=== PATIENT | male | born 1965 | race Caucasian/White ===

== ENCOUNTER 2020-02-21 11:02 | Emergency (ER) | payer MEDICARE, SELFPAY ==
[2020-02-21] VITALS (40 sets, daily range): BP systolic 81–116; BP diastolic 41–61; PULSE 85–97; RESP 16–24; TEMP 36.4–37.1; O2SAT 95–100; BMI 27.5
--- NOTE | 2020-02-21 11:50 | CT_ITS ---
WS: [id number] CT abdomen pelvis wo con [id number] REASON FOR EXAM: cirrhosis, anasarca, abdominal pain IV CONTRAST ADMINISTERED: None. TOTAL EXAM DLP: 1613.[address] scans at [facility] use at least one of these dose optimization techniques: automat ed exposure control; mA and/or kV adjustment per patient size (includes targeted exams where dose is matched to clinical indication); or iterative reconstruction. FINDINGS: Bilateral pleural effusion. in the liver is a hypodense irregular lesion. A stent is seen in the area of this lesion. The gallbladder shows multiple calcified stones. The spleen is enlarged measures 19 cm small amount of fluid is seen surrounding the liver. The liver small slightly irregular. The pancreas is normal. The aorta inferior vena cava are normal. A prominent caudate lobe is seen in the liver. The kidneys show normal appearance a cyst in the right kidney measures 2.52 cm. The left kidney was normal. The aorta inferior vena cava are normal. The small bowel shows mild ileus changes. Small amount of ascites is seen scattered throughout the abdomen. The right colon was normal appendix not distended. A Birch catheter seen in the urinary bladder. There is a left inguinal hernia with fat in the hernia. There is soft tissue edema seen in the subcutaneous region. . IMPRESSION: Suspect anasarca Cirrhosis of the liver Cyst in the liver with a shunt near the cyst Left-sided inguinal hernia no bowel in the hernia Left renal cyst Bilateral pleural effusion Multiple cholelithiasis. Small amount of ascites in the abdomen. Bilateral pleural effusion.
--- NOTE | 2020-02-21 12:14 | ED_ITS ---
HPI - Weakness General: Chief complaint: Weakness Stated complaint: swelling/sent from [facility] Time Seen by Provider: 02/21/20 11:32 Source: patient Mode of arrival: ambulatory Limitations: no limitations History of Present Illness: HPI Narrative: Patient is a 54-year-old gentleman with a history of alcoholic cirrhosis status post TIPS in 2017. He stated that since the procedure he has done really well and has not had any significant swelling. In the last 2 to 3 days he did notice increased leg swelling up to his thighs and some abdominal swelling. He has also become oliguric and has produced only about 3 ounces of urine in the last 24 hours. He denies any fever, nausea or vomiting. No change in his bowel habits. MD Complaint: generalized weakness Onset (ago): day(s) (2) Duration: constant Location: generalized Associated symptoms: Denies chills, dysuria, fever(s), headache(s), nausea or vomiting Review of Systems General: Reports: 10 or more systems reviewed and unremarkable except in HPI and below Const: Reports: fatigue; Denies: fever(s), chills or body aches Eyes: Denies: change in vision or blurry vision ENMT: Denies: throat pain, enlarged tonsils, odynophagia, hoarseness, mouth pain or swelling of lips/tongue Card: Denies: palpitations, irregular heart rhythm, edema or swelling of feet/ankles Resp: Denies: dyspnea, productive cough or non-productive cough GI: Reports: abdominal pain; Denies: nausea or vomiting : Denies: flank pain, dysuria, urinary frequency, urinary urgency or urinary hesitancy Musc: Reports: extremity swelling; Denies: neck pain or back pain Skin/Breast: Denies: rash, pruritus or erythema Neuro: Denies: headache(s), numbness in extremities or weakness in extremities Endo: Denies: polyuria, polydipsia or tired all the time PFSH ED PFSH: Social History Smoking and tobacco status: never smoked Physical Exam Const: COMMON NORMALS: no acute distress, average body habitus, patient oriented x3, no limitations, healthy appearing, alert and well nourished HENMT: COMMON NORMALS: normocephalic, atraumatic and moist oral mucous membranes HEAD & SCALP: normocephalic and atraumatic Eye: COMMON NORMALS: Equal, round and reactive pupils present, EOMs intact bilaterally, conjunctivae normal and no scleral icterus CONJUNCTIVA: Yes conjunctivae normal PUPIL: Yes Equal, round and reactive pupils present Neck/C-Spine: COMMON NORMALS: full ROM, supple, no meningeal signs, no JVD and No carotid bruits Chest: COMMONS NORMALS: normal inspection of the chest and normal palpation of entire chest wall Resp: COMMON NORMALS: normal respiratory effort, No retractions, No use of accessory muscles, clear to auscultation bilaterally and percussion normal AUSCULTATION: clear to auscultation bilaterally PERCUSSION: percussion normal Cardio: COMMON NORMALS: no JVD, regular rate, regular rhythm, S1 normal heart sound present, S2 normal heart sound present, No gallops present (Cardio), No clicks present (Cardio), No murmurs present (Cardio), No rub (Cardio) and Peripheral pulses 2+ throughout RATE: regular rate RHYTHM: regular rhythm HEART SOUNDS: S1 normal heart sound present and S2 normal heart sound present PERIPHERAL PULSES: Peripheral pulses 2+ throughout GI: COMMON NORMALS: Soft to palpation, non-tender, No hepatosplenomegaly present, no masses and no bruits INSPECTION: Yes abdominal distension (mild) PALPATION: Yes Soft to palpation and Yes No hepatosplenomegaly present : COMMON NORMALS: Yes no CVA tenderness BLADDER/KIDNEY EXAM: Yes no CVA tenderness Back/Pelvis: COMMON NORMALS: no CVA tenderness Extremity: COMMON NORMALS: normal to inspection, full ROM, capillary refill normal, no calf tenderness and no pedal edema GENERAL: Yes edema (4+ bilat eral pitting edema up to thigh) Neuro: COMMON NORMALS: patient oriented x3 SENSORIUM/ORIENTATION: Yes alert MENINGEAL SIGNS: Yes no meningeal signs Skin: COMMON NORMALS: no rashes or lesions noted, no wounds, turgor normal, no petechiae and no mottling GENERAL SKIN EXAM: no rashes or lesions noted, turgor normal and jaundice Course Reevaluation(s): Reevaluation #1: Discussed his lab and imaging findings with him. Informed him that he is pretty ill and will need to be transferred to [place] where he had his initial surgery done. He will need blood transfusion, antibiotics and will be transferred. The patient voiced understanding and is in agreement with the plan. Time: 16:10 Consultations: Consultation #1: Called [facility] to get his transferred. They will call back. Time: 16:18 Consultation #2: Dr. 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 He kindly accepted the patient but is not sure when there will be a bed. Time: 16:49 Vital Signs: Vital signs: Vital Signs Temperature 98.0 F 02/21/20 23:04 Pulse Rate 90 02/21/20 23:57 Respiratory Rate 19 H 02/21/20 23:57 Blood Pressure 94/48 02/21/20 23:57 Pulse Oximetry 96 02/21/20 23:57 MDM - Weakness MDM Narrative: Medical decision making narrative: 54-year-old gentleman with liver cirrhosis who presents to the emergency department with increasing leg swelling. And leg pain. Evaluation in the emergency department shows the patient is severely anemic requiring blood transfusion, in acute renal failure, with lactic acidosis although no obvious source of infection is noted. He had had a TIPS procedure done in [place] and he will be transferred there. He will be admitted to the ICU. While he was in the emergency department his blood pressure was declining and he required pressors eventually. Medical Records: Attestation: I reviewed the patient's medical records. Lab Data: Attestation: I reviewed the patient's lab results. Labs: Lab Results 02/21/20 02/21/20 02/21/20 Range/Units 12:30 12:30 12:30 WBC 11.4 H (4.0-10.0) 10^3/ uL RBC 3.04 L (4.1-5.3) 10^6/u L Hgb 6.1 L* (11.7-16.6) g/dL Hct 23.0 L (42.0-52.0) % MCV 75.7 L (80-94) fL MCH 20.1 L (28.0-34.0) pg MCHC 26.5 L (30.0-36.0) g/dL RDW 19.9 H (12.1-15.1) % Plt Count 88 L (130-400) 10^3/c mm MPV Button Clamper Nucleated RBC % (a uto) 0 % Nucleated RBCs # 0.0 /100WBC Sodium 130 L (136-145) mmol/L Potassium 4.3 (3.5-5.1) mmol/L Chloride 97 L (98-107) mmol/L Carbon Dioxide 12 L (22-29) mmol/L Anion Gap 25.3 H (5-19) BUN 37 H (6-20) mg/dL Creatinine 2.8 H (0.7-1.2) mg/dL GFR Calculation 23.6 L (90-130) mL/min Glucose 108 (65-115) mg/dL Calculated Osmolal ity 268 L (285-295) mOsm/k g Lactate 7.4 H* (0.5-2.2) mmol/L Calcium 7.9 L (8.5-10.5) mg/dL Total Bilirubin 3.5 H (0.15-1.2) mg/dL AST 52 H (0-40) U/L ALT 22 (0-41) U/L Alkaline Phosphata se 50 (40-130) IU/L Total Protein 5.3 L (6.6-8.7) g/dL Albumin 2.9 L (3.5-5.2) g/dL Globulin 2.4 (1.3-4.6) g/dL Lipase 15 (13-60) U/L Urine Color (Yellow) Urine Appearance (CLEAR) Urine pH (5-7) Ur Specific Gravit y (1.005-1.030) Urine Protein (Negative) Urine Glucose (UA) (Normal) Urine Ketones (Negative) Urine Blood (Negative) Urine Nitrate (Negative) Urine Bilirubin (NEGATIVE) Urine Urobilinogen (Negative) mg/dL Ur Leukocyte Christina ase (Negative) Urine RBC (0-2) /hpf Urine WBC (0-5) /hpf Ur Squamous Epith Cells (0-5) Amorphous Sediment Urine Bacteria (NONE) Hyaline Casts Urine Mucus Blood Type Rho(D) Type Antibody Screen Crossmatch 02/21/20 02/21/20 Range/Units 13:10 14:24 WBC (4.0-10.0) 10^3/ uL RBC (4.1-5.3) 10^6/u L Hgb (11.7-16.6) g/dL Hct (42.0-52.0) % MCV (80-94) fL MCH (28.0-34.0) pg MCHC (30.0-36.0) g/dL RDW (12.1-15.1) % Plt Count (130-400) 10^3/c mm MPV Nucleated RBC % (a uto) % Nucleated RBCs # /100WBC Sodium (136-145) mmol/L Potassium (3.5-5.1) mmol/L Chloride (98-107) mmol/L Carbon Dioxide (22-29) mmol/L Anion Gap (5-19) BUN (6-20) mg/dL Creatinine (0.7-1.2) mg/dL GFR Calculation (90-130) mL/min Glucose (65-115) mg/dL Calculated Osmolal ity (285-295) mOsm/k g Lactate (0.5-2.2) mmol/L Calcium (8.5-10.5) mg/dL Total Bilirubin (0.15-1.2) mg/dL AST (0-40) U/L ALT (0-41) U/L Alkaline Phosphata se (40-130) IU/L Total Protein (6.6-8.7) g/dL Albumin (3.5-5.2) g/dL Globulin (1.3-4.6) g/dL Lipase (13-60) U/L Urine Color Yellow (Yellow) Urine Appearance Sl cloudy A (CLEAR) Urine pH 5 (5-7) Ur Specific Gravit y 1.015 (1.005-1.030) Urine Protein Neg (Negative) Urine Glucose (UA) Norm (Normal) Urine Ketones Negative (Negative) Urine Blood 2+ H (Negative) Urine Nitrate Negative (Negative) Urine Bilirubin Neg (NEGATIVE) Urine Urobilinogen Neg (Negative) mg/dL Ur Leukocyte Christina ase Negative (Negative) Urine RBC 0-4 H (0-2) /hpf Urine WBC 15-25 H (0-5) /hpf Ur Squamous Epith Cells 0-4 H (0-5) Amorphous Sediment 1+ Urine Bacteria 1+ H (NONE) Hyaline Casts 5-10 H Urine Mucus 1+ Blood Type B Positive Rho(D) Type Positive Antibody Screen Negative Crossmatch See Detail Imaging Data^: CT Abd/Pel: Radiologist's impression: [address] [place] [address] CT Scan Report Signed Patient: Kyle Conde #: [id number] : 1965Acct#:[id number] Age/Sex: 54 / MADM Date: 02/21/20 Loc: ERRoom/Bed: Attending Dr: Ordering Provider/Ordering MD: Carlos Hatch MD, [facility] [place] Date of Service: 02/21/20 Procedure(s): CT abdomen pelvis wo con [id number] Accession Number(s): [id number] Report Number: [id number] WS: [id number] CT abdomen pelvis wo con [id number] REASON FOR EXAM: cirrhosis, anasarca, abdominal pain IV CONTRAST ADMINISTERED: None. TOTAL EXAM DLP: 1613.[address] scans at [facility] use at least one of these dose optimization techniques: automated exposure control; mA and/or kV adjustment per patient size (includes targeted exams where dose is matched to clinical indication); or iterative reconstruction. FINDINGS: Bilateral pleural effusion. in the liver is a hypodense irregular lesion. A stent is seen in the area of this lesion. The gallbladder shows multiple calcified stones. The spleen is enlarged measures 19 cm small amount of fluid is seen surrounding the liver. The liver small slightly irregular. The pancreas is normal. The aorta inferior vena cava are normal. A prominent caudate lobe is seen in the liver. The kidneys show normal appearance a cyst in the right kidney measures 2.52 cm. The left kidney was normal. The aorta inferior vena cava are normal. The small bowel shows mild ileus changes. Small amount of ascites is seen scattered throughout the abdomen. The right colon was normal appendix not distended. A Birch catheter seen in the urinary bladder. There is a left inguinal hernia with fat in the hernia. There is soft tissue edema seen in the subcutaneous region. . IMPRESSION: Suspect anasarca Cirrhosis of the liver Cyst in the liver with a shunt near the cyst Left-sided inguinal hernia no bowel in the hernia Left renal cyst Bilateral pleural effusion Multiple cholelithiasis. Small amount of ascites in the abdomen. Bilateral pleural effusion. Dictated By:Liam Howard DO Signed By:Liam Howard DOSigned Date/Time:02/21/20 1348 DD/ 1339 Critical Care Time Critical Care Time: Critical Care Time: Yes Total Critical Care Time: 50 Attestation: This case had a high probability of a clinically significant, sudden, or life threatening deterioration of this patient's condition which required my full and direct attention, intervention and personal management. Discharge Plan Discharge Patient Disposition: Xfer Short-Term Hosp Clinical Impression: Acidosis, lactic Acute renal failure Qualifiers: Acute renal failure type: unspecified Qualified Code(s): N17.9 - Acute kidney failure, unspecified Anemia Qualifiers: Anemia type: unspecified type Qualified Code(s): D64.9 - Anemia, unspecified Sepsis Qualifiers: Sepsis type: sepsis due to unspecified organism Sepsis acute organ dysfunction status: with acute organ dysfunction Severe sepsis acute organ dysfunction type: acute renal failure Acute renal failure type: unspecified Severe sepsis shock status: with septic shock Qualified Code(s): A41.9 - Sepsis, unspecified organism Condition: Stable Referrals: Manny Guzman DO [Family Provider] - Coding Level of Care Code ED 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
[2020-02-21 12:53] LABS: Mean Corpuscular HGB Conc 26.5 g/dL (30.0-36.0); Mean Corpuscular Hemoglobin 20.1 pg (28.0-34.0); Mean Corpuscular Volume 75.7 fL (80-94); Nucleated Red Blood Cells % 0 %; Platelet Count 88 10^3/cmm (130-400); Red Blood Count 3.04 10^6/uL (4.1-5.3); Red Cell Distribution Width 19.9 % (12.1-15.1); White Blood Count 11.4 10^3/uL (4.0-10.0)
[2020-02-21 12:56] LABS: Alanine Aminotransferase 22 U/L (0-41); Albumin Level 2.9 g/dL (3.5-5.2); Alkaline Phosphatase 50 IU/L (40-130); Anion Gap 25.3 (5-19); Aspartate Amino Transferase 52 U/L (0-40); Blood Urea Nitrogen 37 mg/dL (6-20); Calcium 7.9 mg/dL (8.5-10.5); Carbon Dioxide 12 mmol/L (22-29); Chloride 97 mmol/L (98-107); Globulin 2.4 g/dL (1.3-4.6); Glomerular Filtration Rate 23.6 mL/min (90-130); Glucose 108 mg/dL (65-115); Lipase 15 U/L (13-60); Osmolality Calculated 268 mOsm/kg (285-295); Potassium 4.3 mmol/L (3.5-5.1); Sodium 130 mmol/L (136-145); Total Bilirubin 3.5 mg/dL (0.15-1.2); Total Protein 5.3 g/dL (6.6-8.7)
[2020-02-21 13:20] LABS: Hemoglobin 6.1 g/dL (11.7-16.6)
[2020-02-21 13:22] LABS: Slide Review Slide Review Perform
[2020-02-21 13:23] LABS: Lactate (Lactic Acid level) 7.4 mmol/L (0.5-2.2)
[2020-02-21 13:45] LABS: Protein Urine Neg (Negative); Specific Gravity, Urine 1.015 (1.005-1.030); Urine Color Yellow (Yellow); pH Urine 5 (5-7)
[2020-02-21 13:46] LABS: Add Urine Microscopic? YES; Bilirubin Urine Neg (NEGATIVE); Blood Urine 2+ (Negative); Glucose Urine UA Norm (Normal); Ketones Urine Negative (Negative); Leukocyte Esterase Urine Negative (Negative); Nitrate Urine Negative (Negative); Urobilinogen Urine Neg (Negative)
[2020-02-21 13:47] LABS: Bacteria Urine 1+; Mucus Urine 1+; RBC Urine 0-4 /hpf (0-2); Squamous Epithelial Cell Urine 0-4 (0-5); WBC Urine 15-25 /hpf (0-5)
[2020-02-21 13:48] LABS: Add Urine Culture? Yes; Amorphous Sediment Urine 1+
[2020-02-21] MEDS: sodium chloride 0.9% 500 ML IV ×3 (15:15→22:00)
[2020-02-21] MEDS: piperacillin-tazobactam 3.375 GM in sodium chloride 0.9% (plus) 50 ML IV (15:16)
--- NOTE | 2020-02-21 20:36 | PC.NURSE ---
pt. informed of pt. BP declining no orders recieved.
--- NOTE | 2020-02-21 20:37 | PC.NURSE ---
informed of pt. declining BP no orders recieved.
--- NOTE | 2020-02-21 22:05 | PC.NURSE ---
informed of low BP ordered recieved for 500 NS
--- NOTE | 2020-02-21 22:22 | PC.NURSE ---
pt. BP cont... to go down, the blood was stopped.
--- NOTE | 2020-02-21 23:02 | PC.NURSE ---
recieved orders for norepi gtt. I called pharmacy, they states they would bring it down
--- NOTE | 2020-02-21 23:41 | PC.NURSE ---
BP 87/58 norepi increased to 3mcg/min form 2mcg/min
[2020-02-22] VITALS (7 sets, daily range): BP systolic 95–116; BP diastolic 48–57; PULSE 76–91; RESP 15–24; O2SAT 95–99
--- NOTE | 2020-02-22 00:07 | PC.NURSE ---
care and report given to Otilio BOONE the charge nurse
[2020-02-22 02:01] LABS: Lactic Sepsis W/Reflex 5.8 mmol/L (0.5-2.2)
[2020-02-22 03:20] LABS: Reflex Lactate Order REFLEX LACTIC ORDERD
--- NOTE | 2020-02-22 04:59 | PC.NURSE ---
[facility] called and wanted update on the patient, I gave them updated labs and updated vitals, the nurse advised she is not sure when they will have a bed available but they have his name down and he would get one when they have available bed.
[2020-02-22 06:42] LABS: Basophils # 0.1 10^3/uL (0.0-0.1); Basophils % 0.5 %; Eosinophils # 0.1 10^3/uL (0.0-0.8); Eosinophils % 0.3 %; Hematocrit 28.9 % (42.0-52.0); Hemoglobin 8.1 g/dL (11.7-16.6); Lymphocytes # 0.2 10^3/uL (0.8-4.8); Lymphocytes % 0.9 %; Mean Corpuscular Hemoglobin 21.7 pg (28.0-34.0); Mean Corpuscular Volume 77.3 fL (80-94); Mean Platelet Volume 11.8 fL (7.4-10.4); Monocytes # 1.3 10^3/uL (0.2-0.9); Neutrophils % 90.1 %; Nucleated Red Blood Cells % 0 %; Platelet Count 109 10^3/cmm (130-400); Red Blood Count 3.74 10^6/uL (4.1-5.3); Red Cell Distribution Width 19.5 % (12.1-15.1)
[2020-02-22 06:50] LABS: INR 1.63 (0.8-1.2)
[2020-02-22 06:58] LABS: Alanine Aminotransferase 24 U/L (0-41); Albumin Level 2.7 g/dL (3.5-5.2); Alkaline Phosphatase 44 IU/L (40-130); Anion Gap 24.2 (5-19); Aspartate Amino Transferase 59 U/L (0-40); Blood Urea Nitrogen 48 mg/dL (6-20); Calcium 7.6 mg/dL (8.5-10.5); Carbon Dioxide 13 mmol/L (22-29); Chloride 97 mmol/L (98-107); Globulin 2.6 g/dL (1.3-4.6); Glomerular Filtration Rate 25.8 mL/min (90-130); Glucose 62 mg/dL (65-115); Osmolality Calculated 266 mOsm/kg (285-295); Potassium 4.2 mmol/L (3.5-5.1); Sodium 130 mmol/L (136-145); Total Protein 5.3 g/dL (6.6-8.7)
[2020-02-22 07:09] LABS: Total Bilirubin 7.4 mg/dL (0.15-1.2)
[2020-02-22 07:26] LABS: Lactate (Lactic Acid level) 5.3 mmol/L (0.5-2.2)
[2020-02-22] MEDS: piperacillin-tazobactam 3.375 GM in sodium chloride 0.9% (plus) 50 ML IV (09:02)
== END 2020-02-22 16:16 | disposition short-term general hospital (02) ==
PROVIDERS: Family Medicine; Emergency Provider Emergency Medicine; Family Provider Internal Medicine
DX: N17.9 Acute kidney failure, unspecified (principal); D64.9 Anemia, unspecified; A41.9 Sepsis, unspecified organism
CPT/HCPCS: 12345; 36415; 36430; 51702; 74176; 80053; 81001; 83605; 83690; 85025; 85610; 86850; 86900; 86920; 87040; 87077; 87086; 87186; 96365; 96366; 96367; 96368; 99284; 99285; J2543; J7040; P9016; P9047

== ENCOUNTER 2020-04-04 23:26 | Inpatient (IN) | payer MEDICARE, SELFPAY ==
--- NOTE | 2020-04-04 23:30 | CTR_ITS ---
PROCEDURE INFORMATION: Exam: CT Head Without Contrast Exam date and time: 04/04/2020 12:07 AM Age: 54 years old Clinical indication: Fever; Additional info: AMS TECHNIQUE: Imaging protocol: Computed tomography of the head without contrast. Radiation optimization: All CT scans at this facility use at least one of these dose optimization techniques: automated exposure control; mA and/or kV adjustment per patient size (includes targeted exams where dose is matched to clinical indication); or iterative reconstruction. COMPARISON: CT head wo con* [id number] 12/19/2018 6:53 PM RADIATION DOSE METRICS: Total DLP (mGy-cm): 873.99 FINDINGS: Brain: The brain is unremarkable. There is no mass effect or significant white matter disease. There is no acute intracranial hemorrhage. Ventricles: There is no significant ventricular dilation. The basal cisterns are unremarkable. Bones/joints: The calvarium is intact. Sinuses: The paranasal sinuses are clear. Mastoid air cells: The mastoid air cells are clear. Soft tissues: The visible extracranial soft tissues are unremarkable. CT/CT head wo con* [id number] IMPRESSION: No acute findings. Radiation Dose CTDIVOL = (mGy): DLP = 873.99 (mGy-cm)
--- NOTE | 2020-04-04 23:30 | XRR_ITS ---
PROCEDURE INFORMATION: Exam: XR Chest, 1 View Exam date and time: 04/04/2020 11:32 PM Age: 54 years old Clinical indication: Fever TECHNIQUE: Imaging protocol: XR of the chest Views: 1 view. COMPARISON: CR Chest 1 [place] [id number] 12/19/2018 6:14 PM FINDINGS: Lungs: There is no consolidation. Pleural space: There is no pleural effusion or pneumothorax. Heart/Mediastinum: There is mild enlargement of the cardiac silhouette. Bones/joints: Bones are unremarkable. XR/XR chest 1V portable [id number] IMPRESSION: No acute findings.
--- NOTE | 2020-04-04 23:31 | ECG_ITS ---
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 Measurements Intervals [place] Rate: 107 P: 40 SC: 187 QRS: 16 QRSD: 98 T: 65 QT: 293 QTc: 392 Interpretive Statements SINUS TACHYCARDIA NONSPECIFIC ST & T-WAVE ABNORMALITY ABNORMAL RHYTHM ECG Compared to ECG 12/20/2018 03:27:13 Sinus rhythm no longer present First degree AV block no longer present T-wave abnormality still present Electronically Signed On 04-05-2020 22:03:12 CDT by Edison Duenas M.D. [id number]
--- NOTE | 2020-04-04 23:32 | W.ED.AMS ---
HPI - Altered Mental Status General: Chief Complaint: Altered Mental Status Stated Complaint: AMS S/P FALL Time Seen by Provider: 04/04/20 23:27 Source: patient and EMS Mode of arrival: EMS Limitations: no limitations History of Present Illness: HPI narrative: 54-year-old male per EMS has been feeling weak all day. He does have a history of cirrhosis. Spouse states that he became altered roughly 1 hour ago. Patient here is able answer my questions and able to tell me the year along with his name. EMS states he was not able to do that 10 minutes ago. Patient was febrile with EMS. He denies any headache or neck pain. Patient denies any cough. Associated symptoms: Deny depression Review of Systems Const: Reports: fever(s) Eyes: Denies: blurry vision or eye discomfort ENMT: Denies: throat pain or dental pain Card: Denies: chest pain Resp: Denies: dyspnea GI: Denies: abdominal pain, nausea, vomiting or diarrhea : Denies: dysuria Musc: Denies: neck pain or back pain Skin/Breast: Denies: rash Neuro: Reports: weakness in extremities and confusion Psych: Denies: depression Patel/Lymph: Denies: easy bruising All/Imm: Denies: urticaria PFSH ED PFSH: Social History Smoking and tobacco status: never smoked Physical Exam Const: COMMON NORMALS: patient oriented x3 GENERAL APPEARANCE: ill appearing HENMT: COMMON NORMALS: normocephalic and atraumatic HEAD & SCALP: normocephalic and atraumatic Eye: COMMON NORMALS: Equal, round and reactive pupils present and EOMs intact bilaterally PUPIL: Yes Equal, round and reactive pupils present Neck/C-Spine: COMMON NORMALS: full ROM and supple Chest: COMMONS NORMALS: normal inspection of the chest and normal palpation of entire chest wall Resp: COMMON NORMALS: normal respiratory effort, No retractions, No use of accessory muscles and clear to auscultation bilaterally AUSCULTATION: clear to auscultation bilaterally Cardio: COMMON NORMALS: regular rate, regular rhythm and No murmurs present (Cardio) RATE: regular rate RHYTHM: regular rhythm GI: COMMON NORMALS: Normal to inspection, nondistended, normoactive bowel sounds present, Soft to palpation, non-tender and no masses PALPATION: Yes Soft to palpation Extremity: COMMON NORMALS: normal to inspection and full ROM Neuro: COMMON NORMALS: patient oriented x3, moves all extremities and no focal motor deficits Psych: COMMON NORMALS: mental status grossly normal, Normal thought process present and cooperative THOUGHT PROCESS: Normal thought process present Skin: COMMON NORMALS: no rashes or lesions noted and no wounds GENERAL SKIN EXAM: no rashes or lesions noted Course Vital Signs: Vital signs: Vital Signs Temperature 99.1 F 04/05/20 02:00 Pulse Rate 80 04/05/20 05:00 Respiratory Rate 16 04/05/20 05:00 Blood Pressure 123/58 04/05/20 05:00 Pulse Oximetry 97 04/05/20 05:00 MDM - Altered Mental Status MDM Narrative: Medical decision making narrative: Patient presents with altered mental status that since resolved. He is also febrile and septic. Patient's fever has subsided and is vitals are normal currently. He did have an elevated lactate. Patient has a possible cholecystitis. Patient started on IV antibiotics here and is seen hospitalist Wanda in the ER and will admit to the ICU. Patient has no signs of pneumonia. He has no headache or neck pain with no signs of meningitis. Lab Data: Labs: Lab Results 04/04/20 04/04/20 04/04/20 Range/Units 23:15 23:15 23:15 WBC 9.6 (4.0-10.0) 10^3/ uL RBC 3.39 L (4.1-5.3) 10^6/u L Hgb 9.0 L (11.7-16.6) g/dL Hct 29.8 L (42.0-52.0) % MCV 87.9 (80-94) fL MCH 26.5 L (28.0-34.0) pg MCHC 30.2 (30.0-36.0) g/dL RDW 23.9 H (12.1-15.1) % Plt Count 147 (130-400) 10^3/c mm MPV 11.3 H (7.4-10.4) fL Neut % (Auto) 91.7 % Lymph % (Auto) 2.8 % Camden % (Auto) 4.5 % Eos % (Auto) 0.0 % Baso % (Auto) 0.3 % Neut # (Auto) 8.78 H (1.8-7.7) 10^3/u L Lymph # (Auto) 0.3 L (0.8-4.8) 10^3/u L Camden # (Auto) 0.4 (0.2-0.9) 10^3/u L Eos # (Auto) 0.0 (0.0-0.8) 10^3/u L Baso # (Auto) 0.0 (0.0-0.1) 10^3/u L Nucleated RBC % (a uto) 0 % Nucleated RBCs # 0.0 /100WBC PT 18.40 H (10.5-13.3) SECO NDS INR 1.48 H (0.8-1.2) Sodium 135 L (136-145) mmol/L Potassium 3.0 L (3.5-5.1) mmol/L Chloride 95 L (98-107) mmol/L Carbon Dioxide 24 (22-29) mmol/L Anion Gap 19.0 (5-19) BUN 8 (6-20) mg/dL Creatinine 1.0 (0.7-1.2) mg/dL GFR Calculation 77.6 L (90-130) mL/min Glucose 254 H (65-115) mg/dL Calculated Osmolal ity 285 (285-295) mOsm/k g Lactate (0.5-2.2) mmol/L Calcium 8.2 L (8.5-10.5) mg/dL Magnesium 1.7 (1.7-2.3) mg/dL Total Bilirubin 4.3 H (0.15-1.2) mg/dL AST 32 (0-40) U/L ALT 12 (0-41) U/L Alkaline Phosphata se 120 (40-130) IU/L Ammonia (16-60) umol/L Total Protein 7.8 (6.6-8.7) g/dL Albumin 2.9 L (3.5-5.2) g/dL Globulin 4.9 H (1.3-4.6) g/dL Lipase 82 H (13-60) U/L Urine Color (Yellow) Urine Appearance (CLEAR) Urine pH (5-7) Ur Specific Gravit y (1.005-1.030) Urine Protein (Negative) Urine Glucose (UA) (Normal) Urine Ketones (Negative) Urine Blood (Negative) Urine Nitrate (Negative) Urine Bilirubin (NEGATIVE) Urine Urobilinogen (Negative) mg/dL Ur Leukocyte Christina ase (Negative) Urine Opiates Scre en (Negative) ng/mL Ur Barbiturates Sc reen (Negative) ng/mL Ur Phencyclidine S crn (Negative) ng/mL Ur Amphetamines Sc reen (Negative) ng/mL U Benzodiazepines Scrn (Negative) ng/mL Urine Cocaine Scre en (Negative) ng/mL U Marijuana (THC) Screen (Negative) ng/mL Ethyl Alcohol < 10 (0-10) mg/dL 04/05/20 04/05/20 04/05/20 Range/Units 00:15 00:59 02:28 WBC (4.0-10.0) 10^3/ uL RBC (4.1-5.3) 10^6/u L Hgb (11.7-16.6) g/dL Hct (42.0-52.0) % MCV (80-94) fL MCH (28.0-34.0) pg MCHC (30.0-36.0) g/dL RDW (12.1-15.1) % Plt Count (130-400) 10^3/c mm MPV (7.4-10.4) fL Neut % (Auto) % Lymph % (Auto) % Camden % (Auto) % Eos % (Auto) % Baso % (Auto) % Neut # (Auto) (1.8-7.7) 10^3/u L Lymph # (Auto) (0.8-4.8) 10^3/u L Camden # (Auto) (0.2-0.9) 10^3/u L Eos # (Auto) (0.0-0.8) 10^3/u L Baso # (Auto) (0.0-0.1) 10^3/u L Nucleated RBC % (a uto) % Nucleated RBCs # /100WBC PT (10.5-13.3) SECO NDS INR (0.8-1.2) Sodium (136-145) mmol/L Potassium (3.5-5.1) mmol/L Chloride (98-107) mmol/L Carbon Dioxide (22-29) mmol/L Anion Gap (5-19) BUN (6-20) mg/dL Creatinine (0.7-1.2) mg/dL GFR Calculation (90-130) mL/min Glucose (65-115) mg/dL Calculated Osmolal ity (285-295) mOsm/k g Lactate 5.3 H* (0.5-2.2) mmol/L Calcium (8.5-10.5) mg/dL Magnesium (1.7-2.3) mg/dL Total Bilirubin (0.15-1.2) mg/dL AST (0-40) U/L ALT (0-41) U/L Alkaline Phosphata se (40-130) IU/L Ammonia 73 H (16-60) umol/L Total Protein (6.6-8.7) g/dL Albumin (3.5-5.2) g/dL Globulin (1.3-4.6) g/dL Lipase (13-60) U/L Urine Color Yellow (Yellow) Urine Appearance Clear (CLEAR) Urine pH 5 (5-7) Ur Specific Gravit y 1.010 (1.005-1.030) Urine Protein Neg (Negative) Urine Glucose (UA) Norm (Normal) Urine Ketones Negative (Negative) Urine Blood Neg (Negative) Urine Nitrate Negative (Negative) Urine Bilirubin Neg (NEGATIVE) Urine Urobilinogen Norm (Negative) mg/dL Ur Leukocyte Christina ase Negative (Negative) Urine Opiates Scre en (Negative) ng/mL Ur Barbiturates Sc reen (Negative) ng/mL Ur Phencyclidine S crn (Negative) ng/mL Ur Amphetamines Sc reen (Negative) ng/mL U Benzodiazepines Scrn (Negative) ng/mL Urine Cocaine Scre en (Negative) ng/mL U Marijuana (THC) Screen (Negative) ng/mL Ethyl Alcohol (0-10) mg/dL 04/05/20 Range/Units 02:28 WBC (4.0-10.0) 10^3/ uL RBC (4.1-5.3) 10^6/u L Hgb (11.7-16.6) g/dL Hct (42.0-52.0) % MCV (80-94) fL MCH (28.0-34.0) pg MCHC (30.0-36.0) g/dL RDW (12.1-15.1) % Plt Count (130-400) 10^3/c mm MPV (7.4-10.4) fL Neut % (Auto) % Lymph % (Auto) % Cam[place] % (Auto) % Eos % (Auto) % Baso % (Auto) % Neut # (Auto) (1.8-7.7) 10^3/u L Lymph # (Auto) (0.8-4.8) 10^3/u L [place] # (Auto) (0.2-0.9) 10^3/u L Eos # (Auto) (0.0-0.8) 10^3/u L Baso # (Auto) (0.0-0.1) 10^3/u L Nucleated RBC % (a uto) % Nucleated RBCs # /100WBC PT (10.5-13.3) SECO NDS INR (0.8-1.2) Sodium (136-145) mmol/L Potassium (3.5-5.1) mmol/L Chloride (98-107) mmol/L Carbon Dioxide (22-29) mmol/L Anion Gap (5-19) BUN (6-20) mg/dL Creatinine (0.7-1.2) mg/dL GFR Calculation (90-130) mL/min Glucose (65-115) mg/dL Calculated Osmolal ity (285-295) mOsm/k g Lactate (0.5-2.2) mmol/L Calcium (8.5-10.5) mg/dL Magnesium (1.7-2.3) mg/dL Total Bilirubin (0.15-1.2) mg/dL AST (0-40) U/L ALT (0-41) U/L Alkaline Phosphata se (40-130) IU/L Ammonia (16-60) umol/L Total Protein (6.6-8.7) g/dL Albumin (3.5-5.2) g/dL Globulin (1.3-4.6) g/dL Lipase (13-60) U/L Urine Color (Yellow) Urine Appearance (CLEAR) Urine pH (5-7) Ur Specific Gravit y (1.005-1.030) Urine Protein (Negative) Urine Glucose (UA) (Normal) Urine Ketones (Negative) Urine Blood (Negative) Urine Nitrate (Negative) Urine Bilirubin (NEGATIVE) Urine Urobilinogen (Negative) mg/dL Ur Leukocyte Christina ase (Negative) Urine Opiates Scre en Negative (Negative) ng/mL Ur Barbiturates Sc reen Negative (Negative) ng/mL Ur Phencyclidine S crn Negative (Negative) ng/mL Ur Amphetamines Sc reen Negative (Negative) ng/mL U Benzodiazepines Scrn Negative (Negative) ng/mL Urine Cocaine Scre en Negative (Negative) ng/mL U Marijuana (THC) Screen Negative (Negative) ng/mL Ethyl Alcohol (0-10) mg/dL Imaging Data^: CT Head: Attestation: I personally reviewed and interpreted this imaging study as follows: Radiologist's impression: [address] [address] [address] Scan Report Signed Patient: Kyle Conde Unit #: [id number] : 1965 Age/Sex: 54 / M ADM Date: 04/04/20 Loc: ER Room/Bed: Attending Dr: Ordering Provider/Ordering MD: Darren Rodriguez MD Date of Service: 04/04/20 Procedure(s): CT head wo con* [id number] Accession Number(s): [id number] Report Number: [id number] PROCEDURE INFORMATION: Exam: CT Head Without Contrast Exam date and time: 04/04/2020 12:07 AM Age: 54 years old Clinical indication: Fever; Additional info: AMS TECHNIQUE: Imaging protocol: Computed tomography of the head without contrast. Radiation optimization: All CT scans at this facility use at least one of these dose optimization techniques: automated exposure control; mA and/or kV adjustment per patient size (includes targeted exams where dose is matched to clinical indication); or iterative reconstruction. COMPARISON: CT head wo con* [id number] 12/19/2018 6:53 PM RADIATION DOSE METRICS: Total DLP (mGy-cm): 873.99 FINDINGS: Brain: The brain is unremarkable. There is no mass effect or significant white matter disease. There is no acute intracranial hemorrhage. Ventricles: There is no significant ventricular dilation. The basal cisterns are unremarkable. Bones/joints: The calvarium is intact. Sinuses: The paranasal sinuses are clear. Mastoid air cells: The mastoid air cells are clear. Soft tissues: The visible extracranial soft tissues are unremarkable. CT/CT head wo con* [id number] IMPRESSION: No acute findings. Discharge Plan Discharge Patient Disposition: Home, Self-Care Clinical Impression: Sepsis Fever Qualifiers: Fever type: unspecified Qualified Code(s): R50.9 - Fever, unspecified Cirrhosis Qualifiers: Hepatic cirrhosis type: unspecified hepatic cirrhosis Ascites presence: with ascites Qualified Code(s): K74.60 - Unspecified cirrhosis of liver Condition: Stable Coding Level of Care Code ED Director [employer] for g 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
[2020-04-04 23:42] VITALS: BP 165/63; PULSE 107; RESP 12; TEMP 40.1; O2SAT 96; BMI 29.3
--- NOTE | 2020-04-04 23:55 | CTR_ITS ---
PROCEDURE INFORMATION: Exam: CT Abdomen And Pelvis With Contrast Exam date and time: 04/04/2020 12:07 AM Age: 54 years old Clinical indication: Fever TECHNIQUE: Imaging protocol: Computed tomography of the abdomen and pelvis with intravenous contrast. Radiation optimization: All CT scans at this facility use at least one of these dose optimization techniques: automated exposure control; mA and/or kV adjustment per patient size (includes targeted exams where dose is matched to clinical indication); or iterative reconstruction. Contrast material: OMNI 300; Contrast volume: 95 ml; Contrast route: INTRAVENOUS (IV); COMPARISON: CT abdomen pelvis wo con [id number] 02/21/2020 1:22 PM RADIATION DOSE METRICS: Total DLP (mGy-cm): 1415.33 FINDINGS: Lungs: There is subsegmental atelectasis in the lung bases. Pleural space: Moderate size bilateral pleural effusions. Liver: The liver has a nodular surface and there is relative hypertrophy of the left and caudate lobe consistent with cirrhosis. There is a simple liver cyst in the left lobe adjacent to the fissure for the falciform ligament. Gallbladder and bile ducts: The gallbladder contains small calcified stones. The lumen is incompletely distended and the wall is mildly edematous. There is no biliary dilation. Pancreas: The pancreas is unremarkable. Spleen: Marked splenic enlargement. Adrenals: The adrenal glands are unremarkable. Kidneys and ureters: There is a simple cyst in the right kidney. There is no hydronephrosis or stones. Stomach and bowel: The stomach is decompressed, preventing meaningful evaluation of wall thickness. The small bowel is nondilated. The colon is unremarkable. Appendix: The appendix is normal. Intraperitoneal space: Small volume pelvic ascites. Mesenteric edema in the central and lower abdomen. There is no intraperitoneal free air. Vasculature: The portal, splenic and superior mesenteric veins are patent. Patent TIPS. There is mild aortic atherosclerotic disease. Lymph nodes: There is no lymphadenopathy in the retroperitoneum, mesentery, pelvis or inguinal regions. There are multiple normal sized bilateral inguinal nodes. Bladder: The urinary bladder is unremarkable. Reproductive: The prostate and seminal vesicles are unremarkable. Bones/joints: There is moderate degenerative disease in the lumbar spine. The pelvis and hips are intact. Soft tissues: The abdominal wall is intact. CT/CT abdomen pelvis w con* [id number] IMPRESSION: 1. Cholelithiasis with gallbladder wall thickening. Wall thickening may be due to cholecystitis or liver disease. 2. Cirrhosis and splenic enlargement with mild ascites and bilateral pleural effusions, mildly increased since 02/21/2020. 3. Patent TIPS 4. Incidental findings above. COMMENTS: Consistent with the [employer]'s Incidental Findings Committee white paper (J Am Camron Radiol 2018): Any incidental renal lesion less than 1.0 cm or classified as too small to characterize, or any incidental cystic renal lesion characterized as simple-appearing, is likely benign. No follow-up imaging is recommended for these lesions per consensus recommendations based on imaging criteria. Radiation Dose CTDIVOL = (mGy): DLP = 1415.33 (mGy-cm)
[2020-04-05] VITALS (25 sets, daily range): BP systolic 96–155; BP diastolic 47–62; PULSE 63–108; RESP 16–25; TEMP 36.7–37.3; O2SAT 96–100
[2020-04-05] LABS: Basophils % 0.3 %; Hematocrit 29.8 % (42.0-52.0); Lymphocytes # 0.3 10^3/uL (0.8-4.8); Lymphocytes % 2.8 %; Mean Corpuscular HGB Conc 30.2 g/dL (30.0-36.0); Mean Corpuscular Hemoglobin 26.5 pg (28.0-34.0); Mean Corpuscular Volume 87.9 fL (80-94); Mean Platelet Volume 11.3 fL (7.4-10.4); Monocytes # 0.4 10^3/uL (0.2-0.9); Monocytes % 4.5 %; Neutrophils # 8.78 10^3/uL (1.8-7.7); Neutrophils % 91.7 %; Nucleated Red Blood Cells % 0 %; Platelet Count 147 10^3/cmm (130-400); Red Blood Count 3.39 10^6/uL (4.1-5.3); Red Cell Distribution Width 23.9 % (12.1-15.1); White Blood Count 9.6 10^3/uL (4.0-10.0)
[2020-04-05 00:11] LABS: Alanine Aminotransferase 12 U/L (0-41); Albumin Level 2.9 g/dL (3.5-5.2); Alkaline Phosphatase 120 IU/L (40-130); Aspartate Amino Transferase 32 U/L (0-40); Blood Urea Nitrogen 8 mg/dL (6-20); Calcium 8.2 mg/dL (8.5-10.5); Carbon Dioxide 24 mmol/L (22-29); Chloride 95 mmol/L (98-107); Globulin 4.9 g/dL (1.3-4.6); Glomerular Filtration Rate 77.6 mL/min (90-130); Glucose 254 mg/dL (65-115); Lipase 82 U/L (13-60); Magnesium 1.7 mg/dL (1.7-2.3); Osmolality Calculated 285 mOsm/kg (285-295); Sodium 135 mmol/L (136-145); Total Bilirubin 4.3 mg/dL (0.15-1.2); Total Protein 7.8 g/dL (6.6-8.7)
[2020-04-05 00:15] LABS: INR 1.48 (0.8-1.2)
[2020-04-05 00:24] LABS: Alcohol Level < 10 mg/dL (0-10)
[2020-04-05] MEDS: sodium chloride 0.9% 1,000 ML 999 ML IV (00:27)
[2020-04-05] MEDS: acetaminophen 325 mg Tablet 650 MG PO (00:27)
[2020-04-05 00:52] LABS: Lactate (Lactic Acid level) 5.3 mmol/L (0.5-2.2)
[2020-04-05 01:24] LABS: Ammonia 73 umol/L (16-60)
[2020-04-05] MEDS: iohexol 300 mg/mL 100 mL Btl IV (01:53)
[2020-04-05 02:36] LABS: Add Urine Microscopic? NO
[2020-04-05 02:51] LABS: Amphetamines Screen Urine Negative (Negative); Barbiturates Screen Urine Negative (Negative); Benzodiazepines Screen Urine Negative (Negative); Cocaine Screen Urine Negative (Negative); Opiate Screen Urine Negative (Negative); PCP Screen Urine Negative (Negative); THC Screen Urine Negative (Negative)
[2020-04-05 02:54] LABS: Bilirubin Urine Neg (NEGATIVE); Blood Urine Neg (Negative); Glucose Urine UA Norm (Normal); Ketones Urine Negative (Negative); Leukocyte Esterase Urine Negative (Negative); Nitrate Urine Negative (Negative); Protein Urine Neg (Negative); Urine Appearance Clear (CLEAR); Urine Color Yellow (Yellow); Urobilinogen Urine Norm (Negative); pH Urine 5 (5-7)
--- NOTE | 2020-04-05 02:54 | PC.NURSE ---
STRAIGHT CATH COMPLETED AT 2359 USING A 16F CATH.
--- NOTE | 2020-04-05 03:07 | USR_ITS ---
PROCEDURE INFORMATION: Exam: US Abdomen, Limited; Right Upper Quadrant Exam date and time: 04/05/2020 3:58 AM Age: 54 years old Clinical indication: Abdominal pain; Additional info: Gallstones TECHNIQUE: Imaging protocol: US abdomen. Real time ultrasound with image documentation. Limited exam focused on the right upper quadrant. COMPARISON: US abdomen limited [id number] 12/20/2018 2:27 PM FINDINGS: Liver: Limited visualization of the liver demonstrates no focal abnormality. Gallbladder: The gallbladder is nondistended. The wall is borderline thickened. There are several large shadowing gallstones in the lumen. Sonographic Howard sign is positive. Common bile duct: The common bile duct is nondilated measuring 4 mm. Pancreas: The pancreas is unremarkable. Right kidney: The right kidney contains a simple cyst and is otherwise unremarkable. Aorta: The visible portion of the aorta is unremarkable. Portal venous: The portal vein is patent. US/US gall bladder [id number] IMPRESSION: Equivocal findings for cholecystitis. Cholelithiasis is present and sonographic Howard sign is positive. The gallbladder is not significantly distended and the wall is borderline thickened.
[2020-04-05 05:33] LABS: C Reactive Protein 18.8 mg/L (0.0-4.9)
--- NOTE | 2020-04-05 05:40 | PM.HP ---
Providers/Chief Complaint Admitting Physician: Vikram Moy Chief Complaint: AMS S/P FALL History of Present Illness Kyle Conde is a 54 year old gentleman with alcoholic liver cirrhosis status post TIPS,, abstinent for past 3 years, was noted generally weak last several days, sleeping more than usual, and yesterday he was having chills and sweats. Had mild productive cough for several days. Otherwise was in his usual state of health. Has chronic LE swelling. Does not get up much at baseline after last admission. Did not do much of any PT exercise at home. Mostly sits in a chair. In ER on presentation with high fever of 104 Fahrenheit, with sinus tachycardia 102. No leukocytosis. Lactic acidosis, although this appears to be chronic. LA 5.3. Mild hyponatremia, mild hypokalemia. Ammonia mildly elevated at 73. Bilirubin chronically elevated, and appears lower than last admission at 4.3. Lipase mildly elevated at 82. Chest x-ray unremarkable. CT abdomen pelvis with cholelithiasis, gallbladder wall thickening, possibly due to cholecystitis versus liver disease. Liver cirrhosis noted. Patent TIPS. Splenomegaly. Small volume pelvic ascites. His lower extremities are chronically swollen. Review of Systems Const: Reports: chills, fatigue, night sweats and other (Per has had decline in functional status since last admit in February to [facility] Denies: fever(s), body aches or malaise Eyes: Denies: change in vision or eye redness ENMT: Denies: throat pain, oral sores or ear or mastoid pain Card: Denies: chest pain, edema, pre-syncope or dyspnea on exertion Resp: Reports: productive cough; Denies: dyspnea, change in phlegm color or hemoptysis GI: Denies: abdominal pain, nausea, vomiting, diarrhea, constipation, hematochezia or melena : Denies: flank pain, difficulty urinating, urinary frequency or hematuria Musc: Reports: extremity swelling (Chronic bilateral lower extremity edema); Denies: back pain, joint swelling or joint redness Skin/Breast: Denies: rash, sores or new lesions Neuro: Denies: headache(s), numbness in extremities, weakness in extremities, dizziness, confusion or seizure-like activity Endo: Denies: polyuria or polydipsia Patel/Lymph: Denies: easy bleeding or purpura All/Imm: Denies: urticaria, throat swelling or tongue swelling Medications/Allergies Home Medications Medication Instructions Recorded Confirmed Last Taken Type furosemide [Lasix] 20 mg PO BID 02/21/20 02/21/20 02/21/20 History lactulose 30 g PO TID 02/21/20 02/21/20 02/20/20 History spironolactone 50 mg PO DAILY 02/21/20 02/21/20 02/20/20 History Allergies Allergy/AdvReac Type Severity Reaction Status Date / Time hydrocodone Allergy ADR-Nausea Verified 02/21/20 11:20 morphine Allergy ADR-Drowsy Verified 02/21/20 11:20 oxycodone [From OxyContin] Allergy ADR-Nausea Verified 02/21/20 11:20 PFSH Acute PFSH: Medical History Alcoholic cirrhosis of liver Swelling of lower extremity Venous stasis dermatitis Surgical History S/P TIPS (transjugular intrahepatic portosystemic shunt) Family History Other Healthy adult Social History Smoking and tobacco status: never smoked Alcohol intake: former Year of sobriety/quit date alcohol: 3 ya Substance/Drug Use: never Lives independently: No Household members: spouse Marital status: Current occupational status: unemployed Vitals/I&O/Wt Last Vital Signs Temp 99.1 F 04/05/20 02:00 Pulse 80 04/05/20 05:00 Resp 16 04/05/20 05:00 BP 123/58 04/05/20 05:00 Pulse Ox 97 04/05/20 05:00 04/04/20 04/04/20 04/05/20 14:59 22:59 06:59 Intake Total 1000 / 1000 Balance 1000 / 1000 Weight last 48 hrs Weight 106.594 kg Physical Exam Const: COMMON NORMALS: no acute distress and patient oriented x3 OTHER: During my visit mental status is better. He is oriented x3. Currently is providing his own history. Called the , and most history appears correct. She feels in some leg labs regarding his declining functional status. He has slightly delayed responses, but otherwise is appropriate and pleasant. HENMT: COMMON NORMALS: oropharynx normal Neck/C-Spine: COMMON NORMALS: no JVD Resp: COMMON NORMALS: normal respiratory effort and clear to auscultation bilaterally AUSCULTATION: clear to auscultation bilaterally Cardio: COMMON NORMALS: no JVD, regular rhythm, S1 normal heart sound present, S2 normal heart sound present and No murmurs present (Cardio) RHYTHM: regular rhythm HEART SOUNDS: S1 normal heart sound present and S2 normal heart sound present GI: COMMON NORMALS: Normal to inspection, nondistended, normoactive bowel sounds present and Soft to palpation PALPATION: Yes Soft to palpation OTHER: Howard sign is mildly positive. Abdomen is nontender in any other locations. Extremity: COMMON NORMALS: no joint enlargement GENERAL: Yes edema (Chronic edema of lower extremities. 3+. With chronic skin changes. Edema up to thighs.) Neuro: COMMON NORMALS: patient oriented x3 and moves all extremities Skin: RASHES: rashes noted (Chronic venous dermatitis changes on bilateral lower extremities, with some superimposed redness bilaterally up to knees. Chronic changes of skin texture) Data : 04/04/20 23:15 04/04/20 23:15 Micro: Microbiology 04/05/20 00:18 Blood Culture - Preliminary Blood SPECIMEN COLLECTED 04/05/20 00:25 Blood Culture - Preliminary Blood SPECIMEN COLLECTED A&P Assessment and plan (1) Sepsis: With fever of 104, tachycardia heart rate in the low 100s. Sepsis suspected on presentation. Source is not entirely clear. He has been having some chills, sweats, productive cough last few days. No pneumonia noted on chest x-ray. Possibility of viral infection needs to be considered, and so he will be tested for flu, COVID-19. At the same time does have mildly positive Howard sign, cholelithiasis, mild gallbladder wall thickening. Chronically elevated bilirubin. No signs of cholangitis on ultrasound. At this time empirically treat for cholecystitis. With antibiotics. N.p.o. Monitor condition. He is at elevated risk for surgery, ASA class III, and so not a great surgical candidate for early cholecystectomy. For now we will start treatment with antibiotics, supportive care. Consider additional surgical consultation for evaluation of possibility of cholecystectomy, or other nonoperative alternatives. Additionally with chronic venous stasis dermatitis, chronic edema bilaterally. Currently anasarca. There is some erythema, warmth to bilateral extremities. Cannot exclude he does not have overlying cellulitis, although in bilateral extremities this would certainly be less common. For now will empirically add vancomycin as well to antibiotic regimen. There is no purulence to collect for culture. There is mild ascites noted in the pelvis. It does not appear to be enough for paracentesis, however, depending on his condition, consider reassessing if his condition is not improving, and if there is additional cannulation, paracentesis may become needed. For now suspicion for SBP is low. Discussed his condition, assessment and treatment plan with patient but also his over the phone. Both verbalized understanding, and agreement to proceed. All questions answered to their satisfaction. Status: Acute (2) Cholelithiasis: As above Status: Acute (3) Fever: As above Status: Acute Qualifiers: Fever type: unspecified Qualified Code(s): R50.9 - Fever, unspecified (4) Cirrhosis: He reports he has been abstinent from alcohol for the last 3 years, and has been following with a boring machine operator horizontal in [place] at [facility]. Reports that on assessment by point system he currently does not qualify to be placed on liver transplant list. There is mild ascites noted as above. Continue diuretics. Continue lactulose. Continue follow-up with boring machine operator horizontal and PCP after discharge. Status: Acute Qualifiers: Ascites presence: with ascites Hepatic cirrhosis type: unspecified hepatic cirrhosis Qualified Code(s): K74.60 - Unspecified cirrhosis of liver; R18.8 - Other ascites (5) Anasarca: Bilateral lower extremities swollen up to thighs. Appears possibly combination of fluid overload, hypoproteinemia/malnutrition secondary to cirrhosis, chronic venous stasis with chronic venous stasis dermatitis changes bilaterally. Continue diuretics. Elevate lower extremities. Treat possible cellulitis as above. Status: Acute (6) Splenomegaly: Secondary to liver cirrhosis. Noted on abdominal imaging. Status: Acute (7) Declining functional status: Per discussion with his , his functional status has been declining recently, especially after discharge from the recent hospitalization at [facility] last month. Reports that PT has been ordered for him, however, he has been mostly just staying in a chair. I suspect this may be part of the reason he has not been considered a good candidate for transplantation. Once he is in more stable condition, consider additional assessment by PT/OT. Consider utility of placement to rehabilitation if he participates with therapy. Status: Acute Additional A&P Information Mild hypokalemia: Replace. Chronic lactic acidosis: Secondary to liver cirrhosis. Mild hyperammonemia: Ammonia 73. He is awake alert, somewhat sluggish, but answers appropriately. Pleasant. With good insight into his condition. Continue lactulose. Attestations Medical Necessity Statement*: Admission of over 2 midnights is continued for assessment management of sepsis, acute cholecystitis, assessment for possible acute viral illness. Coding Level of Care Code Acute Biological Engineer for [facility] Fwd Diagnoses Sepsis A41.9 Cholelithiasis K80.20 Fever R50.9 Fever type: unspecified Cirrhosis K74.60; R18.8 Ascites presence: with ascites Hepatic cirrhosis type: unspecified hepatic cirrhosis Anasarca R60.1 Splenomegaly R16.1 Declining functional status R53.81
[2020-04-05] MEDS: heparin 5,000 unit/mL INJ 1 mL 5000 UNIT SUBCUT ×3 (06:20→21:22)
[2020-04-05] MEDS: FUROsemide 10 mg/mL SDV 2mL 20 MG IVP (09:10)
[2020-04-05] MEDS: cefepime 2,000 MG in sodium chloride 0.9% (plus) 50 ML 100 MG IV ×2 (09:10→18:23)
[2020-04-05] MEDS: lactulose oral liq 20 gm/30 mL UDC 30 GM PO ×3 (09:11→21:21)
[2020-04-05] MEDS: spironolactone 25 mg Tablet 50 MG PO (09:11)
[2020-04-05] MEDS: potassium chloride oral liq 20 mEq/15 mL UDC 40 MEQ PO (09:11)
[2020-04-05] MEDS: sodium chloride 0.9% (100 ml) 100 ML 10 ML (10:27)
--- NOTE | 2020-04-05 10:49 | PM.PN ---
Vitals/I&O/Wt Last Vital Signs Temp 98.7 F 04/05/20 08:00 Pulse 68 04/05/20 10:00 Resp 17 04/05/20 10:00 BP 118/59 04/05/20 10:00 Pulse Ox 100 04/05/20 10:00 04/04/20 04/05/20 04/05/20 22:59 06:59 14:59 Intake Total 1000 / 1000 300 / 300 Output Total 500 / 500 Balance 1000 / 1000 -200 / -200 Weight last 48 hrs Weight 106.594 kg Data : 04/04/20 23:15 04/04/20 23:15 Micro: Microbiology 04/05/20 00:18 Blood Culture - Preliminary Blood SPECIMEN COLLECTED 04/05/20 00:25 Blood Culture - Preliminary Blood SPECIMEN COLLECTED A&P Assessment and plan (1) Sepsis: Status: Acute (2) Cholelithiasis: As above Status: Acute (3) Fever: As above Status: Acute Qualifiers: Fever type: unspecified Qualified Code(s): R50.9 - Fever, unspecified (4) Cirrhosis: Status: Acute Qualifiers: Ascites presence: with ascites Hepatic cirrhosis type: unspecified hepatic cirrhosis Qualified Code(s): K74.60 - Unspecified cirrhosis of liver; R18.8 - Other ascites (5) Anasarca: Status: Acute (6) Splenomegaly: Secondary to liver cirrhosis. Noted on abdominal imaging. Status: Acute (7) Declining functional status: Per discussion with his , his functional status has been declining recently, especially after discharge from the recent hospitalization at [facility] last month. Reports that PT has been ordered for him, however, he has been mostly just staying in a chair. I suspect this may be part of the reason he has not been considered a good candidate for transplantation. Once he is in more stable condition, consider additional assessment by PT/OT. Consider utility of placement to rehabilitation if he participates with therapy. Status: Acute (8) COVID-19 virus test result unknown: Status: Acute Additional A&P Information Sepsis: Met with tachycardia, fever of 104, leukocytosis on admission, lactic acidosis. Most likely because of cholecystitis. As evident on gallbladder ultrasound. Other possibilities this could be because of cellulitis because of chronic venous stasis in the lower limbs. Cannot rule out SBP but patient has minimal ascites on the CT abdomen done on admission. Check HIDA scan. Continue with vancomycin and cefepime started overnight. Follow blood cultures. Will check MRSA, procalcitonin. Case discussed with Dr. Lim. Patient is not a good candidate for early cholecystectomy because of history of liver cirrhosis and TIPS. COVID-19 was sent overnight. Continue with isolation precaution. Elevated ammonia levels: 73 today. Continue lactulose 30 mg 4 times daily. We will continue lactulose until patient has 2-3 episodes good bowel movements per day. Liver cirrhosis: Post TIPS: Is followed up with budget technician and director of application development at [facility]. Continue with diuretics. Patient has minimal ascites on CT abdomen. Anasarca: Most likely because of hypoproteinemia/malnutrition secondary cirrhosis. Elevate lower limbs. Physical therapy evaluation once COVID-19 results are back. Mild hypokalemia: Replace. Chronic lactic acidosis: Secondary to liver cirrhosis. Full code. Start patient on low-fat low-salt diet. Heparin for DVT prophylaxis. Attestations Medical Necessity Statement*: Sepsis secondary to cholecystitis, cirrhosis post TIPS, COVID-19 to be ruled out Time Spent in Patient Care: Greater than 35 minutes (>than 50% of time spent in counselling and/or direct pt care on unit). Coding Level of Care Code Acute Special Certificate Dictator for [facility] Fwd Diagnoses Sepsis A41.9 Cholelithiasis K80.20 Fever R50.9 Fever type: unspecified Cirrhosis K74.60; R18.8 Ascites presence: with ascites Hepatic cirrhosis type: unspecified hepatic cirrhosis Anasarca R60.1 Splenomegaly R16.1 Declining functional status R53.81 COVID-19 virus test result unknown Z20.828
[2020-04-05 15:34] LABS: Basophils % 0.2 %; Hematocrit 27.2 % (42.0-52.0); Hemoglobin 8.3 g/dL (11.7-16.6); Lymphocytes # 0.4 10^3/uL (0.8-4.8); Lymphocytes % 4.1 %; Mean Corpuscular HGB Conc 30.5 g/dL (30.0-36.0); Mean Corpuscular Hemoglobin 27.3 pg (28.0-34.0); Mean Corpuscular Volume 89.5 fL (80-94); Mean Platelet Volume 10.1 fL (7.4-10.4); Monocytes # 0.5 10^3/uL (0.2-0.9); Monocytes % 4.7 %; Neutrophils # 8.85 10^3/uL (1.8-7.7); Neutrophils % 90.5 %; Nucleated Red Blood Cells % 0 %; Platelet Count 97 10^3/cmm (130-400); Red Blood Count 3.04 10^6/uL (4.1-5.3); White Blood Count 9.8 10^3/uL (4.0-10.0)
[2020-04-05 16:03] LABS: Influenza A by IFA Negative (Negative); Influenza B by IFA Negative (Negative)
[2020-04-05 16:20] LABS: Thyroid Stimulating Hormone 2.06 uIU/mL (0.27-4.20)
[2020-04-05 16:28] LABS: Alanine Aminotransferase 18 U/L (0-41); Albumin Level 2.5 g/dL (3.5-5.2); Alkaline Phosphatase 95 IU/L (40-130); Aspartate Amino Transferase 68 U/L (0-40); Blood Urea Nitrogen 13 mg/dL (6-20); Calcium 7.5 mg/dL (8.5-10.5); Carbon Dioxide 23 mmol/L (22-29); Chloride 101 mmol/L (98-107); Globulin 4.1 g/dL (1.3-4.6); Glomerular Filtration Rate 77.6 mL/min (90-130); Glucose 160 mg/dL (65-115); Iron 16 ug/dL (59-158); Osmolality Calculated 286 mOsm/kg (285-295); Percent Saturation 11.7 % (20-50); Sodium 138 mmol/L (136-145); Total Bilirubin 3.7 mg/dL (0.15-1.2); Total Iron Binding Capacity 136 mcg/dl; Total Protein 6.6 g/dL (6.6-8.7); Unsaturated Iron Binding 120 ug/dL (112-347)
[2020-04-05] MEDS: potassium chloride ER 10 mEq Tablet 40 MEQ PO ×2 (18:23→21:21)
--- NOTE | 2020-04-05 21:55 | PC.NURSE ---
Dr. Moy notified of positive blood culture results.
[2020-04-06] VITALS (16 sets, daily range): BP systolic 109–157; BP diastolic 47–91; PULSE 69–94; RESP 16–26; TEMP 36.6–37.7; O2SAT 96–100
[2020-04-06 04:57] LABS: Basophils % 0.4 %; Eosinophils # 0.1 10^3/uL (0.0-0.8); Eosinophils % 1.8 %; Hematocrit 26.2 % (42.0-52.0); Hemoglobin 7.8 g/dL (11.7-16.6); Lymphocytes # 0.7 10^3/uL (0.8-4.8); Lymphocytes % 9.4 %; Mean Corpuscular HGB Conc 29.8 g/dL (30.0-36.0); Mean Corpuscular Hemoglobin 26.6 pg (28.0-34.0); Mean Corpuscular Volume 89.4 fL (80-94); Mean Platelet Volume 10.4 fL (7.4-10.4); Monocytes # 0.8 10^3/uL (0.2-0.9); Monocytes % 10.2 %; Neutrophils % 77.9 %; Nucleated Red Blood Cells % 0 %; Platelet Count 98 10^3/cmm (130-400); Positive M 1; Red Blood Count 2.93 10^6/uL (4.1-5.3); Red Cell Distribution Width 24.3 % (12.1-15.1); White Blood Count 7.3 10^3/uL (4.0-10.0)
[2020-04-06 05:15] LABS: Alanine Aminotransferase 21 U/L (0-41); Albumin Level 2.4 g/dL (3.5-5.2); Alkaline Phosphatase 144 IU/L (40-130); Anion Gap 12.7 (5-19); Aspartate Amino Transferase 103 U/L (0-40); Blood Urea Nitrogen 20 mg/dL (6-20); Calcium 7.5 mg/dL (8.5-10.5); Carbon Dioxide 25 mmol/L (22-29); Chloride 107 mmol/L (98-107); Globulin 3.8 g/dL (1.3-4.6); Glomerular Filtration Rate 69.5 mL/min (90-130); Glucose 110 mg/dL (65-115); Osmolality Calculated 289 mOsm/kg (285-295); Potassium 3.7 mmol/L (3.5-5.1); Sodium 141 mmol/L (136-145); Total Bilirubin 3.6 mg/dL (0.15-1.2); Total Protein 6.2 g/dL (6.6-8.7)
[2020-04-06] MEDS: FUROsemide 10 mg/mL SDV 2mL 20 MG IVP (06:13)
[2020-04-06] MEDS: cefepime 2,000 MG in sodium chloride 0.9% (plus) 50 ML 100 MG IV ×2 (06:13→18:04)
[2020-04-06] MEDS: heparin 5,000 unit/mL INJ 1 mL 5000 UNIT SUBCUT ×3 (06:13→23:52)
--- NOTE | 2020-04-06 07:55 | P.PN_ITS ---
Subjective Subjective: Interval history: Sergey reports he is feeling okay. He denies any specific concerns. He denies any abdominal pain. He is wondering where he keeps getting infections. He was in [facility] [place] about a month ago and had a bloodstream infection there. Records have been ordered. Medications: Reviewed: Yes Vitals/I&O/Wt Last Vital Signs Temp 98.8 F 04/06/20 04:00 Pulse 74 04/06/20 06:00 Resp 19 H 04/06/20 06:00 BP 118/63 04/06/20 06:00 Pulse Ox 96 04/06/20 06:00 04/05/20 04/06/20 04/06/20 22:59 06:59 14:59 Intake Total 620 / 1020 0 / 1020 300 / 300 Output Total 350 / 850 Balance 620 / 520 -350 / 170 300 / 300 Weight last 48 hrs Weight 100.199 kg Weight 106.594 kg Physical Exam Narrative: EXAM NARRATIVE: General exam is no apparent distress Cardiovascular regular in rhythm without murmur. Lungs clear no wheezing or crackles Abdomen is soft, positive bowel sounds. No real tenderness exists. was deferred Extremities evidence of chronic venous stasis is noted but no significant cellulitis. Cap refill is brisk. Data : 04/06/20 04:18 04/06/20 04:18 Micro: Microbiology 04/05/20 00:25 Blood Culture - Preliminary Blood Gram Negative Rods 04/05/20 00:18 Blood Culture - Preliminary Blood Gram Negative Rods A&P Assessment and plan (1) Sepsis: Gram-negative rods growing in blood. Continue cefepime and vancomycin After identification and sensitivities have returned, will narrow antibiotic treatment Check echocardiogram As this appears to have recurrence, await records from [place] Most common etiology of this would be SBP, although there is some concern for cholecystitis on recent imaging. Status: Acute (2) Cholelithiasis: Surgery consult has been obtained Status: Acute (3) Fever: Secondary to sepsis Status: Acute Qualifiers: Fever type: unspecified Qualified Code(s): R50.9 - Fever, unspecified (4) Cirrhosis: History of TIPS procedure Continue lactulose Status: Acute Qualifiers: Ascites presence: with ascites Hepatic cirrhosis type: unspecified hepatic cirrhosis Qualified Code(s): K74.60 - Unspecified cirrhosis of liver; R18.8 - Other ascites (5) Anasarca: Status: Acute (6) Splenomegaly: Secondary to cirrhosis Status: Acute (7) Declining functional status: Per discussion with his , his functional status has been declining recently, especially after discharge from the recent hospitalization at [facility] last month. Initiate physical therapy Status: Acute (8) COVID-19 virus test result unknown: Awaiting results Status: Acute Additional A&P Information Anemia, thrombocytopenia. Likely secondary to cirrhosis. Hemoglobin is low but he does not seem symptomatic currently. No need for transfusion currently. Full code Heparin for DVT prophylaxis Attestations Medical Necessity Statement*: Needs continued hospitalization for IV antibiotics secondary to bacteremia. Coding Level of Care Code Acute Waste Reduction Coordinator for [facility] Fwd Diagnoses Sepsis A41.9 Cholelithiasis K80.20 Fever R50.9 Fever type: unspecified Cirrhosis K74.60; R18.8 Ascites presence: with ascites Hepatic cirrhosis type: unspecified hepatic cirrhosis Anasarca R60.1 Splenomegaly R16.1 Declining functional status R53.81 COVID-19 virus test result unknown Z20.828
--- NOTE | 2020-04-06 08:03 | USCV_ITS ---
Kyle Conde Age: 54 Gender: M : 1965 Exam Date: 04/06/2020 16:50 Ordering Phys: Kevin Fernandez MD Technologist: Erick Villeda Exam Location: [facility] [place] Indication: PEDAL EDEMA BP: 134 / 68 HR: 71 Rhythm: Sinus Technical Quality: Good MEASUREMENTS (Male / Female) Normal Values 2D ECHO LV Diastolic Diameter PLAX 4.9 cm 4.2 - 5.9 / 3.9 - 5.3 cm LV Systolic Diameter PLAX 3.1 cm IVS Diastolic Thickness 1.2 cm 0.6 - 1.0 / 0.6 - 0.9 cm IVS Systolic Thickness 1.3 cm LVPW Diastolic Thickness 1.0 cm 0.6 - 1.0 / 0.6 - 0.9 cm LVPW Systolic Thickness 1.4 cm LVOT Diameter 2.0 cm LV Ejection Fraction 2D Teich 66.5 % LV Ejection Fraction MOD 2C 66.4 % LV Ejection Fraction 2C AL 66.8 % LA Diameter 4.2 cm LA Width 4.5 cm LA Height 6.0 cm RA Width 4.1 cm RA Height 5.7 cm Aorta at Sinotubular Diameter 3.0 cm M-MODE LV Diastolic Diameter MM 5.4 cm 4.2 - 5.9 / 3.9 - 5.3 cm LV Systolic Diameter MM 3.4 cm LV Ejection Fraction MM Teich 67.4 % IVS Diastolic Thickness MM 1.0 cm 0.6 - 1.0 / 0.6 - 0.9 cm IVS Systolic Thickness MM 2.0 cm LVPW Diastolic Thickness MM 1.3 cm 0.6 - 1.0 / 0.6 - 0.9 cm LVPW Systolic Thickness MM 1.8 cm RV Diastolic Diameter MM 2.6 cm Aortic Annulus Diameter 3.5 cm LA Ao Ratio MM 1.2 MV E Point Septal Separation 0.6 cm DOPPLER AV Peak Velocity 159.0 cm/s LVOT Peak Velocity 102.0 cm/s AV Area Cont Eq vti 1.8 cm squared AV Area Cont Eq pk 2.1 cm squared MV Area PHT 3.5 cm squared Mitral E to A Ratio 1.6 MV E' Velocity 15.0 cm/s Mitral E to MV E' Ratio 8.2 Mitral E to LV E' Lateral Ratio 7.5 Mitral E to LV E' Septal Ratio 9.1 TR Peak Velocity 147.0 cm/s TR Peak Gradient 8.7 mmHg TV Peak E Velocity 142.0 cm/s Right Atrial Pressure 3.0 mmHg Pulmonary Artery Systolic Pressu 11.6 mmHg PV Peak Velocity 105.0 cm/s FINDINGS Left Ventricle Normal left ventricular cavity size. Mild left ventricular hypertrophy. Normal left ventricular systolic function. No regional wall motion abnormalities. Grade I/IV diastolic dysfunction (abnormal relaxation filling pattern), normal to mildly elevated filling pressures. Left ventricular ejection fraction is estimated at 65 %. Right Ventricle Normal right ventricular size and systolic function. Normal right ventricular systolic function. Right Atrium Mildly increased right atrial size. Left Atrium Mildly increased left atrial size. Mitral Valve Structurally normal mitral valve. Mild mitral valve regurgitation. Aortic Valve Structurally normal aortic valve without significant sclerosis or stenosis. There is no aortic regurgitation. Tricuspid Valve Structurally normal tricuspid valve without significant stenosis or regurgitation. Pulmonary artery systolic pressure is normal. Pulmonic Valve Pulmonic valve not well visualized. Pericardium Normal pericardium without effusion. Aorta Normal ascending aorta dimension. CONCLUSIONS Normal left ventricular cavity size. Mild left ventricular hypertrophy. Normal left ventricular systolic function. No regional wall motion abnormalities. Grade I/IV diastolic dysfunction (abnormal relaxation filling pattern), normal to mildly elevated filling pressures. Left ventricular ejection fraction is estimated at 65 %. Mildly increased right atrial size. Mildly increased left atrial size. Structurally normal mitral valve. Mild mitral valve regurgitation. There are no prior echocardiogram studies to compare. Dr. Derik Connolly MD (Electronically Signed) Final Date: 07 April 2020 16:21 S
[2020-04-06] MEDS: spironolactone 25 mg Tablet 50 MG PO (08:25)
[2020-04-06] MEDS: lactulose oral liq 20 gm/30 mL UDC 30 GM PO ×3 (08:26→20:12)
[2020-04-06] MEDS: sodium chloride 0.9% 1,000 ML 50 ML IV (08:26)
[2020-04-06 09:04] LABS: Vancomycin Trough 41.9 ug/mL (10-15)
--- NOTE | 2020-04-06 10:37 | NM_ITS ---
WS: [id number] NUCLEAR MEDICINE HIDA SCAN WITH GALLBLADDER EJECTION FRACTION HISTORY: cholecystitis COMPARISON: 04/05/2020 TECHNIQUE: The patient was intravenously injected with 7.0 mCi of TC99m Mebrofenin. Immediate imaging over the right upper quadrant was followed by 5 minute image and additional images for a total of 60 minutes. Normal uptake of radiotracer throughout the liver. Activity identified in the gallbladder at 30 minutes and moderately distended by 60 minutes. Activity in the proximal small bowel was seen by 15 minutes. Good washout of the radiotracer from the liver by 60 minutes. The patient then drank 8 ounces of Ensure Plus. Ejection fraction at 60 minutes was 47%. Normal GB ej ection fraction is 35-75%. Post fatty meal symptoms: None. NM/NM hepatobiliary w phar* [id number] IMPRESSION: 1. Normal HIDA scan. 2. Normal gallbladder ejection fraction. 3.
[2020-04-06 11:50] LABS: Coronavirus Lab Test PTC NOT DETECTED
--- NOTE | 2020-04-06 12:18 | PC.NURSE ---
Pt off the unit for HIDA scan.
--- NOTE | 2020-04-07 00:07 | PC.NURSE ---
Nurse taking over care of patient. Patient resting in bed, even, non labored breathing. Patient denies any pain. Nurse to continue to monitor.
[2020-04-07 04:00] VITALS: BP 123/63; PULSE 68; RESP 18; TEMP 36.7; O2SAT 100
[2020-04-07 05:34] LABS: Basophils % 0.6 %; Eosinophils # 0.3 10^3/uL (0.0-0.8); Eosinophils % 5.3 %; Hematocrit 27.8 % (42.0-52.0); Hemoglobin 8.1 g/dL (11.7-16.6); Lymphocytes # 0.7 10^3/uL (0.8-4.8); Lymphocytes % 13.5 %; Mean Corpuscular HGB Conc 29.1 g/dL (30.0-36.0); Mean Corpuscular Hemoglobin 26.7 pg (28.0-34.0); Mean Corpuscular Volume 91.7 fL (80-94); Mean Platelet Volume 11.1 fL (7.4-10.4); Monocytes # 0.5 10^3/uL (0.2-0.9); Monocytes % 9.6 %; Neutrophils # 3.62 10^3/uL (1.8-7.7); Neutrophils % 70.8 %; Nucleated Red Blood Cells % 0 %; Platelet Count 117 10^3/cmm (130-400); Red Blood Count 3.03 10^6/uL (4.1-5.3); Red Cell Distribution Width 24.2 % (12.1-15.1); White Blood Count 5.1 10^3/uL (4.0-10.0)
[2020-04-07 05:43] LABS: INR 1.31 (0.8-1.2)
[2020-04-07] MEDS: cefepime 2,000 MG in sodium chloride 0.9% (plus) 50 ML 100 MG IV ×2 (06:02→18:05)
[2020-04-07 06:09] LABS: Ammonia 34 umol/L (16-60)
[2020-04-07 06:10] LABS: Alanine Aminotransferase 28 U/L (0-41); Albumin Level 2.5 g/dL (3.5-5.2); Alkaline Phosphatase 90 IU/L (40-130); Anion Gap 12.2 (5-19); Aspartate Amino Transferase 117 U/L (0-40); Blood Urea Nitrogen 17 mg/dL (6-20); Calcium 8.4 mg/dL (8.5-10.5); Carbon Dioxide 24 mmol/L (22-29); Chloride 110 mmol/L (98-107); Glomerular Filtration Rate 69.5 mL/min (90-130); Glucose 100 mg/dL (65-115); Osmolality Calculated 292 mOsm/kg (285-295); Potassium 3.2 mmol/L (3.5-5.1); Sodium 143 mmol/L (136-145); Total Bilirubin 3.4 mg/dL (0.15-1.2); Total Protein 6.5 g/dL (6.6-8.7)
[2020-04-07 06:17] LABS: Slide Review Slide Review Perform
--- NOTE | 2020-04-07 06:37 | PC.NURSE ---
Shift Summary No events over night. Patient rested well and states he feels better and is hopeful the doctor will let him go home today. No needs identified at this time. Nurse to continue to monitor.
[2020-04-07 07:37] VITALS: BP 118/62; PULSE 68; RESP 18; TEMP 36.7; O2SAT 100
[2020-04-07] MEDS: lactulose oral liq 20 gm/30 mL UDC 30 GM PO ×3 (08:06→21:38)
[2020-04-07] MEDS: heparin 5,000 unit/mL INJ 1 mL 5000 UNIT SUBCUT ×2 (08:06→15:21)
[2020-04-07] MEDS: FUROsemide 20 mg Tablet PO (08:06)
[2020-04-07] MEDS: spironolactone 25 mg Tablet 50 MG PO (08:06)
[2020-04-07 11:23] VITALS: BP 126/58; PULSE 69; RESP 22; TEMP 36.6; O2SAT 99
[2020-04-07] MEDS: potassium chloride ER 10 mEq Tablet 40 MEQ PO (11:34)
--- NOTE | 2020-04-07 11:47 | PM.PN ---
Subjective Subjective: Interval history: Sergey reports he is feeling better. Denies any specific complaints today. Denies any confusion. Medications: Reviewed: Yes Vitals/I&O/Wt Last Vital Signs Temp 97.8 F 04/07/20 11:23 Pulse 69 04/07/20 11:23 Resp 22 H 04/07/20 11:23 BP 126/58 04/07/20 11:23 Pulse Ox 99 04/07/20 11:23 04/06/20 04/07/20 04/07/20 22:59 06:59 14:59 Intake Total 750 / 1050 48.333 / 1098.333 360 / 360 Balance 750 / 550 48.333 / 598.333 360 / 360 Weight last 48 hrs Weight 99.926 kg Weight 100.199 kg Physical Exam Narrative: EXAM NARRATIVE: General exam is no apparent distress Cardiovascular regular in rhythm without murmur. Lungs clear no wheezing or crackles Abdomen is soft, positive bowel sounds. No significant tenderness today Extremities evidence of chronic venous stasis is noted but no significant cellulitis. Cap refill is brisk. Data : 04/07/20 04:54 04/07/20 04:54 Micro: Microbiology 04/07/20 04:54 Blood Culture - Preliminary Blood SPECIMEN COLLECTED 04/07/20 05:01 Blood Culture - Preliminary Blood SPECIMEN COLLECTED 04/05/20 14:28 MRSA Culture - Final Nose 04/06/20 14:43 Blood Culture - Preliminary Blood SPECIMEN COLLECTED 04/06/20 14:38 Blood Culture - Preliminary Blood SPECIMEN COLLECTED A&P Assessment and plan (1) Sepsis: Gram-negative rods growing in blood. Still awaiting ID and sensitivity Continue cefepime Discontinue vancomycin Echocardiogram pending As this appears to have recurrence, await records from [facility] Most common etiology of this would be SBP, although there is some concern for cholecystitis on recent imaging. Status: Acute (2) Cholelithiasis: Surgery consult has been obtained HIDA scan was normal Status: Acute (3) Fever: Secondary to sepsis. No recurrence of fever Status: Acute Qualifiers: Fever type: unspecified Qualified Code(s): R50.9 - Fever, unspecified (4) Cirrhosis: History of TIPS procedure Continue lactulose Status: Acute Qualifiers: Ascites presence: with ascites Hepatic cirrhosis type: unspecified hepatic cirrhosis Qualified Code(s): K74.60 - Unspecified cirrhosis of liver; R18.8 - Other ascites (5) Anasarca: Status: Acute (6) Splenomegaly: Secondary to cirrhosis Status: Acute (7) Declining functional status: Per discussion with his , his functional status has been declining recently, especially after discharge from the recent hospitalization at [facility] last month. Continue physical therapy Status: Acute (8) COVID-19 virus test result unknown: Awaiting results Status: Acute Additional A&P Information Anemia, thrombocytopenia. Likely secondary to cirrhosis. Hemoglobin is low but he does not seem symptomatic currently. No need for transfusion currently. Hemoglobin stable Hypokalemia, supplement Full code Heparin for DVT prophylaxis Attestations Medical Necessity Statement*: Needs continued hospitalization for IV antibiotics pending identification and sensitivity showing bacteria causing sepsis. Coding Level of Care Code Acute Special Machine Operator for [facility] Fwd Diagnoses Sepsis A41.9 Cholelithiasis K80.20 Fever R50.9 Fever type: unspecified Cirrhosis K74.60; R18.8 Ascites presence: with ascites Hepatic cirrhosis type: unspecified hepatic cirrhosis Anasarca R60.1 Splenomegaly R16.1 Declining functional status R53.81 COVID-19 virus test result unknown Z20.828
--- NOTE | 2020-04-07 12:27 | PM.CONSULT ---
Providers/Reason For Consult Consulting Physican/Specialty*: Reason for Consult*: Suspected cholecystitis Attending Physician: Kevin Fernandez MD History of Present Illness History of Present Illness Kyle Conde is a 54 year old male with history of alcoholic cirrhosis status post TIPS done at [facility] in 2017. Patient states that since then his ascites is resolved and does not usually have any abdominal pain. He presented to the ER with generalized weakness. He did not have any abdominal pain, nausea, vomiting, constipation or diarrhea. No hematemesis or melena. He had an ultrasound which showed possible cholecystitis and there was therefore consulted. Review of Systems General: Reports: 10 or more systems reviewed and unremarkable except in HPI and below Meds/Allergies Home Medications and Allergies Home Medications Medication Instructions Recorded Confirmed Last Taken Type Lasix 20 mg PO BID 02/21/20 02/21/20 02/21/20 History lactulose 30 g PO TID 02/21/20 02/21/20 02/20/20 History spironolactone 50 mg PO DAILY 02/21/20 02/21/20 02/20/20 History ciprofloxacin HCl [Cipro] 500 mg PO BID #60 tab 04/08/20 Unknown Rx Allergies Allergy/AdvReac Type Severity Reaction Status Date / Time hydrocodone Allergy ADR-Nausea Verified 02/21/20 11:20 morphine Allergy ADR-Drowsy Verified 02/21/20 11:20 oxycodone [From OxyContin] Allergy ADR-Nausea Verified 02/21/20 11:20 Current Medications Current Medications Generic Name Dose Route Start Last Admin Trade Name Freq PRN Reason Stop Dose Admin Furosemide 20 mg 04/07/20 08:00 04/07/20 08:06 Lasix PO 20 mg DAILY@0800 GRACE Administration Heparin Sodium (Beef Lung) 5,000 unit 04/05/20 06:15 04/07/20 08:06 Heparin SUBCUT 5,000 unit Q8H GRACE Administration Cefepime HCl 2,000 mg/ Sodium 50 mls @ 100 mls/hr 04/05/20 07:00 04/07/20 06:31 Chloride IV Infused Q12H GRACE Infusion Protocol Lactulose 30 gm 04/05/20 09:00 04/07/20 08:06 Constulose PO 30 gm TID GRACE Administration Spironolactone 50 mg 04/05/20 09:00 04/07/20 08:06 Aldactone PO 50 mg DAILY GRACE Administration PFSH Acute PFSH: Medical History Alcoholic cirrhosis of liver Swelling of lower extremity Venous stasis dermatitis Surgical History S/P TIPS (transjugular intrahepatic portosystemic shunt) Family History Other Healthy adult Social History Smoking and tobacco status: never smoked Alcohol intake: former Year of sobriety/quit date alcohol: 3 ya Lives independently: No Household members: spouse Marital status: Current occupational status: unemployed Vitals/I&O/Wt Last Vital Signs Temp 97.8 F 04/07/20 11:23 Pulse 69 04/07/20 11:23 Resp 22 H 04/07/20 11:23 BP 126/58 04/07/20 11:23 Pulse Ox 99 04/07/20 11:23 04/06/20 04/07/20 04/07/20 22:59 06:59 14:59 Intake Total 750 / 1098.333 48.333 / 1098.333 360 / 360 Balance 750 / 598.333 48.333 / 598.333 360 / 360 Weight last 48 hrs Weight 220 lb 4.8 oz Weight 220 lb 14.4 oz Physical Exam Narrative: EXAM NARRATIVE: HEENT: Normocephalic Eye: Sclera /conjunctiva normal Respiratory and chest: Bilateral clear breath sounds on auscultation Cardiovascular: Normal S1 and S2 heart sounds Abdomen: Soft to palpation, nontender, nondistended Neurological: Oriented to place person and time Skin: Intact, no lesions appreciated on gross exam Data Micro: Micro: Microbiology 04/07/20 04:54 Blood Culture - Pr eliminary Blood SPECIMEN [facility] 04/07/20 05:01 Blood Culture - Pr eliminary Blood SPECIMEN [facility] 04/05/20 14:28 MRSA Culture - Fin al Nose 04/06/20 14:43 Blood Culture - Pr eliminary Blood SPECIMEN [facility] 04/06/20 14:38 Blood Culture - Pr eliminary Blood SPECIMEN [facility] A&P Assessment and plan (1) Cholelithiasis: 54-year-old gentleman with history of alcoholic cirrhosis status post TIPS procedure with ultrasound findings concerning for acute cholecystitis. HIDA scan was therefore obtained which was normal. At present patient is completely asymptomatic and therefore no further surgical intervention required Advance as tolerated Status: Acute Coding Level of Care Code Acute [facility] [place] for [facility]el Diagnoses Cholelithiasis K80.20
[2020-04-07 15:42] VITALS: BP 127/58; PULSE 69; RESP 18; TEMP 36.7; O2SAT 100
[2020-04-07 20:00] VITALS: BP 127/66; PULSE 76; RESP 18; TEMP 36.4; O2SAT 100
[2020-04-08] VITALS: BP 115/58; PULSE 73; RESP 18; TEMP 36.4; O2SAT 99
[2020-04-08] MEDS: heparin 5,000 unit/mL INJ 1 mL 5000 UNIT SUBCUT ×2 (00:38→07:26)
[2020-04-08 04:00] VITALS: BP 135/66; PULSE 73; RESP 18; TEMP 36.7; O2SAT 100
[2020-04-08 05:22] LABS: Basophils % 0.8 %; Eosinophils # 0.3 10^3/uL (0.0-0.8); Eosinophils % 7.4 %; Hematocrit 29.4 % (42.0-52.0); Hemoglobin 9.1 g/dL (11.7-16.6); Lymphocytes # 0.7 10^3/uL (0.8-4.8); Lymphocytes % 18.8 %; Mean Corpuscular Hemoglobin 27.6 pg (28.0-34.0); Mean Corpuscular Volume 89.1 fL (80-94); Monocytes # 0.4 10^3/uL (0.2-0.9); Monocytes % 11.2 %; Neutrophils # 2.42 10^3/uL (1.8-7.7); Neutrophils % 61.5 %; Nucleated Red Blood Cells % 0 %; Platelet Count 77 10^3/cmm (130-400); Red Cell Distribution Width 23.8 % (12.1-15.1); White Blood Count 3.9 10^3/uL (4.0-10.0)
[2020-04-08 05:36] LABS: Slide Review Slide Review Perform
[2020-04-08] MEDS: cefepime 2,000 MG in sodium chloride 0.9% (plus) 50 ML 100 MG IV (06:03)
[2020-04-08 06:07] LABS: Alanine Aminotransferase 35 U/L (0-41); Albumin Level 2.6 g/dL (3.5-5.2); Alkaline Phosphatase 98 IU/L (40-130); Blood Urea Nitrogen 13 mg/dL (6-20); Calcium 8.9 mg/dL (8.5-10.5); Carbon Dioxide 20 mmol/L (22-29); Chloride 109 mmol/L (98-107); Globulin 3.8 g/dL (1.3-4.6); Glomerular Filtration Rate 100.4 mL/min (90-130); Glucose 123 mg/dL (65-115); Osmolality Calculated 294 mOsm/kg (285-295); Sodium 143 mmol/L (136-145); Total Bilirubin 3.4 mg/dL (0.15-1.2); Total Protein 6.4 g/dL (6.6-8.7)
[2020-04-08 06:15] LABS: Anion Gap 17.6 (5-19); Aspartate Amino Transferase 114 U/L (0-40); Potassium 3.6 mmol/L (3.5-5.1)
[2020-04-08] MEDS: FUROsemide 20 mg Tablet PO (07:25)
[2020-04-08] MEDS: lactulose oral liq 20 gm/30 mL UDC 30 GM PO (07:25)
[2020-04-08] MEDS: spironolactone 25 mg Tablet 50 MG PO (07:25)
[2020-04-08 07:33] VITALS: BP 147/69; PULSE 75; RESP 16; TEMP 36.7; O2SAT 100
--- NOTE | 2020-04-08 11:00 | DCPLANNER ---
Pg 2 of IM updated and reviewed with pt. No questions, copy provided.
--- NOTE | 2020-04-08 11:18 | PM.DCS ---
Discharge Providers Date of Admission: 04/05/20 04:08 Date of Discharge: April 08, 2020 Attending Provider at Admission: Vikram Moy Attending Provider at Discharge: Kevin Fernandez MD Diagnoses at Discharge Discharge Diagnosis (1) Sepsis: Status: Acute Problem details: Secondary to Pseudomonas, sensitive to fluoroquinolones (2) Cholelithiasis: Status: Acute Problem details: Not thought to be because of Pseudomonas bacteremia. HIDA scan normal. Surgery consultation was obtained. (3) Fever: Status: Acute Qualifiers: Fever type: unspecified Qualified Code(s): R50.9 - Fever, unspecified (4) Cirrhosis: Status: Acute Qualifiers: Ascites presence: with ascites Hepatic cirrhosis type: unspecified hepatic cirrhosis Qualified Code(s): K74.60 - Unspecified cirrhosis of liver; R18.8 - Other ascites (5) Anasarca: Status: Acute (6) Splenomegaly: Status: Acute (7) Declining functional status: Status: Acute (8) COVID-19 virus test result unknown: Status: Acute Reason for Visit Reason for Visit: [facility] Hospital Course Hospital Course: Kyle is a 54-year-old white male with history of cirrhosis of the liver that presented with fever. He had a past history of Pseudomonas bacteremia about a month ago and was hospitalized at [facility]. He was not on any antibiotic prophylaxis for SBP coming in but has had a prior history of SBP. He has not had any recent ascites and therefore fluid was not obtained at [facility] nor here. While in the hospital he got imaging of his abdomen and pelvis by CAT scan which had some concerns of cholecystitis. Ultrasound findings were equivocal. Surgery consult obtained and HIDA scan obtained demonstrating normal gallbladder function. It was thought less likely that his gallbladder was causing his bacteremia and no surgery is anticipated at this time. Echocardiogram was obtained and largely normal. During his hospital stay he became afebrile. Blood cultures cleared. Ultimately he grew Pseudomonas, sensitive to fluoroquinolones with an CHRISSY on Cipro less than 1. I discussed with the patient risks and benefits of prophylaxis when he leaves the hospital and he agreed to this upon discharge. He will go on Cipro prophylactically 500 mg once a day after finishing a 12-day course of twice daily and get further instruction per his marriage and family social worker. Physical Exam Narrative: EXAM NARRATIVE: General exam no apparent distress Cardiovascular regular rate and rhythm without murmur Lungs clear Abdomen is soft, no evidence of ascites, no pain Extremities trace to 1+ bilateral edema Discharge Data Data Completed and Pending: Completed Studies During Hospitalization Category Date Time Status CT abdomen pelvis w con* [id number] Urge nt Cat Scan 04/04/20 23:[address] head wo con* [id number] Urgent Cat Scan 04/04/20 23:30 Completed XR chest 1V connie ble [id number] Urgent Exams 04/04/20 23:30 Completed NM hepatobiliary w phar* [id number] Rout ine Nuc Med 04/06/20 10:37 Completed CV echo complete* [id number] Routine Ultrasound 04/06/20 08:03 Completed US gall bladder 7 [id number] Urgent Ultrasound 04/05/20 03:07 Completed Pending at discharge Category Date Time Status Blood Culture AM LABS Lab 04/07/20 04:54 Results Blood Culture Sta t Lab 04/04/20 23:31 Results Blood Culture Sta t Lab 04/06/20 14:43 Results Labs from last 24 hours 04/08/20 04/08/20 04:40 04:40 WBC 3.9 L RBC 3.30 L Hgb 9.1 L Hct 29.4 L MCV 89.1 MCH 27.6 L MCHC 31.0 D RDW 23.8 H Plt Count 77 L MPV Not Reportable Neut % (Auto) 61.5 Lymph % (Auto) 18.8 [place] % (Auto) 11.2 Eos % (Auto) 7.4 Baso % (Auto) 0.8 Neut # (Auto) 2.42 Lymph # (Auto) 0.7 L [place] # (Auto) 0.4 Eos # (Auto) 0.3 Baso # (Auto) 0.0 Nucleated RBC % (a uto) 0 Nucleated RBCs # 0.0 Sodium 143 Potassium 3.6 Chloride 109 H Carbon Dioxide 20 L Anion Gap 17.6 BUN 13 Creatinine 0.8 GFR Calculation 100.4 Glucose 123 H Calculated Osmolal ity 294 Calcium 8.9 Total Bilirubin 3.4 H AST 114 H ALT 35 Alkaline Phosphata se 98 Total Protein 6.4 L Albumin 2.6 L Globulin 3.8 Vitals: Last Vital Signs Temp 98.0 F 04/08/20 07:33 Pulse 75 04/08/20 07:33 Resp 16 04/08/20 07:33 BP 147/69 04/08/20 07:33 Pulse Ox 100 07/22/20 07:33 Discharge Plan Discharge Patient Disposition: Home, Self-Care Condition: Stable Prescriptions: New ciprofloxacin HCl [Cipro] 500 mg tablet 500 mg PO BID Qty: 60 RF: 0 Continued Lasix 20 mg Tablet 20 mg PO BID RF: 0 spironolactone 50 mg Tablet 50 mg PO DAILY RF: 0 lactulose 10 gram/15 mL Solution 30 g PO TID RF: 0 Discharge Diet: Cardiac Discharge Activity: Increase activity as tolerated Activity Restrictions/Additional Instructions: Please follow-up with your marriage and family social worker regarding your cirrhosis and recurrent Pseudomonas. Please follow-up with your primary care provider 3 to 5 days. Note that you will be taking ciprofloxacin once daily for prophylaxis following your twice daily regimen of 12 days. Discharge Attestations Time Spent in Discharge Care*: greater than 30 min Quality Metrics Clinical Quality Measures During this hospital stay, did patient experience: None Coding Level of Care Code Acute Home Health Care Worker for [facility] Fwd Diagnoses Sepsis A41.9 Cholelithiasis K80.20 Fever R50.9 Fever type: unspecified Cirrhosis K74.60; R18.8 Ascites presence: with ascites Hepatic cirrhosis type: unspecified hepatic cirrhosis Anasarca R60.1 Splenomegaly R16.1 Declining functional status R53.81 COVID-19 virus test result unknown Z20.828
[2020-04-08 11:26] VITALS: BP 149/68; PULSE 71; RESP 18; TEMP 36.6; O2SAT 100
[2020-04-08 12:07] VITALS: BP 149/68; PULSE 71; RESP 18; TEMP 36.6; O2SAT 100
== END 2020-04-08 11:55 | disposition home or self-care (01) | DRG 872 ==
LOC: ER 04-05 04:06 → ICU 04-05 04:33 → MEDSURG 04-06 15:46
PROVIDERS: Emergency Medicine; Student in an Organized Health Care Education/Training Program; Admitting Provider Internal Medicine; Visit Provider Internal Medicine
DX: A41.52 Sepsis due to Pseudomonas (principal); R18.8 Other ascites; Z16.23 Resistance to quinolones and fluoroquinolones; E87.1 Hypo-osmolality and hyponatremia; E87.2 Acidosis; K80.20 Calculus of gallbladder without cholecystitis without obstruction; K74.60 Unspecified cirrhosis of liver; R16.1 Splenomegaly, not elsewhere classified; R53.81 Other malaise; Z20.828 Contact with and (suspected) exposure to other viral communicable diseases; E87.6 Hypokalemia
CPT/HCPCS: 12345; 36415; 70450; 71045; 74177; 76705; 78227; 80053; 80202; 80306; 80307; 81003; 82140; 83540; 83550; 83605; 83690; 83735; 84145; 84443; 85025; 85610; 86140; 87040; 87077; 87186; 87205; 87635; 87641; 87804; 93005; 93306; 96372; 96375; 97161; 97530; 99284; A9537; J0692; J1644; J1940; J3370; J7030; J7050; Q9967

== ENCOUNTER 2020-06-18 17:31 | Emergency (ER) | payer MEDICARE, SELFPAY ==
[2020-06-18 17:40] VITALS: BP 152/69; PULSE 85; RESP 16; TEMP 36.3; O2SAT 95; BMI 27.5
[2020-06-18 17:54] LABS: Glucose Point of Care 459 mg/dL (70-110)
--- NOTE | 2020-06-18 17:56 | ED_ITS ---
HPI - General Adult General: Chief complaint: General Medical Stated complaint: hyperglycemia Time Seen by Provider: 06/18/20 17:48 Source: patient Mode of arrival: ambulatory Limitations: no limitations History of Present Illness: HPI narrative: 54-year-old male patient with cirrhosis of the liver was referred to the emergency department by Dr. Phan after being at his office earlier today noting that his blood sugar was greater than 500 on labs drawn at that time. Patient reports feeling fine. Patient denies any pain or difficulty. Patient appears chronically ill as he has cirrhosis of the liver. Patient denies any pain or fever. Review of Systems General: Reports: 10 or more systems reviewed and unremarkable except in HPI and below PFSH ED PFSH: Medical History (Updated 06/18/20 @ 18:50 by FELIX Martinez) Alcoholic cirrhosis of liver Swelling of lower extremity Venous stasis dermatitis Surgical History S/P TIPS (transjugular intrahepatic portosystemic shunt) Family History Other Healthy adult Social History (Updated 06/18/20 @ 17:46 by Matt David RN) Smoking and tobacco status: never smoked Alcohol intake: former Year of sobriety/quit date alcohol: 3 ya Substance/Drug Use: former Lives independently: No Household members: spouse Marital status: Current occupational status: unemployed Physical Exam Const: COMMON NORMALS: no acute distress and patient oriented x3 GENERAL APPEARANCE: cooperative HENMT: COMMON NORMALS: normocephalic and Normal external nose present HEAD & SCALP: normal to inspection and normocephalic NOSE: Normal external nose present MOUTH: Normal oral and palatal mucosa present Eye: GENERAL EYE: appearance normal, both eyes and all related structures Neck/C-Spine: COMMON NORMALS: full ROM Chest: COMMONS NORMALS: normal inspection of the chest Resp: COMMON NORMALS: normal respiratory effort EFFORT & INSPECTION: Yes able to speak in complete sentences Cardio: COMMON NORMALS: regular rate and regular rhythm RATE: regular rate RHYTHM: regular rhythm GI: COMMON NORMALS: non-tender (mild distention) Back/Pelvis: COMMON NORMALS: thoracic and lumbar spine normal to inspection Extremity: COMMON NORMALS: normal to inspection Neuro: COMMON NORMALS: patient oriented x3 and moves all extremities Psych: COMMON NORMALS: mental status grossly normal and cooperative Skin: COMMON NORMALS: no rashes or lesions noted NARRATIVE SKIN EXAM: jaundice GENERAL SKIN EXAM: no rashes or lesions noted Course ED course: 1804, talked with Dr. Phan at [facility], patient's liver specialist. He states that patient has been doing fine and stable with his cirrhosis. He just noticed a high blood sugar and had noticed elevated blood sugars in the past. He referred patient to the ER to help get his blood sugar under control and then probably would recommend follow-up with primary care. Vital Signs: Vital signs: Vital Signs Temperature 97.3 F L 06/18/20 17:40 Pulse Rate 85 06/18/20 17:40 Respiratory Rate 16 06/18/20 17:40 Blood Pressure 152/69 06/18/20 17:40 Pulse Oximetry 95 06/18/20 17:40 MDM - General Adult MDM Narrative: Medical decision making narrative: Patient comes in today for concerns of elevated blood glucose. Patient appears well. Patient denies any pain or discomfort. Abdomen soft slightly distended. Bowel sounds are present. Skin is warm and dry. No fever. Differential diagnosis includes but not limited to hyperglycemia, diabetes type 2, pancreatitis. Laboratory values noted a decrease in potassium at 2.9. Sodium was 128. Glucose was 480. I had discussed with patient's specialist at [facility] for his cirrhosis who had sent patient to the emergency room. He just did not want the patient to not be treated for his elevated glucose. When asked if metformin would be okay to give for the patient he was agreeable to that, that it would not cause abnormalities with his cirrhosis. I encourage patient to drink plenty of fluids watch his sugar intake and to follow-up with his primary care. Patient will follow-up with primary care tomorrow at the office and set an appointment. I reviewed the recommendations for glucose checking once daily at different times either fasting or after a meal. Patient reported understanding of care plan and need for follow-up or return to the ER. Lab Data: Labs: Lab Results 06/18/20 06/18/20 06/18/20 Range/Units 17:51 18:04 18:04 WBC 4.1 (4.0-10.0) 10^3/ uL RBC 3.54 L (4.1-5.3) 10^6/u L Hgb 9.0 L (11.7-16.6) g/dL Hct 28.8 L (42.0-52.0) % MCV 81.4 (80-94) fL MCH 25.4 L (28.0-34.0) pg MCHC 31.3 (30.0-36.0) g/dL RDW 15.0 (12.1-15.1) % Plt Count 112 L (130-400) 10^3/c mm MPV 10.3 (7.4-10.4) fL Neut % (Auto) 60.8 % Lymph % (Auto) 18.8 % [place] % (Auto) 15.8 % Eos % (Auto) 3.2 % Baso % (Auto) 1.2 % Neut # (Auto) 2.46 (1.8-7.7) 10^3/u L Lymph # (Auto) 0.8 (0.8-4.8) 10^3/u L [place] # (Auto) 0.6 (0.2-0.9) 10^3/u L Eos # (Auto) 0.1 (0.0-0.8) 10^3/u L Baso # (Auto) 0.1 (0.0-0.1) 10^3/u L Nucleated RBC % (a uto) 0 % Nucleated RBCs # 0.0 /100WBC Sodium 128 L (136-145) mmol/L Potassium 2.9 L (3.5-5.1) mmol/L Chloride 92 L (98-107) mmol/L Carbon Dioxide 26 (22-29) mmol/L Anion Gap 12.9 (5-19) BUN 8 (6-20) mg/dL Creatinine 1.0 (0.7-1.2) mg/dL GFR Calculation 77.6 L (90-130) mL/min Glucose 486 H (65-115) mg/dL POC Glucose 459 (70-110) mg/dL Calculated Osmolal ity 286 (285-295) mOsm/k g Calcium 9.6 (8.5-10.5) mg/dL Total Bilirubin 2.5 H (0.15-1.2) mg/dL AST 28 (0-40) U/L ALT 12 (0-41) U/L Alkaline Phosphata se 122 (40-130) IU/L Total Protein 7.1 (6.6-8.7) g/dL Albumin 3.1 L (3.5-5.2) g/dL Globulin 4.0 (1.3-4.6) g/dL Lipase 99 H (13-60) U/L Serum Ketones Negative (Negative) 06/18/20 Range/Units 19:11 WBC (4.0-10.0) 10^3/ uL RBC (4.1-5.3) 10^6/u L Hgb (11.7-16.6) g/dL Hct (42.0-52.0) % MCV (80-94) fL MCH (28.0-34.0) pg MCHC (30.0-36.0) g/dL RDW (12.1-15.1) % Plt Count (130-400) 10^3/c mm MPV (7.4-10.4) fL Neut % (Auto) % Lymph % (Auto) % [place] % (Auto) % Eos % (Auto) % Baso % (Auto) % Neut # (Auto) (1.8-7.7) 10^3/u L Lymph # (Auto) (0.8-4.8) 10^3/u L [place] # (Auto) (0.2-0.9) 10^3/u L Eos # (Auto) (0.0-0.8) 10^3/u L Baso # (Auto) (0.0-0.1) 10^3/u L Nucleated RBC % (a uto) % Nucleated RBCs # /100WBC Sodium (136-145) mmol/L Potassium (3.5-5.1) mmol/L Chloride (98-107) mmol/L Carbon Dioxide (22-29) mmol/L Anion Gap (5-19) BUN (6-20) mg/dL Creatinine (0.7-1.2) mg/dL GFR Calculation (90-130) mL/min Glucose (65-115) mg/dL POC Glucose 413 (70-110) mg/dL Calculated Osmolal ity (285-295) mOsm/k g Calcium (8.5-10.5) mg/dL Total Bilirubin (0.15-1.2) mg/dL AST (0-40) U/L ALT (0-41) U/L Alkaline Phosphata se (40-130) IU/L Total Protein (6.6-8.7) g/dL Albumin (3.5-5.2) g/dL Globulin (1.3-4.6) g/dL Lipase (13-60) U/L Serum Ketones (Negative) Discharge Plan Discharge Patient Disposition: Home Clinical Impression: Cirrhosis Qualifiers: Hepatic cirrhosis type: unspecified hepatic cirrhosis Ascites presence: with ascites Qualified Code(s): K74.60 - Unspecified cirrhosis of liver Diabetes mellitus Qualifiers: Diabetes mellitus type: type 2 Diabetes mellitus superintendent terminal insulin use: without half-way use Diabetes mellitus complication status: without complication Qualified Code(s): E11.9 - Type 2 diabetes mellitus without complications Condition: Stable Prescriptions: New metformin 500 mg tablet 500 mg PO BID Qty: 30 RF: 0 No Action lactulose 10 gram/15 mL Solution 30 g PO TID RF: 0 Multiple Vitamins Tablet 1 tab PO DAILY RF: 0 bumetanide 2 mg tablet 2 mg PO DAILY RF: 0 Vitamin B-1 100 mg Tablet 100 mg PO DAILY RF: 0 Acidophilus Probiotic 100 million cell-10 mg Capsule 1 cap PO DAILY RF: 0 potassium chloride 20 mEq tablet extended release 20 meq PO DAILY RF: 0 Discharge Orders: Discharge Order (Routine); Ordered 06/18/20 Ordered By: John Wilkes Discharge Diet: Diabetic Discharge Activity: Resume usual activity Patient Instructions: Diabetes Mellitus Type 2 in Adults (ED) Activity Restrictions/Additional Instructions: Continue with routine medications. Healthy diet and activity. Take metformin twice a day as directed. Call primary care office for follow-up appointment. Return to the emergency department for new concerns. Coding Level of Care Code ED [place] for Audrey 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
[2020-06-18] MEDS: sodium chloride 0.9% 1,000 ML 125 ML IV (18:10)
[2020-06-18 18:21] LABS: Basophils # 0.1 10^3/uL (0.0-0.1); Basophils % 1.2 %; Eosinophils # 0.1 10^3/uL (0.0-0.8); Eosinophils % 3.2 %; Hematocrit 28.8 % (42.0-52.0); Lymphocytes # 0.8 10^3/uL (0.8-4.8); Lymphocytes % 18.8 %; Mean Corpuscular HGB Conc 31.3 g/dL (30.0-36.0); Mean Corpuscular Hemoglobin 25.4 pg (28.0-34.0); Mean Corpuscular Volume 81.4 fL (80-94); Mean Platelet Volume 10.3 fL (7.4-10.4); Monocytes # 0.6 10^3/uL (0.2-0.9); Monocytes % 15.8 %; Neutrophils # 2.46 10^3/uL (1.8-7.7); Neutrophils % 60.8 %; Nucleated Red Blood Cells % 0 %; Platelet Count 112 10^3/cmm (130-400); Red Blood Count 3.54 10^6/uL (4.1-5.3); White Blood Count 4.1 10^3/uL (4.0-10.0)
[2020-06-18 18:24] LABS: Ketone (Acetest) Serum Negative (Negative)
[2020-06-18 18:26] LABS: Alanine Aminotransferase 12 U/L (0-41); Albumin Level 3.1 g/dL (3.5-5.2); Alkaline Phosphatase 122 IU/L (40-130); Anion Gap 12.9 (5-19); Aspartate Amino Transferase 28 U/L (0-40); Blood Urea Nitrogen 8 mg/dL (6-20); Calcium 9.6 mg/dL (8.5-10.5); Carbon Dioxide 26 mmol/L (22-29); Chloride 92 mmol/L (98-107); Glomerular Filtration Rate 77.6 mL/min (90-130); Glucose 486 mg/dL (65-115); Lipase 99 U/L (13-60); Osmolality Calculated 286 mOsm/kg (285-295); Sodium 128 mmol/L (136-145); Total Bilirubin 2.5 mg/dL (0.15-1.2); Total Protein 7.1 g/dL (6.6-8.7)
[2020-06-18 18:37] LABS: Potassium 2.9 mmol/L (3.5-5.1)
[2020-06-18] MEDS: potassium chloride ER 10 mEq Tablet 40 MEQ PO (18:38)
[2020-06-18 19:15] LABS: Glucose Point of Care 413 mg/dL (70-110)
--- NOTE | 2020-06-18 19:17 | PC.NURSE ---
POC glucose 413 reported to Iam BUTLER
[2020-06-18] MEDS: metformin 500 mg Tablet PO (19:24)
[2020-06-18 19:29] VITALS: BP 143/72; PULSE 75; RESP 14; O2SAT 100
== END 2020-06-18 19:29 | disposition home or self-care (01) ==
PROVIDERS: Emergency Medicine; Emergency Provider Nurse Practitioner Family
DX: K74.60 Unspecified cirrhosis of liver (principal); E11.9 Type 2 diabetes mellitus without complications
CPT/HCPCS: 12345; 36416; 80053; 82009; 82962; 83690; 85025; 96360; 96372; 99282; 99283; J1815; J7030

== ENCOUNTER 2020-08-11 09:02 | Emergency (ER) | payer MEDICARE, SELFPAY ==
[2020-08-11] VITALS (9 sets, daily range): BP systolic 93–148; BP diastolic 46–89; PULSE 67–83; RESP 15–16; TEMP 36.3; O2SAT 97–100; BMI 25.0
--- NOTE | 2020-08-11 09:31 | XR_ITS ---
WS: [id number] PORTABLE CHEST HISTORY: fever COMPARISON: 04/04/2020 Mild interstitial thickening involving both lungs with no area of consolidation. Small amount of atel ectasis or scar at the lingula. Very small pleural effusions versus pleural thickening. Cardiac size: Normal. Mediastinum/Aorta: Mild atherosclerosis aorta. Mild degenerative changes at the shoulder joints and AC joints. XR/XR chest 1V portable [id number] IMPRESSION: 1. Mild interstitial thickening without a focal consolidation. These findings may be chronic. 2. Atherosclerosis aorta, mild.
[2020-08-11 09:40] LABS: Basophils # 0.1 10^3/uL (0.0-0.1); Basophils % 0.6 %; Eosinophils # 0.2 10^3/uL (0.0-0.8); Eosinophils % 1.7 %; Hematocrit 30.8 % (42.0-52.0); Hemoglobin 9.1 g/dL (11.7-16.6); Lymphocytes # 0.3 10^3/uL (0.8-4.8); Lymphocytes % 2.8 %; Mean Corpuscular HGB Conc 29.5 g/dL (30.0-36.0); Mean Corpuscular Hemoglobin 23.3 pg (28.0-34.0); Mean Platelet Volume 9.9 fL (7.4-10.4); Monocytes # 0.7 10^3/uL (0.2-0.9); Monocytes % 5.4 %; Neutrophils # 10.66 10^3/uL (1.8-7.7); Neutrophils % 88.8 %; Nucleated Red Blood Cells % 0 %; Platelet Count 109 10^3/cmm (130-400); Red Cell Distribution Width 16.6 % (12.1-15.1)
--- NOTE | 2020-08-11 09:54 | ED_ITS ---
HPI - Fever General: Chief Complaint: Fever Stated Complaint: Fever, Feels bad. Time Seen by Provider: 08/11/20 09:19 History of Present Illness: HPI Narrative: This patient is a 55-year-old male presents today complaining of not feeling well. He has a history of liver cirrhosis. He thinks that he might have a kidney infection. He said he was here several months ago with similar symptoms and that was the problem. He is having difficulty urinating. He has had ascites in the past but had a TIPS procedure a few years ago and has not had any problems with that since. He has not had any Covid exposure. He denies cough or shortness of breath. He has not had vomiting or diarrhea. MD elicited complaint: fever and malaise Pertinent past history: immunosuppression (Liver cirrhosis) Onset (ago): day(s) (1) Exacerbating factors: nothing Relieving factors: nothing Associated symptoms: Reports dysuria; Deny abdominal pain, chills, chest pain, headache(s), nausea or vomiting Review of Systems General: Reports: 10 or more systems reviewed and unremarkable except in HPI and below Const: Denies: fever(s), chills, fatigue or malaise Eyes: Denies: change in vision ENMT: Denies: odynophagia Card: Denies: chest pain or swelling of feet/ankles Resp: Denies: dyspnea, productive cough or non-productive cough GI: Denies: abdominal pain, nausea or vomiting : Reports: dysuria Musc: Reports: extremity swelling; Denies: neck pain or back pain Skin/Breast: Denies: rash Neuro: Denies: headache(s), numbness in extremities or weakness in extremities Patel/Lymph: Denies: easy bruising or easy bleeding COUNTS INCLUDE 234 BEDS AT THE [facility] ED PFSH: Medical History (Updated 08/11/20 @ 16:06 by Deepali Bone MD) Alcoholic cirrhosis of liver Swelling of lower extremity Venous stasis dermatitis Surgical History S/P TIPS (transjugular intrahepatic portosystemic shunt) Family History Other Healthy adult Social History Smoking and tobacco status: never smoked Alcohol intake: former Year of sobriety/quit date alcohol: 3 ya Lives independently: No Household members: spouse Marital status: Current occupational status: unemployed Physical Exam Const: COMMON NORMALS: no acute distress, patient oriented x3, no limitations and alert GENERAL APPEARANCE: cooperative and comfortable HENMT: HEAD & SCALP: normal to inspection FACE & SINUS: normal facial exam Eye: GENERAL EYE: appearance normal, both eyes and all related structures Neck/C-Spine: COMMON NORMALS: supple, no meningeal signs and no JVD Chest: COMMONS NORMALS: normal inspection of the chest Resp: COMMON NORMALS: normal respiratory effort, No use of accessory muscles and clear to auscultation bilaterally AUSCULTATION: clear to auscultation bilaterally Cardio: COMMON NORMALS: no JVD, regular rate, regular rhythm and No murmurs present (Cardio) RATE: regular rate RHYTHM: regular rhythm GI: COMMON NORMALS: Normal to inspection, nondistended, normoactive bowel sounds present, Soft to palpation and non-tender INSPECTION: Yes normal to inspection AUSCULTATION: Yes normoactive bowel sounds PALPATION: Yes Soft to palpation Back/Pelvis: COMMON NORMALS: thoracic and lumbar spine normal to inspection Extremity: NARRATIVE EXTREMITY EXAM: diffuse pedal edema - chronic Neuro: COMMON NORMALS: patient oriented x3, moves all extremities, no focal motor deficits and no sensory deficits noted SENSORIUM/ORIENTATION: Yes alert MENINGEAL SIGNS: Yes no meningeal signs Psych: COMMON NORMALS: mental status grossly normal, cooperative and normal affect Skin: COMMON NORMALS: no rashes or lesions noted and turgor normal GENERAL SKIN EXAM: no rashes or lesions noted and turgor normal Course ED course: Mr. Conde presented several months ago with something similar that turned out to be bacteremia with Pseudomonas. He was treated with Levaquin and apparently did okay. I discussed this with him and shared my concern that this is what is happening again. We discussed the option of being admitted to the hospital. He really prefers to go home. His initial lactate was high but repeat had come down to normal. He was hypotensive on arrival but was given fluids. He felt much better after some fluids and antibiotics. He was able to get up and ambulate in the ER without difficulty. I made sure that he understood this could be a life-threatening condition and if he is feeling any worse he needs to come back. He also understands it is very important that he take the antibiotics exactly as prescribed and follow-up with Dr. Guzman. Vital Signs: Vital signs: Vital Signs Temperature 97.3 F L 08/11/20 09:09 Pulse Rate 70 08/11/20 16:28 Respiratory Rate 16 08/11/20 16:28 Blood Pressure 148/89 08/11/20 16:28 Pulse Oximetry 97 08/11/20 16:28 MDM - Fever Lab Data: Labs: Lab Results 08/11/20 08/11/20 08/11/20 Range/Units 08:24 08:24 08:24 WBC 12.0 H (4.0-10.0) 10^3/ uL RBC 3.90 L (4.1-5.3) 10^6/u L Hgb 9.1 L (11.7-16.6) g/dL Hct 30.8 L (42.0-52.0) % MCV 79.0 L (80-94) fL MCH 23.3 L (28.0-34.0) pg MCHC 29.5 L (30.0-36.0) g/dL RDW 16.6 H (12.1-15.1) % Plt Count 109 L (130-400) 10^3/c mm MPV 9.9 (7.4-10.4) fL Neut % (Auto) 88.8 % Lymph % (Auto) 2.8 % [place] % (Auto) 5.4 % Eos % (Auto) 1.7 % Baso % (Auto) 0.6 % Neut # (Auto) 10.66 H (1.8-7.7) 10^3/u L Lymph # (Auto) 0.3 L (0.8-4.8) 10^3/u L [place] # (Auto) 0.7 (0.2-0.9) 10^3/u L Eos # (Auto) 0.2 (0.0-0.8) 10^3/u L Baso # (Auto) 0.1 (0.0-0.1) 10^3/u L Nucleated RBC % (a uto) 0 % Nucleated RBCs # 0.0 /100WBC Sodium 132 L (136-145) mmol/L Potassium 3.3 L (3.5-5.1) mmol/L Chloride 96 L (98-107) mmol/L Carbon Dioxide 20 L (22-29) mmol/L Anion Gap 19.3 H (5-19) BUN 20 (6-20) mg/dL Creatinine 1.6 H (0.7-1.2) mg/dL GFR Calculation 44.9 L (90-130) mL/min Glucose 144 H (65-115) mg/dL Calculated Osmolal ity 279 L (285-295) mOsm/k g Lactic Acid 4.7 H* (0.5-2.2) mmol/L Lactic Acid (Sepsi s) (0.5-2.2) mmol/L Calcium 8.1 L (8.5-10.5) mg/dL Total Bilirubin 3.8 H (0.15-1.2) mg/dL AST 24 (0-40) U/L ALT 16 (0-41) U/L Alkaline Phosphata se 90 (40-130) IU/L Total Protein 6.6 (6.6-8.7) g/dL Albumin 3.0 L (3.5-5.2) g/dL Globulin 3.6 (1.3-4.6) g/dL Lipase 47 (13-60) U/L Urine Color (Yellow) Urine Appearance (CLEAR) Urine pH (5-7) Ur Specific Gravit y (1.005-1.030) Urine Protein (Negative) Urine Glucose (UA) (Normal) Urine Ketones (Negative) Urine Blood (Negative) Urine Nitrate (Negative) Urine Bilirubin (Negative) Urine Urobilinogen (Negative) mg/dL Ur Leukocyte Christina ase (Negative) Urine RBC (0-2) /hpf Urine WBC (0-5) /hpf Ur Squamous Epith Cells (0-5) /hpf Amorphous Sediment /hpf Urine Bacteria (NONE) /hpf Urine Mucus /hpf SARS-CoV-2 Ag (Rap id) (Negative) 08/11/20 08/11/20 08/11/20 Range/Units 10:00 12:18 12:21 WBC (4.0-10.0) 10^3/ uL RBC (4.1-5.3) 10^6/u L Hgb (11.7-16.6) g/dL Hct (42.0-52.0) % MCV (80-94) fL MCH (28.0-34.0) pg MCHC (30.0-36.0) g/dL RDW (12.1-15.1) % Plt Count (130-400) 10^3/c mm MPV (7.4-10.4) fL Neut % (Auto) % Lymph % (Auto) % [place] % (Auto) % Eos % (Auto) % Baso % (Auto) % Neut # (Auto) (1.8-7.7) 10^3/u L Lymph # (Auto) (0.8-4.8) 10^3/u L [place] # (Auto) (0.2-0.9) 10^3/u L Eos # (Auto) (0.0-0.8) 10^3/u L Baso # (Auto) (0.0-0.1) 10^3/u L Nucleated RBC % (a uto) % Nucleated RBCs # /100WBC Sodium (136-145) mmol/L Potassium (3.5-5.1) mmol/L Chloride (98-107) mmol/L Carbon Dioxide (22-29) mmol/L Anion Gap (5-19) BUN (6-20) mg/dL Creatinine (0.7-1.2) mg/dL GFR Calculation (90-130) mL/min Glucose (65-115) mg/dL Calculated Osmolal ity (285-295) mOsm/k g Lactic Acid (0.5-2.2) mmol/L Lactic Acid (Sepsi s) 2.8 H (0.5-2.2) mmol/L Calcium (8.5-10.5) mg/dL Total Bilirubin (0.15-1.2) mg/dL AST (0-40) U/L ALT (0-41) U/L Alkaline Phosphata se (40-130) IU/L Total Protein (6.6-8.7) g/dL Albumin (3.5-5.2) g/dL Globulin (1.3-4.6) g/dL Lipase (13-60) U/L Urine Color Dark yellow (Yellow) Urine Appearance Hazy A (CLEAR) Urine pH 5.0 (5-7) Ur Specific Gravit y 1.020 (1.005-1.030) Urine Protein Neg (Negative) Urine Glucose (UA) Norm (Normal) Urine Ketones Negative (Negative) Urine Blood Neg (Negative) Urine Nitrate Negative (Negative) Urine Bilirubin 1+ H (Negative) Urine Urobilinogen 1 H (Negative) mg/dL Ur Leukocyte Christina ase Negative (Negative) Urine RBC None (0-2) /hpf Urine WBC None (0-5) /hpf Ur Squamous Epith Cells 0-4 H (0-5) /hpf Amorphous Sediment 2+ /hpf Urine Bacteria 1+ H (NONE) /hpf Urine Mucus Trace /hpf SARS-CoV-2 Ag (Rap id) Negative (Negative) Discharge Plan Discharge Patient Disposition: Home Clinical Impression: Fever of unknown origin Cirrhosis Qualifiers: Hepatic cirrhosis type: unspecified hepatic cirrhosis Ascites presence: without ascites Qualified Code(s): K74.60 - Unspecified cirrhosis of liver Condition: Stable Prescriptions: New levofloxacin 500 mg tablet 500 mg PO DAILY 10 Days Qty: 10 RF: 0 No Action lactulose 10 gram/15 mL Solution 30 g PO TID RF: 0 multivitamin [Multiple Vitamins] Tablet 1 tab PO DAILY RF: 0 bumetanide 2 mg tablet 2 mg PO BID RF: 0 thiamine HCl (vitamin B1) [Vitamin B-1] 100 mg Tablet 100 mg PO DAILY RF: 0 acidophilus-pectin, citrus [Acidophilus Probiotic] 100 million cell-10 mg Capsule 1 cap PO DAILY RF: 0 potassium chloride 20 mEq tablet extended release 20 meq PO DAILY RF: 0 metformin 500 mg tablet 500 mg PO BEDTIME RF: 0 Discharge Orders: Discharge Order (Routine); Ordered 08/11/20 Ordered By: Deepali Bone Referrals: Manny Guzman DO [Physician] - Discharge Diet: Usual diet Discharge Activity: Resume usual activity Patient Instructions: Fever in Adults (ED), Sepsis (GEN) Activity Restrictions/Additional Instructions: Please return to the emergency room immediately if you are feeling worse in any way. Blood cultures were sent today and the results will be available in the next few days. You are already on antibiotics for a potential blood infection however we will contact you if the blood cultures do show anything. Please call your regular doctor and let them know that you are being treated with an antibiotic and schedule an appointment to be rechecked within a week. 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
[2020-08-11 09:59] LABS: Alanine Aminotransferase 16 U/L (0-41); Alkaline Phosphatase 90 IU/L (40-130); Anion Gap 19.3 (5-19); Aspartate Amino Transferase 24 U/L (0-40); Blood Urea Nitrogen 20 mg/dL (6-20); Calcium 8.1 mg/dL (8.5-10.5); Carbon Dioxide 20 mmol/L (22-29); Chloride 96 mmol/L (98-107); Globulin 3.6 g/dL (1.3-4.6); Glomerular Filtration Rate 44.9 mL/min (90-130); Glucose 144 mg/dL (65-115); Lipase 47 U/L (13-60); Osmolality Calculated 279 mOsm/kg (285-295); Potassium 3.3 mmol/L (3.5-5.1); Sodium 132 mmol/L (136-145); Total Bilirubin 3.8 mg/dL (0.15-1.2); Total Protein 6.6 g/dL (6.6-8.7)
[2020-08-11 10:00] LABS: Lactic Sepsis W/Reflex 4.7 mmol/L (0.5-2.2)
[2020-08-11] MEDS: sodium chloride 0.9% 500 ML 999 ML IV (10:12)
[2020-08-11 11:25] LABS: Reflex Lactate Order REFLEX LACTIC ORDERD
[2020-08-11 11:48] LABS: SARS Covid-2 Antigen Negative (Negative)
[2020-08-11] MEDS: sodium chloride 0.9% 1,000 ML 999 ML IV (12:00)
[2020-08-11 12:49] LABS: Lactic Acid level (Lactate) 2.8 mmol/L (0.5-2.2)
[2020-08-11 13:06] LABS: Bilirubin Urine 1+ (Negative); Blood Urine Neg (Negative); Glucose Urine UA Norm (Normal); Ketones Urine Negative (Negative); Leukocyte Esterase Urine Negative (Negative); Nitrate Urine Negative (Negative); Protein Urine Neg (Negative); Urine Appearance Hazy (CLEAR); Urine Color Dark Yellow (Yellow); Urobilinogen Urine 1 mg/dL (Negative)
[2020-08-11 13:07] LABS: Add Urine Culture? No; Add Urine Microscopic? YES; Amorphous Sediment Urine 2+ /hpf; Bacteria Urine 1+ /hpf; Mucus Urine TRACE /hpf; Squamous Epithelial Cell Urine 0-4 /hpf (0-5)
[2020-08-11] MEDS: levofloxacin-dextrose 5 % 750 MG/150 ML PREMIX 100 MG IV (14:34)
--- NOTE | 2020-08-11 15:58 | PC.NURSE ---
Patient able to ambulate without difficultly.
== END 2020-08-11 16:29 | disposition home or self-care (01) ==
PROVIDERS: Emergency Provider Emergency Medicine
DX: R50.9 Fever, unspecified (principal); K74.60 Unspecified cirrhosis of liver
CPT/HCPCS: 12345; 51702; 71045; 80053; 81001; 83605; 83690; 85025; 87040; 87426; 96365; 99283; J1956; J7030; J7040

== ENCOUNTER 2021-01-06 08:59 | Outpatient (CLI) | payer MEDICARE, SELFPAY ==
--- NOTE | 2021-01-06 09:30 | MR_ITS ---
WS: [id number] MRI ABDOMEN without CONTRAST. COMPARISON: CT 04/05/2020 and gallbladder ultrasound 04/05/2020. Multiplanar, multisequence imaging is performed without contrast. Unable to obtain IV access. Patien t declined further attempts at achieving IV access for contrast enhanced study. Patient is status post TIPS. No change in position of the shunt. No contrast given therefore cannot e valuate further. The portal vein appears patent. Surface of the liver is very nodular. The fissures are widened. Caudate lobe is enlarged and there ar e no solid masses identified within the liver. There is a hepatic cyst towards the diaphragm in the m id liver measuring 3.1 x 2.8 cm. No additional cysts. There is a small amount of perihepatic fluid. N o bile duct dilatation. Gallbladder is slightly contracted. There are several stones within the gallbladder. No pericholecyst ic fluid or gallbladder wall thickening is appreciated. Common bile duct at the pancreatic head is no rmal. Visualized pancreas is negative without contrast. Spleen is enlarged extending over a length of 16.6 cm with a small amount of perisplenic fluid. Very small bilateral pleural effusions. Visualized heart appears enlarged. No adrenal mass. MR/MR abdomen wo con [id number] IMPRESSION: 1. Unsuccessful attempts at IV access. Patient refused additional attempts. 2. Cirrhotic liver with no solid mass is identified on this unenhanced study. Without contrast the sensitivity is decreased for early hepatocellular carcinom a. 3. Simple hepatic cysts. 4. Cholelithiasis without acute cholecystitis. 5. Moderate splenomegaly due to portal venous hypertension. 6. Prior TIPS. 7. Small amount of ascites and small bilateral pleural effusions. The ascites and effusions appear slightly improved since 04/05/2020.
== END 2021-01-06 09:00 | disposition home or self-care (01) ==
PROVIDERS: Visit Provider Internal Medicine Gastroenterology
DX: K70.31 Alcoholic cirrhosis of liver with ascites (principal); K76.89 Other specified diseases of liver; K80.20 Calculus of gallbladder without cholecystitis without obstruction; R16.1 Splenomegaly, not elsewhere classified
CPT/HCPCS: 74181

== ENCOUNTER 2021-02-02 07:38 | Outpatient (CLI) | payer MEDICARE, MEDICAID, SELFPAY ==
--- NOTE | 2021-02-02 07:51 | US_ITS ---
WS: [id number] ULTRASOUND ABDOMEN LIMITED CLINICAL INFORMATION: CIRRHOSIS/HCC SCREENING COMPARISON: MRI January 06, 2021. Ultrasound April 05, 2020 FINDINGS: TIPS shunt present. Cirrhotic liver. No visualized hepatic lesions. Size: Mild hepatomegaly Craniocaudal length: 17.5 cm. Echogenicity: Normal. Surface nodularity: None. Mass (size and location): None. Bile ducts Intrahepatic ducts: Normal. Common bile duct diameter: 0.4 cm. Gallbladder Cholelithiasis. Gallbladder is contracted. Gallstones: Present Gallbladder sludge: None. Gallbladder wall thickening: None. Pericholecystic fluid: None. Sonographic Howard sign: Absent. Pancreas Normal as visualized. Right kidney: Normal. Hydronephrosis: None. Size: 12.1 cm x 7.4 cm x 7.3 cm. Abdominal aorta and IVC Visualized portions are normal. Ascites: None. US/US abdomen limited [id number] IMPRESSION: 1. Mild hepatomegaly. Cirrhotic liver. TIPS shunt is present. 2. Cholelithiasis. No gallbladder wall thickening or pericholecystic fluid. 3. Normal common bile duct measuring 4.2 mm. 4. No hydronephrosis in right kidney.
== END 2021-02-02 07:39 | disposition home or self-care (01) ==
LOC: RAD 07:43
PROVIDERS: PCP Internal Medicine; Visit Provider Internal Medicine Gastroenterology
DX: K74.60 Unspecified cirrhosis of liver (principal); R16.0 Hepatomegaly, not elsewhere classified; K80.20 Calculus of gallbladder without cholecystitis without obstruction
CPT/HCPCS: 76705

== ENCOUNTER 2021-02-23 14:26 | Emergency (ER) | payer MEDICARE, MEDICAID, SELFPAY ==
[2021-02-23 14:40] VITALS: BP 128/65; PULSE 65; RESP 16; TEMP 36.8; O2SAT 97; BMI 26.9
--- NOTE | 2021-02-23 15:52 | ECG_ITS ---
[facility] Test Date: 2021-02-23 Pat Name: Kyle Conde Department: Room: Gender: Male [employer] Farmer: : 1965 Requested By: Darrian Sosa Order Number: [id number] Bridger MD: Sg Barroso M.D. Measurements Intervals [place] Rate: 64 P: 47 ME: 240 QRS: 5 QRSD: 97 T: 49 QT: 416 QTc: 432 Interpretive Statements SINUS RHYTHM WITH FIRST DEGREE AV BLOCK Compared to ECG 04/04/2020 23:58:14 First degree AV block now present Sinus tachycardia no longer present T-wave abnormality no longer present Electronically Signed On 02-23-2021 17:03:43 CDT by Sg Barroso M.D. [id number]
--- NOTE | 2021-02-23 15:52 | XRR_ITS ---
PROCEDURE INFORMATION: Exam: XR Chest Exam date and time: 02/23/2021 3:54 PM Age: 55 years old Clinical indication: Cough and dyspnea; Additional info: Dyspnea/cough, doesn't feel good TECHNIQUE: Imaging protocol: XR of the chest. Views: 1 view. Total images: 1 COMPARISON: 1. CR XR chest 1V portable [id number] 08/11/2020 9:32 AM 2. CR XR chest 1V portable [id number] 04/04/2020 11:57:05 PM FINDINGS: Lungs: Mild discoid atelectasis versus early pneumonitis/pneumonia left lung base. Mild senile fibrosis. Pleural spaces: Unremarkable. No pleural effusion. No pneumothorax. Heart/Mediastinum: Cardiac structures and configuration with arteriosclerosis. Bones/joints: Unremarkable. XR/XR chest 1V portable [id number] IMPRESSION: 1. Mild discoid atelectasis versus early pneumonitis/pneumonia left lung base. 2. Mild senile fibrosis.
--- NOTE | 2021-02-23 15:53 | W.ED.GENADLT ---
HPI - General Adult General: Chief complaint: General Medical Stated complaint: SENT BY [facility]/LIVER PROBLEMS, H/A Time Seen by Provider: 02/23/21 15:51 History of Present Illness: HPI narrative: 55-year-old male presents emergency room with complaint of jaundice. His known history of cirrhosis secondary to alcohol use he quit drinking about 4 years ago he has been seeing hepatology and [facility] and things become seem to be going well the last few days he had increasing jaundiced. He is just generally not been feeling well and tired. No nausea or vomiting no constipation. Onset (ago): day(s) Severity: mild Relieving factors: none Exacerbating factors: none Associated symptoms: Reports decreased appetite, malaise, nausea and weakness; Deny chest pain, confusion, cough, diaphoresis, dyspnea, fevers/chills, headache(s), rash, palpitations, seizures, short of breath, syncope or vomiting Treatments prior to arrival: none Review of Systems Const: Reports: malaise; Denies: diaphoresis ENMT: Denies: throat pain, ear or mastoid pain, nasal discharge or nasal congestion Card: Denies: chest pain, palpitations or syncope Resp: Reports: non-productive cough; Denies: dyspnea GI: Reports: nausea; Denies: vomiting : Denies: flank pain, dysuria, urinary frequency or urinary urgency Skin/Breast: Denies: rash Neuro: Denies: headache(s) or confusion [facility] ED PFSH: Medical History (Updated 02/23/21 @ 17:44 by Darrian Tovar DO) Alcoholic cirrhosis of liver Swelling of lower extremity Venous stasis dermatitis Surgical History S/P TIPS (transjugular intrahepatic portosystemic shunt) Family History Other Healthy adult Social History Smoking and tobacco status: never smoked Alcohol intake: former Year of sobriety/quit date alcohol: 3 ya Lives independently: No Household members: spouse Marital status: Current occupational status: unemployed Physical Exam Const: COMMON NORMALS: no acute distress GENERAL APPEARANCE: cooperative and comfortable ORIENTATION/CONSCIOUSNESS: Yes awake, Yes oriented to person, Yes oriented to place and Yes oriented to time HENMT: COMMON NORMALS: normocephalic, atraumatic, hearing grossly normal bilaterally and external ears normal HEAD & SCALP: normocephalic and atraumatic EXTERNAL EAR: Yes external ears normal Eye: SCLERA: scleral abnormal (Scleral icterus) Neck/C-Spine: COMMON NORMALS: no JVD Resp: COMMON NORMALS: normal respiratory effort, No retractions, No use of accessory muscles and clear to auscultation bilaterally AUSCULTATION: clear to auscultation bilaterally Cardio: COMMON NORMALS: no JVD, regular rate, regular rhythm and No murmurs present (Cardio) RATE: regular rate RHYTHM: regular rhythm GI: COMMON NORMALS: Soft to palpation and No hepatosplenomegaly present AUSCULTATION: Yes normoactive bowel sounds PALPATION: Yes Soft to palpation, No Tenderness to palpation present (GI), No Guarding due to palpation present (GI) and Yes No hepatosplenomegaly present Extremity: COMMON NORMALS: normal to inspection, capillary refill normal, no clubbing, cyanosis or edema, no calf tenderness and no pedal edema Neuro: SENSORIUM/ORIENTATION: Yes oriented to person, Yes oriented to place and Yes oriented to time Skin: COMMON NORMALS: no rashes or lesions noted GENERAL SKIN EXAM: no rashes or lesions noted Course Vital Signs: Vital signs: Vital Signs Temperature 98.2 F 02/23/21 14:40 Pulse Rate 65 02/23/21 14:40 Respiratory Rate 16 02/23/21 14:40 Blood Pressure 128/65 02/23/21 14:40 Pulse Oximetry 97 02/23/21 14:40 MDM - General Adult MDM Narrative: Medical decision making narrative: T bili 3.6 patient does not appear to be in acute distress he is chronically anemic and thrombocytopenic. He should have continued follow-up chest x-ray there is a question of pneumonitis which may worsen some of his other hepatic issues. We will start him on some Levaquin he is feeling well enough to go home he is not hypoxic. We will discharge him home with Levaquin follow-up with primary care doctor in the next few days return if has further problems. Lab Data: Labs: Lab Results 02/23/21 02/23/21 02/23/21 Range/Units 16:45 16:45 16:45 WBC 8.2 (4.0-10.0) 10^3/ uL RBC 3.89 L (4.1-5.3) 10^6/u L Hgb 8.9 L (11.7-16.6) g/dL Hct 30.5 L (42.0-52.0) % MCV 78.4 L (80-94) fL MCH 22.9 L (28.0-34.0) pg MCHC 29.2 L (30.0-36.0) g/dL RDW 18.9 H (12.1-15.1) % Plt Count 91 L (130-400) 10^3/c mm MPV 11.4 H (7.4-10.4) fL Neut % (Auto) 78.3 % Lymph % (Auto) 8.1 % [place] % (Auto) 12.0 % Eos % (Auto) 0.6 % Baso % (Auto) 0.5 % Neut # (Auto) 6.45 (1.8-7.7) 10^3/u L Lymph # (Auto) 0.7 L (0.8-4.8) 10^3/u L [place] # (Auto) 1.0 H (0.2-0.9) 10^3/u L Eos # (Auto) 0.1 (0.0-0.8) 10^3/u L Baso # (Auto) 0.0 (0.0-0.1) 10^3/u L Nucleated RBC % (a uto) 0 % Nucleated RBCs # 0.0 /100WBC PT 16.60 H (12.1-14.9) SECO NDS INR 1.31 H (0.8-1.2) APTT 37.0 H (23.9-36.7) SECO NDS Sodium 135 L (136-145) mmol/L Potassium 3.6 (3.5-5.1) mmol/L Chloride 102 (98-107) mmol/L Carbon Dioxide 23 (22-29) mmol/L Anion Gap 13.6 (5-19) BUN 16 (6-20) mg/dL Creatinine 1.1 (0.7-1.2) mg/dL GFR Calculation 69.2 L (90-130) mL/min Glucose 105 (65-115) mg/dL Calculated Osmolal ity 282 L (285-295) mOsm/k g Calcium 7.9 L (8.5-10.5) mg/dL Total Bilirubin 3.6 H (0.15-1.2) mg/dL AST 28 (0-40) U/L ALT 13 (0-41) U/L Alkaline Phosphata se 74 (40-130) IU/L Ammonia (16-60) umol/L Creatine Kinase 249 (39-308) U/L Total Protein 6.7 (6.6-8.7) g/dL Albumin 2.9 L (3.5-5.2) g/dL Globulin 3.8 (1.3-4.6) g/dL Lipase 33 (13-60) U/L /05/08 Range/Units 16:45 WBC (4.0-10.0) 10^3/ uL RBC (4.1-5.3) 10^6/u L Hgb (11.7-16.6) g/dL Hct (42.0-52.0) % MCV (80-94) fL MCH (28.0-34.0) pg MCHC (30.0-36.0) g/dL RDW (12.1-15.1) % Plt Count (130-400) 10^3/c mm MPV (7.4-10.4) fL Neut % (Auto) % Lymph % (Auto) % [place] % (Auto) % Eos % (Auto) % Baso % (Auto) % Neut # (Auto) (1.8-7.7) 10^3/u L Lymph # (Auto) (0.8-4.8) 10^3/u L [place] # (Auto) (0.2-0.9) 10^3/u L Eos # (Auto) (0.0-0.8) 10^3/u L Baso # (Auto) (0.0-0.1) 10^3/u L Nucleated RBC % (a uto) % Nucleated RBCs # /100WBC PT (12.1-14.9) SECO NDS INR (0.8-1.2) APTT (23.9-36.7) SECO NDS Sodium (136-145) mmol/L Potassium (3.5-5.1) mmol/L Chloride (98-107) mmol/L Carbon Dioxide (22-29) mmol/L Anion Gap (5-19) BUN (6-20) mg/dL Creatinine (0.7-1.2) mg/dL GFR Calculation (90-130) mL/min Glucose (65-115) mg/dL Calculated Osmolal ity (285-295) mOsm/k g Calcium (8.5-10.5) mg/dL Total Bilirubin (0.15-1.2) mg/dL AST (0-40) U/L ALT (0-41) U/L Alkaline Phosphata se (40-130) IU/L Ammonia 15 L (16-60) umol/L Creatine Kinase (39-308) U/L Total Protein (6.6-8.7) g/dL Albumin (3.5-5.2) g/dL Globulin (1.3-4.6) g/dL Lipase (13-60) U/L Discharge Plan Discharge Patient Disposition: Home Clinical Impression: Pneumonia, Cirrhosis Condition: Stable Prescriptions: New levofloxacin 500 mg tablet 500 mg PO DAILY 7 Days RF: 0 No Action lactulose 10 gram/15 mL Solution 30 g PO TID RF: 0 multivitamin [Multiple Vitamins] Tablet 1 tab PO DAILY RF: 0 bumetanide 2 mg tablet 2 mg PO BID RF: 0 thiamine HCl (vitamin B1) [Vitamin B-1] 100 mg Tablet 100 mg PO DAILY RF: 0 potassium chloride 20 mEq tablet extended release 20 meq PO DAILY RF: 0 metformin 500 mg tablet 500 mg PO BEDTIME RF: 0 Discharge Orders: Discharge ED (Routine); Ordered 02/23/21 Ordered By: Darrian Tovar Referrals: Manny Guzman DO [Primary Care Provider] - Discharge Diet: Usual diet Discharge Activity: Increase activity as tolerated Patient Instructions: Opioid Safety Activity Restrictions/Additional Instructions: Follow-up was your primary care doctor next 2 days. 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
[2021-02-23 17:14] LABS: Alanine Aminotransferase 13 U/L (0-41); Albumin Level 2.9 g/dL (3.5-5.2); Alkaline Phosphatase 74 IU/L (40-130); Anion Gap 13.6 (5-19); Aspartate Amino Transferase 28 U/L (0-40); Blood Urea Nitrogen 16 mg/dL (6-20); Calcium 7.9 mg/dL (8.5-10.5); Carbon Dioxide 23 mmol/L (22-29); Chloride 102 mmol/L (98-107); Creatine Phosphokinase 249 U/L (39-308); Globulin 3.8 g/dL (1.3-4.6); Glomerular Filtration Rate 69.2 mL/min (90-130); Glucose 105 mg/dL (65-115); Lipase 33 U/L (13-60); Osmolality Calculated 282 mOsm/kg (285-295); Potassium 3.6 mmol/L (3.5-5.1); Sodium 135 mmol/L (136-145); Total Bilirubin 3.6 mg/dL (0.15-1.2); Total Protein 6.7 g/dL (6.6-8.7)
[2021-02-23 17:15] LABS: Ammonia 15 umol/L (16-60); Basophils % 0.5 %; Eosinophils # 0.1 10^3/uL (0.0-0.8); Eosinophils % 0.6 %; Hematocrit 30.5 % (42.0-52.0); Hemoglobin 8.9 g/dL (11.7-16.6); Lymphocytes # 0.7 10^3/uL (0.8-4.8); Lymphocytes % 8.1 %; Mean Corpuscular HGB Conc 29.2 g/dL (30.0-36.0); Mean Corpuscular Hemoglobin 22.9 pg (28.0-34.0); Mean Corpuscular Volume 78.4 fL (80-94); Mean Platelet Volume 11.4 fL (7.4-10.4); Neutrophils # 6.45 10^3/uL (1.8-7.7); Neutrophils % 78.3 %; Nucleated Red Blood Cells % 0 %; Platelet Count 91 10^3/cmm (130-400); Red Blood Count 3.89 10^6/uL (4.1-5.3); Red Cell Distribution Width 18.9 % (12.1-15.1); White Blood Count 8.2 10^3/uL (4.0-10.0)
[2021-02-23 17:16] LABS: Slide Review Slide Review Perform
[2021-02-23 17:26] LABS: INR 1.31 (0.8-1.2)
== END 2021-02-23 18:09 | disposition home or self-care (01) ==
PROVIDERS: Physician Assistant; Emergency Provider Family Medicine; PCP Internal Medicine
DX: K74.60 Unspecified cirrhosis of liver (principal); J18.9 Pneumonia, unspecified organism
CPT/HCPCS: 71045; 80053; 82140; 82550; 83690; 85025; 85610; 85730; 93005; 99283

== ENCOUNTER 2021-12-20 10:52 | Outpatient (CLI) | payer MEDICARE, MEDICAID, SELFPAY ==
--- NOTE | 2021-12-20 10:58 | US_ITS ---
WS: [id number] ULTRASOUND ABDOMEN LIMITED CLINICAL INFORMATION: CIRRHOSIS OF LIVER W/O ASCITES COMPARISON: Ultrasound February 02, 2021 FINDINGS: Previous TIPS procedure. Hepatopedal flow demonstrated in the main portal vein. Perihepatic ascites. Liver Size: Cirrhotic Craniocaudal length: 14.1 cm. Echogenicity: Coarse Surface nodularity: Cirrhotic Mass (size and location): None. Bile ducts Intrahepatic ducts: Normal. Common bile duct diameter: 0.3 cm. Gallbladder Cholelithiasis Gallstones: Present Gallbladder sludge: None. Gallbladder wall thickening: None. Pericholecystic fluid: None. Sonographic Howard sign: Absent. Pancreas Normal as visualized. Right kidney: Inferior pole simple renal cyst measuring 2.6 x 3.0 x 1.9 cm Hydronephrosis: None. Size: 12.1 cm x 5.7 cm x 7.0 cm. Abdominal aorta and IVC Visualized portions are normal. Ascites: Present US/US abdomen limited [id number] IMPRESSION: 1. Prior TIPS procedure with hepatopedal flow demonstrated in the main portal vein. 2. Cirrhotic liver. 3. Cholelithiasis. No gallbladder wall thickening or pericholecystic fluid. 4. Normal common bile duct. 5. Simple cyst inferior pole RIGHT kidney. No hydronephrosis. 6. Perihepatic ascites. 7. No significant changes since February 02, 2021
== END 2021-12-20 10:53 | disposition home or self-care (01) ==
LOC: RAD 10:55
PROVIDERS: PCP Internal Medicine; Visit Provider Internal Medicine Gastroenterology
DX: K70.30 Alcoholic cirrhosis of liver without ascites (principal); K80.20 Calculus of gallbladder without cholecystitis without obstruction; N28.1 Cyst of kidney, acquired; R18.8 Other ascites
CPT/HCPCS: 76705

== ENCOUNTER 2022-03-01 10:54 | Outpatient (CLI) | payer MEDICARE, MEDICAID, SELFPAY ==
[2022-03-01 11:30] LABS: D Dimer 4.78 ug/mIFEU (0-0.59)
[2022-03-01 11:40] LABS: NT Pro B Type Natriuretic Pept 6376 pg/mL (0-125)
== END 2022-03-01 10:55 | disposition home or self-care (01) ==
LOC: LAB 10:55
PROVIDERS: PCP Internal Medicine; Visit Provider Nurse Practitioner Family
DX: R60.9 Edema, unspecified (principal)
CPT/HCPCS: 83880; 85378

== ENCOUNTER 2022-03-01 11:23 | Outpatient (CLI) | payer MEDICARE, MEDICAID, SELFPAY ==
--- NOTE | 2022-03-01 | US_ITS ---
WS: [id number] Complete ABDOMINAL ULTRASOUND HISTORY: LIVER FAILURE COMPARISON: 12/20/2021 Liver: 15.3 cm in length. Liver is normal size. Very coarse echotexture throughout the liver. Surface of the liver is irregular and nodular. No mass. Portal Vein: Normal hepatopetal flow with monophasic waveform. Gallbladder: Numerous stones within the gallbladder. No wall thickening or pericholecystic fluid. Gallbladder wall thickness: 0.2 cm. Pancreas: Normal size and echogenicity. CBD: 0.5 cm. Right kidney: 12.9 cm x 6.5 cm x 4.5 cm. Normal size kidney. Cyst in the mid to lower kidney measure s 2.4 x 2.4 cm. No hydronephrosis. Left kidney: 12.7 cm x 5.5 cm x 5.2 cm. No mass, cortical thickening or hydronephrosis. Spleen: Markedly enlarged spleen measures 21.8 cm in length. Abdominal aorta and IVC are within normal limits. There is a very small amount of ascites within the abdomen. Ascites noted adjacent to the liver and s pleen. Very tiny amount of pleural fluid. US/US abdomen complete* [id number] IMPRESSION: 1. Advanced changes of cirrhosis. 2. Marked splenomegaly. 3. Normal hepatopetal flow within the portal vein. 4. Small amount of ascites and small bilateral pleural effusions. 5. Cholelithiasis without acute cholecystitis.
== END 2022-03-01 11:24 | disposition home or self-care (01) ==
LOC: RADOUTREAD 11:25
PROVIDERS: PCP Internal Medicine; Visit Provider Nurse Practitioner Family
DX: K72.90 Hepatic failure, unspecified without coma (principal)
CPT/HCPCS: 76700

== ENCOUNTER 2022-03-01 12:00 | Observation (INO) | payer MEDICARE, MEDICAID, SELFPAY ==
[2022-03-01] VITALS (11 sets, daily range): BP systolic 84–108; BP diastolic 43–65; PULSE 69–100; RESP 15–18; TEMP 36.5–37; O2SAT 96–100; BMI 28.1; BMI 30.3; BMI 28.3
--- NOTE | 2022-03-01 12:36 | XRR_ITS ---
PROCEDURE INFORMATION: Exam: XR Chest Exam date and time: 03/01/2022 12:42 PM Age: 56 years old Clinical indication: Pain; Angina pectoris; Additional info: Chest pain TECHNIQUE: Imaging protocol: XR of the chest. Views: 1 view. COMPARISON: CR XR chest 1V portable [id number] 02/23/2021 3:52 PM FINDINGS: Lungs: Unremarkable. No consolidation. Pleural spaces: Unremarkable. No pleural effusion. No pneumothorax. Heart/Mediastinum: Stable cardiomediastinal silhouette. Bones/joints: Degenerative changes of the spine seen. XR/XR chest 1V portable [id number] IMPRESSION: No acute findings.
--- NOTE | 2022-03-01 12:37 | CT_ITS ---
WS: [id number] CT CHEST ANGIOGRAPHY WITH REFORMATS HISTORY: elevated dimer TECHNIQUE: Contiguous axial images are obtained through the chest during arterial injection of intrav enous contrast. Images are reconstructed to evaluate the pulmonary arteries. MIP imaging also reviewe d. All CT scans at [facility] use at least one of these dose optimization techniques: automat ed exposure control; mA and/or kV adjustment per patient size (includes targeted exams where dose is matched to clinical indication); or iterative reconstruction. CONTRAST: Visipaque 320; 90 mL IV. DLP: 581.59 mGy.cm COMPARISON: None available. Adequate but limited opacification of the pulmonary arteries. Proximally there are no filling defects . Beyond the lobar branches the opacification is limited. Mild atherosclerosis aorta. No aneurysm. Pu lmonary artery size is slightly enlarged. Heart size is enlarged. Small pericardial effusion. Small b ilateral pleural effusions. Study is limited by breathing motion artifact and poor bolus injection. No pneumonia. No pulmonary ma ss or nodule. No mediastinal or hilar adenopathy. Small hiatal hernia. Patient is status post TIPS procedure. Cirrhotic liver. The spleen is enlarged but incompletely inclu ded. No change in the minimally complex cystic mass in the central liver with calcification in the wa ll. There is ascites and cirrhosis. Soft tissue anasarca. Increase in thoracic kyphosis. CT/CT angio chest PE protcl [id number] IMPRESSION: 1. No central pulmonary embolism. Beyond the lobar branches the opacification becomes limited. 2. Small bilateral pleural effusions and small amount of ascites. 3. Cirrhosis with splenomegaly. Status post TIPS procedure. 4. Small pericardial effusion. 5. Cholelithiasis without acute cholecystitis.
--- NOTE | 2022-03-01 12:37 | ECG_ITS ---
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 Measurements Intervals [place] Rate: 80 P: 28 IA: 236 QRS: 2 QRSD: 98 T: 49 QT: 391 QTc: 453 Interpretive Statements SINUS RHYTHM WITH FIRST DEGREE AV BLOCK Compared to ECG 02/23/2021 16:10:17 No significant changes Electronically Signed On 03-01-2022 18:31:01 CDT by Sg Barroso M.D. [id number]
--- NOTE | 2022-03-01 12:38 | W.ED.GENADLT ---
HPI - General Adult General: Chief complaint: Recheck/Abnormal Lab/Rx Stated complaint: Weakness, abnormal labs Time Seen by Provider: 03/01/22 12:36 History of Present Illness: Patient is a 56-year-old male with history of liver cirrhosis followed by santa Escobar who presents the emergency room for evaluation of generalized weakness and fatigue. Patient was initially seen at Dr. Guzman's office by his nurse practitioner. Patient also reports similar symptoms. Patient had blood work that was done which showed a white count of 18,000 today. In addition, patient was noted to have a D-dimer 4.78. Patient has chronic lower extremity swelling but denies any significant increase in swelling or pain in the legs. Patient denies any chest pain, abdominal complaints, shortness of palpitation nausea/vomiting, melena/hematochezia or hemoptysis. Patient has not been in contact with any sick contacts. Onset: unknown Duration:ongoing Location:home Severity:moderate Associated symptoms: Deny chest pain, dyspnea, nausea, rash, palpitations or vomiting Review of Systems Const: Reports: fatigue and other (+generalized weakness); Denies: fever(s) or chills Eyes: Denies: change in vision ENMT: Denies: mouth pain Card: Denies: chest pain or palpitations Resp: Denies: dyspnea or non-productive cough GI: Denies: abdominal pain, nausea, vomiting or diarrhea : Denies: dysuria Musc: Reports: other (+leg swelling b/l); Denies: extremity pain Skin/Breast: Denies: rash or new lesions Neuro: Denies: weakness in extremities Psych: Reports: other (Normal mood) Patel/Lymph: Denies: easy bruising PFS ED PFSH: Medical History (Updated 03/01/22 @ 20:49 by Bill Kong MD) Alcoholic cirrhosis of liver Swelling of lower extremity Venous stasis dermatitis Surgical History S/P TIPS (transjugular intrahepatic portosystemic shunt) Family History Other Healthy adult Social History Smoking and tobacco status: never smoked Alcohol intake: former Year of sobriety/quit date alcohol: 3 ya Lives independently: No Household members: spouse Marital status: Current occupational status: unemployed Physical Exam Const: COMMON NORMALS: alert HENMT: COMMON NORMALS: atraumatic HEAD & SCALP: atraumatic MOUTH: moist mucous membranes not abnormal Eye: COMMON NORMALS: EOMs intact bilaterally and conjunctivae normal CONJUNCTIVA: Yes conjunctivae normal Neck/C-Spine: COMMON NORMALS: full ROM and supple Resp: COMMON NORMALS: normal respiratory effort and clear to auscultation bilaterally AUSCULTATION: clear to auscultation bilaterally Cardio: COMMON NORMALS: regular rate RATE: regular rate GI: COMMON NORMALS: Soft to palpation and non-tender PALPATION: Yes Soft to palpation OTHER: No focal TTP. NO guarding rebound, guarding, rigidity. No CVA tenderness to percussion. Neg Howard/Neg McBurney's point tenderness, no suprabupic tenderness to palpation. Extremity: COMMON NORMALS: full ROM NARRATIVE EXTREMITY EXAM: 3+ lower extremity edema with venous stasis b/l and crusting Neuro: SENSORIUM/ORIENTATION: Yes alert MOTOR EXAM: No Abnormal motor strength present and Other motor observations present (no focal motor deficits) Psych: COMMON NORMALS: speech normal SPEECH: Yes normal speech MOOD & AFFECT: Yes euthymic mood Course Vital Signs: Vital signs: Vital Signs Temperature 98.1 F 03/01/22 20:47 Pulse Rate 70 03/01/22 20:47 Respiratory Rate 18 03/01/22 20:47 Blood Pressure 106/57 03/01/22 20:47 Pulse Oximetry 99 03/01/22 20:47 [facility] - General Adult Medical Decision Making 56-year-old male with a history of liver cirrhosis, splenomegaly presenting to the emergency room with concerns of abnormal lab work and generalized weakness. On physical exam, patient has 3+ lower extremity edema with venous stasis and crusting skin over the venous stasis. Neurovascular intact in lower extremity b/l. Given abnormal blood work, we will evaluate today with repeat blood work. We will order ultrasound of the lower extremity in order CT for evaluation of DVT and PE. Patient is noted to have white count 19.3 up from baseline of 10. Creatinine 1.5 up from baseline of 0.8. BNP of 6800 similar to baseline. At the present time, performed shared decision making with patient and recommended admission for further management of his ARMEN, CHF exacerbation, and generalized weakness. CTA negative for PE. Patient agrees with admission. US negative for DVT b/l. Dr. Culp ordered a lactic acid on this patient which appears to be elevated 6.1. Patient has a history of cirrhosis and chronic lactic elevation. Given elevated lactic acid and leukocytosis, cannot rule out the possibility of infection. We will collect blood culture. Patient received vancomycin and Zosyn. We will IVF judiciously and not the 30 cc/kg of IVF since patient has a history of cirrhosis. We will repeat lactic acid in 2 hrs from the draw. Disposition: admission Lab Data : 03/01/22 12:45 03/01/22 12:45 Radiology Impressions Chest X-Ray 03/01/22 12:36 IMPRESSION: No acute findings. Chest CTA 03/01/22 12:37 IMPRESSION: 1. No central pulmonary embolism. Beyond the lobar branches the opacification becomes limited. 2. Small bilateral pleural effusions and small amount of ascites. 3. Cirrhosis with splenomegaly. Status post TIPS procedure. 4. Small pericardial effusion. 5. Cholelithiasis without acute cholecystitis. Abdomen/Pelvis CT 03/01/22 15:43 IMPRESSION: 1. Mild amount of ascites in the abdomen. 2. Several right kidney cysts, negative for follow-up advised. 3. Several prominent inguinal lymph nodes bilaterally measuring up to 10 mm short axis. 4. Constipation. 5. Mildly prominent fluid in the small bowel without dilation may reflect an enteritis. 6. Small left inguinal hernia containing omentum without bowel. 7. Small to moderate bilateral pleural effusions. 8. Cardiomegaly. 9. Bibasilar atelectasis versus infiltrate. 10. Coronary artery atherosclerotic calcifications. 11. Cirrhotic liver. 12. Tip shunt is seen. 13. Left hepatic lobe peripherally calcified 3.6 cm cyst. 14. Spleen enlarged to 2 cm. Laboratory Results WBC 19.3 10^3/uL (4.0-10.0) H 03/01/22 12:45 RBC 3.91 10^6/uL (4.1-5.3) L 03/01/22 12:45 Hgb 7.8 g/dL (11.7-16.6) L 03/01/22 12:45 Hct 27.2 % (42.0-52.0) L 03/01/22 12:45 MCV 69.6 fl (80-94) L 03/01/22 12:45 MCH 19.9 pg (28.0-34.0) L 03/01/22 12:45 MCHC 28.7 g/dL (30.0-36.0) L 03/01/22 12:45 RDW 23.5 % (12.1-15.1) H 03/01/22 12:45 Plt Count 157 10^3/cmm (130-400) 03/01/22 12:45 MPV 7.0 fL (7.4-10.4) L 03/01/22 12:45 Neut % (Auto) 90.2 % 03/01/22 12:45 Lymph % (Auto) 1.7 % 03/01/22 12:45 [place] % (Auto) 3.8 % 03/01/22 12:45 Eos % (Auto) 0.9 % 03/01/22 12:45 Baso % (Auto) 0.3 % 03/01/22 12:45 Neut # (Auto) 17.39 10^3/uL (1.8-7.7) H 03/01/22 12:45 Lymph # (Auto) 0.3 10^3/uL (0.8-4.8) L 03/01/22 12:45 [place] # (Auto) 0.7 10^3/uL (0.2-0.9) 03/01/22 12:45 Eos # (Auto) 0.2 10^3/uL (0.0-0.8) 03/01/22 12:45 Baso # (Auto) 0.1 10^3/uL (0.0-0.1) 03/01/22 12:45 Nucleated RBC % (auto) 0 % 03/01/22 12:45 Nucleated RBCs # 0.0 /100WBC 03/01/22 12:45 Sodium 129 mmol/L (136-145) L 03/01/22 12:45 Potassium 4.3 mmol/L (3.5-5.1) 03/01/22 12:45 Chloride 95 mmol/L (98-107) L 03/01/22 12:45 Carbon Dioxide 16 mmol/L (22-29) L 03/01/22 12:45 Anion Gap 22.3 (5-19) H 03/01/22 12:45 BUN 31 mg/dL (6-20) H 03/01/22 12:45 Creatinine 1.5 mg/dL (0.7-1.2) H 03/01/22 12:45 GFR Calculation 48.2 mL/min (90-130) L 03/01/22 12:45 Glucose 95 mg/dL (65-115) 03/01/22 12:45 Calculated Osmolality 274 mOsm/kg (285-295) L 03/01/22 12:45 Lactate 6.2 mmol/L (0.5-2.2) H* 03/01/22 12:45 Calcium 7.6 mg/dL (8.5-10.5) L 03/01/22 12:45 Troponin T Baseline 33 ng/L (0-15) H 03/01/22 12:45 Troponin T 120 Minute 30.58 ng/L (0-15) H 03/01/22 15:07 Delta Troponin T -2.42 ABS# (0-10) L 03/01/22 15:07 NT-Pro-B Natriuret Pep 6840 pg/mL (0-125) H 03/01/22 12:45 Procalcitonin 90.07 ng/mL (0-0.5) H 03/01/22 12:45 TSH 1.46 uIU/mL (0.27-4.20) 03/01/22 12:45 Nasal Influ A H1 2008 PCR Not detected (NOT DETECT) 03/01/22 13:20 Adenovirus (PCR) Not detected (NOT DETECT) 03/01/22 13:20 C. pneumoniae DNA (PCR) Not detected (NOT DETECT) 03/01/22 13:20 Coronavirus 229E (PCR) Not detected (NOT DETECT) 03/01/22 13:20 Human Metapneumovir PCR Not detected (NOT DETECT) 03/01/22 13:20 Influenza A (H1) PCR Not detected (NOT DETECT) 03/01/22 13:20 Influenza A (H3) PCR Not detected (NOT DETECT) 03/01/22 13:20 Influenza Type A Ag Negative (Negative) 03/01/22 13:20 Influenza Type A (PCR) Not detected (NOT DETECT) 03/01/22 13:20 Influenza Type B Ag Negative (Negative) 03/01/22 13:20 Influenza Type B (PCR) Not detected (NOT DETECT) 03/01/22 13:20 M. pneumoniae (PCR) Not detected (NOT DETECT) 03/01/22 13:20 Parainfluenza 1 (PCR) Not detected (NOT DETECT) 03/01/22 13:20 Parainfluenza 2 (PCR) Not detected (NOT DETECT) 03/01/22 13:20 Parainfluenza 3 (PCR) Not detected (NOT DETECT) 03/01/22 13:20 Parainfluenza 4 (PCR) Not detected (NOT DETECT) 03/01/22 13:20 RSV Type A (PCR) Not detected (NOT DETECT) 03/01/22 13:20 RSV Type B (PCR) Not detected (NOT DETECT) 03/01/22 13:20 Entero/Rhino (PCR) Not detected (NOT DETECT) 03/01/22 13:20 SARS-CoV-2 (PCR) Not detected (NOT DETECT) 03/01/22 13:20 Imaging Data Other Imaging: Radiologist's impression: [address] [address] XRay Report Signed Patient: Kyle Conde Unit #: [id number] : 1965 Age/Sex: 56 / M ADM Date: 03/01/22 Loc: ER Room/Bed: Attending Dr: Ordering Provider/Ordering MD: Bill Kong MD Date of Service: 03/01/22 Procedure(s): XR chest 1V portable [id number] Accession Number(s): [id number] Report Number: [id number] PROCEDURE INFORMATION: Exam: XR Chest Exam date and time: 03/01/2022 12:42 PM Age: 56 years old Clinical indication: Pain; Angina pectoris; Additional info: Chest pain TECHNIQUE: Imaging protocol: XR of the chest. Views: 1 view. COMPARISON: CR XR chest 1V portable [id number] 02/23/2021 3:52 PM FINDINGS: Lungs: Unremarkable. No consolidation. Pleural spaces: Unremarkable. No pleural effusion. No pneumothorax. Heart/Mediastinum: Stable cardiomediastinal silhouette. Bones/joints: Degenerative changes of the spine seen. XR/XR chest 1V portable [id number] IMPRESSION: No acute findings. ? Dictated By: Bobby Delcid Signed By: Bobby Delcid Signed Date/Time: 03/01/22 1339 DD/ 1242 [employer] [address] XRay Report Signed Patient: Li Joya Unit #: [id number] : 09/14/1936 Age/Sex: 85 / F ADM Date: 03/01/22 Loc: ER Room/Bed: Attending Dr: Ordering Provider/Ordering MD: Bill Kong MD Date of Service: 03/01/22 Procedure(s): XR chest 1V portable [id number] Accession Number(s): [id number] Report Number: [id number] PROCEDURE INFORMATION: Exam: XR Chest Exam date and time: 03/01/2022 1:31 PM Age: 85 years old Clinical indication: Other: Generalized weakness; Additional info: Generalized weakness, malaise TECHNIQUE: Imaging protocol: XR of the chest. Views: 1 view. COMPARISON: CR XR chest 1V portable [id number] 02/22/2022 7:17 AM FINDINGS: Lungs: Unremarkable. No consolidation. Pleural spaces: Unremarkable. No pleural effusion. No pneumothorax. Heart/Mediastinum: Unremarkable. No cardiomegaly. Bones/joints: Unremarkable. XR/XR chest 1V portable [id number] IMPRESSION: No acute findings. ? Dictated By: Lionel Jaramillo Signed By: Lionel Jaramillo Signed Date/Time: 03/01/22 1354 DD/ 1331 [employer] [address] [place] [address] Scan Report Signed Patient: Kyle Conde Unit #: [id number] : 1965 Age/Sex: 56 / M ADM Date: 03/01/22 Loc: ER Room/Bed: Attending Dr: Ordering Provider/Ordering MD: Bill Kong MD Date of Service: 03/01/22 Procedure(s): CT angio chest PE protcl [id number] Accession Number(s): [id number] Report Number: [id number] WS: [id number] CT CHEST ANGIOGRAPHY WITH REFORMATS HISTORY: elevated dimer TECHNIQUE: Contiguous axial images are obtained through the chest during arterial injection of intravenous contrast. Images are reconstructed to evaluate the pulmonary arteries. MIP imaging also reviewed.? All CT scans at [facility] use at least one of these dose optimization techniques: automated exposure control; mA and/or kV adjustment per patient size (includes targeted exams where dose is matched to clinical indication); or iterative reconstruction. CONTRAST: Visipaque 320; 90 mL IV. DLP: 581.59 mGy.cm COMPARISON: None available. Adequate but limited opacification of the pulmonary arteries. Proximally there are no filling defects. Beyond the lobar branches the opacification is limited. Mild atherosclerosis aorta. No aneurysm. Pulmonary artery size is slightly enlarged. Heart size is enlarged. Small pericardial effusion. Small bilateral pleural effusions. Study is limited by breathing motion artifact and poor bolus injection. No pneumonia. No pulmonary mass or nodule. No mediastinal or hilar adenopathy. Small hiatal hernia. Patient is status post TIPS procedure. Cirrhotic liver. The spleen is enlarged but incompletely included. No change in the minimally complex cystic mass in the central liver with calcification in the wall. There is ascites and cirrhosis. Soft tissue anasarca. Increase in thoracic kyphosis. CT/CT angio chest PE protcl [id number] IMPRESSION: ? 1.? No central pulmonary embolism. Beyond the lobar branches the opacification becomes limited. 2.? Small bilateral pleural effusions and small amount of ascites. 3.? Cirrhosis with splenomegaly. Status post TIPS procedure. 4.? Small pericardial effusion. 5.? Cholelithiasis without acute cholecystitis. ? ? ? Dictated By: Radha Elliott DO Signed By: Rdaha Elliott DO Signed Date/Time: 03/01/221456 DD/ 50 Discharge Plan Discharge Patient Disposition: Admitted As Inpatient Admit Provider: Edison Culp Clinical Impression: Generalized weakness, ARMEN (acute kidney injury), Leukocytosis Condition: Stable Coding Level of Care Code ED Canopy Stringer for Chg 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
--- NOTE | 2022-03-01 12:49 | USCV_ITS ---
Kyle Conde Age: 56 Gender: M : 1965 Exam Date: 03/01/2022 13:35 Ordering Phys: Bill Kong MD Technologist: Miles Foster [place] [facility] [place] Indication: swelling PROCEDURES: Venous duplex imaging was performed in bilateral lower extremities. The following venous structures were evaluated: common femoral vein, profunda vein, proximal portion of the greater saphenous vein, superficial femoral vein, and the popliteal vein. In addition, the posterior tibial and peroneal trunk were evaluated. Serial compression, augmentation maneuvers, and spectral Doppler flow evaluation were performed. FINDINGS: Normal 2-D Doppler and augmentation and compressibility throughout the lower extremity venous structures. Additional imaging through the proximal calf veins also reveals no thrombus. Limited evaluation of the greater saphenous vein is patent with no thrombus. The saph/fem junction in the rt lower extemity is not determined very well. Patient states that he had a vascular surgery performed on his right lower extremity but he is unsure of what was performed. He says that a vein was rerouted due to clots. There are also numerous lymph nodes bilaterally. CONCLUSIONS No DVT bilateral lower extremities. There is subcutaneous bilateral lower extremity edema noted. Dr. Radha Elliott DO (Electronically Signed) Final Date: 01 March 2022 14:14 S
[2022-03-01 13:01] LABS: Basophils # 0.1 10^3/uL (0.0-0.1); Basophils % 0.3 %; Eosinophils # 0.2 10^3/uL (0.0-0.8); Eosinophils % 0.9 %; Hematocrit 27.2 % (42.0-52.0); Hemoglobin 7.8 g/dL (11.7-16.6); Lymphocytes # 0.3 10^3/uL (0.8-4.8); Lymphocytes % 1.7 %; Mean Corpuscular HGB Conc 28.7 g/dL (30.0-36.0); Mean Corpuscular Hemoglobin 19.9 pg (28.0-34.0); Mean Corpuscular Volume 69.6 fl (80-94); Monocytes # 0.7 10^3/uL (0.2-0.9); Monocytes % 3.8 %; Neutrophils # 17.39 10^3/uL (1.8-7.7); Neutrophils % 90.2 %; Nucleated Red Blood Cells % 0 %; Platelet Count 157 10^3/cmm (130-400); Red Blood Count 3.91 10^6/uL (4.1-5.3); Red Cell Distribution Width 23.5 % (12.1-15.1); White Blood Count 19.3 10^3/uL (4.0-10.0)
[2022-03-01 13:29] LABS: Troponin(5th) Baseline 33 ng/L (0-15)
[2022-03-01 13:30] LABS: Slide Review Slide Review Perform
[2022-03-01 13:36] LABS: Anion Gap 22.3 (5-19); Blood Urea Nitrogen 31 mg/dL (6-20); Calcium 7.6 mg/dL (8.5-10.5); Carbon Dioxide 16 mmol/L (22-29); Chloride 95 mmol/L (98-107); Glomerular Filtration Rate 48.2 mL/min (90-130); Glucose 95 mg/dL (65-115); NT Pro B Type Natriuretic Pept 6840 pg/mL (0-125); Osmolality Calculated 274 mOsm/kg (285-295); Potassium 4.3 mmol/L (3.5-5.1); Sodium 129 mmol/L (136-145)
--- NOTE | 2022-03-01 13:36 | PC.PHAR ---
pt states he takes care of his own medications-pt states he is no longer taking prednisone 20mg take 40mg daily rx filled 02/16/22 5d/s and cyclobenzaprine 10mg po q8h prn ms filled 02/16/22 5d/s-pt states he is no longer taking metformin er 500mg one tab bedtime last filled 09/02/21 90d/s-pt states he only takes his constulose once to twice a day-rx filled 03/01/22 for 30ml po q8h-
[2022-03-01 14:04] LABS: Influenza A by IFA Negative (Negative); Influenza B by IFA Negative (Negative)
--- NOTE | 2022-03-01 14:37 | ECG_ITS ---
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 Measurements Intervals [place] Rate: 73 P: 49 AR: 249 QRS: 7 QRSD: 106 T: 46 QT: 418 QTc: 463 Interpretive Statements SINUS RHYTHM WITH FIRST DEGREE AV BLOCK POSSIBLE LEFT ATRIAL ENLARGEMENT [-0.1mV P-WAVE IN V1/V2] Compared to ECG 03/01/2022 12:55:20 No significant changes Electronically Signed On 03-01-2022 18:34:03 CDT by Sg Barroso M.D. [id number]
[2022-03-01] MEDS: iodixanol 320 mg/mL 100mL Btl IV (14:42)
--- NOTE | 2022-03-01 15:15 | PM.HP ---
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 Patient stating that he is currently living with his girlfriend, in case of an emergency his mother would make decision on his behalf, today he visited with his PCP who recommended him to go to the ER for further evaluation after white count of 19,000 and high D-dimer. In the ER CTA chest ruled out PE. At this point he is stating that he is not experiencing any fever, abdominal pain, diarrhea is compliant with his rifaximin and lactulose, he has stopped taking diuretics since TIPS procedure. No recent falls. He has not seen in wound care or podiatry for his lymphedema. In the ER CBC shows acute on chronic anemia, worsening of creatinine, hyponatremia, high BNP Clinical signs of fluid overload At the time of evaluation he was awake and alert No active signs of decompensated liver failure. Review of Systems Const: Reports: body aches and fatigue; Denies: fever(s) Eyes: Reports: yellow eyes; Denies: change in vision ENMT: Denies: throat pain Card: Reports: swelling of feet/ankles; Denies: chest pain Resp: Denies: dyspnea GI: Reports: nausea and early satiety : Denies: flank pain Musc: Denies: neck pain Skin/Breast: Reports: rash, skin swelling, non-healing lesions and changes in skin color Neuro: Denies: headache(s) Psych: Denies: anxiety Endo: Denies: polyuria Paetl/Lymph: Reports: easy bruising All/Imm: Denies: urticaria Medications/Allergies Home Medications Medication Instructions Recorded Confirmed Last Taken Type lactulose 10 gram/15 mL oral 30 ml PO .ONCE TO TWICE DAILY 02/21/20 03/01/22 02/22/21 History solution (Constulose) bumetanide 2 mg tablet 2 mg PO BID 06/18/20 03/01/22 03/01/22 History multivitamin (Multiple Vitamins) 1 tab PO DAILY 06/18/20 03/01/22 02/22/21 History thiamine HCl (vitamin B1) 100 mg 100 mg PO DAILY 06/18/20 03/01/22 02/22/21 History tablet (Vitamin B-1) Allergies Allergy/AdvReac Type Severity Reaction Status Date / Time hydrocodone Allergy ADR-Nausea Verified 03/01/22 13:25 morphine Allergy ADR-Drowsy Verified 03/01/22 13:25 oxycodone [From OxyContin] Allergy ADR-Nausea Verified 03/01/22 13:25 PFSH Acute PFSH: Medical History (Updated 03/01/22 @ 15:38 by Edison Culp MD) Alcoholic cirrhosis of liver Swelling of lower extremity Venous stasis dermatitis Surgical History S/P TIPS (transjugular intrahepatic portosystemic shunt) Family History Other Healthy adult Social History Smoking and tobacco status: never smoked Alcohol intake: former Year of sobriety/quit date alcohol: 3 ya Lives independently: No Household members: spouse Marital status: Current occupational status: unemployed Vitals/I&O/Wt Last Vital Signs Temp 97.8 F 03/01/22 12:24 Pulse 76 03/01/22 14:00 Resp 18 03/01/22 13:06 BP 105/49 03/01/22 14:00 Pulse Ox 100 03/01/22 14:00 Weight last 48 hrs Weight 104.326 kg Weight 102.058 kg Physical Exam Narrative: Middle-age male No active signs of decompensated liver failure Asterixis negative Awake and alert Nonfocal neuro exam Bilateral lower extremity lymphedema it Is hard to assess for cellulitis Abdomen is soft no signs of tenderness Nonfocal neuro exam Saturating well on room air Hemodynamically stable Data : 03/01/22 12:45 03/01/22 12:45 A&P Assessment and plan (1) Splenomegaly: Status: Acute (2) Cholelithiasis: Status: Acute (3) Declining functional status: Status: Acute (4) Cirrhosis: Status: Acute (5) Acute on chronic anemia: Status: Acute (6) ARMEN (acute kidney injury): Status: Acute Plan Generalized weakness Underlying liver cirrhosis No active signs of decompensated liver failure Check ammonia panel Patient is on complaining of fever abdominal pain I will keep him on ceftriaxone 2 g daily As SBP prophylaxis His blood pressure does run low at home, will use midodrine Patient has stopped taking Lasix or spironolactone since TIPS procedure Is compliant with his medications Denying recent use of alcohol Drug screen Low albumin panel noted PT evaluation He will need outpatient wound care and podiatry for lymphedema DVT prophylaxis SCDs avoid anticoagulating agent Low-sodium diet Patient is full code Attestations Medical Necessity Statement*: Anticipating discharge within 48 hours will need work-up for generalized weakness Time Spent in Patient Care: 40 Coding Level of Care Code Acute Bilingual Customer Service for Chg Fwd Diagnoses Splenomegaly R16.1 Cholelithiasis K80.20 Declining functional status R53.81 Cirrhosis K74.60 Acute on chronic anemia D64.9 ARMEN (acute kidney injury) N17.9
[2022-03-01 15:26] LABS: Adenovirus Not Detected (NOT DETECT); Chlamydia Pneumoniae Not Detected (NOT DETECT); Coronavirus 229E,HKU1,NL63,OC4 Not Detected (NOT DETECT); Human Metapneumovirus Not Detected (NOT DETECT); Human Rhinovirus/Enterovirus Not Detected (NOT DETECT); Influenza A Not Detected (NOT DETECT); Influenza A H1 Not Detected (NOT DETECT); Influenza A H1-2009 Not Detected (NOT DETECT); Influenza A H3 Not Detected (NOT DETECT); Influenza B Not Detected (NOT DETECT); Mycoplasma Pneumoniae Not Detected (NOT DETECT); Parainfluenza Virus Type 1 Not Detected (NOT DETECT); Parainfluenza Virus Type 2 Not Detected (NOT DETECT); Parainfluenza Virus Type 3 Not Detected (NOT DETECT); Parainfluenza Virus Type 4 Not Detected (NOT DETECT); Respiratory Syncytial Virus A Not Detected (NOT DETECT); Respiratory Syncytial Virus B Not Detected (NOT DETECT); SARS-COV-2 Not Detected (NOT DETECT)
--- NOTE | 2022-03-01 15:43 | CTR_ITS ---
PROCEDURE INFORMATION: Exam: CT Abdomen And Pelvis Without Contrast Exam date and time: 03/01/2022 4:54 PM Age: 56 years old Clinical indication: Abnormal findings; Abnormal radiologic finding of the abdomen; Radiologic exam and body structure: Cta chest; Additional info: Ascites? TECHNIQUE: Imaging protocol: Computed tomography of the abdomen and pelvis without contrast. Radiation optimization: All CT scans at this facility use at least one of these dose optimization techniques: automated exposure control; mA and/or kV adjustment per patient size (includes targeted exams where dose is matched to clinical indication); or iterative reconstruction. COMPARISON: MR abdomen wo con [id number] 01/06/2021 9:42 AM RADIATION DOSE METRICS: Total DLP (mGy-cm): 2053.55 FINDINGS: Tubes, catheters and devices: Tip shunt is seen. Lungs: Bibasilar atelectasis versus infiltrate. Pleural spaces: Small to moderate bilateral pleural effusions. Heart: Cardiomegaly. Coronary artery atherosclerotic calcifications. Liver: Cirrhotic liver. Left hepatic lobe peripherally calcified 3.6 cm cyst. Gallbladder and bile ducts: Normal. No calcified stones. No ductal dilation. Pancreas: Normal. No ductal dilation. Spleen: Spleen enlarged to 2 cm. Adrenal glands: Normal. No mass. Kidneys and ureters: Several right kidney cysts, negative for follow-up advised. Stomach and bowel: Constipation. Mildly prominent fluid in the small bowel without dilation may reflect an enteritis. Appendix: No evidence of appendicitis. Intraperitoneal space: Mild amount of ascites in the abdomen. Vasculature: Unremarkable. No abdominal aortic aneurysm. Lymph nodes: Several prominent inguinal lymph nodes bilaterally measuring up to 10 mm short axis. Urinary bladder: Unremarkable as visualized. Reproductive: Unremarkable as visualized. Bones/joints: Unremarkable. No acute fracture. Soft tissues: Small left inguinal hernia containing omentum without bowel. CT/CT abdomen pelvis wo con [id number] IMPRESSION: 1. Mild amount of ascites in the abdomen. 2. Several right kidney cysts, negative for follow-up advised. 3. Several prominent inguinal lymph nodes bilaterally measuring up to 10 mm short axis. 4. Constipation. 5. Mildly prominent fluid in the small bowel without dilation may reflect an enteritis. 6. Small left inguinal hernia containing omentum without bowel. 7. Small to moderate bilateral pleural effusions. 8. Cardiomegaly. 9. Bibasilar atelectasis versus infiltrate. 10. Coronary artery atherosclerotic calcifications. 11. Cirrhotic liver. 12. Tip shunt is seen. 13. Left hepatic lobe peripherally calcified 3.6 cm cyst. 14. Spleen enlarged to 2 cm.
[2022-03-01 15:47] LABS: Troponin 5 2HR 30.58 ng/L (0-15)
[2022-03-01 15:51] LABS: Troponin 5 2HR Delta -2.42 ABS# (0-10)
[2022-03-01 15:52] LABS: Ammonia 14 umol/L (16-60)
[2022-03-01 16:39] LABS: Procalcitonin 90.07 ng/mL (0-0.5); Thyroid Stimulating Hormone 1.46 uIU/mL (0.27-4.20)
[2022-03-01 16:40] LABS: Lactate (Lactic Acid level) 6.2 mmol/L (0.5-2.2)
[2022-03-01] MEDS: piperacillin-tazobactam 4.5 GM in sodium chloride 0.9% (plus) 50 ML IV (17:06)
[2022-03-01] MEDS: sodium bicarbonate 650 mg Tablet PO ×2 (18:21→20:45)
[2022-03-01] MEDS: lactulose oral liq 20 gm/30 mL UDC PO (18:21)
[2022-03-01] MEDS: vancomycin 1,000 MG in sodium chloride 0.9% 250 ML 250 MG IV (18:22)
--- NOTE | 2022-03-01 18:37 | ECG_ITS ---
[facility] Test Date: 2022-03-01 Pat Name: Kyle Conde Department: Room: 273 Gender: Male Paper Roller: : 1965 Requested By: Bill Kong Order Number: [id number] Bridger MD: Sg Barroso M.D. Measurements Intervals [place] Rate: 70 P: 39 MD: 252 QRS: -4 QRSD: 105 T: 29 QT: 434 QTc: 468 Interpretive Statements SINUS RHYTHM WITH FIRST DEGREE AV BLOCK POSSIBLE LEFT ATRIAL ENLARGEMENT [-0.1mV P-WAVE IN V1/V2] Compared to ECG 03/01/2022 14:59:51 No significant changes Electronically Signed On 03-01-2022 18:33:30 CDT by Sg Barroso M.D. [id number]
[2022-03-01 21:24] LABS: Lactate (Lactic Acid level) 2.5 mmol/L (0.5-2.2); Troponin 5 6HR 30.49 ng/L (0-15)
[2022-03-01 21:35] LABS: Troponin 5 6HR Delta -2.51 ng/L (0-12)
[2022-03-02] VITALS (19 sets, daily range): BP systolic 96–122; BP diastolic 49–68; PULSE 67–83; RESP 14–18; TEMP 36.4–36.9; O2SAT 96–100
[2022-03-02 06:01] LABS: Basophils # 0.1 10^3/uL (0.0-0.1); Basophils % 0.6 %; Eosinophils # 0.1 10^3/uL (0.0-0.8); Eosinophils % 0.8 %; Hematocrit 21.7 % (42.0-52.0); Hemoglobin 6.6 g/dL (11.7-16.6); Lymphocytes # 0.6 10^3/uL (0.8-4.8); Lymphocytes % 4.9 %; Mean Corpuscular HGB Conc 30.4 g/dL (30.0-36.0); Mean Corpuscular Volume 65.8 fl (80-94); Monocytes # 0.7 10^3/uL (0.2-0.9); Monocytes % 5.9 %; Neutrophils # 10.15 10^3/uL (1.8-7.7); Neutrophils % 86.2 %; Nucleated Red Blood Cells % 0 %; Platelet Count 138 10^3/cmm (130-400); Red Cell Distribution Width 23.5 % (12.1-15.1); White Blood Count 11.8 10^3/uL (4.0-10.0)
[2022-03-02] MEDS: acetaminophen 500 mg Tablet PO (06:13)
[2022-03-02 06:15] LABS: Alanine Aminotransferase 25 U/L (0-41); Alkaline Phosphatase 63 IU/L (40-130); Anion Gap 15.8 (5-19); Aspartate Amino Transferase 75 U/L (0-40); Blood Urea Nitrogen 37 mg/dL (6-20); Calcium 7.2 mg/dL (8.5-10.5); Carbon Dioxide 18 mmol/L (22-29); Chloride 99 mmol/L (98-107); Globulin 3.7 g/dL (1.3-4.6); Glomerular Filtration Rate 52.2 mL/min (90-130); Glucose 65 mg/dL (65-115); Magnesium 2.2 mg/dL (1.7-2.3); Osmolality Calculated 275 mOsm/kg (285-295); Potassium 3.8 mmol/L (3.5-5.1); Sodium 129 mmol/L (136-145); Total Bilirubin 2.9 mg/dL (0.15-1.2); Total Protein 5.7 g/dL (6.6-8.7)
[2022-03-02 06:34] LABS: Slide Review Slide Review Perform
[2022-03-02] MEDS: sodium bicarbonate 650 mg Tablet PO ×3 (10:18→21:10)
[2022-03-02] MEDS: thiamine 100 mg Tablet PO (10:18)
[2022-03-02] MEDS: cefTRIAXone 2,000 MG in sodium chloride 0.9% (plus) 50 ML 100 MG IV (10:18)
--- NOTE | 2022-03-02 11:06 | PC.CHAP ---
Pastoral Care Encounter/Spiritual Assessment Type of Contact [] Declined travel freight and passenger agent visit [] Patient/Family/Request visit [] Outpatient visit [] Follow-up visit [] Physician referral [] Code/Alert [x] Routine visit [] Staff referral [] Actively dying [] Patient sleeping [] Family support [] [] Out of room [] Palliative care [] [] Receiving care in room [] Pre-surgical visit [] Trauma [] Long length of stay [] ICU visit [] Other: Relational/Emotional Strength [x] Patient feels connected with others/family/visitors/staff [] Distress [] Loneliness/isolation [] Abandonment Spirituality of Patient [x] Person of Ramya [] Attends Spiritism of their Ramya [x] Believes in Prayer [] Reads Bible or Gnosticism materials [] There are Spiritual issues to be addressed Machine Tracer Interventions [x] Prayer [x] Active listening x[] Non-anxious presence [] Spiritual/emotional support [] Crisis/trauma care [] Spiritual counseling [] Bereavement support [] Provided bereavement packet [] Provided Bible/devotional materials [] Provided toy/stuffed animal, coloring book to patient or family member [] Provided Communion [] Anointing/Craig [] Salvation [x] Completed spiritual assessment [] Other: Impact on Illness or Injury [] Angry [] Fearful [] Anxious [] Often cries [] Exhaustion [] Unable to work [] Unable to attend bahai [] Unable to walk/stand [] Unable to read [] Unable to drive [] Unable to eat/drink [] Unable to sleep [] Unable to be with family [] Patient intubated [] Other: Summary Time spent with patient 10 min
--- NOTE | 2022-03-02 13:05 | PM.PN ---
Subjective Subjective: Patient was upset about his bed, he was wanting to leave however agreed to stay 1 I told him the indication to stay which is acute on chronic anemia, he will get 2 units of PRBC, he will need wound care as well, he does not want to go to any group home Family was at the bedside They agreed with the plan, Patient is wanted to get out of bed and sit in a recliner, nurse updated, will try to provide him air mattress Requested FOBT No active emesis with blood No hematemesis hematochezia or dark-colored stool as per the patient, He also has iron deficiency anemia Vitals/I&O/Wt Last Vital Signs Temp 98.3 F 03/02/22 12:52 Pulse 72 03/02/22 12:52 Resp 14 03/02/22 12:52 BP 112/58 03/02/22 12:52 Pulse Ox 99 03/02/22 12:52 03/01/22 03/02/22 03/02/22 22:59 06:59 14:59 Intake Total 300 / 300 100 / 400 530 / 530 Output Total 400 / 400 Balance 300 / 300 100 / 400 130 / 130 Weight last 48 hrs Weight 102.569 kg Weight 104.326 kg Weight 102.058 kg Physical Exam Narrative: Awake and alert No active signs of decompensated liver failure No asterixis Abdomen is soft Lower extremity lymphedema No active signs of cellulitis Pedal edema Awake and alert Saturating well on room air Data : 03/02/22 05:40 03/02/22 05:40 Micro: Microbiology 03/01/22 20:57 Blood Culture - Preliminary Blood SPECIMEN COLLECTED 03/01/22 20:54 Blood Culture - Preliminary Blood SPECIMEN COLLECTED A&P Assessment and plan (1) Generalized weakness: Status: Acute (2) ARMEN (acute kidney injury): Status: Acute (3) Leukocytosis: Status: Acute (4) Acute on chronic blood loss anemia: Status: Acute (5) ARMEN (acute kidney injury): Status: Acute (6) Acute on chronic anemia: Status: Acute Plan Generalized weakness related to acute on chronic anemia Iron deficiency anemia Check FOBT 2 unit PRBC Continue iron Hyponatremia related to underlying liver cirrhosis Patient was taking Bumex at home We will add low-dose Alcohol-related liver cirrhosis status post TIPS No acute decompensation Ammonia level is not high No signs of encephalopathy Troponin trending down no active chest pain Patient is willing to stay today, will discharge him tomorrow, he does not want to go to group home he will need wound care follow-up outpatient Is high lactic acid is related to underlying liver pathology I do not suspect sepsis, His white count today is 11.8 ARMEN related to anemia and dehydration Creatinine 1.4 today a Patient is full code Cardiac diet Discharge home tomorrow Parents were at the bedside Attestations Medical Necessity Statement*: Anticipating discharge tomorrow Time Spent in Patient Care: 30 Coding Level of Care Code Acute [employer] Team Member for Chg Fwd Diagnoses Generalized weakness R53.1 ARMEN (acute kidney injury) N17.9 Leukocytosis D72.829 Acute on chronic blood loss anemia D62 ARMEN (acute kidney injury) N17.9 Acute on chronic anemia D64.9
[2022-03-02] MEDS: sodium chloride 0.9% (100 ml) 100 ML ×2 (13:12→17:27)
[2022-03-02] MEDS: bumetanide 1 mg Tablet 0.5 MG PO (14:12)
[2022-03-02] MEDS: oxyCODONE 5 mg IR Tab/Cap PO (15:15)
[2022-03-02] MEDS: ondansetron 4 MG Tablet PO (15:15)
[2022-03-02] MEDS: iron polysaccharide complex 150 mg Capsule PO (17:51)
[2022-03-02] MEDS: doxycycline 100 mg Tablet PO (21:10)
[2022-03-03] VITALS (11 sets, daily range): BP systolic 116–141; BP diastolic 63–73; PULSE 68–82; RESP 14–19; TEMP 36.3–37; O2SAT 98–100
[2022-03-03] MEDS: ondansetron 4 MG Tablet PO (03:26)
[2022-03-03] MEDS: oxyCODONE 5 mg IR Tab/Cap PO ×2 (03:26→17:50)
[2022-03-03] MEDS: acetaminophen 500 mg Tablet PO ×2 (03:26→23:33)
[2022-03-03 05:55] LABS: Basophils # 0.1 10^3/uL (0.0-0.1); Basophils % 0.9 %; Eosinophils # 0.1 10^3/uL (0.0-0.8); Eosinophils % 1.1 %; Hematocrit 27.7 % (42.0-52.0); Hemoglobin 8.7 g/dL (11.7-16.6); Lymphocytes # 0.7 10^3/uL (0.8-4.8); Lymphocytes % 6.5 %; Mean Corpuscular HGB Conc 31.4 g/dL (30.0-36.0); Mean Corpuscular Hemoglobin 21.8 pg (28.0-34.0); Mean Corpuscular Volume 69.4 fl (80-94); Monocytes # 0.7 10^3/uL (0.2-0.9); Monocytes % 6.4 %; Neutrophils # 8.88 10^3/uL (1.8-7.7); Neutrophils % 84.4 %; Nucleated Red Blood Cells % 0 %; Platelet Count 128 10^3/cmm (130-400); Red Blood Count 3.99 10^6/uL (4.1-5.3); Red Cell Distribution Width 24.5 % (12.1-15.1); White Blood Count 10.5 10^3/uL (4.0-10.0)
[2022-03-03 06:12] LABS: Alanine Aminotransferase 25 U/L (0-41); Albumin Level 2.1 g/dL (3.5-5.2); Alkaline Phosphatase 85 IU/L (40-130); Aspartate Amino Transferase 52 U/L (0-40); Blood Urea Nitrogen 31 mg/dL (6-20); Calcium 7.5 mg/dL (8.5-10.5); Carbon Dioxide 23 mmol/L (22-29); Chloride 103 mmol/L (98-107); Globulin 4.3 g/dL (1.3-4.6); Glomerular Filtration Rate 62.4 mL/min (90-130); Glucose 103 mg/dL (65-115); Osmolality Calculated 285 mOsm/kg (285-295); Slide Review Slide Review Perform; Sodium 134 mmol/L (136-145); Total Bilirubin 2.9 mg/dL (0.15-1.2); Total Protein 6.4 g/dL (6.6-8.7)
[2022-03-03] MEDS: lactulose oral liq 20 gm/30 mL UDC PO ×2 (10:02→17:50)
[2022-03-03] MEDS: cefTRIAXone 2,000 MG in sodium chloride 0.9% (plus) 50 ML 100 MG IV (10:02)
[2022-03-03] MEDS: iron polysaccharide complex 150 mg Capsule PO ×2 (10:03→17:50)
[2022-03-03] MEDS: doxycycline 100 mg Tablet PO ×2 (10:03→20:40)
[2022-03-03] MEDS: thiamine 100 mg Tablet PO (10:03)
[2022-03-03] MEDS: bumetanide 1 mg Tablet 0.5 MG PO (10:03)
[2022-03-03] MEDS: sodium bicarbonate 650 mg Tablet PO ×3 (10:03→20:40)
--- NOTE | 2022-03-03 10:18 | CT_ITS ---
WS: [id number] CT LUMBAR SPINE, noncontrast. HISTORY: back pain TECHNIQUE: Contiguous 2.5 mm axial imaging are performed. Sagittal and coronal reformats are submitte d and reviewed. All CT scans at [facility] use at least one of these dose optimization techni ques: automated exposure control; mA and/or kV adjustment per patient size (includes targeted exams w here dose is matched to clinical indication); or iterative reconstruction. IV contrast: None DLP: 2420.4 mGy.cm COMPARISON: None available. Posterior lumbar alignment is normal. No fractures. Moderate disc space narrowing at L5-S1 with endpl ate sclerotic changes. No pars defects. T12-L1: Far lateral RIGHT disc protrusion contacts the ascending RIGHT L1 nerve root. L1-2: Mild disc bulging with no significant stenosis. L2-3: Mild annular disc bulging with no stenosis. Mild facet and ligamentum flavum hypertrophy. L3-4: Mild osteophytic ridging with annular disc bulging. Mild ligamentum flavum hypertrophy. L4-5: Mild diffuse annular disc bulging with ligamentum flavum hypertrophy. Tiny central disc protrus ion. Mild bilateral foraminal narrowing. Mild facet joint arthritis. L5-S1: Mild osteophytic ridging with annular disc bulging. No contact on the nerve roots. There are a few small retroperitoneal lymph nodes identified measuring up to 9 mm. Lytic lesion in th e RIGHT ischium measures 15 x 13 mm. There are smaller, very subtle lytic areas within the bones of t he pelvis. These have been present over multiple prior years with minimal increase in size. Due to th eir long-term presence these are probably benign but should be further evaluated as the patient is leon ving pain. There is also osteophytic ridging and bone fusion across the anterior SI joints. CT/CT lumbar spine wo con* [id number] IMPRESSION: 1. No lumbar spine fracture or high-grade central stenosis. 2. Lytic lesions within the bones of the pelvis. The largest measures 15 x 13 mm on the RIGHT. These have been present on prior studies dating back several y ears with only minimal increase in size. Favor these are probably benign due to their long-term appearance. For further evaluation bone scan imaging follow-up would be the study of choice at this time.
[2022-03-03] MEDS: HYDROmorphone 1 mg/mL INJ 1 mL 0.2 MG IVP (10:28)
--- NOTE | 2022-03-03 14:13 | P.DS_ITS ---
Discharge Providers Date of Admission: 03/01/22 15:15 Date of Discharge: March 03, 2022 Attending Provider at Admission: Edison Culp MD Attending Provider at Discharge: Edison Culp MD Primary Care Provider: Manny Guzman DO Diagnoses at Discharge Discharge Diagnosis (1) Generalized weakness: Status: Acute (2) ARMEN (acute kidney injury): Status: Acute (3) Leukocytosis: Status: Acute (4) Acute on chronic blood loss anemia: Status: Acute (5) ARMEN (acute kidney injury): Status: Acute (6) Acute on chronic anemia: Status: Acute Reason for Visit Reason for Visit: Weakness, abnormal labs Hospital Course Hospital Course Patient was admitted for management evaluation of generalized weakness related to underlying chronic liver disease. No active signs of decompensated liver cirrhosis were found however his hemoglobin dropped without active GI bleed, he was found to have iron deficiency anemia. He received 2 unit PRBC which stabilized his hemoglobin. He was complaining excruciating back pain, requested CT lumbar spine without contrast. He does have high D-dimer CTA rule out PE. He was not tachycardic or hypoxic. He refused going to rehab, he wanted to go home and was adamant that he will not stay in the hospital longer. Required opiates for his back pain. His leukocytosis improved, I do believe the source of high leukocyte is underlying chronic wound of bilateral lower extremities for which I have given him referral to see a physician at wound care clinic He does not have tender abdomen, he was given ceftriaxone during hospitalization as prophylactic measure for SBP. Minimal ascites, patient has alcohol-related liver cirrhosis status post TIPS. Physical Exam Narrative: Awake and alert No active signs of decompensated liver failure No asterixis Abdomen is soft Lower extremity lymphedema No active signs of cellulitis Pedal edema Awake and alert Saturating well on room air Discharge Data Studies Completed and Pending Completed Studies During Hospitalization Category Date Time Status CT abdomen pelvis wo con [id number] Urgent Cat Scan 03/01/22 15:43 Completed CTA chest [CT angio chest PE protcl [id number]] Urgent Cat Scan 03/01/22 12:37 Completed XR chest 1V portable [id number] Urgent Exams 03/01/22 12:36 Completed US venous duplex lower extremity bilat [CV venous Ultrasound 03/01/22 12:49 [place] [id number]] Urgent Pending at discharge Category Date Time Status CT lumbar spine wo con* [id number] Routine Cat Scan 03/03/22 10:18 Taken Blood Culture Stat Lab 03/01/22 20:57 Results Occult Blood Stool [Immunochemical Fecal OCB] Routine Lab 03/02/22 08:26 Uncollected UA w/Reflex to Microscope [Urinalysis] Stat Lab 03/02/22 03:08 Ordered Radiology Impressions Chest X-Ray 03/01/22 12:36 IMPRESSION: No acute findings. Chest CTA 03/01/22 12:37 IMPRESSION: 1. No central pulmonary embolism. Beyond the lobar branches the opacification becomes limited. 2. Small bilateral pleural effusions and small amount of ascites. 3. Cirrhosis with splenomegaly. Status post TIPS procedure. 4. Small pericardial effusion. 5. Cholelithiasis without acute cholecystitis. Abdomen/Pelvis CT 03/01/22 15:43 IMPRESSION: 1. Mild amount of ascites in the abdomen. 2. Several right kidney cysts, negative for follow-up advised. 3. Several prominent inguinal lymph nodes bilaterally measuring up to 10 mm short axis. 4. Constipation. 5. Mildly prominent fluid in the small bowel without dilation may reflect an enteritis. 6. Small left inguinal hernia containing omentum without bowel. 7. Small to moderate bilateral pleural effusions. 8. Cardiomegaly. 9. Bibasilar atelectasis versus infiltrate. 10. Coronary artery atherosclerotic calcifications. 11. Cirrhotic liver. 12. Tip shunt is seen. 13. Left hepatic lobe peripherally calcified 3.6 cm cyst. 14. Spleen enlarged to 2 cm. Laboratory Results WBC 10.5 10^3/uL (4.0-10.0) H 03/03/22 05:34 RBC 3.99 10^6/uL (4.1-5.3) L 03/03/22 05:34 Hgb 8.7 g/dL (11.7-16.6) L D 03/03/22 05:34 Hct 27.7 % (42.0-52.0) L 03/03/22 05:34 MCV 69.4 fl (80-94) L D 03/03/22 05:34 MCH 21.8 pg (28.0-34.0) L 03/03/22 05:34 MCHC 31.4 g/dL (30.0-36.0) 03/03/22 05:34 RDW 24.5 % (12.1-15.1) H 03/03/22 05:34 Plt Count 128 10^3/cmm (130-400) L 03/03/22 05:34 MPV Not Reportable 03/03/22 05:34 Neut % (Auto) 84.4 % 03/03/22 05:34 Lymph % (Auto) 6.5 % 03/03/22 05:34 [place] % (Auto) 6.4 % 03/03/22 05:34 Eos % (Auto) 1.1 % 03/03/22 05:34 Baso % (Auto) 0.9 % 03/03/22 05:34 Neut # (Auto) 8.88 10^3/uL (1.8-7.7) H 03/03/22 05:34 Lymph # (Auto) 0.7 10^3/uL (0.8-4.8) L 03/03/22 05:34 [place] # (Auto) 0.7 10^3/uL (0.2-0.9) 03/03/22 05:34 Eos # (Auto) 0.1 10^3/uL (0.0-0.8) 03/03/22 05:34 Baso # (Auto) 0.1 10^3/uL (0.0-0.1) 03/03/22 05:34 Nucleated RBC % (auto) 0 % 03/03/22 05:34 Nucleated RBCs # 0.0 /100WBC 03/03/22 05:34 Sodium 134 mmol/L (136-145) L 03/03/22 05:34 Potassium 4.0 mmol/L (3.5-5.1) 03/03/22 05:34 Chloride 103 mmol/L (98-107) 03/03/22 05:34 Carbon Dioxide 23 mmol/L (22-29) 03/03/22 05:34 Anion Gap 12.0 (5-19) 03/03/22 05:34 BUN 31 mg/dL (6-20) H 03/03/22 05:34 Creatinine 1.2 mg/dL (0.7-1.2) 03/03/22 05:34 GFR Calculation 62.4 mL/min (90-130) L 03/03/22 05:34 Glucose 103 mg/dL (65-115) 03/03/22 05:34 Calculated Osmolality 285 mOsm/kg (285-295) 03/03/22 05:34 Lactate 2.5 mmol/L (0.5-2.2) H 03/01/22 20:54 Calcium 7.5 mg/dL (8.5-10.5) L 03/03/22 05:34 Magnesium 2.2 mg/dL (1.7-2.3) 03/02/22 05:40 Magnesium Cancelled 03/02/22 05:40 Total Bilirubin 2.9 mg/dL (0.15-1.2) H 03/03/22 05:34 AST 52 U/L (0-40) H 03/03/22 05:34 ALT 25 U/L (0-41) 03/03/22 05:34 Alkaline Phosphatase 85 IU/L (40-130) 03/03/22 05:34 Ammonia 14 umol/L (16-60) L 03/01/22 15:20 Troponin T Baseline 33 ng/L (0-15) H 03/01/22 12:45 Troponin T 120 Minute 30.58 ng/L (0-15) H 03/01/22 15:07 Delta Troponin T -2.42 ABS# (0-10) L 03/01/22 15:07 Troponin T Hi Sens 6Hr 30.49 ng/L (0-15) H 03/01/22 20:54 Troponin T Hi Sens 6Hr Delta -2.51 ng/L (0-12) L 03/01/22 20:54 NT-Pro-B Natriuret Pep 6840 pg/mL (0-125) H 03/01/22 12:45 Total Protein 6.4 g/dL (6.6-8.7) L 03/03/22 05:34 Albumin 2.1 g/dL (3.5-5.2) L 03/03/22 05:34 Globulin 4.3 g/dL (1.3-4.6) 03/03/22 05:34 Procalcitonin 90.07 ng/mL (0-0.5) H 03/01/22 12:45 TSH 1.46 uIU/mL (0.27-4.20) 03/01/22 12:45 Nasal Influ A H1 2009 PCR Not detected (NOT DETECT) 03/01/22 13:20 Adenovirus (PCR) Not detected (NOT DETECT) 03/01/22 13:20 C. pneumoniae DNA (PCR) Not detected (NOT DETECT) 03/01/22 13:20 Coronavirus 229E (PCR) Not detected (NOT DETECT) 03/01/22 13:20 Human Metapneumovir PCR Not detected (NOT DETECT) 03/01/22 13:20 Influenza A (H1) PCR Not detected (NOT DETECT) 03/01/22 13:20 Influenza A (H3) PCR Not detected (NOT DETECT) 03/01/22 13:20 Influenza Type A Ag Negative (Negative) 03/01/22 13:20 Influenza Type A (PCR) Not detected (NOT DETECT) 03/01/22 13:20 Influenza Type B Ag Negative (Negative) 03/01/22 13:20 Influenza Type B (PCR) Not detected (NOT DETECT) 03/01/22 13:20 M. pneumoniae (PCR) Not detected (NOT DETECT) 03/01/22 13:20 Parainfluenza 1 (PCR) Not detected (NOT DETECT) 03/01/22 13:20 Parainfluenza 2 (PCR) Not detected (NOT DETECT) 03/01/22 13:20 Parainfluenza 3 (PCR) Not detected (NOT DETECT) 03/01/22 13:20 Parainfluenza 4 (PCR) Not detected (NOT DETECT) 03/01/22 13:20 RSV Type A (PCR) Not detected (NOT DETECT) 03/01/22 13:20 RSV Type B (PCR) Not detected (NOT DETECT) 03/01/22 13:20 Entero/Rhino (PCR) Not detected (NOT DETECT) 03/01/22 13:20 SARS-CoV-2 (PCR) Not detected (NOT DETECT) 03/01/22 13:20 Blood Type B Positive 03/02/22 09:07 Rho(D) Type Positive 03/02/22 09:07 Antibody Screen Negative 03/02/22 09:07 Crossmatch See Detail 03/02/22 09:07 Vitals Last Vital Signs Temp 97.3 F L 03/03/22 11:39 Pulse 69 03/03/22 11:39 Resp 18 03/03/22 11:39 BP 128/73 03/03/22 11:39 Pulse Ox 100 03/03/22 11:39 Discharge Plan Discharge Patient Disposition: Home Condition: Stable Prescriptions: New oxycodone 5 mg Tablet 5 mg PO Q12H PRN (Reason: Moderate Pain) Qty: 10 0RF doxycycline monohydrate 100 mg Tablet 100 mg PO BID@1000,2000 Qty: 14 0RF polysaccharide iron complex [Ferrex 150] 150 mg iron Capsule 150 mg PO DAILY Qty: 60 0RF Continued lactulose [Constulose] 10 gram/15 mL Solution 30 ml PO .ONCE TO TWICE DAILY 0RF multivitamin [Multiple Vitamins] Tablet 1 tab PO DAILY 0RF thiamine HCl (vitamin B1) [Vitamin B-1] 100 mg Tablet 100 mg PO DAILY 0RF Changed bumetanide 2 mg tablet 1 mg PO DAILY Qty: 0 0RF Referrals: Manny Guzman DO [Primary Care Provider] - 2 weeks [facility]ARE [facility], [Staff Physician] - 1-3 days Discharge Diet: Cardiac Patient Instructions: Opioid Safety Coding Level of Care Code Acute [facility] note Diagnoses Generalized weakness R53.1 ARMEN (acute kidney injury) N17.9 Leukocytosis D72.829 Acute on chronic blood loss anemia D62 ARMEN (acute kidney injury) N17.9 Acute on chronic anemia D64.9
--- NOTE | 2022-03-03 16:11 | P.PN_ITS ---
Subjective Subjective: Patient is complaining excruciating back pain Lytic lesion evident on the CT lumbar scan we will do a bone scan and keep him here 1 more night Vitals/I&O/Wt Last Vital Signs Temp 97.7 F 03/03/22 15:35 Pulse 82 03/03/22 15:35 Resp 18 03/03/22 15:35 BP 128/64 03/03/22 15:35 Pulse Ox 99 03/03/22 15:35 03/03/22 03/03/22 03/03/22 06:59 14:59 22:59 Intake Total 720 / 2160 410 / 410 Output Total 600 / 2675 1700 / 1700 Balance 120 / -515 -1290 / -1290 Weight last 48 hrs Weight 102.569 kg Physical Exam Narrative: Patient in pain, sitting at the bedside Satting well on room air No acute decompensated liver cirrhosis I Nonfocal neuro exam No asterixis Looks euvolemic Abdomen nontender Data : 03/03/22 05:34 03/03/22 05:34 Micro: Microbiology 03/01/22 20:57 Blood Culture - Preliminary Blood NEGATIVE TO DATE 03/01/22 20:54 Blood Culture - Preliminary Blood NEGATIVE TO DATE A&P Assessment and plan (1) Lytic bone lesions on xray: Status: Acute (2) Acute on chronic blood loss anemia: Status: Acute (3) Generalized weakness: Status: Acute (4) ARMEN (acute kidney injury): Status: Acute (5) Leukocytosis: Status: Acute (6) Acute on chronic anemia: Status: Acute (7) Splenomegaly: Status: Acute Plan Lytic bone lesion excruciating back pain Had to escalate his pain opioids regimen Continue lactulose We will do bone scan to rule out malignancy related lytic lesion Patient willing to stay 1 more night Tomorrow I will discharge him with pain management clinic referral Attestations Medical Necessity Statement*: Discharge tomorrow Time Spent in Patient Care: 20 Coding Level of Care Code Acute Continuous Mining Machine Operator for Audrey Goel Diagnoses Lytic bone lesions on xray M89.9 Acute on chronic blood loss anemia D62 Generalized weakness R53.1 ARMEN (acute kidney injury) N17.9 Leukocytosis D72.829 Acute on chronic anemia D64.9 Splenomegaly R16.1
[2022-03-04] VITALS (9 sets, daily range): BP systolic 122–138; BP diastolic 67–77; PULSE 61–94; RESP 16–20; TEMP 36.3–36.7; O2SAT 94–100
[2022-03-04] MEDS: oxyCODONE 5 mg IR Tab/Cap PO (07:50)
[2022-03-04] MEDS: doxycycline 100 mg Tablet PO ×2 (09:43→20:05)
[2022-03-04] MEDS: bumetanide 1 mg Tablet 0.5 MG PO (09:43)
[2022-03-04] MEDS: thiamine 100 mg Tablet PO (09:43)
[2022-03-04] MEDS: sodium bicarbonate 650 mg Tablet PO ×3 (09:43→20:05)
[2022-03-04] MEDS: lactulose oral liq 20 gm/30 mL UDC PO ×2 (09:44→17:04)
[2022-03-04] MEDS: cefTRIAXone 2,000 MG in sodium chloride 0.9% (plus) 50 ML 100 MG IV (09:44)
[2022-03-04] MEDS: iron polysaccharide complex 150 mg Capsule PO ×2 (09:44→17:05)
--- NOTE | 2022-03-04 10:42 | PM.PN ---
Subjective Subjective: Patient is a and that he was able to stay alone at home, mother is at the bedside She is waiting for bone scan report She is also in agreement to go to a rehab for short-term Patient is stating that he would like to make up his mind in the next few hours, I did update my patient case coordinator Is thinking about [facility] vs [facility] Vitals/I&O/Wt Last Vital Signs Temp 97.9 F 03/04/22 07:30 Pulse 61 03/04/22 07:30 Resp 18 03/04/22 07:50 BP 128/77 03/04/22 07:30 Pulse Ox 100 03/04/22 07:30 03/03/22 03/04/22 03/04/22 22:59 06:59 14:59 Intake Total 1300 / 1710 3370 / 5080 1130 / 1130 Output Total 1600 / 3300 1200 / 4500 1725 / 1725 Balance -300 / -1590 2170 / 580 -595 / -595 Weight last 48 hrs Weight 102.965 kg Physical Exam Narrative: Sitting in a wheelchair Is sipping his coffee No active signs of decompensated liver cirrhosis Lymphedema Awake and alert No signs of hepatic encephalopathy Hemodynamically stable Saturating well on room air Data : 03/03/22 05:34 03/03/22 05:34 A&P Assessment and plan (1) Lytic bone lesions on xray: Status: Acute (2) Acute on chronic blood loss anemia: Status: Acute (3) Generalized weakness: Status: Acute (4) ARMEN (acute kidney injury): Status: Acute (5) Leukocytosis: Status: Acute (6) Acute on chronic anemia: Status: Acute (7) Splenomegaly: Status: Acute (8) Declining functional status: Status: Acute (9) Cirrhosis: Status: Acute Plan Bone scan today did not show cancer related to lytic lesion, possibly osteoarthritis/degenerative changes Family updated Patient has changed his mind, he cannot live alone He needs wound care and some physical therapy for which he has decided to go to a nursing facility with rehab sr. manager corporate communications updated Family is thinking about [facility] versus [facility] It might take longer as today is Monday For now he is being managed for pain management, while awaiting placement Liver cirrhosis without acute decompensation Continue low-dose Bumex Continue lactulose Acute on chronic anemia Urgency Splenomegaly Hemoglobin stable Hemodynamically stable Patient is full code Mother's phone number is [phone] Attestations Medical Necessity Statement*: Awaiting bed placement Time Spent in Patient Care: 20 Coding Level of Care Code Acute Manager Application Development for Audrey Goel Diagnoses Lytic bone lesions on xray M89.9 Acute on chronic blood loss anemia D62 Generalized weakness R53.1 ARMEN (acute kidney injury) N17.9 Leukocytosis D72.829 Acute on chronic anemia D64.9 Splenomegaly R16.1 Declining functional status R53.81 Cirrhosis K74.60
[2022-03-04] MEDS: HYDROmorphone 1 mg/mL INJ 1 mL 0.2 MG IVP (12:31)
--- NOTE | 2022-03-04 16:07 | NM_ITS ---
WS: [id number] NUCLEAR MEDICINE WHOLE BODY BONE SCAN HISTORY: lytic lesions COMPARISON: CT 03/03/2021 03/01/2022. TECHNIQUE: The patient was injected with 26.5 mCi of Technetium 99m HDP and serial whole-body scintig markell have been performed with anterior and posterior images. Focal area of moderate increased uptake involving the superior RIGHT acetabulum. This does not necess arily correspond to the lytic lesion seen on the recent CT. This is more associated with the joint sp yokasta and acetabulum. Lytic area in the RIGHT ilium is partially obscured by the distended urinary blad garry. Mild focal area of increased uptake in the cervical spine on the LEFT. No rib lesions. No spine lesio ns. Degenerative changes at the hip and ankles. NM/NM bone scan whole body* [id number] IMPRESSION: 1. Focal area of increased uptake at the RIGHT acetabulum may be degenerative in etiology. No destructive osseous lesion identified on the CT at this locatio n. This may be related to osteoarthritis. Consider clinical and imaging follow- up evaluation to be sure of no progression. Additional etiologies to consider a re short-term follow-up by radiograph, CT or MRI with contrast. With no history of a prior malignancy this may be degenerative osteoarthritis. 2. The lytic area in the RIGHT ilium is partially obscured by an overly disten ded urinary bladder but no abnormality is identified in this location.
[2022-03-04] MEDS: acetaminophen 500 mg Tablet PO (17:04)
[2022-03-05] VITALS (10 sets, daily range): BP systolic 127–138; BP diastolic 63–77; PULSE 70–96; RESP 16–20; TEMP 36.4–37; O2SAT 98–100
[2022-03-05] MEDS: HYDROmorphone 1 mg/mL INJ 1 mL 0.2 MG IVP (01:00)
--- NOTE | 2022-03-05 01:03 | PC.NURSE ---
PAIN Was heard yelling out. To room and pt c/o back spasms Says his feet were tangled in bedside table and he had slid down in chair. Assisted back up and table removed. Medicated with IV Dilaudid by RN.
[2022-03-05 07:06] LABS: Basophils # 0.1 10^3/uL (0.0-0.1); Basophils % 2.2 %; Eosinophils # 0.4 10^3/uL (0.0-0.8); Eosinophils % 6.8 %; Hematocrit 30.8 % (42.0-52.0); Hemoglobin 9.3 g/dL (11.7-16.6); Lymphocytes # 0.5 10^3/uL (0.8-4.8); Lymphocytes % 10.6 %; Mean Corpuscular HGB Conc 30.2 g/dL (30.0-36.0); Mean Corpuscular Hemoglobin 21.4 pg (28.0-34.0); Mean Corpuscular Volume 70.8 fl (80-94); Monocytes # 0.8 10^3/uL (0.2-0.9); Monocytes % 15.9 %; Neutrophils # 3.25 10^3/uL (1.8-7.7); Neutrophils % 63.5 %; Nucleated Red Blood Cells % 0 %; Platelet Count 123 10^3/cmm (130-400); Red Blood Count 4.35 10^6/uL (4.1-5.3); Red Cell Distribution Width 25.1 % (12.1-15.1); White Blood Count 5.1 10^3/uL (4.0-10.0)
[2022-03-05] MEDS: doxycycline 100 mg Tablet PO ×2 (09:09→19:29)
[2022-03-05] MEDS: sodium bicarbonate 650 mg Tablet PO (09:09)
[2022-03-05] MEDS: thiamine 100 mg Tablet PO (09:09)
[2022-03-05] MEDS: cefTRIAXone 2,000 MG in sodium chloride 0.9% (plus) 50 ML 100 MG IV (09:09)
[2022-03-05] MEDS: acetaminophen 500 mg Tablet PO (09:10)
[2022-03-05] MEDS: bumetanide 1 mg Tablet 0.5 MG PO (09:10)
[2022-03-05] MEDS: iron polysaccharide complex 150 mg Capsule PO ×2 (09:10→17:09)
--- NOTE | 2022-03-05 11:51 | P.PN_ITS ---
Subjective Subjective: Patient is stating that he was able to work with PT and he is happy with his progress, he is hopeful that he will be able to go home if he keeps improving with physical therapy No signs of malignancy as per the bone scan Vitals/I&O/Wt Last Vital Signs Temp 97.6 F 03/05/22 11:22 Pulse 70 03/05/22 11:22 Resp 16 03/05/22 11:22 BP 137/77 03/05/22 11:22 Pulse Ox 100 03/05/22 11:22 03/04/22 03/05/22 03/05/22 22:59 06:59 14:59 Intake Total 480 / 1850 1680 / 3530 410 / 410 Output Total 3000 / 4725 1700 / 1700 Balance 480 / 125 -1320 / -1195 -1290 / -1290 Weight last 48 hrs Weight 102.965 kg Physical Exam Narrative: Patient was sitting in his chair Saturating well on room air No signs of decompensated liver cirrhosis Edema of legs Lymphedema Abdomen is soft Nonfocal neuro exam muscle. Data : 03/05/22 06:39 03/03/22 05:34 A&P Assessment and plan (1) Lytic bone lesions on xray: Status: Acute (2) Acute on chronic blood loss anemia: Status: Acute (3) Generalized weakness: Status: Acute (4) ARMEN (acute kidney injury): Status: Acute (5) Leukocytosis: Status: Acute (6) Acute on chronic anemia: Status: Acute (7) Splenomegaly: Status: Acute (8) Declining functional status: Status: Acute Plan Back pain related to osteoarthritis Liver cirrhosis without decompensation signs Daily PT evaluation senior living placement If he improves he might build to go home with outpatient PT He will also need wound care Cardiac diet Continue ceftriaxone as SBP prophylactic measures Patient is full code Opioid for back pain DVT prophylaxis: SCDs Attestations Medical Necessity Statement*: awaiting placement Time Spent in Patient Care: 20 Coding Level of Care Code 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
[2022-03-05 12:21] LABS: Add Urine Microscopic? NO; Charge for UA Resulting for Rev
[2022-03-05 12:51] LABS: Urine Appearance Clear (CLEAR); Urine Color Straw (Yellow)
[2022-03-05 12:52] LABS: Bilirubin Urine Neg (Negative); Blood Urine Neg (Negative); Glucose Urine UA Norm (Normal); Ketones Urine Negative (Negative); Leukocyte Esterase Urine Negative (Negative); Nitrate Urine Negative (Negative); Protein Urine Neg (Negative); Specific Gravity, Urine 1.005 (1.005-1.030); Urobilinogen Urine Norm (Negative); pH Urine 6 (5-7)
[2022-03-05] MEDS: oxyCODONE 5 mg IR Tab/Cap PO (19:29)
[2022-03-06] VITALS (12 sets, daily range): BP systolic 117–148; BP diastolic 54–72; PULSE 73–86; RESP 17–19; TEMP 36.7–37.3; O2SAT 97–100
[2022-03-06] MEDS: lactulose oral liq 20 gm/30 mL UDC PO ×2 (08:33→18:23)
[2022-03-06] MEDS: cefTRIAXone 2,000 MG in sodium chloride 0.9% (plus) 50 ML 100 MG IV (08:33)
[2022-03-06] MEDS: bumetanide 1 mg Tablet 0.5 MG PO (08:34)
[2022-03-06] MEDS: iron polysaccharide complex 150 mg Capsule PO ×2 (08:34→18:24)
[2022-03-06] MEDS: thiamine 100 mg Tablet PO (08:34)
[2022-03-06] MEDS: doxycycline 100 mg Tablet PO ×2 (08:34→19:51)
[2022-03-06] MEDS: oxyCODONE 5 mg IR Tab/Cap PO (12:26)
--- NOTE | 2022-03-06 12:28 | P.PN_ITS ---
Subjective Subjective: Patient is making good progress Happy with his ability to work with physical therapy Family was at the bedside He wants to try regular diet, he is not happy with cardiac diet Yellow discharge noted on the sheet around his legs Will ask for compression wraps for lymphedema Vitals/I&O/Wt Last Vital Signs Temp 98.4 F 03/06/22 08:00 Pulse 82 03/06/22 09:23 Resp 18 03/06/22 12:26 BP 119/54 03/06/22 08:00 Pulse Ox 98 03/06/22 09:23 03/05/22 03/06/22 03/06/22 22:59 06:59 14:59 Intake Total 720 / 1490 1920 / 3410 530 / 530 Output Total 1250 / 3800 2850 / 6650 Balance -530 / -2310 -930 / -3240 530 / 530 Physical Exam Narrative: Patient is laying comfortably in his bed Yellow discharge from right leg Lymphedema of leg Swelling has not significantly improved No signs of decompensated liver cirrhosis Hemodynamically stable Awake and alert Abdomen is soft Saturating well on room air Data : 03/05/22 06:39 03/03/22 05:34 A&P Assessment and plan (1) Lytic bone lesions on xray: Status: Acute (2) Acute on chronic blood loss anemia: Status: Acute (3) Generalized weakness: Status: Acute (4) ARMEN (acute kidney injury): Status: Acute (5) Leukocytosis: Status: Acute (6) Acute on chronic anemia: Status: Acute (7) ARMEN (acute kidney injury): Status: Acute (8) Splenomegaly: Status: Acute Plan Plan to send him to a short-term rehab likely on Monday ARMEN resolved No signs of decompensated liver cirrhosis Back pain under control Continue current opiate regimen Continue lactulose Family is at the bedside He will need outpatient wound care and possibly home health services for wound care/lymphedema wraps Requested JULIA stockings Full code Regular diet DVT prophylaxis contraindicated Acute on chronic anemia required blood transfusion during hospitalization secondary to splenomegaly, no active GI blood loss Lytic bone lesions or osteoarthritic degenerative changes no signs of cancer Attestations Medical Necessity Statement*: Awaiting rehab placement Time Spent in Patient Care: 30 Coding Level of Care Code Acute Staff Development Coordinator Rn for Audrey Goel Diagnoses Lytic bone lesions on xray M89.9 Acute on chronic blood loss anemia D62 Generalized weakness R53.1 ARMEN (acute kidney injury) N17.9 Leukocytosis D72.829 Acute on chronic anemia D64.9 ARMEN (acute kidney injury) N17.9 Splenomegaly R16.1
[2022-03-06] MEDS: acetaminophen 500 mg Tablet PO (20:04)
[2022-03-07] VITALS (11 sets, daily range): BP systolic 113–152; BP diastolic 61–72; PULSE 68–80; RESP 16–18; TEMP 36.6–37.1; O2SAT 95–100
[2022-03-07 07:14] LABS: Tumor Marker Alpha Fetoprotein 1.7 ng/mL (0-8.3)
[2022-03-07] MEDS: thiamine 100 mg Tablet PO (08:42)
[2022-03-07] MEDS: lactulose oral liq 20 gm/30 mL UDC PO ×2 (08:43→17:19)
[2022-03-07] MEDS: iron polysaccharide complex 150 mg Capsule PO ×2 (08:43→17:19)
[2022-03-07] MEDS: bumetanide 1 mg Tablet 0.5 MG PO (08:43)
[2022-03-07] MEDS: doxycycline 100 mg Tablet PO ×2 (10:02→19:44)
--- NOTE | 2022-03-07 11:42 | PC.NURSE ---
Patient requested pain medications. This nurse went to take them into him and he was sleeping. When I called his name his looked at me then went right back to sleep.
--- NOTE | 2022-03-07 13:00 | PC.NURSE ---
Patient refused to get up out of bed
[2022-03-07] MEDS: acetaminophen 500 mg Tablet PO (14:38)
--- NOTE | 2022-03-07 16:40 | PC.NURSE ---
Patient mother called case management concerned that the patient hadn't had a bath since being here 6 days. patient was offered a bath/shower but refused stating he wanted to wait for his girlfriend to get here after 1700
[2022-03-07] MEDS: HYDROmorphone 1 mg/mL INJ 1 mL 0.2 MG IVP (18:39)
[2022-03-08] VITALS (10 sets, daily range): BP systolic 122–136; BP diastolic 62–67; PULSE 71–82; RESP 14–18; TEMP 36.3–37.1; O2SAT 95–98
[2022-03-08] MEDS: acetaminophen 500 mg Tablet PO ×2 (03:45→15:30)
[2022-03-08] MEDS: thiamine 100 mg Tablet PO (08:32)
[2022-03-08] MEDS: iron polysaccharide complex 150 mg Capsule PO ×2 (08:32→17:17)
[2022-03-08] MEDS: bumetanide 1 mg Tablet 0.5 MG PO (08:32)
[2022-03-08] MEDS: doxycycline 100 mg Tablet PO ×2 (11:19→18:37)
--- NOTE | 2022-03-08 11:58 | P.PN_ITS ---
Subjective Subjective: Patient is working with PT Lymphedema wraps to be done today by PT Patient is still endorsing pain However he is working with PT, he is not able to walk on his own because of lymphedema He also has decubitus ulcer right heel stage I Callus of left foot plantar side He needs assistance to get out of bed as well along with wound care Vitals/I&O/Wt Last Vital Signs Temp 98.6 F 03/08/22 07:25 Pulse 78 03/08/22 08:00 Resp 16 03/08/22 08:00 BP 130/64 03/08/22 07:25 Pulse Ox 98 03/08/22 08:00 03/07/22 03/08/22 03/08/22 22:59 06:59 14:59 Intake Total 1240 / 1240 360 / 360 Output Total 1600 / 4200 7605 / 6670 Balance -1600 / -4200 -1235 / -5435 360 / 360 Physical Exam Narrative: Patient is staying supine in his bed No active signs of decompensated liver cirrhosis Right heel ulcer pressure ulcer stage I Left foot callus plantar side No active signs of cellulitis Lymphedema of legs bilaterally with neuroma No signs of stroke Abdomen soft S1, S2 Patient euvolemic Awake and alert Satting well on room air Data : 03/05/22 06:39 03/03/22 05:34 A&P Assessment and plan (1) Stage I pressure ulcer of heel: Status: Acute (2) Callus of foot: Status: Acute (3) Lytic bone lesions on xray: Status: Acute (4) Acute on chronic blood loss anemia: Status: Acute (5) Generalized weakness: Status: Acute (6) ARMEN (acute kidney injury): Status: Acute (7) Leukocytosis: Status: Acute (8) ARMEN (acute kidney injury): Status: Acute (9) Acute on chronic anemia: Status: Acute (10) Splenomegaly: Status: Acute (11) Declining functional status: Status: Acute (12) Cirrhosis: Status: Acute Plan Leukocytosis has improved Likely source of leukocytosis is chronic lymphedema without active approved He was given ceftriaxone which I have discontinued as SBP prophylaxis Currently on doxycycline Stage I heel ulcer Stage I ulcer present since admission Patient will need offloading, PT on daily basis Lymphedema wraps Continue antibiotics and diuretics Callus formation left plantar area of the foot Patient will need debridement and wound care Outpatient podiatry wound care clinic follow-up Lytic bone lesion of pelvis and lumbar spine will be pain management on chronic basis, recommended pain management clinic follow-up Currently pain is tolerable with current opiate regimen Patient will definitely benefit from short-term rehab with PT, wound care management, compression stockings, lymphedema wraps Low-sodium diet Full code Awaiting placement Attestations Medical Necessity Statement*: Awaiting placement Time Spent in Patient Care: 30 Coding Level of Care Code Acute Public Services Assistant for [facility] Fwd Diagnoses Stage I pressure ulcer of heel L89.601 Callus of foot L84 Lytic bone lesions on xray M89.9 Acute on chronic blood loss anemia D62 Generalized weakness R53.1 ARMEN (acute kidney injury) N17.9 Leukocytosis D72.829 ARMEN (acute kidney injury) N17.9 Acute on chronic anemia D64.9 Splenomegaly R16.1 Declining functional status R53.81 Cirrhosis K74.60
[2022-03-08] MEDS: cyclobenzaprine 10 mg Tablet 5 MG PO (15:13)
[2022-03-08] MEDS: lactulose oral liq 20 gm/30 mL UDC PO (17:18)
[2022-03-09] VITALS (12 sets, daily range): BP systolic 127–140; BP diastolic 64–86; PULSE 0–86; RESP 16–18; TEMP 36.6–37.1; O2SAT 92–98
[2022-03-09] MEDS: oxyCODONE 5 mg IR Tab/Cap PO (05:02)
[2022-03-09] MEDS: cyclobenzaprine 10 mg Tablet 5 MG PO (05:02)
[2022-03-09] MEDS: thiamine 100 mg Tablet PO (08:01)
[2022-03-09] MEDS: iron polysaccharide complex 150 mg Capsule PO (08:01)
[2022-03-09] MEDS: bumetanide 1 mg Tablet 0.5 MG PO (08:01)
[2022-03-09] MEDS: lactulose oral liq 20 gm/30 mL UDC PO (08:01)
[2022-03-09] MEDS: doxycycline 100 mg Tablet PO ×2 (10:06→21:45)
[2022-03-09] MEDS: ondansetron 4 MG Tablet PO (10:49)
--- NOTE | 2022-03-09 11:53 | P.PN_ITS ---
Subjective Subjective: Patient is still complaining of back pain, he is not able to get out of bed on his own He is requiring assistance and PT on daily basis Awaiting bed placement, will touch base with [facility] Vitals/I&O/Wt Last Vital Signs Temp 97.9 F 03/09/22 07:30 Pulse 81 03/09/22 08:00 Resp 16 03/09/22 08:00 BP 128/64 03/09/22 07:30 Pulse Ox 95 03/09/22 08:00 03/08/22 03/09/22 03/09/22 22:59 06:59 14:59 Intake Total 480 / 1080 875 / 1955 240 / 240 Output Total 700 / 1400 1325 / 2725 200 / 200 Balance -220 / -320 -450 / -770 40 / 40 Physical Exam Narrative: Patient laying supine Complaining of back pain Legs wrapped with lymphedema wraps No active signs of decompensated liver cirrhosis Saturating well on room air Awake and alert, nonfocal neuro exam Looks euvolemic Data : 03/05/22 06:39 03/03/22 05:34 A&P Assessment and plan (1) Callus of foot: Status: Acute (2) Stage I pressure ulcer of heel: Status: Acute (3) Lytic bone lesions on xray: Status: Acute (4) Acute on chronic blood loss anemia: Status: Acute (5) Generalized weakness: Status: Acute (6) ARMEN (acute kidney injury): Status: Acute (7) Leukocytosis: Status: Acute (8) ARMEN (acute kidney injury): Status: Acute (9) Acute on chronic anemia: Status: Acute (10) Splenomegaly: Status: Acute Plan Patient is awaiting placement Liver cirrhosis without acute decompensation Continue Bumex Lactulose Lymphedema of the legs patient is stating that her legs feel better with lymphedema wraps Lytic lesion of bone related to bad osteoarthritis, requiring professional nursing assistant, pain management will need outpatient pain management referral Wound care and podiatry referral needed as well Patient will definitely benefit from short-term rehab, because of his history it has been difficult to get him placed at a rehab, we are trying with verbal care, comp field case manager working diligently Full code Low-sodium diet DVT prophylaxis stage 1 ulcer rt heel Callus of left foot patient will also need wound care Attestations Medical Necessity Statement*: Continue medical management Pending placement Time Spent in Patient Care: 20 Coding Level of Care Code 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
[2022-03-09] MEDS: calcium carbonate 500 mg Chew Tablet PO (13:54)
[2022-03-10] VITALS (12 sets, daily range): BP systolic 121–153; BP diastolic 64–77; PULSE 0–91; RESP 17–18; TEMP 36.3–37; O2SAT 95–98
[2022-03-10] MEDS: bumetanide 1 mg Tablet 0.5 MG PO (08:14)
[2022-03-10] MEDS: thiamine 100 mg Tablet PO (08:14)
[2022-03-10] MEDS: cyclobenzaprine 10 mg Tablet 5 MG PO (08:43)
[2022-03-10] MEDS: HYDROmorphone 1 mg/mL INJ 1 mL 0.2 MG IVP (08:43)
[2022-03-10] MEDS: oxyCODONE 5 mg IR Tab/Cap PO (11:00)
[2022-03-10] MEDS: doxycycline 100 mg Tablet PO ×2 (11:00→20:10)
[2022-03-10] MEDS: ondansetron 4 MG Tablet PO (11:01)
[2022-03-10] MEDS: acetaminophen 500 mg Tablet PO (11:01)
--- NOTE | 2022-03-10 11:41 | P.PN_ITS ---
Subjective Subjective: Patient did benefit from compression stockings, skin care, excessive skin was removed Today he received Dilaudid and was able to work with PT He does not have typical cauda equina signs or symptoms Still complaining of back pain, I will request Dr. Sigala to see him as well requesting lumbar MRI as per Dr. Sigala's recommendation Vitals/I&O/Wt Last Vital Signs Temp 97.6 F 03/10/22 10:42 Pulse 90 03/10/22 10:42 Resp 18 03/10/22 11:00 BP 121/76 03/10/22 10:42 Pulse Ox 95 03/10/22 10:42 03/09/22 03/10/22 03/10/22 22:59 06:59 14:59 Intake Total 240 / 480 150 / 630 Output Total 900 / 1100 1400 / 1400 Balance -660 / -620 150 / -470 -1400 / -1400 Physical Exam Narrative: Patient is sitting in a chair Family at the bedside Euvolemic Abdomen soft Compression stockings on his legs Legs look Swollen Awake and alert Nonfocal neuro exam No signs of decompensated liver cirrhosis Data : 03/05/22 06:39 03/03/22 05:34 A&P Assessment and plan (1) Callus of foot: Status: Acute (2) Stage I pressure ulcer of heel: Status: Acute (3) Lytic bone lesions on xray: Status: Acute (4) Acute on chronic blood loss anemia: Status: Acute (5) Generalized weakness: Status: Acute (6) ARMEN (acute kidney injury): Status: Acute (7) Leukocytosis: Status: Acute (8) ARMEN (acute kidney injury): Status: Acute (9) Splenomegaly: Status: Acute (10) Declining functional status: Status: Acute (11) Cirrhosis: Status: Acute Plan Requesting Dr. Sigala to evaluate him today for his consistent back pain MRI lumbar spine today Does not have typical cauda equina symptoms Did work with PT today after getting Dilaudid Lidocaine patch, heating pad, I will add p.o. 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
--- NOTE | 2022-03-10 12:19 | PM.CONSULT ---
Providers/Reason For Consult Consulting Physician/Specialty*: Ortho Spine Reason for Consult*: Low Back Pain Attending Physician: Edison Culp MD Primary Care Provider: Manny Guzman DO History of Present Illness History of Present Illness Kyle Conde is a 56 year old male who presents to [facility] with multiple medical problems include cirrhosis of the liver. He was developing increasing low back pain since his hospitalization and orthopedics was consulted for evaluation. He denies any specific injury to his low back. States that since he has been hospitalized laying in bed his back pain is progressively intensified. He denies any specific trauma to his low back. Denies any leg pain. Any attempts to lift his legs seems like it is worse on the right compared to the left that stimulates his low back to going to spasm. Patient is very somnolent on examination today he is up in the chair. States that heat gives her some good relief of his low back pain. Any attempts to stand or walk or bend makes his back pain much worse. Review of Systems Const: Reports: body aches and fatigue; Denies: fever(s) Eyes: Reports: yellow eyes; Denies: change in vision ENMT: Denies: throat pain Card: Reports: swelling of feet/ankles; Denies: chest pain Resp: Denies: dyspnea GI: Reports: nausea and early satiety : Denies: flank pain Musc: Denies: neck pain Skin/Breast: Reports: rash, skin swelling, non-healing lesions and changes in skin color Neuro: Denies: headache(s) Psych: Denies: anxiety Endo: Denies: polyuria Patel/Lymph: Reports: easy bruising All/Imm: Denies: urticaria Medications/Allergies Home Medications Medication Instructions Recorded Confirmed Last Taken Type lactulose 10 gram/15 mL oral 30 ml PO .ONCE TO TWICE DAILY 02/21/20 03/01/22 02/22/21 History solution (Constulose) bumetanide 2 mg tablet 2 mg PO BID 06/18/20 03/01/22 03/01/22 History multivitamin (Multiple Vitamins) 1 tab PO DAILY 06/18/20 03/01/22 02/22/21 History thiamine HCl (vitamin B1) 100 mg 100 mg PO DAILY 06/18/20 03/01/22 02/22/21 History tablet (Vitamin B-1) oxycodone 5 mg tablet 5 mg PO Q12H PRN #10 tab 03/03/22 Unknown Rx Allergies Allergy/AdvReac Type Severity Reaction Status Date / Time hydrocodone Allergy ADR-Nausea Verified 03/01/22 13:25 morphine Allergy ADR-Drowsy Verified 03/01/22 13:25 oxycodone [From OxyContin] Allergy ADR-Nausea Verified 03/01/22 13:25 Current Medications Generic Name Dose Route Start Last Admin Trade Name Hank PRN Reason Stop Dose Admin Acetaminophen 500 mg 03/01/22 17:38 03/10/22 11:01 Acetaminophen 500 Mg Tablet PO 500 mg Q8H PRN Administration fever Bumetanide 0.5 mg 03/02/22 13:25 03/10/22 08:14 Bumetanide 1 Mg Tablet PO 0.5 mg DAILY GRACE Administration Calcium Carbonate 500 mg 03/09/22 13:49 03/09/22 13:54 Calcium Carbonate 500 Mg Chew Tablet PO 500 mg Q4H PRN Administration INDIGESTION Cyclobenzaprine HCl 5 mg 03/08/22 13:55 03/10/22 08:43 Cyclobenzaprine 10 Mg Tablet PO 5 mg TID PRN Administration MUSCLE SPASMS Doxycycline Monohydrate 100 mg 03/02/22 20:00 03/10/22 11:00 Doxycycline 100 Mg Tablet PO 100 mg BID@1000,2000 [facility] Administration Protocol Hydromorphone HCl 0.2 mg 03/03/22 10:23 03/10/22 08:43 Hydromorphone 1 Mg/Ml Inj 1 Ml IVP 0.2 mg Q4H PRN Administration pain Hydromorphone HCl 2 mg 03/10/22 11:34 03/10/22 11:49 Hydromorphone 4 Mg Tablet PO 2 mg Q4H PRN Administration back pain Lactulose 20 gm 03/01/22 18:00 03/10/22 08:15 Lactulose Oral Liq 20 Gm/30 Ml Udc PO Not Given BID [facility] Ondansetron HCl 4 mg 03/02/22 14:27 03/10/22 11:01 Ondansetron 4 Mg Tablet PO 4 mg Q6H PRN Administration NAUSEA AND VOMITING Oxycodone HCl 5 mg 03/02/22 14:24 03/10/22 11:00 Oxycodone 5 Mg Ir Tab/Cap PO 5 mg Q12H PRN Administration MODERATE PAIN Polysaccharide Iron Complex 150 mg 03/02/22 18:00 03/10/22 08:15 Iron Polysaccharide Complex 150 Mg Capsule PO Not Given BIDWM GRACE Thiamine Mononitrate 100 mg 03/02/22 09:00 03/10/22 08:14 Thiamine 100 Mg Tablet PO 100 mg DAILY GRACE Administration PFSH Acute PFSH: Medical History (Updated 03/10/22 @ 12:30 by Aris Conde PA-C) Alcoholic cirrhosis of liver Swelling of lower extremity Venous stasis dermatitis Surgical History S/P TIPS (transjugular intrahepatic portosystemic shunt) Family History Other Healthy adult Social History Smoking and tobacco status: never smoked Alcohol intake: former Year of sobriety/quit date alcohol: 3 ya Lives independently: No Household members: spouse Marital status: Current occupational status: unemployed Vitals/I&O/Wt Last Vital Signs Temp 97.6 F 03/10/22 10:42 Pulse 90 03/10/22 10:42 Resp 18 03/10/22 11:49 BP 121/76 03/10/22 10:42 Pulse Ox 95 03/10/22 10:42 03/09/22 03/10/22 03/10/22 22:59 06:59 14:59 Intake Total 240 / 480 150 / 630 Output Total 900 / 1100 1400 / 1400 Balance -660 / -620 150 / -470 -1400 / -1400 Physical Exam Narrative: Patient is sitting in the chair with a heat pack on his low back. She is very deconditioned with any attempts to lift his legs when he lifts his right leg causes back to spasm. Moderate palpatory and percussion pain throughout the paraspinous musculature of the thoracolumbar spine. Normal l sensation to light touch through all dermatomal layers. Normal sensation light touch down both lower extremities with 4/5 motor strength throughout all motor groups. Moderate palpable pain over the SI joints bilaterally. Negative straight leg raise bilaterally. Skin is clear warm with normal sensation to light touch both thighs, compression wraps on both lower extremities from knees down to his feet. Reflexes are 2+ and symmetric about the knees. HENMT: COMMON NORMALS: normocephalic HEAD & SCALP: normocephalic Resp: COMMON NORMALS: normal respiratory effort Cardio: COMMON NORMALS: regular rate and regular rhythm RATE: regular rate RHYTHM: regular rhythm GI: COMMON NORMALS: Soft to palpation PALPATION: Yes Soft to palpation : COMMON NORMALS: Yes no CVA tenderness BLADDER/KIDNEY EXAM: Yes no CVA tenderness Back/Pelvis: COMMON NORMALS: no CVA tenderness Psych: COMMON NORMALS: cooperative OTHER: Appears somnolent and lethargic Data : 03/05/22 06:39 03/03/22 05:34 Other data: CT/CT lumbar spine wo con* [id number] IMPRESSION: ? 1.? No lumbar spine fracture or high-grade central stenosis. 2.? Lytic lesions within the bones of the pelvis. The largest measures 15 x 13 mm on the RIGHT. These have been present on prior studies dating back several years with only minimal increase in size. Favor these are probably benign due to their long-term appearance. For further evaluation bone scan imaging follow-up would be the study of choice at this time. NM/NM bone scan whole body* [id number] IMPRESSION: ? 1.? Focal area of increased uptake at the RIGHT acetabulum may be degenerative in etiology. No destructive osseous lesion identified on the CT at this location. This may be related to osteoarthritis. Consider clinical and imaging follow-up evaluation to be sure of no progression. Additional etiologies to consider are short-term follow-up by radiograph, CT or MRI with contrast. With no history of a prior malignancy this may be degenerative osteoarthritis. 2.? The lytic area in the RIGHT ilium is partially obscured by an overly distended urinary bladder but no abnormality is identified in this locatio A&P Assessment and plan (1) Low back pain radiating to right lower extremity: Will recommend an MRI scan of his lumbar spine. Discussed this with Dr. Sigala agrees above-stated plan. 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
--- NOTE | 2022-03-10 19:38 | PC.NURSE ---
Pt presents sitting in chair watching tv and talking to staff. Feet slightly elevated and heat pad under lower back. Resp even and non-labored no distress or sob noted. Pt had no c/o pain or discomfort at the present time. No needs voiced. Call light in reach.
[2022-03-11] VITALS (12 sets, daily range): BP systolic 124–146; BP diastolic 66–74; PULSE 71–85; RESP 16–18; TEMP 36.4–37.4; O2SAT 97–100
--- NOTE | 2022-03-11 07:11 | PM.PN ---
Subjective Subjective: resting in bed Vitals/I&O/Wt Last Vital Signs Temp 97.5 F L 03/11/22 04:00 Pulse 84 03/11/22 06:00 Resp 17 03/11/22 04:00 BP 146/74 03/11/22 04:00 Pulse Ox 100 03/11/22 04:00 03/10/22 03/11/22 03/11/22 22:59 06:59 14:59 Intake Total 236 / 236 1500 / 1736 Output Total 600 / 1999 2000 / 3999 Balance -364 / -1764 -500 / -2264 Physical Exam Narrative: resting in bed Data : 03/05/22 06:39 03/03/22 05:34 A&P Assessment and plan (1) Low back pain radiating to right lower extremity: awaiting MRI Status: Acute Attestations Medical Necessity Statement*: per primary team Coding Level of Care Code Acute 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
--- NOTE | 2022-03-11 09:30 | MR_ITS ---
WS: [id number] MRI LUMBAR SPINE NONCONTRAST HISTORY: Back pain, pain down RIGHT leg. COMPARISON: None available. TECHNIQUE: Sagittal and axial multisequence imaging is submitted. Small osteophytes in the cervical spine with a small central disc protrusion noted at C4-5 contacting the ventral cervical cord. Increase in thoracic kyphosis. Mild straightening of the normal lumbar lordosis. Moderate degenerative disc space narrowing and kinjal ccation at L5-S1 with marrow edema in the adjacent endplates. Conus terminates normally at L1-2 disc level. L1-L2: No stenosis. Mild facet joint arthritis. L2-L3: Mild facet joint arthritis with no stenosis. L3-L4: Mild annular disc bulging with mild ligamentum flavum and facet joint arthritis. Facet joint a rthritis encroaching into the subarticular recesses. Small amount of fluid in the facet joints. Mild bilateral subarticular recess and foraminal narrowing. Slightly greater on the RIGHT. L4-L5: Mild diffuse annular disc bulge. Mild ligamentum flavum and facet arthritis. Very mild encroac hment into the subarticular recesses. No stenosis. L5-S1: Mild annular disc bulging with a central broad-based disc protrusion with slight contact on th e S1 nerve roots bilaterally. There is also osteophytic ridging contributing to the mild bilateral fo raminal stenosis, RIGHT greater than LEFT. There is disc and osteophyte contact on the RIGHT L5 and S 1 nerve roots. Incompletely visualized cyst RIGHT kidney measures 1.8 cm. Splenomegaly, spleen measures 15.3 cm in l ength. MR/MR lumbar spine wo con* [id number] IMPRESSION: 1. Moderate degenerative disc disease and osteophytosis at L5-S1. 2. Annular disc bulge with central disc protrusion at L5-S1. Disc contacts the S1 nerve roots and the RIGHT L5 nerve root. Only minimal stenosis and nerve ro ot contact. 3. Mild bilateral subarticular recess and foraminal stenosis at L3-4. Slightly greater narrowing of the RIGHT foramen. 4. Minimal disc encroachment into the subarticular recesses at L4-5.
[2022-03-11] MEDS: iron polysaccharide complex 150 mg Capsule PO ×2 (10:31→18:07)
[2022-03-11] MEDS: thiamine 100 mg Tablet PO (10:31)
[2022-03-11] MEDS: doxycycline 100 mg Tablet PO ×2 (10:31→20:41)
[2022-03-11] MEDS: cyclobenzaprine 10 mg Tablet 5 MG PO (10:31)
[2022-03-11] MEDS: bumetanide 1 mg Tablet 0.5 MG PO (10:32)
[2022-03-11] MEDS: lidocaine 5% Patch 1 PATCH TOPICAL (10:33)
[2022-03-11] MEDS: lactulose oral liq 20 gm/30 mL UDC PO ×2 (10:33→18:05)
--- NOTE | 2022-03-11 12:00 | P.PN_ITS ---
Subjective Subjective: MRI reviewed, showing moderate degenerative changes, S1 nerve root disc contact, annular disc bulge L5-S1 We will follow-up with orthopedic recommendations Today patient was able to get up on his own and sit in a recliner He is happy with his progress Awaiting placement No overnight events Vitals/I&O/Wt Last Vital Signs Temp 97.9 F 03/11/22 11:49 Pulse 72 03/11/22 11:49 Resp 16 03/11/22 11:49 BP 134/69 03/11/22 11:49 Pulse Ox 99 03/11/22 11:49 03/10/22 03/11/22 03/11/22 22:59 06:59 14:59 Intake Total 236 / 236 1500 / 1736 120 / 120 Output Total 600 / 2000 2000 / 4000 Balance -364 / -1764 -500 / -2264 120 / 120 Physical Exam Narrative: Patient is wearing compression stockings Very happy with his progress Able to get out of bed and sit in a recliner He does have heating pad as well No active signs of decompensated liver cirrhosis S1, S2 Euvolemic Abdomen soft Nonfocal neuro exam Saturating well on room air Data : 03/05/22 06:39 03/03/22 05:34 A&P Assessment and plan (1) Low back pain radiating to right lower extremity: Status: Acute (2) Callus of foot: Status: Acute (3) Stage I pressure ulcer of heel: Status: Acute (4) Lytic bone lesions on xray: Status: Acute (5) Acute on chronic blood loss anemia: Status: Acute (6) Generalized weakness: Status: Acute (7) Leukocytosis: Status: Acute (8) Splenomegaly: Status: Acute (9) Declining functional status: Status: Acute Plan Degenerative osteoarthritic changes noted of lumbar spine Disc bulging, S1 nerve root contact We will follow-up with orthopedic recommendations Bilateral lower extremity swelling Will need skin care on daily basis, skin wash Compression wraps Liver cirrhosis without active signs of decompensation Continue Bumex Lactulose Full code Cardiac diet DVT prophylaxis on board Awaiting placement Patient is no-show however stating that he might make up his mind by the end of the day if he does not get accepted anywhere, home health services outpatient PT, wound care and podiatry referrals will be given Attestations Medical Necessity Statement*: Awaiting placement Time Spent in Patient Care: 30 Coding Level of Care Code Acute 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
[2022-03-12] VITALS (7 sets, daily range): BP systolic 123–138; BP diastolic 65–71; PULSE 68–78; RESP 16–18; TEMP 36.7–37.1; O2SAT 97–100
--- NOTE | 2022-03-12 08:14 | P.PN_ITS ---
Subjective Subjective: Patient stated that pain is sniffily improved. I did discuss the MRI findings with the patient. Which shows that he has some lumbar stenosis. Vitals/I&O/Wt Last Vital Signs Temp 98.0 F 03/12/22 07:14 Pulse 77 03/12/22 07:49 Resp 16 03/12/22 07:49 BP 123/65 03/12/22 07:14 Pulse Ox 100 03/12/22 07:49 03/11/22 03/12/22 03/12/22 22:59 06:59 14:59 Intake Total 500 / 620 1399 / 2019 Output Total 1420 / 3740 0 / 3740 660 / 660 Balance -920 / -3120 1400 / -1720 -660 / -660 Physical Exam Narrative: Patient sitting up in chair comfortable pain controlled Data : 03/05/22 06:39 03/03/22 05:34 A&P Assessment and plan (1) Lumbar stenosis with neurogenic claudication: Continue to work with therapy. Okay to discharge from the spine standpoint. Discussed them that he should follow-up in my clinic in 2 weeks so we can see how he is doing. Status: Acute Attestations Medical Necessity Statement*: Per primary service Coding Level of Care Code Acute Profile Shaper Operator for Audrey Go[facility] Diagnoses Lumbar stenosis with neurogenic claudication M48.062
[2022-03-12] MEDS: bumetanide 1 mg Tablet 0.5 MG PO (09:12)
[2022-03-12] MEDS: iron polysaccharide complex 150 mg Capsule PO (09:12)
[2022-03-12] MEDS: doxycycline 100 mg Tablet PO (09:13)
[2022-03-12] MEDS: thiamine 100 mg Tablet PO (09:13)
[2022-03-12] MEDS: lidocaine 5% Patch 1 PATCH TOPICAL (09:13)
[2022-03-12] MEDS: lactulose oral liq 20 gm/30 mL UDC PO (09:13)
--- NOTE | 2022-03-12 10:58 | PM.DCS ---
Discharge Providers Date of Admission: 03/01/22 15:15 Date of Discharge: March 12, 2022 Attending Provider at Admission: Edison Culp MD Attending Provider at Discharge: Edison Culp MD Primary Care Provider: Manny Guzman DO Diagnoses at Discharge Discharge Diagnosis (1) Lumbar stenosis with neurogenic claudication: Status: Acute Reason for Visit Reason for Visit: Weakness, abnormal labs Hospital Course Hospital Course Patient was admitted for management evaluation of generalized weakness related to underlying chronic liver disease. No active signs of decompensated liver cirrhosis were found however his hemoglobin dropped without active GI bleed, he was found to have iron deficiency anemia. He received 2 unit PRBC which stabilized his hemoglobin. He was complaining excruciating back pain, requested CT lumbar spine without contrast. He does have high D-dimer CTA rule out PE. He was not tachycardic or hypoxic. He refused going to rehab, he wanted to go home and was adamant that he will not stay in the hospital longer. Required opiates for his back pain. His leukocytosis improved, I do believe the source of high leukocyte is underlying chronic wound of bilateral lower extremities for which I have given him referral to see a physician at wound care clinic He does not have tender abdomen, he was given ceftriaxone during hospitalization as prophylactic measure for SBP. Minimal ascites, patient has alcohol-related liver cirrhosis status post TIPS. Scan of lumbar spine area showed lytic lesion, bone scan was requested to rule out malignancy is lesions are related to osteoarthritis degenerative changes, Dr. Sigala was consulted because of his consistent pain MRI of the spine did show spinal stenosis, disc bulging and involvement of S1 nerves, patient started working with physical therapy, he was able to get up on his own, he made remarkable improvement in terms of his ambulation, I requested lymphedema wraps initially however he did very well with compression wraps and daily skin care. He does have a lot of tissue on his legs bilaterally, he should be followed up at wound care clinic, he has stage I right heel ulcer and a callus on left foot. I will discharge him on lidocaine patch, opioids, lactulose, low-dose of Bumex, follow-up appointment with Dr. Sigala, wound care clinic and PCP We were unsuccessful to get him placed for short-term rehab, now home health services has been set up by the disease case manager rn, family is in agreement, patient has started getting up on his own he is happy with his progress He lives with his parents Home health services will start seeing him on Monday Compression wrap change every 5-7 days Physical Exam Narrative: Pleasant cooperative male No active signs of decompensated liver cirrhosis Abdomen soft Patient is wearing compression stockings S1, S2 Saturating well on room air Nonfocal neuro exam Pleasant and cooperative Also at the bedside Discharge Data Studies Completed and Pending Completed Studies During Hospitalization Category Date Time Status CT abdomen pelvis wo con [id number] Urgent Cat Scan 03/01/22 15:[address] lumbar spine wo con* [id number] Routine Cat Scan 03/03/22 10:18 Completed CTA chest [CT angio chest PE protcl [id number]] Urgent Cat Scan 03/01/22 12:37 Completed XR chest 1V portable [id number] Urgent Exams 03/01/22 12:36 Completed MR lumbar spine wo con* [id number] Routine MRI 03/11/22 09:30 Completed NM bone scan whole body* [id number] Routine Nuc Med 03/04/22 16:07 Completed US venous duplex lower extremity bilat [CV venous Ultrasound 03/01/22 12:49 [place] [id number]] Urgent Pending at discharge Category Date Time Status Occult Blood Stool [Immunochemical Fecal OCB] Routine Lab 03/05/22 10:00 Ordered Radiology Impressions Chest X-Ray 03/01/22 12:36 IMPRESSION: No acute findings. Chest CTA 03/01/22 12:37 IMPRESSION: 1. No central pulmonary embolism. Beyond the lobar branches the opacification becomes limited. 2. Small bilateral pleural effusions and small amount of ascites. 3. Cirrhosis with splenomegaly. Status post TIPS procedure. 4. Small pericardial effusion. 5. Cholelithiasis without acute cholecystitis. Abdomen/Pelvis CT 03/01/22 15:43 IMPRESSION: 1. Mild amount of ascites in the abdomen. 2. Several right kidney cysts, negative for follow-up advised. 3. Several prominent inguinal lymph nodes bilaterally measuring up to 10 mm short axis. 4. Constipation. 5. Mildly prominent fluid in the small bowel without dilation may reflect an enteritis. 6. Small left inguinal hernia containing omentum without bowel. 7. Small to moderate bilateral pleural effusions. 8. Cardiomegaly. 9. Bibasilar atelectasis versus infiltrate. 10. Coronary artery atherosclerotic calcifications. 11. Cirrhotic liver. 12. Tip shunt is seen. 13. Left hepatic lobe peripherally calcified 3.6 cm cyst. 14. Spleen enlarged to [address] 03/03/22 10:18 IMPRESSION: 1. No lumbar spine fracture or high-grade central stenosis. 2. Lytic lesions within the bones of the pelvis. The largest measures 15 x 13 mm on the RIGHT. These have been present on prior studies dating back several years with only minimal increase in size. Favor these are probably benign due to their long-term appearance. For further evaluation bone scan imaging follow-up would be the study of choice at this time. Bone Scan Nuclear Medicine 03/04/22 16:07 IMPRESSION: 1. Focal area of increased uptake at the RIGHT acetabulum may be degenerative in etiology. No destructive osseous lesion identified on the CT at this location. This may be related to osteoarthritis. Consider clinical and imaging follow-up evaluation to be sure of no progression. Additional etiologies to consider are short-term follow-up by radiograph, CT or MRI with contrast. With no history of a prior malignancy this may be degenerative osteoarthritis. 2. The lytic area in the RIGHT ilium is partially obscured by an overly distended urinary bladder but no abnormality is identified in this location. Lumbar Spine MRI 03/11/22 09:30 IMPRESSION: 1. Moderate degenerative disc disease and osteophytosis at L5-S1. 2. Annular disc bulge with central disc protrusion at L5-S1. Disc contacts the S1 nerve roots and the RIGHT L5 nerve root. Only minimal stenosis and nerve root contact. 3. Mild bilateral subarticular recess and foraminal stenosis at L3-4. Slightly greater narrowing of the RIGHT foramen. 4. Minimal disc encroachment into the subarticular recesses at L4-5. Laboratory Results WBC 5.1 10^3/uL (4.0-10.0) 03/05/22 06:39 RBC 4.35 10^6/uL (4.1-5.3) 03/05/22 06:39 Hgb 9.3 g/dL (11.7-16.6) L 03/05/22 06:39 Hct 30.8 % (42.0-52.0) L 03/05/22 06:39 MCV 70.8 fl (80-94) L 03/05/22 06:39 MCH 21.4 pg (28.0-34.0) L 03/05/22 06:39 MCHC 30.2 g/dL (30.0-36.0) 03/05/22 06:39 RDW 25.1 % (12.1-15.1) H 03/05/22 06:39 Plt Count 123 10^3/cmm (130-400) L 03/05/22 06:39 MPV Not Reportable 03/05/22 06:39 Neut % (Auto) 63.5 % 03/05/22 06:39 Lymph % (Auto) 10.6 % 03/05/22 06:39 [place] % (Auto) 15.9 % 03/05/22 06:39 Eos % (Auto) 6.8 % 03/05/22 06:39 Baso % (Auto) 2.2 % 03/05/22 06:39 Neut # (Auto) 3.25 10^3/uL (1.8-7.7) 03/05/22 06:39 Lymph # (Auto) 0.5 10^3/uL (0.8-4.8) L 03/05/22 06:39 [place] # (Auto) 0.8 10^3/uL (0.2-0.9) 03/05/22 06:39 Eos # (Auto) 0.4 10^3/uL (0.0-0.8) 03/05/22 06:39 Baso # (Auto) 0.1 10^3/uL (0.0-0.1) 03/05/22 06:39 Nucleated RBC % (auto) 0 % 03/05/22 06:39 Nucleated RBCs # 0.0 /100WBC 03/05/22 06:39 Sodium 134 mmol/L (136-145) L 03/03/22 05:34 Potassium 4.0 mmol/L (3.5-5.1) 03/03/22 05:34 Chloride 103 mmol/L (98-107) 03/03/22 05:34 Carbon Dioxide 23 mmol/L (22-29) 03/03/22 05:34 Anion Gap 12.0 (5-19) 03/03/22 05:34 BUN 31 mg/dL (6-20) H 03/03/22 05:34 Creatinine 1.2 mg/dL (0.7-1.2) 03/03/22 05:34 GFR Calculation 62.4 mL/min (90-130) L 03/03/22 05:34 Glucose 103 mg/dL (65-115) 03/03/22 05:34 Calculated Osmolality 285 mOsm/kg (285-295) 03/03/22 05:34 Lactate 2.5 mmol/L (0.5-2.2) H 03/01/22 20:54 Calcium 7.5 mg/dL (8.5-10.5) L 03/03/22 05:34 Magnesium 2.2 mg/dL (1.7-2.3) 03/02/22 05:40 Magnesium Cancelled 03/02/22 05:40 Total Bilirubin 2.9 mg/dL (0.15-1.2) H 03/03/22 05:34 AST 52 U/L (0-40) H 03/03/22 05:34 ALT 25 U/L (0-41) 03/03/22 05:34 Alkaline Phosphatase 85 IU/L (40-130) 03/03/22 05:34 Ammonia 14 umol/L (16-60) L 03/01/22 15:20 Troponin T Baseline 33 ng/L (0-15) H 03/01/22 12:45 Troponin T 120 Minute 30.58 ng/L (0-15) H 03/01/22 15:07 Delta Troponin T -2.42 ABS# (0-10) L 03/01/22 15:07 Troponin T Hi Sens 6Hr 30.49 ng/L (0-15) H 03/01/22 20:54 Troponin T Hi Sens 6Hr Delta -2.51 ng/L (0-12) L 03/01/22 20:54 NT-Pro-B Natriuret Pep 6840 pg/mL (0-125) H 03/01/22 12:45 Total Protein 6.4 g/dL (6.6-8.7) L 03/03/22 05:34 Albumin 2.1 g/dL (3.5-5.2) L 03/03/22 05:34 Globulin 4.3 g/dL (1.3-4.6) 03/03/22 05:34 Tumor Marker AFP 1.7 ng/mL (0-8.3) 03/07/22 06:35 Procalcitonin 90.07 ng/mL (0-0.5) H 03/01/22 12:45 TSH 1.46 uIU/mL (0.27-4.20) 03/01/22 12:45 Urine Color Straw (Yellow) 03/05/22 03:08 Urine Appearance Clear (CLEAR) 03/05/22 03:08 Urine pH 6 (5-7) 03/05/22 03:08 Ur Specific [place] 1.005 (1.005-1.030) 03/05/22 03:08 Urine Protein Neg (Negative) 03/05/22 03:08 Urine Glucose (UA) Norm (Normal) 03/05/22 03:08 Urine Ketones Negative (Negative) 03/05/22 03:08 Urine Blood Neg (Negative) 03/05/22 03:08 Urine Nitrate Negative (Negative) 03/05/22 03:08 Urine Bilirubin Neg (Negative) 03/05/22 03:08 Urine Urobilinogen Norm mg/dL (Negative) 03/05/22 03:08 Ur Leukocyte Esterase Negative (Negative) 03/05/22 03:08 Nasal Influ A H1 2009 PCR Not detected (NOT DETECT) 03/01/22 13:20 Adenovirus (PCR) Not detected (NOT DETECT) 03/01/22 13:20 C. pneumoniae DNA (PCR) Not detected (NOT DETECT) 03/01/22 13:20 Coronavirus 229E (PCR) Not detected (NOT DETECT) 03/01/22 13:20 Human Metapneumovir PCR Not detected (NOT DETECT) 03/01/22 13:20 Influenza A (H1) PCR Not detected (NOT DETECT) 03/01/22 13:20 Influenza A (H3) PCR Not detected (NOT DETECT) 03/01/22 13:20 Influenza Type A Ag Negative (Negative) 03/01/22 13:20 Influenza Type A (PCR) Not detected (NOT DETECT) 03/01/22 13:20 Influenza Type B Ag Negative (Negative) 03/01/22 13:20 Influenza Type B (PCR) Not detected (NOT DETECT) 03/01/22 13:20 M. pneumoniae (PCR) Not detected (NOT DETECT) 03/01/22 13:20 Parainfluenza 1 (PCR) Not detected (NOT DETECT) 03/01/22 13:20 Parainfluenza 2 (PCR) Not detected (NOT DETECT) 03/01/22 13:20 Parainfluenza 3 (PCR) Not detected (NOT DETECT) 03/01/22 13:20 Parainfluenza 4 (PCR) Not detected (NOT DETECT) 03/01/22 13:20 RSV Type A (PCR) Not detected (NOT DETECT) 03/01/22 13:20 RSV Type B (PCR) Not detected (NOT DETECT) 03/01/22 13:20 Entero/Rhino (PCR) Not detected (NOT DETECT) 03/01/22 13:20 SARS-CoV-2 (PCR) Not detected (NOT DETECT) 03/01/22 13:20 Blood Type B Positive 03/02/22 09:07 Rho(D) Type Positive 03/02/22 09:07 Antibody Screen Negative 03/02/22 09:07 Crossmatch See Detail 03/02/22 09:07 Vitals Last Vital Signs Temp 98.0 F 03/12/22 07:14 Pulse 77 03/12/22 07:49 Resp 16 03/12/22 07:49 BP 123/65 03/12/22 07:14 Pulse Ox 100 03/12/22 07:49 Discharge Plan Discharge Patient Disposition: Home Condition: Stable Prescriptions: New Ferrex 150 150 mg iron Capsule 150 mg PO DAILY Qty: 60 0RF doxycycline monohydrate 100 mg Tablet 100 mg PO BID@1000,2000 Qty: 14 0RF oxycodone 5 mg Tablet 5 mg PO Q12H PRN (Reason: Moderate Pain) Qty: 10 0RF lidocaine 5 % Adhesive Patch,Medicated 1 patch topical [id number] Qty: 60 0RF bumetanide 1 mg Tablet 0.5 mg PO DAILY Qty: 60 2RF oxycodone 10 mg tablet 10 mg PO Q8H PRN (Reason: pain) Qty: 14 0RF (DME) compression socks, x-large Misc See Rx Instructions .Route Qty: 2 4RF Rx Instructions: As directed Continued lactulose [Constulose] 10 gram/15 mL Solution 30 ml PO .ONCE TO TWICE DAILY 0RF multivitamin [Multiple Vitamins] Tablet 1 tab PO DAILY 0RF thiamine HCl (vitamin B1) [Vitamin B-1] 100 mg Tablet 100 mg PO DAILY 0RF Discontinued bumetanide 2 mg tablet 2 mg PO BID 0RF Discharge Orders: Discharge Order (Routine); Ordered 03/12/22 Ordered By: Edison Culp Referrals: [facility] [Outside] Jacobo Sigala DO [Physician] - 2 weeks (Please call [phone] to make a follow up appointment with Dr. Sigala within 2 weeks. Thank you.) Manny Guzman DO [Primary Care Provider] - 4-7 days [facility], [Staff Physician] - 1-3 days Discharge Diet: Cardiac Discharge Activity: Increase activity as tolerated and Use walker/crutches as instructed Patient Instructions: Opioid Safety Discharge Attestations Time Spent in Discharge Care*: less than 30 min Quality Metrics Clinical Quality Measures [ No reported AMI, CVA or VTE this stay] Coding Level of Care Code Acute g [facility] note Diagnoses Lumbar stenosis with neurogenic claudication M48.062
--- NOTE | 2022-03-12 13:25 | PC.NURSE ---
discharge instructions given and explained.pt and cg verb understanding of instructions.discharged via w/c to exit.cg to drive pt home.
--- NOTE | 2022-03-14 11:06 | PC.SOCIAL ---
SARA Lidocaine Patches PA declined for lidocaine patches. Called [facility], in [place] reports that patient private paid with [employer] coupon.
== END 2022-03-12 13:27 | disposition home or self-care (01) ==
LOC: ER 15:30 → MEDSURG 16:30
PROVIDERS: Admitting Provider Internal Medicine; Emergency Provider Emergency Medicine; PCP Internal Medicine; Visit Provider Internal Medicine
DX: M48.062 Spinal stenosis, lumbar region with neurogenic claudication (principal); R18.8 Other ascites; M79.604 Pain in right leg; L84 Corns and callosities; L89.601 Pressure ulcer of unspecified heel, stage 1; M89.9 Disorder of bone, unspecified; D62 Acute posthemorrhagic anemia; R53.1 Weakness; D72.829 Elevated white blood cell count, unspecified; R16.1 Splenomegaly, not elsewhere classified; R53.81 Other malaise; N17.9 Acute kidney failure, unspecified; K74.60 Unspecified cirrhosis of liver; D50.9 Iron deficiency anemia, unspecified; R60.0 Localized edema
CPT/HCPCS: 36415; 36430; 71045; 71275; 72131; 72148; 74176; 78306; 80048; 80053; 81003; 82105; 82140; 83605; 83735; 83880; 84145; 84443; 84484; 85025; 86850; 86900; 86920; 87040; 87486; 87581; 87633; 87804; 93005; 93970; 97110; 97116; 97140; 97161; 97167; 97530; 99285; A9561; G0378; J0696; J1170; J2543; J3370; J7050; P9016; Q0162; Q9967

== ENCOUNTER → 2022-03-24 08:01 | Outpatient (BNVA) | payer MEDICARE, MEDICAID, SELFPAY | PROVIDERS: PCP Internal Medicine; Visit Provider Emergency Medicine | DX: I96 Gangrene, not elsewhere classified (principal); L89.623 Pressure ulcer of left heel, stage 3; L89.610 Pressure ulcer of right heel, unstageable; E11.621 Type 2 diabetes mellitus with foot ulcer; L97.422 Non-pressure chronic ulcer of left heel and midfoot with fat layer exposed | CPT/HCPCS: 11042; 99202 ==

== ENCOUNTER → 2022-03-24 08:15 | Outpatient (BNVA) | payer MEDICARE, MEDICAID, SELFPAY | PROVIDERS: PCP Internal Medicine; Visit Provider Emergency Medicine | DX: I96 Gangrene, not elsewhere classified (principal); L89.623 Pressure ulcer of left heel, stage 3; L89.610 Pressure ulcer of right heel, unstageable; L97.422 Non-pressure chronic ulcer of left heel and midfoot with fat layer exposed | CPT/HCPCS: 11042; 99213 ==

== ENCOUNTER 2022-03-28 08:05 | Outpatient (CLI) | payer MEDICARE, MEDICAID, SELFPAY ==
--- NOTE | 2022-03-28 08:15 | XRR_ITS ---
PROCEDURE INFORMATION: Exam: XR Right Foot Exam date and time: 03/28/2022 8:14 AM Age: 56 years old Clinical indication: Condition or disease; Other: Ulcer to bilateral heels; Additional info: L89.890 - pressure ulcer of other site, unstageable TECHNIQUE: Imaging protocol: Radiologic exam of the Right foot. Views: 3 or more views. COMPARISON: NM bone scan whole body* [id number] 03/04/2022 4:07 PM FINDINGS: Bones/joints: No acute fracture or malalignment. No specific radiographic evidence of acute osteomyelitis. Mild 1st MTP joint degenerative changes. Osteopenia. Soft tissues: Normal. XR/XR foot RT min 3V* [id number] IMPRESSION: No specific radiographic evidence of acute osteomyelitis, though please note that MRI is more sensitive.
--- NOTE | 2022-03-28 08:15 | XRR_ITS ---
PROCEDURE INFORMATION: Exam: XR Left Foot Exam date and time: 03/28/2022 8:14 AM Age: 56 years old Clinical indication: Condition or disease; Other: Pressure ulcer; Patient HX: Ulcer to bilateral heels; Additional info: L89.890 - pressure ulcer of other site, unstageable TECHNIQUE: Imaging protocol: Radiologic exam of the Left foot. Views: 3 or more views. COMPARISON: RI bone scan whole body* [id number] 03/04/2022 4:07 PM FINDINGS: Bones/joints: There appears to be some erosive change involving a dorsal calcaneal enthesophyte. No acute fracture or malalignment. Moderate 1st MTP joint degenerative changes. Osteopenia. Soft tissues: Soft tissue ulceration over the dorsal calcaneus. XR/XR foot LT min 3V* [id number] IMPRESSION: There appears to be some erosive change involving a dorsal calcaneal enthesophyte, worrisome for acute osteomyelitis.
== END 2022-03-28 08:06 | disposition home or self-care (01) ==
LOC: RAD 08:07
PROVIDERS: PCP Internal Medicine; Visit Provider Emergency Medicine
DX: L89.890 Pressure ulcer of other site, unstageable (principal); L89.610 Pressure ulcer of right heel, unstageable; L89.623 Pressure ulcer of left heel, stage 3; E11.621 Type 2 diabetes mellitus with foot ulcer
CPT/HCPCS: 29581; 73630; A6252

== ENCOUNTER → 2022-03-31 09:13 | Outpatient (BNVA) | payer MEDICARE, MEDICAID, SELFPAY | PROVIDERS: PCP Internal Medicine; Visit Provider Nurse Practitioner Family | DX: I96 Gangrene, not elsewhere classified (principal); L89.623 Pressure ulcer of left heel, stage 3; L89.610 Pressure ulcer of right heel, unstageable; E11.621 Type 2 diabetes mellitus with foot ulcer; L97.422 Non-pressure chronic ulcer of left heel and midfoot with fat layer exposed | CPT/HCPCS: 11042; A6251 ==

== ENCOUNTER → 2022-04-07 09:44 | Outpatient (BNVA) | payer MEDICARE, MEDICAID, SELFPAY | PROVIDERS: PCP Internal Medicine; Visit Provider Nurse Practitioner Family | DX: I96 Gangrene, not elsewhere classified (principal); L89.623 Pressure ulcer of left heel, stage 3; L89.610 Pressure ulcer of right heel, unstageable; E11.621 Type 2 diabetes mellitus with foot ulcer | CPT/HCPCS: 11042 ==

== ENCOUNTER 2022-04-11 12:53 | Outpatient (CLI) | payer MEDICARE, MEDICAID, SELFPAY ==
--- NOTE | 2022-04-11 12:45 | USCV_ITS ---
Kyle Conde Age: 56 Gender: M : 1965 Exam Date: 04/11/2022 13:12 Ordering Phys: Anais Villaseñor DO Technologist: Jolanta Glover Exam Location: [facility] [place] Indication: HISTORY: Ulcers bilateral heels PROCEDURES: The venous duplex Doppler examination of both lower extremities was performed in the standard fashion. The following venous structures were evaluated: common femoral vein,the greater saphenous vein, superficial femoral vein, and the popliteal vein. the PTV veins and the proximal portion of the SSV FINDINGS: No evidence of DVT seen in any vessel visualized at this time. No significant venous reflux was noted in the deep veins Significant venous reflux were noted at the greater saphenous vein on the right and on the left side The veins were found to be easily compressible with spontaneous blood flow. Non pulsatile flow pattern. CONCLUSIONS 1. No evidence of DVT in the above-mentioned identifiable veins. 2. No significant deep venous reflux in the deep veins 3. CINDY Farr MD/ Cardiology significant venous reflux of greater than 500 ms were noted at the mid and distal great saphenous vein segments on the right side. These veins were greater than 1 cm deep from the surface and with a diameter of 0.44 and 0.388 cm Significant venous reflux of greater than 500 ms were noted at the distal and the below-knee segments of the greater saphenous vein on the left side. No venous segments were 0.83 and 0.71 cm in diameter and at a depth of greater than 1 cm from the surface. 4. The venous dimensions, depth from the surface and the reflux time are as mentioned above Please refer to the scanned report for details Dr Gopi Farr MD [facility] (Electronically Signed) Final Date: 13 April 2022 18:47 S
== END 2022-04-11 12:54 | disposition home or self-care (01) ==
LOC: RAD 12:54
PROVIDERS: PCP Internal Medicine; Visit Provider Emergency Medicine
DX: L89.890 Pressure ulcer of other site, unstageable (principal); I87.2 Venous insufficiency (chronic) (peripheral)
CPT/HCPCS: 93970

== ENCOUNTER → 2022-04-12 14:24 | Outpatient (BNVA) | payer MEDICARE, MEDICAID, SELFPAY | PROVIDERS: PCP Internal Medicine; Visit Provider Nurse Practitioner Family | DX: I96 Gangrene, not elsewhere classified (principal); L89.623 Pressure ulcer of left heel, stage 3; L89.610 Pressure ulcer of right heel, unstageable | CPT/HCPCS: 11042; A6252 ==

== ENCOUNTER 2022-04-13 09:32 | Outpatient (CLI) | payer MEDICARE, MEDICAID, SELFPAY ==
--- NOTE | 2022-04-13 09:30 | USCV_ITS ---
Kyle Conde Age: 56 Gender: M : 1965 Exam Date: 04/13/2022 09:59 Ordering Phys: Anais Villaseñor DO Technologist: Exam Location: [facility] – [place] Indication: lower leg ulcers RIGHT LEFT Brachial 138.00 mmHg Brachial 140.00 mmHg Pressure (mmHg) Waveform Pressure (mmHg) Waveform 167.00 Above Knee 155.00 147.00 Below Knee 163.00 164.00 INFECTION CONTROL NURSE 170.00 180.00 DPA 155.00 1.20 Ankle/Brachial Index 1.20 142.00 Pre-Exercise Toe Pressure 89.00 1.00 Pre-Exercise Toe/Brachial Index 0.64 FINDINGS Resting CARMITA 1.20 bilaterally Resting TBI of 1.0 on the right and 0.664 on the left Normal PVR waveforms bilaterally CONCLUSIONS Normal resting CARMITA and TBI on the right side, suggesting no significant arterial obstruction. Normal resting CARMITA with a slightly diminished resting TBI on the left side, suggesting possible mild peripheral artery disease on the left side, involving the distal vessels. Dr Gopi Farr MD [facility] (Electronically Signed) Final Date: 15 April 2022 13:47 S
== END 2022-04-13 09:33 | disposition home or self-care (01) ==
LOC: RAD 09:33
PROVIDERS: PCP Internal Medicine; Visit Provider Emergency Medicine
DX: L89.890 Pressure ulcer of other site, unstageable (principal)
CPT/HCPCS: 93923

== ENCOUNTER → 2022-04-19 10:37 | Outpatient (BNVA) | payer MEDICARE, MEDICAID, SELFPAY | PROVIDERS: PCP Internal Medicine; Visit Provider Nurse Practitioner Family | DX: I96 Gangrene, not elsewhere classified (principal); L89.623 Pressure ulcer of left heel, stage 3; L89.610 Pressure ulcer of right heel, unstageable | CPT/HCPCS: 11042 ==

== ENCOUNTER → 2022-04-26 09:17 | Outpatient (BNVA) | payer MEDICARE, MEDICAID, SELFPAY | PROVIDERS: PCP Internal Medicine; Visit Provider Nurse Practitioner Family | DX: I96 Gangrene, not elsewhere classified (principal); L89.623 Pressure ulcer of left heel, stage 3; L89.610 Pressure ulcer of right heel, unstageable | CPT/HCPCS: 11042 ==

== ENCOUNTER → 2022-05-03 08:48 | Outpatient (BNVA) | payer MEDICARE, MEDICAID, SELFPAY | PROVIDERS: PCP Internal Medicine; Visit Provider Nurse Practitioner Family | DX: I96 Gangrene, not elsewhere classified (principal); L89.623 Pressure ulcer of left heel, stage 3; L89.612 Pressure ulcer of right heel, stage 2 | CPT/HCPCS: 11042; A6252 ==

== ENCOUNTER → 2022-05-10 08:49 | Outpatient (BNVA) | payer MEDICARE, MEDICAID, SELFPAY | PROVIDERS: PCP Internal Medicine; Visit Provider Nurse Practitioner Family | DX: I96 Gangrene, not elsewhere classified (principal); L89.623 Pressure ulcer of left heel, stage 3; L89.612 Pressure ulcer of right heel, stage 2 | CPT/HCPCS: 11042; A6252 ==

== ENCOUNTER → 2022-05-17 08:46 | Outpatient (BNVA) | payer MEDICARE, MEDICAID, SELFPAY | PROVIDERS: PCP Internal Medicine; Visit Provider Thoracic Surgery (Cardiothoracic Vascular Surgery) | DX: I96 Gangrene, not elsewhere classified (principal); L89.623 Pressure ulcer of left heel, stage 3 | CPT/HCPCS: 97597; A6252 ==

== ENCOUNTER → 2022-05-20 14:26 | Outpatient (BNVA) | payer MEDICARE, MEDICAID, SELFPAY | PROVIDERS: PCP Internal Medicine; Visit Provider Surgery | DX: E11.621 Type 2 diabetes mellitus with foot ulcer (principal); L89.610 Pressure ulcer of right heel, unstageable; L89.623 Pressure ulcer of left heel, stage 3 | CPT/HCPCS: 29581; A6252 ==

== ENCOUNTER → 2022-05-24 09:01 | Outpatient (BNVA) | payer MEDICARE, MEDICAID, SELFPAY | PROVIDERS: PCP Internal Medicine; Visit Provider Nurse Practitioner Family | DX: I96 Gangrene, not elsewhere classified (principal); L89.623 Pressure ulcer of left heel, stage 3 | CPT/HCPCS: 11042 ==

== ENCOUNTER → 2022-05-31 08:11 | Outpatient (BNVA) | payer MEDICARE, MEDICAID, SELFPAY | PROVIDERS: PCP Internal Medicine; Visit Provider Nurse Practitioner Family | DX: E11.621 Type 2 diabetes mellitus with foot ulcer (principal); L89.623 Pressure ulcer of left heel, stage 3 | CPT/HCPCS: 29581; A6251 ==

== ENCOUNTER 2022-06-04 14:52 | Observation (INO) | payer MEDICARE, MEDICAID, SELFPAY ==
[2022-06-04] VITALS (7 sets, daily range): BP systolic 114–146; BP diastolic 40–67; PULSE 75–102; RESP 18–23; TEMP 36.7–38.6; O2SAT 92–100; BMI 25.6; BMI 29.0
--- NOTE | 2022-06-04 14:59 | W.ED.GENADLT ---
HPI - General Adult General: Chief complaint: General Medical Stated complaint: CONFUSION/ ELEVATED TEMP Time Seen by Provider: 06/04/22 14:55 History of Present Illness: Patient is a 56-year-old male with a history of ARMEN, alcoholic cirrhosis, chronic deconditioning, shortness weakness, splenomegaly venous stasis dermatitis presenting to the emergency with complaints of fever and lower leg pains. Patient tells me that for the last few days he has had significant leg pain and swelling especially on the left side. Patient reports fever today at home. Family noticed patient was confused mildly confused and decided to bring patient for further evaluation. Arrival, patient is AAOx3, occasionally confused but answering most questions appropriately. Patient denies any melena or hematochezia. Patient has any hematemesis or abdominal pain. No other focal complaints at this time. Onset: 3 days ago Duration:3 days Location:home Severity:moderate Associated symptoms: Reports malaise; Deny chest pain, dyspnea, nausea, rash, palpitations or vomiting Review of Systems Const: Reports: fever(s), chills, malaise and other (+generalized weakness) Eyes: Denies: change in vision ENMT: Denies: mouth pain Card: Denies: chest pain or palpitations Resp: Denies: dyspnea or non-productive cough GI: Denies: abdominal pain, nausea, vomiting or diarrhea : Denies: dysuria Musc: Reports: extremity pain (+L leg pain and b/l leg redness) Skin/Breast: Denies: rash or new lesions Neuro: Denies: weakness in extremities Psych: Reports: other (Normal mood) Patel/Lymph: Denies: easy bruising PFS ED PFSH: Medical History (Updated 06/04/22 @ 19:27 by Bill Kong MD) Acute on chronic anemia Acute on chronic blood loss anemia ARMEN (acute kidney injury) ARMEN (acute kidney injury) Alcoholic cirrhosis of liver Callus of foot Cholelithiasis Not thought to be because of Pseudomonas bacteremia. HIDA scan normal. Surgery consultation was obtained. Cirrhosis Declining functional status Generalized weakness Leukocytosis Low back pain radiating to right lower extremity Lumbar stenosis with neurogenic claudication Lytic bone lesions on xray Splenomegaly Stage I pressure ulcer of heel Swelling of lower extremity Venous stasis dermatitis Surgical History S/P TIPS (transjugular intrahepatic portosystemic shunt) Family History Other Healthy adult Social History Smoking and tobacco status: never smoked Alcohol intake: former Year of sobriety/quit date alcohol: 3 ya Lives independently: No Household members: spouse Marital status: Current occupational status: unemployed Physical Exam Const: COMMON NORMALS: alert HENMT: COMMON NORMALS: atraumatic HEAD & SCALP: atraumatic MOUTH: moist mucous membranes not abnormal Eye: COMMON NORMALS: EOMs intact bilaterally and conjunctivae normal CONJUNCTIVA: Yes conjunctivae normal Neck/C-Spine: COMMON NORMALS: full ROM and supple Resp: COMMON NORMALS: normal respiratory effort and clear to auscultation bilaterally AUSCULTATION: clear to auscultation bilaterally Cardio: COMMON NORMALS: regular rate RATE: regular rate GI: COMMON NORMALS: Soft to palpation and non-tender PALPATION: Yes Soft to palpation OTHER: No abdominal distension. No focal TTP. NO guarding rebound, guarding, rigidity. No CVA tenderness to percussion. Neg Howard/Neg McBurney's point tenderness, no suprabupic tenderness to palpation. Extremity: COMMON NORMALS: full ROM OTHER: 2+ edema in the lower extremities with tib/fib erythem and warm Cap refill less than 3 seconds bilaterally, 2+ DP/PT pulses bilaterally Sensation and movement intact in lower extremity Neuro: SENSORIUM/ORIENTATION: Yes alert MOTOR EXAM: No Abnormal motor strength present and Other motor observations present (no focal motor deficits) Psych: COMMON NORMALS: speech normal SPEECH: Yes normal speech MOOD & AFFECT: Yes euthymic mood Skin: NARRATIVE SKIN EXAM: Warmth and erythema bilaterally in the legs, no bullae crepitus Course Vital Signs: Vital signs: Vital Signs Temperature 101.4 F H 06/04/22 14:55 Pulse Rate 86 06/04/22 17:32 Respiratory Rate 19 H 06/04/22 17:32 Blood Pressure 126/55 06/04/22 17:32 Pulse Oximetry 98 06/04/22 17:32 Oxygen Delivery Me thod 06/04/22 17:32 [facility] - General Adult Medical Decision Making Patient is a 56-year-old male with a history of ARMEN, alcoholic cirrhosis, chronic deconditioning, shortness weakness, splenomegaly venous stasis dermatitis presenting to the emergency with complaints of fever and lower leg pains. Patient has erythema/warmth/2+ edema in the lower extremity bilaterally. This is concerning for possible cellulitis. Patient is febrile to 1 to 1.4 degrees. Patient has no focal abdominal tenderness to palpation. There is no abdominal distention. At present time, do not suspect SBP. Lab work showed white count 8.2. CRP is within normal limit. Hemoglobin 8.7 today similar to baseline. ESR of over 20. Blood culture and lactic acid are pending at this time. Patient received vancomycin and Zosyn in ER. X-ray chest and UA negative for any acute findings. COVID CR is negative. Given concern for cellulitis and fever, patient admitted to hospital for further evaluation and IV antibiotics at this time. Disposition: admission Lab Data : 06/04/22 15:25 06/04/22 15:25 Radiology Impressions Chest X-Ray 06/04/22 15:03 IMPRESSION: No acute findings. Venous Duplex 06/04/22 15:41 IMPRESSION: 1. No evidence of deep vein thrombosis. 2. Soft tissue edema left lower leg Laboratory Results WBC 8.2 10^3/uL (4.0-10.0) 06/04/22 15:25 RBC 3.85 10^6/uL (4.1-5.3) L 06/04/22 15:25 Hgb 8.7 g/dL (11.7-16.6) L 06/04/22 15:25 Hct 29.8 % (42.0-52.0) L 06/04/22 15:25 MCV 77.4 fl (80-94) L 06/04/22 15:25 MCH 22.6 pg (28.0-34.0) L 06/04/22 15:25 MCHC 29.2 g/dL (30.0-36.0) L 06/04/22 15:25 RDW 16.9 % (12.1-15.1) H 06/04/22 15:25 Plt Count 78 10^3/cmm (130-400) L 06/04/22 15:25 MPV 11.5 fL (7.4-10.4) H 06/04/22 15:25 Neut % (Auto) 93.4 % 06/04/22 15:25 Lymph % (Auto) 1.7 % 06/04/22 15:25 [place] % (Auto) 4.1 % 06/04/22 15:25 Eos % (Auto) 0.0 % 06/04/22 15:25 Baso % (Auto) 0.4 % 06/04/22 15:25 Neut # (Auto) 7.69 10^3/uL (1.8-7.7) 06/04/22 15:25 Lymph # (Auto) 0.1 10^3/uL (0.8-4.8) L 06/04/22 15:25 [place] # (Auto) 0.3 10^3/uL (0.2-0.9) 06/04/22 15:25 Eos # (Auto) 0.0 10^3/uL (0.0-0.8) 06/04/22 15:25 Baso # (Auto) 0.0 10^3/uL (0.0-0.1) 06/04/22 15:25 Nucleated RBC % (auto) 0 % 06/04/22 15:25 Nucleated RBCs # 0.0 /100WBC 06/04/22 15:25 ESR 24 mm/hr (0-10) H 06/04/22 15:25 Sodium 140 mmol/L (136-145) 06/04/22 15:25 Potassium 3.7 mmol/L (3.5-5.1) 06/04/22 15:25 Chloride 108 mmol/L (98-107) H 06/04/22 15:25 Carbon Dioxide 22 mmol/L (22-29) 06/04/22 15:25 Anion Gap 13.7 (5-19) 06/04/22 15:25 BUN 13 mg/dL (6-20) 06/04/22 15:25 Creatinine 0.8 mg/dL (0.7-1.2) 06/04/22 15:25 GFR Calculation 99.6 mL/min (90-130) 06/04/22 15:25 Glucose 116 mg/dL (65-115) H 06/04/22 15:25 Calculated Osmolality 291 mOsm/kg (285-295) 06/04/22 15:25 Lactate 1.6 mmol/L (0.5-2.2) 06/04/22 16:02 Calcium 8.4 mg/dL (8.5-10.5) L 06/04/22 15:25 Total Bilirubin 2.5 mg/dL (0.15-1.2) H 06/04/22 15:25 AST 22 U/L (0-40) 06/04/22 15:25 ALT 9 U/L (0-41) 06/04/22 15:25 Alkaline Phosphatase 78 U/L (40-130) 06/04/22 15:25 Ammonia 41 umol/L (16-60) 06/04/22 16:02 C-Reactive Protein 3.9 mg/L (0.0-4.9) 06/04/22 15:25 Total Protein 6.9 g/dL (6.6-8.7) 06/04/22 15:25 Albumin 3.1 g/dL (3.5-5.2) L 06/04/22 15:25 Globulin 3.8 g/dL (1.3-4.6) 06/04/22 15:25 Lipase 73 U/L (13-60) H 06/04/22 15:25 Urine Color Yellow (Yellow) 06/04/22 18:17 Urine Appearance Clear (CLEAR) 06/04/22 18:17 Urine pH 5 (5-7) 06/04/22 18:17 Ur Specific [place] 1.005 (1.005-1.030) 06/04/22 18:17 Urine Protein Neg (Negative) 06/04/22 18:17 Urine Glucose (UA) Norm (Normal) 06/04/22 18:17 Urine Ketones Negative (Negative) 06/04/22 18:17 Urine Blood Neg (Negative) 06/04/22 18:17 Urine Nitrate Negative (Negative) 06/04/22 18:17 Urine Bilirubin Neg (Negative) 06/04/22 18:17 Urine Urobilinogen Norm mg/dL (Negative) 06/04/22 18:17 Ur Leukocyte Esterase Negative (Negative) 06/04/22 18:17 Coronavirus 229E (PCR) Not detected (NOT DETECT) 06/04/22 15:44 SARS-CoV-2 (PCR) Not detected (NOT DETECT) 06/04/22 15:44 Discharge Plan Discharge Patient Disposition: Admitted As Inpatient Clinical Impression: Cellulitis, Fever Condition: Stable Coding Level of Care Code 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
--- NOTE | 2022-06-04 15:03 | XRR_ITS ---
PROCEDURE INFORMATION: Exam: XR Chest Exam date and time: 06/04/2022 3:24 PM Age: 56 years old Clinical indication: Fever TECHNIQUE: Imaging protocol: Radiologic exam of the chest. Views: 1 view. COMPARISON: CR XR chest 1V portable [id number] 03/01/2022 12:42 PM FINDINGS: Lungs: Unremarkable. No consolidation. Pleural spaces: Unremarkable. No pleural effusion. No pneumothorax. Heart/Mediastinum: Unremarkable. No cardiomegaly. Bones/joints: Unremarkable. XR/XR chest 1V portable [id number] IMPRESSION: No acute findings.
[2022-06-04] MEDS: sodium chloride 0.9% 1,000 ML 999 ML IV (15:31)
[2022-06-04] MEDS: acetaminophen 500 mg Tablet 1000 MG PO (15:31)
[2022-06-04 15:34] LABS: Basophils % 0.4 %; Hematocrit 29.8 % (42.0-52.0); Hemoglobin 8.7 g/dL (11.7-16.6); Lymphocytes # 0.1 10^3/uL (0.8-4.8); Lymphocytes % 1.7 %; Mean Corpuscular HGB Conc 29.2 g/dL (30.0-36.0); Mean Corpuscular Hemoglobin 22.6 pg (28.0-34.0); Mean Corpuscular Volume 77.4 fl (80-94); Mean Platelet Volume 11.5 fL (7.4-10.4); Monocytes # 0.3 10^3/uL (0.2-0.9); Monocytes % 4.1 %; Neutrophils # 7.69 10^3/uL (1.8-7.7); Neutrophils % 93.4 %; Nucleated Red Blood Cells % 0 %; Platelet Count 78 10^3/cmm (130-400); Red Blood Count 3.85 10^6/uL (4.1-5.3); Red Cell Distribution Width 16.9 % (12.1-15.1); White Blood Count 8.2 10^3/uL (4.0-10.0)
--- NOTE | 2022-06-04 15:41 | USR_ITS ---
PROCEDURE INFORMATION: Exam: US Duplex Left Lower Extremity Veins, Limited Exam date and time: 06/04/2022 4:07 PM Age: 56 years old Clinical indication: Edema, localized; Lower extremity, left; Additional info: Possible dvt TECHNIQUE: Imaging protocol: Real-time Duplex ultrasound of the Left Lower Extremity with 2-D mack scale, color Doppler flow and spectral waveform analysis with image documentation. Limited exam focused on the left lower extremity veins. COMPARISON: US Renal Kidney Structu* [id number] 02/22/2018 12:11 PM FINDINGS: Left deep veins: Unremarkable. The common femoral, femoral, proximal profunda femoral and popliteal veins are patent without thrombus. Normal Doppler waveforms. Normal compressibility and/or augmentation response. Left superficial veins: Unremarkable. Saphenofemoral junction is patent without thrombus. Soft tissues: Diffuse soft tissue edema left lower leg US/[place] [id number] IMPRESSION: 1. No evidence of deep vein thrombosis. 2. Soft tissue edema left lower leg
[2022-06-04] MEDS: piperacillin-tazobactam 4.5 GM in sodium chloride 0.9% (plus) 50 ML IV (16:08)
[2022-06-04 16:09] LABS: Alanine Aminotransferase 9 U/L (0-41); Albumin Level 3.1 g/dL (3.5-5.2); Alkaline Phosphatase 78 U/L (40-130); Anion Gap 13.7 (5-19); Aspartate Amino Transferase 22 U/L (0-40); Blood Urea Nitrogen 13 mg/dL (6-20); C Reactive Protein 3.9 mg/L (0.0-4.9); Calcium 8.4 mg/dL (8.5-10.5); Carbon Dioxide 22 mmol/L (22-29); Chloride 108 mmol/L (98-107); Globulin 3.8 g/dL (1.3-4.6); Glomerular Filtration Rate 99.6 mL/min (90-130); Glucose 116 mg/dL (65-115); Lipase 73 U/L (13-60); Osmolality Calculated 291 mOsm/kg (285-295); Potassium 3.7 mmol/L (3.5-5.1); Sodium 140 mmol/L (136-145); Total Bilirubin 2.5 mg/dL (0.15-1.2); Total Protein 6.9 g/dL (6.6-8.7)
[2022-06-04 16:16] LABS: Erythrocyte Sedimentation Rate 24 mm/hr (0-10)
[2022-06-04 16:32] LABS: Lactate (Lactic Acid level) 1.6 mmol/L (0.5-2.2)
[2022-06-04 16:33] LABS: Ammonia 41 umol/L (16-60)
[2022-06-04] MEDS: vancomycin 1,000 MG in sodium chloride 0.9% 250 ML 250 MG IV (17:08)
[2022-06-04 18:14] LABS: Adenovirus Not Detected (NOT DETECT); Chlamydia Pneumoniae Not Detected (NOT DETECT); Coronavirus 229E,HKU1,NL63,OC4 Not Detected (NOT DETECT); Human Metapneumovirus Not Detected (NOT DETECT); Human Rhinovirus/Enterovirus Not Detected (NOT DETECT); Influenza A Not Detected (NOT DETECT); Influenza A H1 Not Detected (NOT DETECT); Influenza A H1-2009 Not Detected (NOT DETECT); Influenza A H3 Not Detected (NOT DETECT); Influenza B Not Detected (NOT DETECT); Mycoplasma Pneumoniae Not Detected (NOT DETECT); Parainfluenza Virus Type 1 Not Detected (NOT DETECT); Parainfluenza Virus Type 2 Not Detected (NOT DETECT); Parainfluenza Virus Type 3 Not Detected (NOT DETECT); Parainfluenza Virus Type 4 Not Detected (NOT DETECT); Respiratory Syncytial Virus A Not Detected (NOT DETECT); Respiratory Syncytial Virus B Not Detected (NOT DETECT); SARS-COV-2 Not Detected (NOT DETECT)
[2022-06-04 18:23] LABS: Add Urine Microscopic? NO; Charge for UA Resulting for Rev
[2022-06-04 18:33] LABS: Bilirubin Urine Neg (Negative); Blood Urine Neg (Negative); Glucose Urine UA Norm (Normal); Ketones Urine Negative (Negative); Leukocyte Esterase Urine Negative (Negative); Nitrate Urine Negative (Negative); Protein Urine Neg (Negative); Specific Gravity, Urine 1.005 (1.005-1.030); Urine Appearance Clear (CLEAR); Urine Color Yellow (Yellow); Urobilinogen Urine Norm (Negative); pH Urine 5 (5-7)
--- NOTE | 2022-06-04 19:00 | PC.NURSE ---
report received from ramandeep hoyt, assumed care of patient at this time.
--- NOTE | 2022-06-04 20:22 | PM.HP ---
Providers/Chief Complaint Admitting Physician: Vlad Dash MD Primary Care Provider: Manny Guzman DO Chief Complaint: CONFUSION/ ELEVATED TEMP History of Present Illness Kyle Conde is a 56 year old male with a past alcoholic liver cirrhosis status post TIPS procedure, chronic liver disease, chronic anemia status post PRBC, iron deficiency anemia, bilateral lower extremity cellulitis and wounds following up with wound care, who presents [facility] due to weakness, fatigue, confusion. Currently patient is alert oriented x3, is a bit drowsy, does answer most questions appropriately, but at times gives confusing answers. He denies drinking any alcohol, his ammonia levels are within normal limits, is been taking all his medication as prescribed. He follows up with wound care for his bilateral extremity cellulitis and wounds, he tells me that they are about the same to him. For the last few days he has been feeling well, having subjective fevers, lower extremity pains, fatigue, malaise. Denies any chest pain, denies any palpitations. Denies any shortness of breath, denies any cough. Denies any abdominal pain. Denies any diarrhea. No hematuria, no dysuria. No history of spontaneous bacterial peritonitis. Review of Systems Const: Reports: fever(s), fatigue and malaise; Denies: chills Card: Denies: chest pain Resp: Denies: dyspnea GI: Denies: abdominal pain, nausea, vomiting or hematemesis : Denies: flank pain or difficulty urinating Musc: Denies: joint pain Skin/Breast: Reports: rash Neuro: Denies: headache(s) Medications/Allergies Home Medications Medication Instructions Recorded Confirmed Last Taken Type lactulose 10 gram/15 mL oral 30 ml PO .ONCE TO TWICE DAILY 02/21/20 03/01/22 02/22/21 History solution (Constulose) multivitamin (Multiple Vitamins) 1 tab PO DAILY 06/18/20 03/01/22 02/22/21 History thiamine HCl (vitamin B1) 100 mg 100 mg PO DAILY 06/18/20 03/01/22 02/22/21 History tablet (Vitamin B-1) doxycycline monohydrate 100 mg 100 mg PO BID@1000,2000 #14 tabs 03/03/22 Unknown Rx tablet oxycodone 5 mg tablet 5 mg PO Q12H PRN Moderate Pain #10 03/03/22 Unknown Rx tabs polysaccharide iron complex 150 mg 150 mg PO DAILY #60 caps 03/03/22 Unknown Rx iron capsule (Ferrex) bumetanide 1 mg tablet 0.5 mg PO DAILY #60 tabs 03/12/22 Unknown Rx compression socks, x-large #2 ea 03/12/22 Unknown Rx lidocaine 5 % topical patch 1 patch topical [id number] #60 ea 03/12/22 Unknown Rx oxycodone 10 mg tablet 10 mg PO Q8H PRN pain #14 tabs 03/12/22 Unknown Rx Allergies Allergy/AdvReac Type Severity Reaction Status Date / Time hydrocodone Allergy ADR-Nausea Verified 03/01/22 13:25 morphine Allergy ADR-Drowsy Verified 03/01/22 13:25 oxycodone [From OxyContin] Allergy ADR-Nausea Verified 03/01/22 13:25 PFSH Acute PFSH: Medical History Acute on chronic anemia Acute on chronic blood loss anemia ARMEN (acute kidney injury) ARMEN (acute kidney injury) Alcoholic cirrhosis of liver Callus of foot Cholelithiasis Not thought to be because of Pseudomonas bacteremia. HIDA scan normal. Surgery consultation was obtained. Cirrhosis Declining functional status Generalized weakness Leukocytosis Low back pain radiating to right lower extremity Lumbar stenosis with neurogenic claudication Lytic bone lesions on xray Splenomegaly Stage I pressure ulcer of heel Swelling of lower extremity Venous stasis dermatitis Surgical History S/P TIPS (transjugular intrahepatic portosystemic shunt) Family History Other Healthy adult Social History Smoking and tobacco status: never smoked Alcohol intake: former Year of sobriety/quit date alcohol: 3 ya Lives independently: No Household members: spouse Marital status: Current occupational status: unemployed Vitals/I&O/Wt Last Vital Signs Temp 101.4 F H 06/04/22 14:55 Pulse 79 06/04/22 19:38 Resp 21 H 06/04/22 19:38 BP 124/40 06/04/22 19:38 Pulse Ox 98 06/04/22 19:38 O2 Del Method 06/04/22 17:32 06/04/22 06/04/22 06/04/22 06:59 14:59 22:59 Intake Total 1050 / 1050 Balance 1050 / 1050 Weight last 48 hrs Weight 92.986 kg Physical Exam Const: COMMON NORMALS: no acute distress and patient oriented x3 HENMT: COMMON NORMALS: normocephalic HEAD & SCALP: normocephalic Eye: COMMON NORMALS: Equal, round and reactive pupils present and EOMs intact bilaterally Neck/C-Spine: COMMON NORMALS: no JVD Resp: COMMON NORMALS: normal respiratory effort, No retractions, No use of accessory muscles and clear to auscultation bilaterally AUSCULTATION: clear to auscultation bilaterally Cardio: COMMON NORMALS: no JVD, regular rate, regular rhythm, S1 normal heart sound present and S2 normal heart sound present RATE: regular rate RHYTHM: regular rhythm HEART SOUNDS: S1 normal heart sound present and S2 normal heart sound present GI: COMMON NORMALS: Normal to inspection, nondistended, normoactive bowel sounds present, Soft to palpation, non-tender, No hepatosplenomegaly present, no masses and no bruits PALPATION: Yes Soft to palpation and Yes No hepatosplenomegaly present Back/Pelvis: OTHER: Bilateral lower extremities, superficial ulcers, not open, healing over, evidence of venous stasis dermatitis Extremity: COMMON NORMALS: no calf tenderness and no pedal edema Neuro: COMMON NORMALS: patient oriented x3, CN's II-XII intact bilaterally, moves all extremities and no focal motor deficits Psych: COMMON NORMALS: mental status grossly normal Urinary Catheter Management: Birch: Cath Placed During This Visit: yes Reason for Continuing Indwelling Catheter: Other Urinary Catheter Date of Insertion: 06/04/22 Urinary Catheter Time of Insertion: 18:17 Data : 06/04/22 15:25 06/04/22 15:25 Micro: Microbiology 06/04/22 16:00 Blood Culture - Preliminary Blood SPECIMEN COLLECTED 06/04/22 16:02 Blood Culture - Preliminary Blood SPECIMEN COLLECTED A&P Assessment and plan (1) Fever: Status: Acute (2) Cellulitis: Status: Acute (3) Altered mental status: Status: Acute Plan Altered mental status -Potentially related to underlying cellulitis -Does have a fever, here in the emergency room, -Acute on chronic anemia hemoglobin 8.7, history of iron deficiency anemia, no bloody or black stools -Acute on chronic thrombocytopenia, no evidence of recurrent bleeding -Ammonia levels within normal limits -No significant ESR or CRP elevation -We will check urine toxicology screen, alcohol levels -Does have bilateral lower extremity cellulitis, but no open wounds, no draining -No neck pain, neck stiffness -UA no evidence of UTI, chest x-ray no evidence of pneumonia -Does have history of alcoholic liver cirrhosis no abdominal pain, normal distention but will do CT scan abdomen pelvis to evaluate for sponges bacterial peritonitis -Started on vancomycin, Zosyn -Blood cultures, urine cultures, sputum cultures -Full code -SCDs for DVT prophylaxis, anticoagulant relatively contraindicated given liver cirrhosis, risk of bleeding Attestations Medical Necessity Statement*: Patient requires hospitalization, inpatient, greater than 2 midnights, for cellulitis, altered mental status, fever Coding Level of Care Code 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
--- NOTE | 2022-06-04 20:24 | PC.NURSE ---
report called to med surg accepted to room 254-1.
--- NOTE | 2022-06-04 21:13 | CTR_ITS ---
PROCEDURE INFORMATION: Exam: CT Abdomen And Pelvis Without Contrast Exam date and time: 06/04/2022 10:10 PM Age: 56 years old Clinical indication: Other: Edema, cirrhosis; Prior surgery; Surgery date: 6+ months; Surgery type: Tips; Additional info: AMS TECHNIQUE: Imaging protocol: Computed tomography of the abdomen and pelvis without contrast. Radiation optimization: All CT scans at this facility use at least one of these dose optimization techniques: automated exposure control; mA and/or kV adjustment per patient size (includes targeted exams where dose is matched to clinical indication); or iterative reconstruction. COMPARISON: CT abdomen pelvis wo con [id number] 03/01/2022 4:54 PM RADIATION DOSE METRICS: Total DLP (mGy-cm): 979.58 FINDINGS: Tubes, catheters and devices: A Birch catheter is present. Pleural spaces: There are small bilateral pleural effusions. There are patchy and strandy opacities present in the lower hemithoraces superimposed the pleural effusions most probably representing atelectasis. Infiltrates and pneumonia cannot be entirely excluded in the appropriate clinical setting. Heart: There is a small anterior pericardial effusion. Liver: There is a nodular contour of the liver compatible with cirrhosis. Status post TIPS procedure. There is a rounded hypoattenuation lesions seen in the hepatic dome adjacent to the tips stent exhibiting some peripheral calcifications possibly representing a benign hepatic cyst that measures 2.6 x 3.0 x 3 2 cm. This was present on 03/01/2022. Gallbladder and bile ducts: There are numerous gallstones seen in the dependent portion gallbladder. Some subtle haziness seen adjacent to the gallbladder and mild inflammatory changes cholecystitis entirely excluded in the appropriate clinical setting. Pancreas: Normal. No ductal dilation. Spleen: The spleen is measuring 19.7 cm AP dimension. Adrenal glands: Normal. No mass. Kidneys and ureters: Strandy opacities are seen in the perinephric fascia bilaterally likely representing chronic scarring. Stomach and bowel: There is mild bowel wall thickening edema seen within the ascending colon. This may be related to the patient's hypoalbuminemia colitis cannot be entirely excluded. Appendix: No evidence of appendicitis. Intraperitoneal space: Diffuse haziness seen within the mesentery possibly representing edema. Tiny volume ascites is seen in the right pericolic gutter and a moderate amount ascites is seen within pelvis. Vasculature: Unremarkable. No abdominal aortic aneurysm. Lymph nodes: Unremarkable. No enlarged lymph nodes. Urinary bladder: The bladder appears decompressed Birch catheter. There is an intraluminal gas densities present likely secondary to catheterization. Reproductive: Unremarkable as visualized. Bones/joints: Unremarkable. No acute fracture. Soft tissues: Diffuse haziness seen in the subcutaneous tissues chest and abdomen compatible with mild subcutaneous edema. Small bilateral inguinal hernias. Right inguinal hernia contains a small volume of ascites fluid. CT/CT abdomen pelvis wo con [id number] IMPRESSION: 1. Cirrhosis and status post TIPS procedure. 2. Splenomegaly 3. Mild diffuse subcutaneous edema haziness seen within the central mesentery likely representing edema as well. 4. Tiny volume of ascites in the right pericolic gutter and moderate volume seen within the pelvis. 5. Bilateral inguinal hernias predominately containing fat with some ascites fluid seen in the right hernia. 6. Multiple gallstones. Some hazy opacities are seen adjacent to the gallbladder. Mild cholecystitis cannot be entirely excluded. 7. Small bilateral pleural effusions with superimposed opacities likely representing atelectasis. Basilar infiltrates and pneumonia cannot be entirely excluded however. 8. Small anterior pericardial effusion
--- NOTE | 2022-06-04 21:15 | PC.NURSE ---
unable to locate 16f indwelling hernandez catheter charge in [facility], please add to ed charges.
[2022-06-04 21:48] LABS: Amphetamines Screen Urine Negative (Negative); Barbiturates Screen Urine Negative (Negative); Benzodiazepines Screen Urine Negative (Negative); Cocaine Screen Urine Negative (Negative); Opiate Screen Urine Negative (Negative); PCP Screen Urine Negative (Negative); THC Screen Urine Negative (Negative)
[2022-06-04 21:58] LABS: Thyroid Stimulating Hormone 1.53 uIU/mL (0.27-4.20)
[2022-06-04 22:00] LABS: Alcohol Level < 10 mg/dL (0-10)
--- NOTE | 2022-06-04 22:06 | PC.PHAR ---
Vancomycin is dosed at 1250mg IVPB every 8 hours to produce a predicted trough level of 13.43 (population based pharmacokinetic analysis). A trough level has been ordered from the lab to be obtained before the fourth dose to confirm and adjust if needed. The Zosyn is dosed at 3.375gm IVPB every 8 hours on the basis of the creatinine clearance of 126.65.
[2022-06-05] VITALS (8 sets, daily range): BP systolic 99–135; BP diastolic 51–60; PULSE 69–76; RESP 16–18; TEMP 36.6–36.9; O2SAT 95–99
[2022-06-05] MEDS: vancomycin 1,250 MG/250 ML PIGGYBACK 250 MG IV ×2 (00:03→10:11)
[2022-06-05] MEDS: piperacillin-tazobactam 3.375 GM in sodium chloride 0.9% (plus) 50 ML IV ×2 (01:16→11:39)
[2022-06-05 05:59] LABS: Basophils % 0.5 %; Eosinophils % 0.3 %; Hematocrit 30.1 % (42.0-52.0); Hemoglobin 8.5 g/dL (11.7-16.6); Lymphocytes # 0.2 10^3/uL (0.8-4.8); Lymphocytes % 2.4 %; Mean Corpuscular HGB Conc 28.2 g/dL (30.0-36.0); Mean Corpuscular Hemoglobin 22.9 pg (28.0-34.0); Mean Corpuscular Volume 81.1 fl (80-94); Mean Platelet Volume 11.3 fL (7.4-10.4); Monocytes # 0.4 10^3/uL (0.2-0.9); Monocytes % 4.7 %; Neutrophils # 8.13 10^3/uL (1.8-7.7); Neutrophils % 91.6 %; Nucleated Red Blood Cells % 0 %; Platelet Count 79 10^3/cmm (130-400); Red Blood Count 3.71 10^6/uL (4.1-5.3); Red Cell Distribution Width 17.3 % (12.1-15.1); White Blood Count 8.9 10^3/uL (4.0-10.0)
[2022-06-05 06:23] LABS: Anion Gap 13.6 (5-19); Blood Urea Nitrogen 17 mg/dL (6-20); Calcium 8.2 mg/dL (8.5-10.5); Carbon Dioxide 22 mmol/L (22-29); Chloride 106 mmol/L (98-107); Glucose 110 mg/dL (65-115); Magnesium 1.8 mg/dL (1.7-2.3); Osmolality Calculated 288 mOsm/kg (285-295); Potassium 3.6 mmol/L (3.5-5.1); Sodium 138 mmol/L (136-145)
--- NOTE | 2022-06-05 10:01 | USR_ITS ---
PROCEDURE INFORMATION: Exam: US Abdomen, Limited; Right Upper Quadrant Exam date and time: 06/05/2022 10:59 AM Age: 56 years old Clinical indication: Abnormal findings; Abnormal radiologic finding of the abdomen; Radiologic exam and body structure: CT; Additional info: Pericholecystic abnormality on CT. TECHNIQUE: Imaging protocol: Real time ultrasound of the abdomen with image documentation. Limited exam focused on the right upper quadrant. COMPARISON: US abdomen complete* [id number] 03/01/2022 10:14 AM FINDINGS: Liver: Heterogeneous liver with coarsened echotexture and nodular contour, consistent with cirrhosis. No discrete mass lesion seen. Patent portal vein and included distal TIPS stent, with normal direction of flow. Gallbladder: There is thickening of the gallbladder wall, likely secondary to chronic liver disease. Gallstones noted. Negative sonographic Howard's sign. Biliary ducts: Normal. No stones. No dilation. Pancreas: Visualized pancreas is unremarkable. Right kidney: There is a 3.0 cm right kidney cyst. The kidneys otherwise unremarkable. Intraperitoneal space: Ascites is present. US/US gall bladder [id number] IMPRESSION: 1. Cholelithiasis without evidence of cholecystitis. 2. Cirrhotic liver with stigmata of portal hypertension, manifested by ascites. Patent portal vein and included distal TIPS stent, with normal direction of flow.
[2022-06-05] MEDS: pantoprazole DR 40 mg Tablet PO (10:09)
[2022-06-05] MEDS: multivitamin therapeutic Tablet 1 TAB PO (10:10)
[2022-06-05] MEDS: bumetanide 1 mg Tablet 0.5 MG PO (10:10)
[2022-06-05] MEDS: thiamine 100 mg Tablet PO (10:10)
--- NOTE | 2022-06-05 15:36 | P.DS_ITS ---
Discharge Providers Date of Admission: 06/04/22 19:26 Date of Discharge: June 05, 2022 Attending Provider at Admission: Vlad Dash MD Attending Provider at Discharge: Vikram Moy Primary Care Provider: Manny Guzman DO Diagnoses at Discharge Discharge Diagnosis (1) Fever: Status: Acute (2) Cellulitis: Status: Acute (3) Altered mental status: Status: Acute Reason for Visit Reason for Visit: CONFUSION/ ELEVATED TEMP Hospital Course Hospital Course 56-year-old gentleman with chronic liver disease, history of alcoholic cirrhosis status post TIPS procedure, chronic anemia, chronic left heel wound following with wound care clinic, this, admitted for assessment and management after presenting with fever, confusion, fatigue, weakness,. Ammonia level within normal limit. CT abdomen pelvis showed only tiny ascites. Did show multiple gallstones, hazy opacities adjacent to the gallbladder, mild cholecystitis not excluded. Additionally cirrhosis status post TIPS, splenomegaly, diffuse subcutaneous edema, mesenteric edema, small bilateral pleural effusions. Superimposed opacities present ankle x-rays, pneumonia not excluded. Small anterior pericardial effusion. He was noted to have cellulitis of bilateral lower extremities. Noted open draining ulceration of left heel which she states has been dressing at home. Chest x-ray without acute findings. Duplex left lower extremity without DVT. Soft tissue edema of left lower leg. He was initiated on treatment with Zosyn, vancomycin. Fever so far has not recurred since yesterday, and he is awake and alert, lucid, tells me about prior history of work-up of similar gallbladder issue, although looking at past history at that time also had pseudomonal bacteremia back in 2019 without source ever clearly identified. During his admission he was additionally assessed with gallbladder ultrasound which showed cholelithiasis without evidence of cholecystitis. Cirrhotic liver with stigmata of portal hypertension manifested by ascites. Patent TIPS stent with normal directional flow. HIDA scan was requested, however, he needed to the hospital to take care for urgent matters at home. We discussed with him concern regarding possible occult infection, with history of bacteremia possible again recurrence of bacteremia, risk of progression to sepsis or other complications, disability and . His discharge may be incomplete due to leaving on short notice. He is given prescription for ciprofloxacin and doxycycline empirically, her, we also discussed with him concern regarding nonhealing draining ulcer on the left heel, concern for possibility of osteomyelitis, and discussed with him referral for outpatient assessment by MRI of the left foot as well as follow-up with his primary provider and wound care clinic for reassessment and consideration of osteomyelitis and arrangements for treatment. He is additionally referred also for outpatient HIDA scan. With noted cholelithiasis, mild lipase elevation, pericholecystic abnormality, consider referral for assessment by surgery. For During hospitalization also noted to have thrombocytopenia worse than usual, platelets 79,000. Please reassess blood counts at next visit. Continue follow- up regarding anemia. Please also revisit with him regarding previously noted lytic lesions in his pelvis on bone scan in February. I now see there is also concern for possible lytic lesion of the left heel again raising concern for osteomyelitis. Physical Exam Narrative: Visited twice today. Remains awake and alert. Reports he is otherwise to his usual self. States that he understands that he is leaving prematurely, AGAINST MEDICAL ADVICE, and that he will follow-up outpatient, understands he may return at any time to continue. Const: COMMON NORMALS: patient oriented x3 and alert GENERAL APPEARANCE: cooperative ORIENTATION/CONSCIOUSNESS: Yes awake HENMT: COMMON NORMALS: oropharynx normal Neck/C-Spine: COMMON NORMALS: no JVD Resp: COMMON NORMALS: normal respiratory effort and clear to auscultation bilaterally AUSCULTATION: clear to auscultation bilaterally Cardio: COMMON NORMALS: no JVD, regular rhythm, S1 normal heart sound present, S2 normal heart sound present and No murmurs present (Cardio) RHYTHM: regular rhythm HEART SOUNDS: S1 normal heart sound present and S2 normal heart sound present GI: COMMON NORMALS: Normal to inspection, nondistended, normoactive bowel sounds present, Soft to palpation and non-tender PALPATION: Yes Soft to palpation Extremity: COMMON NORMALS: no joint enlargement GENERAL: Yes edema (2+) OTHER: Chronic venous stasis changes Neuro: COMMON NORMALS: patient oriented x3 and moves all extremities SENSORIUM/ORIENTATION: Yes alert Skin: COMMON NORMALS: no rashes or lesions noted GENERAL SKIN EXAM: no rashes or lesions noted OTHER: Faint erythema of bilateral lower extremities superimposed on chronic venous stasis dermatitis. Ulceration left heel draining serous fluid. Bone not obviously exposed. Urinary Catheter Management: Birch: Cath Placed During This Visit: yes Reason for Continuing Indwelling Catheter: Other Urinary Catheter Date of Insertion: 06/04/22 Urinary Catheter Time of Insertion: 18:17 Discharge Data Studies Completed and Pending Completed Studies During Hospitalization Category Date Time Status CT abdomen pelvis wo con [id number] Routine Cat Scan 06/04/22 21:13 Completed XR chest 1V portable [id number] Stat Exams 06/04/22 15:03 Completed US gall bladder [id number] Routine Ultrasound 06/05/22 10:01 Completed US venous duplex lower extremity LT [CV venous duplex Ultrasound 06/04/22 15:41 [place] [id number]] Stat Pending at discharge Category Date Time Status Blood Culture Stat Lab 06/04/22 16:00 Results Sputum Culture and Gram Stain Stat Lab 06/04/22 20:29 Uncollected Urine Culture Stat Lab 06/04/22 21:26 Received Vancomycin Trough Timed Lab 06/06/22 00:00 Ordered NM hepatobiliary w phar* [id number] Routine Nuc Med 06/05/22 10:04 Ordered Radiology Impressions Chest X-Ray 06/04/22 15:03 IMPRESSION: No acute findings. Venous Duplex 06/04/22 15:41 IMPRESSION: 1. No evidence of deep vein thrombosis. 2. Soft tissue edema left lower leg Abdomen/Pelvis CT 06/04/22 21:13 IMPRESSION: 1. Cirrhosis and status post TIPS procedure. 2. Splenomegaly 3. Mild diffuse subcutaneous edema haziness seen within the central mesentery likely representing edema as well. 4. Tiny volume of ascites in the right pericolic gutter and moderate volume seen within the pelvis. 5. Bilateral inguinal hernias predominately containing fat with some ascites fluid seen in the right hernia. 6. Multiple gallstones. Some hazy opacities are seen adjacent to the gallbladder. Mild cholecystitis cannot be entirely excluded. 7. Small bilateral pleural effusions with superimposed opacities likely representing atelectasis. Basilar infiltrates and pneumonia cannot be entirely excluded however. 8. Small anterior pericardial effusion Gallbladder Ultrasound 06/05/22 10:01 IMPRESSION: 1. Cholelithiasis without evidence of cholecystitis. 2. Cirrhotic liver with stigmata of portal hypertension, manifested by ascites. Patent portal vein and included distal TIPS stent, with normal direction of flow. Laboratory Results WBC 8.9 10^3/uL (4.0-10.0) 06/05/22 05:21 RBC 3.71 10^6/uL (4.1-5.3) L 06/05/22 05:21 Hgb 8.5 g/dL (11.7-16.6) L 06/05/22 05:21 Hct 30.1 % (42.0-52.0) L 06/05/22 05:21 MCV 81.1 fl (80-94) 06/05/22 05:21 MCH 22.9 pg (28.0-34.0) L 06/05/22 05:21 MCHC 28.2 g/dL (30.0-36.0) L 06/05/22 05:21 RDW 17.3 % (12.1-15.1) H 06/05/22 05:21 Plt Count 79 10^3/cmm (130-400) L 06/05/22 05:21 MPV 11.3 fL (7.4-10.4) H 06/05/22 05:21 Neut % (Auto) 91.6 % 06/05/22 05:21 Lymph % (Auto) 2.4 % 06/05/22 05:21 [place] % (Auto) 4.7 % 06/05/22 05:21 Eos % (Auto) 0.3 % 06/05/22 05:21 Baso % (Auto) 0.5 % 06/05/22 05:21 Neut # (Auto) 8.13 10^3/uL (1.8-7.7) H 06/05/22 05:21 Lymph # (Auto) 0.2 10^3/uL (0.8-4.8) L 06/05/22 05:21 [place] # (Auto) 0.4 10^3/uL (0.2-0.9) 06/05/22 05:21 Eos # (Auto) 0.0 10^3/uL (0.0-0.8) 06/05/22 05:21 Baso # (Auto) 0.0 10^3/uL (0.0-0.1) 06/05/22 05:21 Nucleated RBC % (auto) 0 % 06/05/22 05:21 Nucleated RBCs # 0.0 /100WBC 06/05/22 05:21 ESR 24 mm/hr (0-10) H 06/04/22 15:25 Sodium 138 mmol/L (136-145) 06/05/22 05:21 Potassium 3.6 mmol/L (3.5-5.1) 06/05/22 05:21 Chloride 106 mmol/L (98-107) 06/05/22 05:21 Carbon Dioxide 22 mmol/L (22-29) 06/05/22 05:21 Anion Gap 13.6 (5-19) 06/05/22 05:21 BUN 17 mg/dL (6-20) 06/05/22 05:21 Creatinine 0.9 mg/dL (0.7-1.2) 06/05/22 05:21 GFR Calculation 87.0 mL/min (90-130) L 06/05/22 05:21 Glucose 110 mg/dL (65-115) 06/05/22 05:21 Calculated Osmolality 288 mOsm/kg (285-295) 06/05/22 05:21 Lactate 1.6 mmol/L (0.5-2.2) 06/04/22 16:02 Calcium 8.2 mg/dL (8.5-10.5) L 06/05/22 05:21 Magnesium 1.8 mg/dL (1.7-2.3) 06/05/22 05:21 Total Bilirubin 2.5 mg/dL (0.15-1.2) H 06/04/22 15:25 AST 22 U/L (0-40) 06/04/22 15:25 ALT 9 U/L (0-41) 06/04/22 15:25 Alkaline Phosphatase 78 U/L (40-130) 06/04/22 15:25 Ammonia 41 umol/L (16-60) 06/04/22 16:02 C-Reactive Protein 3.9 mg/L (0.0-4.9) 06/04/22 15:25 Total Protein 6.9 g/dL (6.6-8.7) 06/04/22 15:25 Albumin 3.1 g/dL (3.5-5.2) L 06/04/22 15:25 Globulin 3.8 g/dL (1.3-4.6) 06/04/22 15:25 Lipase 73 U/L (13-60) H 06/04/22 15:25 TSH 1.53 uIU/mL (0.27-4.20) 06/04/22 15:25 Urine Color Yellow (Yellow) 06/04/22 18:17 Urine Appearance Clear (CLEAR) 06/04/22 18:17 Urine pH 5 (5-7) 06/04/22 18:17 Ur Specific [place] 1.005 (1.005-1.030) 06/04/22 18:17 Urine Protein Neg (Negative) 06/04/22 18:17 Urine Glucose (UA) Norm (Normal) 06/04/22 18:17 Urine Ketones Negative (Negative) 06/04/22 18:17 Urine Blood Neg (Negative) 06/04/22 18:17 Urine Nitrate Negative (Negative) 06/04/22 18:17 Urine Bilirubin Neg (Negative) 06/04/22 18:17 Urine Urobilinogen Norm mg/dL (Negative) 06/04/22 18:17 Ur Leukocyte Esterase Negative (Negative) 06/04/22 18:17 Urine Opiates Screen Negative ng/mL (Negative) 06/04/22 21:26 Ur Barbiturates Screen Negative ng/mL (Negative) 06/04/22 21:26 Ur Phencyclidine Scrn Negative ng/mL (Negative) 06/04/22 21:26 Ur Amphetamines Screen Negative ng/mL (Negative) 06/04/22 21:26 U Benzodiazepines Scrn Negative ng/mL (Negative) 06/04/22 21:26 Urine Cocaine Screen Negative ng/mL (Negative) 06/04/22 21:26 U Marijuana (THC) Screen Negative ng/mL (Negative) 06/04/22 21:26 Ethyl Alcohol < 10 mg/dL (0-10) 06/04/22 15:25 Coronavirus 229E (PCR) Not detected (NOT DETECT) 06/04/22 15:44 SARS-CoV-2 (PCR) Not detected (NOT DETECT) 06/04/22 15:44 Vitals Last Vital Signs Temp 98.4 F 06/05/22 11:48 Pulse 70 06/05/22 11:48 Resp 16 06/05/22 11:48 BP 119/52 06/05/22 11:48 Pulse Ox 95 06/05/22 11:48 O2 Del Method 06/05/22 11:48 Discharge Plan Discharge Patient Disposition: Left Against Medical Advice Condition: Fair Prescriptions: New Cipro 500 mg tablet 500 mg PO Q12H Qty: 20 0RF doxycycline hyclate 100 mg capsule 100 mg PO BID 10 Days Qty: 20 0RF Continued lactulose [Constulose] 10 gram/15 mL Solution 30 ml PO .ONCE TO TWICE DAILY PRN (Reason: Constipation) multivitamin [Multiple Vitamins] Tablet 1 tab PO DAILY thiamine HCl (vitamin B1) [Vitamin B-1] 100 mg Tablet 100 mg PO DAILY bumetanide 2 mg tablet 2 mg PO BID lidocaine 5 % Adhesive Patch,Medicated 1 patch topical [id number] Qty: 60 0RF No Action (DME) compression socks, x-large Misc See Rx Instructions .Route Qty: 2 4RF Rx Instructions: As directed Discharge Orders: Discharge Order (Routine); Ordered 06/05/22 Ordered By: Vikram Moy Other Ambulatory Orders: MR foot LT wo/w con [id number] (Routine) Timeframe: 2 Days Facility: [facility] - Location: Radiology [facility] Ordered By: Vikram Moy NM hepatobiliary w phar* [id number] (Routine) Timeframe: 2 Days Facility: [facility] - Location: Radiology Ordered By: Vikram Moy Referrals: Wound Care [Provider Group] - 1-3 days (Please call Monday morning to make a follow up apppointment within 1-3 days.) Manny Guzman DO [Primary Care Provider] - 1-3 days (Please call Monday morning to schedule a follow up appointment within 1-3 days. ) Patient Instructions: Ciprofloxacin (By mouth), Doxycycline (By mouth), Fever - Adult, Against Medical Advice (DC), Opioid Safety (DC), Opioid Safety Activity Restrictions/Additional Instructions: Please note that you are leaving the hospital prematurely before your condition could be fully assessed and managed. You are putting yourself at risk of worsening of the condition, with risk of possible infection that has not been diagnosed due to fever and with history of bacteremia with Pseudomonas you may have recurrence of bacteremia, occult infection may turn into sepsis and you may be exposed to health complications that may result in disability or . You are encouraged to continue hospitalization and working [employer] in case you change your mind. We will continue to trend to the hospital. Otherwise please call 911 in case of any deterioration and seek assessment with your primary provider at soonest available appointment. You are prescribed antibiotics for additional treatment of cellulitis. To exclude possibility of bone infection you are also referred for additional assessment with MRI. In case bone infection is found he will need longer treatment and with intravenous antibiotics and additional assessment arranged. Please make sure to follow-up with your primary provider and wound care clinic with regards to the nonhealing draining left heel ulcer and skin infection of your legs. Also for coverage of concern of possible infection of your gallbladder. You are not referred for additional assessment with HIDA scan. Please discuss with your primary doctor. Please also discuss with your primary doctor regarding gallstones. Please discuss with your primary doctor mild elevation of lipase. Risk of gallstone pa ncreatitis. Please have your primary doctor reassess your blood counts. Your platelet count is lower than usual, continued decrease of platelets may risk bleeding. Please continue lactulose for cirrhosis to target at least 2-3 soft bowel movements in a day. Follow-up with hepatology. Please discuss if you have not already the lytic bone lesions seen on bone scan in your pelvis back in February. Please note that the current discharge may be incomplete due to leaving the hospital prematurely. Discharge Attestations Time Spent in Discharge Care*: greater than 30 min Quality Metrics Clinical Quality Measures [ No reported AMI, CVA or VTE this stay] Coding Level of Care Code Acute Chg FW DC note Diagnoses Fever R50.9 Cellulitis L03.90 Altered mental status R41.82
--- NOTE | 2022-06-05 16:51 | PC.NURSE ---
Pt was provided information regarding leaving against medical advice. This nurse explained to the patient information regarding the severity of his condition, abnormal lab work and infection. This nurse reviewed the potential risks of not continuing his stay and receiving treatments and tests necessary to treat his condition. Patient verbalized understanding and states I feel fine. AMA form is signed. Printed information was provided to patient.
--- NOTE | 2022-06-07 15:12 | PC.SOCIAL ---
Follow-Up Call CM attempted to call patient for a follow-up call. He does not answer and no option to leave a voicemail. He did attend appointment with wound care clinic this morning per EMR. CM will attempt to call again tomorrow. Hospitalist following blood cultures.
--- NOTE | 2022-06-08 12:19 | PC.SOCIAL ---
Follow Up Call Attempted to call patient again at this time. He does not answer and no option to leave a voicemail.
--- NOTE | 2022-06-10 10:55 | PC.SOCIAL ---
Follow Up Call Attempted to reach patient by phone, he does not answer.
== END 2022-06-05 17:20 | disposition left against medical advice (07) | DRG 603 ==
LOC: ER 19:27 → MEDSURG 06-05 00:36
PROVIDERS: Admitting Provider Family Medicine; Emergency Provider Emergency Medicine; PCP Internal Medicine; Visit Provider Internal Medicine
DX: L03.116 Cellulitis of left lower limb (principal); K76.6 Portal hypertension; L03.115 Cellulitis of right lower limb; R60.0 Localized edema; Z53.29 Procedure and treatment not carried out because of patient's decision for other reasons; K70.31 Alcoholic cirrhosis of liver with ascites; F10.10 Alcohol abuse, uncomplicated; D50.9 Iron deficiency anemia, unspecified; K80.20 Calculus of gallbladder without cholecystitis without obstruction; Z96.89 Presence of other specified functional implants; D69.6 Thrombocytopenia, unspecified; M89.9 Disorder of bone, unspecified
CPT/HCPCS: 36415; 51702; 71045; 74176; 76705; 80048; 80053; 80306; 80307; 81003; 82140; 83605; 83690; 83735; 84443; 85025; 85651; 86140; 87040; 87086; 87150; 87205; 87635; 93971; 94664; 96365; 96367; 99285; G0378; J2543; J3370; J7030; J7050

== ENCOUNTER → 2022-06-07 07:59 | Outpatient (BNVA) | payer MEDICARE, MEDICAID, SELFPAY | PROVIDERS: PCP Internal Medicine; Visit Provider Thoracic Surgery (Cardiothoracic Vascular Surgery) | DX: I96 Gangrene, not elsewhere classified (principal); L89.623 Pressure ulcer of left heel, stage 3 | CPT/HCPCS: 97597 ==

== ENCOUNTER → 2022-06-14 07:58 | Outpatient (BNVA) | payer MEDICARE, MEDICAID, SELFPAY | PROVIDERS: PCP Internal Medicine; Visit Provider Nurse Practitioner Family | DX: I96 Gangrene, not elsewhere classified (principal); L89.623 Pressure ulcer of left heel, stage 3 | CPT/HCPCS: 11042; A6252 ==

== ENCOUNTER → 2022-06-21 07:58 | Outpatient (BNVA) | payer MEDICARE, MEDICAID, SELFPAY | PROVIDERS: PCP Internal Medicine; Visit Provider Nurse Practitioner Family | DX: L89.623 Pressure ulcer of left heel, stage 3 (principal); I96 Gangrene, not elsewhere classified | CPT/HCPCS: 11042; A6252 ==

== ENCOUNTER → 2022-06-28 08:01 | Outpatient (BNVA) | payer MEDICARE, MEDICAID, SELFPAY | PROVIDERS: PCP Internal Medicine; Visit Provider Nurse Practitioner Family | DX: I96 Gangrene, not elsewhere classified (principal); L89.893 Pressure ulcer of other site, stage 3; E11.9 Type 2 diabetes mellitus without complications | CPT/HCPCS: 11042; A6252 ==

== ENCOUNTER 2022-07-05 | Outpatient (CLI) | payer MEDICARE, MEDICAID, SELFPAY ==
--- NOTE | 2022-07-04 15:00 | PC.NURSE ---
PT STATED HE WAS UNAWARE OF PROCEDURE TOMORROW AND WILL NOT BE HERE.
== END 2022-07-05 23:00 | disposition home or self-care (01) ==
LOC: OR 07-19 01:44
PROVIDERS: PCP Internal Medicine; Visit Provider Thoracic Surgery (Cardiothoracic Vascular Surgery)
DX: I96 Gangrene, not elsewhere classified (principal); L89.623 Pressure ulcer of left heel, stage 3
CPT/HCPCS: 11042; A6252

== ENCOUNTER → 2022-07-12 07:56 | Outpatient (BNVA) | payer MEDICARE, MEDICAID, SELFPAY | PROVIDERS: PCP Internal Medicine; Visit Provider Nurse Practitioner Family | DX: I96 Gangrene, not elsewhere classified (principal); L89.623 Pressure ulcer of left heel, stage 3 | CPT/HCPCS: 11042; A6252 ==

== ENCOUNTER → 2022-07-19 08:04 | Outpatient (BNVA) | payer MEDICARE, MEDICAID, SELFPAY | PROVIDERS: PCP Internal Medicine; Visit Provider Nurse Practitioner Family | DX: I96 Gangrene, not elsewhere classified (principal); L89.623 Pressure ulcer of left heel, stage 3 | CPT/HCPCS: 11042; A6252 ==

== ENCOUNTER → 2022-07-25 08:25 | Outpatient (BNVA) | payer MEDICARE, MEDICAID, SELFPAY | PROVIDERS: PCP Internal Medicine; Visit Provider Thoracic Surgery (Cardiothoracic Vascular Surgery) | DX: I96 Gangrene, not elsewhere classified (principal); L89.623 Pressure ulcer of left heel, stage 3 | CPT/HCPCS: 97597; A6252 ==

== ENCOUNTER → 2022-08-01 08:48 | Outpatient (BNVA) | payer MEDICARE, MEDICAID, SELFPAY | PROVIDERS: PCP Internal Medicine; Visit Provider Thoracic Surgery (Cardiothoracic Vascular Surgery) | DX: Z09 Encounter for follow-up examination after completed treatment for conditions other than malignant neoplasm (principal) | CPT/HCPCS: 99212; A6212 ==

== ENCOUNTER 2022-10-21 09:50 | Outpatient (CLI) | payer MEDICARE, MEDICAID, SELFPAY ==
--- NOTE | 2022-10-21 10:08 | US_ITS ---
WS: [id number] RIGHT UPPER QUADRANT ULTRASOUND HISTORY: ALCOHOLIC CIRRHOSIS OF LIVER W/ASCITES COMPARISON: None available. Liver: 15.6 cm in length. Normal size liver. Coarsened echotexture throughout with lobulated liver rosen rface from cirrhosis. No mass. Portal Vein: Status post TIPS procedure. TIPS is patent. Gallbladder: Normally distended gallbladder with numerous stones. No gallbladder wall thickening. CBD: 0.6 cm Pancreas: Echogenic heterogeneous pancreas. Probably related to episodes of chronic pancreatitis. No adjacent edema. Right kidney: 11.5 cm in length. Normal size kidney. No hydronephrosis. Simple cyst lower pole measur es 3.0 x 3.3 x 2.4 cm. Not significantly changed. Aorta and IVC: Unremarkable abdominal aorta and IVC. No ascites. US/US gall bladder [id number] IMPRESSION: 1. Cirrhotic liver with no mass. 2. Cholelithiasis without acute cholecystitis. 3. Findings of chronic pancreatitis. No acute pancreatitis.
== END 2022-10-21 09:51 | disposition home or self-care (01) ==
PROVIDERS: PCP Internal Medicine; Visit Provider Internal Medicine Gastroenterology
DX: K70.31 Alcoholic cirrhosis of liver with ascites (principal); K80.20 Calculus of gallbladder without cholecystitis without obstruction; K86.1 Other chronic pancreatitis
CPT/HCPCS: 76705

== ENCOUNTER 2023-03-03 14:52 | Observation (INO) | payer MEDICARE, MEDICAID, SELFPAY ==
[2023-03-03] VITALS (17 sets, daily range): BP systolic 92–136; BP diastolic 50–56; PULSE 72–108; RESP 16–25; TEMP 36.9–39.6; O2SAT 95–99
--- NOTE | 2023-03-03 15:02 | W.ED.GENADLT ---
HPI - General Adult General: Chief complaint: General Medical Stated complaint: ams/ sepsis Time Seen by Provider: 03/03/23 15:02 History of Present Illness: Mr. Conde is a 57-year-old gentleman with complex past medical history including alcoholic cirrhosis of liver, bilateral lower extremity edema, history of anemia and history of ARMEN's presenting to the emergency department for fever and generalized illness. Apparently family was concerned about decreased mentation however the patient himself denies this. He notes fever earlier today associated with generalized malaise but denies any focality of symptoms. Denies abdominal pain, no GI symptoms no cough or respiratory symptoms. He does note perhaps worsening of bilateral lower extremity swelling. Intensity is moderate to severe. Course has persisted. No other specific changes in health, exacerbating, or alleviating factors identified. Onset (ago): hour(s) Severity: moderate Review of Systems General: Reports: 10 or more systems reviewed and unremarkable except in HPI and below PFSH ED PFSH: Medical History Acute on chronic anemia Acute on chronic blood loss anemia ARMEN (acute kidney injury) Alcoholic cirrhosis of liver Callus of foot Cholelithiasis Not thought to be because of Pseudomonas bacteremia. HIDA scan normal. Surgery consultation was obtained. Cirrhosis Declining functional status Generalized weakness Leukocytosis Low back pain radiating to right lower extremity Lumbar stenosis with neurogenic claudication Lytic bone lesions on xray Pressure injury of both feet, unstageable Splenomegaly Stage I pressure ulcer of heel Swelling of lower extremity Venous stasis dermatitis Surgical History S/P TIPS (transjugular intrahepatic portosystemic shunt) Family History Other Healthy adult Social History Smoking and tobacco status: never smoked Alcohol intake: former Year of sobriety/quit date alcohol: 3 ya Substance/Drug Use: former Lives independently: No Household members: spouse Marital status: Current occupational status: unemployed Physical Exam Const: COMMON NORMALS: patient oriented x3 and alert GENERAL APPEARANCE: cooperative and well developed HENMT: COMMON NORMALS: normocephalic and atraumatic HEAD & SCALP: normocephalic and atraumatic Eye: COMMON NORMALS: conjunctivae normal CONJUNCTIVA: Yes conjunctivae normal SCLERA: sclerae normal Neck/C-Spine: COMMON NORMALS: supple GENERAL: Yes trachea midline Resp: COMMON NORMALS: clear to auscultation bilaterally EFFORT & INSPECTION: Yes able to speak in complete sentences AUSCULTATION: clear to auscultation bilaterally Cardio: COMMON NORMALS: regular rate and regular rhythm RATE: regular rate RHYTHM: regular rhythm GI: COMMON NORMALS: Soft to palpation PALPATION: Yes Soft to palpation, Yes Tenderness to palpation present (GI), No Guarding due to palpation present (GI) and No Rigid due to palpation Extremity: NARRATIVE EXTREMITY EXAM: Possible cellulitis with increased warmth and tenderness of the right and left lower extremities. Chronic skin changes. GENERAL: Yes normal exam except as noted and Yes edema Neuro: COMMON NORMALS: patient oriented x3, CN's II-XII intact bilaterally, moves all extremities, no focal motor deficits and no sensory deficits noted SENSORIUM/ORIENTATION: Yes alert and No Orientation impaired Psych: COMMON NORMALS: mental status grossly normal and Normal thought process present THOUGHT PROCESS: Normal thought process present Course Vital Signs: Vital signs: Vital Signs Temperature 98.2 F 03/06/23 14:59 Pulse Rate 70 03/06/23 14:59 Respiratory Rate 16 03/06/23 14:59 Blood Pressure 110/52 03/06/23 14:59 Pulse Oximetry 96 03/06/23 14:59 Oxygen Delivery Me thod Room Air 03/06/23 12:00 [facility] - General Adult Medical Decision Making 57-year-old gentleman presenting with generalized illness. No focal neurologic deficits appreciated on exam. Patient does have fever. Exam as above. EKG notable for sinus rhythm with normal axis and intervals. Labs notable for no leukocytosis, normal hemoglobin, chronic thrombocytopenia. Metabolic panel with mildly decreased bicarb. Lactic acid is elevated and T. bili is elevated likely reflecting chronic illness. Procalcitonin elevated. Urinalysis not convincing for urinary tract infection. Viral panel pending Chest x-ray with pulmonary vascular congestion and cardiomegaly. Patient treated with analgesia, broad-spectrum antibiotics, fluids. I suspect cellulitis though exact etiology of infection is unclear. Based on exam and provided clinical history I do not believe that he has SBP. The results of ED evaluation were discussed with the patient including prescriptions and/or symptomatic cares (if applicable) including appropriate and responsible use, followup plan, and return precautions. The patient verbalized understanding and felt safe for discharge. Medical Records I reviewed the patient's medical records. Lab Data I reviewed the patient's lab results. 03/06/23 03:32 03/06/23 03:32 Radiology Impressions Chest X-Ray 03/03/23 15:10 IMPRESSION: Stable abnormal chest with cardiomegaly and pulmonary venous hypertension. Chest/Abdomen/Pelvis CT 03/03/23 18:41 IMPRESSION: 1. Small pleural effusions. IMPRESSION: 1. Liver cirrhosis. 2. Splenomegaly. 3. Splenic hilar varices. 4. TIPS stent. 5. Cholelithiasis. 6. Mild ascites. Lower Extremity CT 03/03/23 18:56 IMPRESSION: Subcutaneous edema and skin thickening noted throughout the lower extremity. No evidence of osteomyelitis. Laboratory Results WBC 5.2 10^3/uL (4.0-10.0) 03/03/23 15:00 RBC 4.80 10^6/uL (4.1-5.3) 03/03/23 15:00 Hgb 12.3 g/dL (11.7-16.6) 03/03/23 15:00 Hct 39.1 % (42.0-52.0) L 03/03/23 15:00 MCV 81.5 fl (80-94) 03/03/23 15:00 MCH 25.6 pg (28.0-34.0) L 03/03/23 15:00 MCHC 31.5 g/dL (30.0-36.0) 03/03/23 15:00 RDW 18.2 % (12.1-15.1) H 03/03/23 15:00 Plt Count 79 10^3/cmm (130-400) L 03/03/23 15:00 MPV 10.6 fL (7.4-10.4) H 03/03/23 15:00 Neut % (Auto) 95.8 % 03/03/23 15:00 Lymph % (Auto) 2.1 % 03/03/23 15:00 Irion % (Auto) 1.5 % 03/03/23 15:00 Eos % (Auto) 0.0 % 03/03/23 15:00 Baso % (Auto) 0.4 % 03/03/23 15:00 Neut # (Auto) 4.96 10^3/uL (1.8-7.7) 03/03/23 15:00 Lymph # (Auto) 0.1 10^3/uL (0.8-4.8) L 03/03/23 15:00 Irion # (Auto) 0.1 10^3/uL (0.2-0.9) L 03/03/23 15:00 Eos # (Auto) 0.0 10^3/uL (0.0-0.8) 03/03/23 15:00 Baso # (Auto) 0.0 10^3/uL (0.0-0.1) 03/03/23 15:00 Nucleated RBC % (auto) 0 % 03/03/23 15:00 Nucleated RBCs # 0.0 /100WBC 03/03/23 15:00 ESR 12 mm/hr (0-10) H 03/03/23 15:00 PT 18.00 SECONDS (12.1-14.9) H 03/03/23 15:00 INR 1.43 (0.8-1.2) H 03/03/23 15:00 Sodium 137 mmol/L (136-145) 03/03/23 15:00 Potassium 3.7 mmol/L (3.5-5.1) 03/03/23 15:00 Chloride 105 mmol/L (98-107) 03/03/23 15:00 Carbon Dioxide 18 mmol/L (22-29) L 03/03/23 15:00 Anion Gap 17.7 (5-19) 03/03/23 15:00 BUN 10 mg/dL (6-20) 03/03/23 15:00 Creatinine 0.8 mg/dL (0.7-1.2) 03/03/23 15:00 GFR Calculation 99.3 mL/min (90-130) 03/03/23 15:00 Glucose 97 mg/dL (65-115) 03/03/23 15:00 Calculated Osmolality 283 mOsm/kg (285-295) L 03/03/23 15:00 Lactic Acid 2.8 mmol/L (0.5-2.2) H 03/03/23 15:34 Calcium 8.6 mg/dL (8.5-10.5) 03/03/23 15:00 Total Bilirubin 3.6 mg/dL (0.15-1.2) H 03/03/23 15:00 AST 23 U/L (0-40) 03/03/23 15:00 ALT 11 U/L (0-41) 03/03/23 15:00 Alkaline Phosphatase 78 U/L (40-130) 03/03/23 15:00 Ammonia 47 umol/L (16-60) 03/03/23 15:52 C-Reactive Protein 6.9 mg/L (0.0-4.9) H 03/03/23 15:00 C-Reactive Protein Cancelled 03/03/23 15:00 NT-Pro-B Natriuret Pep 457 pg/mL (0-125) H 03/03/23 15:00 Total Protein 6.2 g/dL (6.6-8.7) L 03/03/23 15:00 Albumin 2.9 g/dL (3.5-5.2) L 03/03/23 15:00 Globulin 3.3 g/dL (1.3-4.6) 03/03/23 15:00 Vitamin B12 > 2000 pg/mL (232-1245) H 03/03/23 15:00 Vitamin B12 Cancelled 03/03/23 15:00 Procalcitonin 2.39 ng/mL (0-0.5) H 03/03/23 15:00 TSH 1.32 uIU/mL (0.27-4.20) 03/03/23 15:00 Nasal Influ A H1 2009 PCR Not detected (NOT DETECT) 03/03/23 15:17 Adenovirus (PCR) Not detected (NOT DETECT) 03/03/23 15:17 C. pneumoniae DNA (PCR) Not detected (NOT DETECT) 03/03/23 15:17 Coronavirus 229E (PCR) Not detected (NOT DETECT) 03/03/23 15:17 Human Metapneumovir PCR Not detected (NOT DETECT) 03/03/23 15:17 Influenza A (H1) PCR Not detected (NOT DETECT) 03/03/23 15:17 Influenza A (H3) PCR Not detected (NOT DETECT) 03/03/23 15:17 Influenza Type A (PCR) Not detected (NOT DETECT) 03/03/23 15:17 Influenza Type B (PCR) Not detected (NOT DETECT) 03/03/23 15:17 M. pneumoniae (PCR) Not detected (NOT DETECT) 03/03/23 15:17 Parainfluenza 1 (PCR) Not detected (NOT DETECT) 03/03/23 15:17 Parainfluenza 2 (PCR) Not detected (NOT DETECT) 03/03/23 15:17 Parainfluenza 3 (PCR) Not detected (NOT DETECT) 03/03/23 15:17 Parainfluenza 4 (PCR) Not detected (NOT DETECT) 03/03/23 15:17 RSV Type A (PCR) Not detected (NOT DETECT) 03/03/23 15:17 RSV Type B (PCR) Not detected (NOT DETECT) 03/03/23 15:17 Entero/Rhino (PCR) Not detected (NOT DETECT) 03/03/23 15:17 SARS-CoV-2 (PCR) Not detected (NOT DETECT) 03/03/23 15:17 Discharge Plan Discharge Patient Disposition: Admitted As Inpatient Admit Provider: Polo Starks Clinical Impression: Cellulitis, SIRS (systemic inflammatory response syndrome) Condition: Stable Coding Level of Care Code ED 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
--- NOTE | 2023-03-03 15:10 | XR_ITS ---
WS: [id number] XR chest 1V portable [id number] REASON FOR EXAM: fever, ams FINDINGS: The chest is unchanged compared to 06/04/2022. Mild tortuosity and ectasia of the thoracic aorta. Cardiomegaly. Enlargement of the central pulmonary veins. No pulmonary edema or other active pulmonary parenchymal or pleural disease. XR/XR chest 1V portable [id number] IMPRESSION: Stable abnormal chest with cardiomegaly and pulmonary venous hypertension.
[2023-03-03 15:17] LABS: Basophils % 0.4 %; Hematocrit 39.1 % (42.0-52.0); Hemoglobin 12.3 g/dL (11.7-16.6); Lymphocytes # 0.1 10^3/uL (0.8-4.8); Lymphocytes % 2.1 %; Mean Corpuscular HGB Conc 31.5 g/dL (30.0-36.0); Mean Corpuscular Hemoglobin 25.6 pg (28.0-34.0); Mean Corpuscular Volume 81.5 fl (80-94); Mean Platelet Volume 10.6 fL (7.4-10.4); Monocytes # 0.1 10^3/uL (0.2-0.9); Monocytes % 1.5 %; Neutrophils # 4.96 10^3/uL (1.8-7.7); Neutrophils % 95.8 %; Nucleated Red Blood Cells % 0 %; Platelet Count 79 10^3/cmm (130-400); Red Cell Distribution Width 18.2 % (12.1-15.1); White Blood Count 5.2 10^3/uL (4.0-10.0)
--- NOTE | 2023-03-03 15:18 | ECG_ITS ---
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 Measurements Intervals [place] Rate: 92 P: 29 [place]: 195 QRS: 7 QRSD: 97 T: 50 QT: 356 QTc: 442 Interpretive Statements SINUS RHYTHM POSSIBLE RIGHT VENTRICULAR CONDUCTION DELAY [RSR (QR) IN V1/V2] Compared to ECG 03/01/2022 18:07:49 First degree AV block no longer present Electronically Signed On 03-04-2023 7:49:38 CDT by Sg Barroso M.D. [id number]
[2023-03-03 15:22] LABS: INR 1.43 (0.8-1.2)
[2023-03-03 15:36] LABS: NT Pro B Type Natriuretic Pept 457 pg/mL (0-125); Procalcitonin 2.39 ng/mL (0-0.5)
[2023-03-03 15:47] LABS: Alanine Aminotransferase 11 U/L (0-41); Albumin Level 2.9 g/dL (3.5-5.2); Alkaline Phosphatase 78 U/L (40-130); Anion Gap 17.7 (5-19); Aspartate Amino Transferase 23 U/L (0-40); Blood Urea Nitrogen 10 mg/dL (6-20); C Reactive Protein 6.9 mg/L (0.0-4.9); Calcium 8.6 mg/dL (8.5-10.5); Carbon Dioxide 18 mmol/L (22-29); Chloride 105 mmol/L (98-107); Globulin 3.3 g/dL (1.3-4.6); Glomerular Filtration Rate 99.3 mL/min (90-130); Glucose 97 mg/dL (65-115); Osmolality Calculated 283 mOsm/kg (285-295); Potassium 3.7 mmol/L (3.5-5.1); Sodium 137 mmol/L (136-145); Total Bilirubin 3.6 mg/dL (0.15-1.2); Total Protein 6.2 g/dL (6.6-8.7)
[2023-03-03] MEDS: ketorolac 30 mg/mL INJ 15 MG IVP (15:52)
[2023-03-03] MEDS: piperacillin-tazobactam 4.5 GM in sodium chloride 0.9% (plus) 50 ML IV (15:55)
[2023-03-03 16:05] LABS: Lactic Sepsis W/Reflex 2.8 mmol/L (0.5-2.2)
[2023-03-03 16:11] LABS: Ammonia 47 umol/L (16-60)
[2023-03-03] MEDS: sodium chloride 0.9% 1,000 ML 999 ML IV (16:17)
[2023-03-03] MEDS: vancomycin 2,000 MG/400 ML PIGGYBACK 200 MG IV (16:18)
[2023-03-03 17:09] LABS: Adenovirus Not Detected (NOT DETECT); Chlamydia Pneumoniae Not Detected (NOT DETECT); Coronavirus 229E,HKU1,NL63,OC4 Not Detected (NOT DETECT); Human Metapneumovirus Not Detected (NOT DETECT); Human Rhinovirus/Enterovirus Not Detected (NOT DETECT); Influenza A Not Detected (NOT DETECT); Influenza A H1 Not Detected (NOT DETECT); Influenza A H1-2009 Not Detected (NOT DETECT); Influenza A H3 Not Detected (NOT DETECT); Influenza B Not Detected (NOT DETECT); Mycoplasma Pneumoniae Not Detected (NOT DETECT); Parainfluenza Virus Type 1 Not Detected (NOT DETECT); Parainfluenza Virus Type 2 Not Detected (NOT DETECT); Parainfluenza Virus Type 3 Not Detected (NOT DETECT); Parainfluenza Virus Type 4 Not Detected (NOT DETECT); Respiratory Syncytial Virus A Not Detected (NOT DETECT); Respiratory Syncytial Virus B Not Detected (NOT DETECT); SARS-COV-2 Not Detected (NOT DETECT)
[2023-03-03 17:24] LABS: Reflex Lactate Order REFLEX LACTIC ORDERD
[2023-03-03 18:14] LABS: Lactic Acid level (Lactate) 2.9 mmol/L (0.5-2.2)
--- NOTE | 2023-03-03 18:35 | P.HP_ITS ---
Providers/Chief Complaint Admitting Physician: Polo Starks MD Primary Care Provider: Manny Guzman DO Chief Complaint: ams/ sepsis History of Present Illness Kyle Conde is a 57 year old male with past medical history of alcohol- related liver cirrhosis post TIPS, chronic bilateral venous stasis dermatitis of bilateral legs who comes from home today because of 1 day episode of fever along with generalized malaise. Patient denies any nausea, vomiting, headache, dizziness, dysuria, diarrhea, sick contacts or recent travels. States he was at his baseline health last night but today morning woke up feeling weak and tired. States his baseline he lives with his girlfriend. He is able to take care of his ADLs by himself and drives around the town by himself. Does not follow-up with wound care as he thinks they do not help him much and is not agreeable to follow-up as an outpatient as well. Blood work in the ER found to have a white count of 5.2, hemoglobin of 12.3, INR 1.4, stable CMP with a lactate of 2.8, respiratory viral panel negative Review of Systems General: Reports: 10 or more systems reviewed and unremarkable except in HPI and below Const: Denies: fever(s), chills, body aches, change in appetite, change in weight, malaise, night sweats, diaphoresis, change in sleep pattern, daytime sleepiness or snoring Eyes: Denies: change in vision, blurry vision, photophobia, eye discomfort or eye discharge ENMT: Denies: enlarged tonsils Card: Denies: chest pain, palpitations, irregular heart rhythm, edema, swelling of feet/ankles, lightheadedness, syncope, pre-syncope, dyspnea on exertion, orthopnea, leg pain with exertion or acrocyanosis Resp: Denies: dyspnea, productive cough, non-productive cough, wheezing, stridor, pain on inspiration, change in phlegm color, hemoptysis or chest congestion GI: Denies: abdominal pain, nausea, vomiting, hematemesis, coffee ground emesis, dysphagia, heartburn, diarrhea, constipation, bloating, GI cramping, change in bowel habits, pain on defecation, hematochezia or melena : Denies: flank pain, difficulty urinating, dysuria, urinary frequency, urinary urgency, urinary hesitancy, urinary dribbling, difficulty starting urination, change in urine stream, nocturia or hematuria Musc: Denies: neck pain, back pain, extremity pain, joint pain, joint swelling, joint redness, joint stiffness or limited range of motion Neuro: Denies: headache(s), numbness in extremities, weakness in extremities, sensory changes, lack of coordination, difficulty walking, frequent falls, dizziness, vertigo, confusion, Slurred speech present, difficulty communicating thoughts or seizure-like activity Psych: Denies: anxiety, depression, mood swings, panic attacks, hopelessness or irritability Endo: Denies: polyuria, polydipsia, tired all the time, cold intolerance, excessive sweating, flushing or heat intolerance Patel/Lymph: Denies: easy bruising or easy bleeding All/Imm: Denies: tongue swelling, facial swelling or acute wheezing Medications/Allergies Home Medications Medication Instructions Recorded Confirmed Last Taken Type lactulose 10 gram/15 mL oral 30 ml PO .ONCE TO TWICE DAILY PRN 02/21/20 03/03/23 02/22/21 History solution (Constulose) Constipation multivitamin (Multiple Vitamins 1 tab PO DAILY 06/18/20 03/03/23 03/03/23 History tablet) thiamine HCl (vitamin B1) 100 mg 100 mg PO DAILY 06/18/20 03/03/23 03/03/23 History tablet (Vitamin B-1) compression socks, x-large #2 ea 03/12/22 03/03/23 Unknown Rx bumetanide 1 mg tablet 0.5 mg PO DAILY 03/03/23 03/03/23 03/03/23 History tadalafil 10 mg tablet 10 mg PO DAILY PRN Sexual Activity 03/03/23 03/03/23 Unknown History Allergies Allergy/AdvReac Type Severity Reaction Status Date / Time hydrocodone Allergy ADR-Nausea Verified 03/03/23 15:00 morphine Allergy ADR-Drowsy Verified 03/03/23 15:00 oxycodone [From OxyContin] Allergy ADR-Nausea Verified 03/03/23 15:00 PFSH Acute PFSH: Medical History (Updated 03/04/23 @ 13:51 by Polo Starks MD) Acute on chronic anemia Acute on chronic blood loss anemia ARMEN (acute kidney injury) Alcoholic cirrhosis of liver Callus of foot Cholelithiasis Not thought to be because of Pseudomonas bacteremia. HIDA scan normal. Surgery consultation was obtained. Cirrhosis Declining functional status Generalized weakness Leukocytosis Low back pain radiating to right lower extremity Lumbar stenosis with neurogenic claudication Lytic bone lesions on xray Pressure injury of both feet, unstageable Splenomegaly Stage I pressure ulcer of heel Swelling of lower extremity Venous stasis dermatitis Surgical History S/P TIPS (transjugular intrahepatic portosystemic shunt) Family History Other Healthy adult Social History Smoking and tobacco status: never smoked Alcohol intake: former Year of sobriety/quit date alcohol: 3 ya Substance/Drug Use: former Lives independently: No Household members: spouse Marital status: Current occupational status: unemployed Vitals/I&O/Wt Last Vital Signs Temp 103.2 F H 03/03/23 14:54 Pulse 90 03/03/23 18:00 Resp 20 H 03/03/23 18:00 BP 136/56 03/03/23 18:00 Pulse Ox 96 03/03/23 18:00 O2 Del Method Room Air 03/03/23 14:54 Weight last 48 hrs Weight 106.594 kg Physical Exam Narrative: General: No acute distress, AO x3 HEENT: PERRLA, pupils bilaterally equal and reactive Chest: Normal vesicular breath sounds, no added sounds, equal good air entry bilaterally CVS: S1-S2 regular, no murmurs, no tachycardia, no gallops, no rubs Abdomen: Soft, nontender, no organomegaly, bowel sounds present Neuro: No focal deficits, no facial deformity, AO x3, power 5/5 in all limbs Extremity: Bilateral chronic venous stasis dermatitis changes in bilateral legs up to the knees, no open wounds appreciated Data 03/04/23 04:50 03/04/23 04:50 Micro: Microbiology 03/03/23 15:26 Blood Culture - Preliminary Blood SPECIMEN COLLECTED 03/03/23 15:34 Blood Culture - Preliminary Blood SPECIMEN COLLECTED A&P Assessment and plan (1) Fever: (2) SIRS (systemic inflammatory response syndrome): (3) Cirrhosis: (4) Cellulitis: (5) Elevated lactic acid level: Plan 57-year-old with past medical history of liver cirrhosis s/p TIPS presented with generalized malaise found to have high-grade fever with concerns for cellulitis. Fever/SIRS: No signs of sepsis now. Patient does have high-grade fever but does not have leukocytosis, tachycardia or endorgan damage. Elevated lactate. Respiratory viral panel negative. Check blood culture, urine culture, sputum culture, procalcitonin, MRSA swab. Get CT chest abdomen pelvis with contrast. We will also get CT bilateral legs without contrast. Check ESR, CRP. On culture history patient has history of bacteremia with Pseudomonas and staph epidermidis. For now empirically start on IV vancomycin and Zosyn. Will de-escalate antibiotics as per culture results. Keep mean artery pressure 65. Bilateral lower limb venous stasis dermatitis: We will consult physical therapy for lymphedema wraps. Wound care. Full code. Cardiac diet. Heparin for DVT prophylaxis Protonix for PUD prophylaxis. Attestations Medical Necessity Statement*: Admission for more than 2 midnights for further evaluation and management of fever/SIRS in a patient with baseline post TIPS procedure with concerns for cellulitis Diagnoses Fever R50.9 SIRS (systemic inflammatory response syndrome) R65.10 Cirrhosis K74.60 Cellulitis L03.90 Elevated lactic acid level R79.89
--- NOTE | 2023-03-03 18:41 | CTR_ITS ---
PROCEDURE INFORMATION: Exam: CT Chest With Contrast; Diagnostic Exam date and time: 03/03/2023 7:11 PM Age: 57 years old Clinical indication: Other: Septic; Prior surgery; Surgery date: 6+ months; Surgery type: Tips; Additional info: Sepsis TECHNIQUE: Imaging protocol: Diagnostic computed tomography of the chest with contrast. Radiation optimization: All CT scans at this facility use at least one of these dose optimization techniques: automated exposure control; mA and/or kV adjustment per patient size (includes targeted exams where dose is matched to clinical indication); or iterative reconstruction. Contrast material: OMNI 350; Contrast volume: 100 ml; Contrast route: INTRAVENOUS (IV); REPORTING DATA: Count of CT and Cardiac NM exams in prior 12 months: This patient has received [address] and 0 known cardiac nuclear medicine studies in the 12 months prior to the current study. COMPARISON: CT angio chest PE protcl [id number] 03/01/2022 2:38 PM RADIATION DOSE METRICS: Total DLP (mGy-cm): 490.9 FINDINGS: Lungs: Calcified granulomas in both lungs. Mild dependent atelectasis. Pleural spaces: Small pleural effusions, left greater than right. No pneumothorax. Heart: The heart size is normal. Coronary arteries: Coronary artery calcifications. Lymph nodes: Prominent mediastinal and hilar lymph nodes are most likely reactive. Calcified hilar lymph nodes. Vasculature: Unremarkable. No aortic aneurysm. Bones/joints: Mild degenerative changes of the thoracic spine. No acute fracture. Old left rib fractures. Soft tissues: Unremarkable. PROCEDURE INFORMATION: Exam: CT Abdomen And Pelvis With Contrast Exam date and time: 03/03/2023 7:11 PM Age: 57 years old Clinical indication: Other: Septic; Prior surgery; Surgery date: 6+ months; Surgery type: Tips; Additional info: Sepsis TECHNIQUE: Imaging protocol: Computed tomography of the abdomen and pelvis with contrast. Radiation optimization: All CT scans at this facility use at least one of these dose optimization techniques: automated exposure control; mA and/or kV adjustment per patient size (includes targeted exams where dose is matched to clinical indication); or iterative reconstruction. Contrast material: OMNI 350; Contrast volume: 100 ml; Contrast route: INTRAVENOUS (IV); REPORTING DATA: Count of CT and Cardiac NM exams in prior 12 months: This patient has received [address] and 0 known cardiac nuclear medicine studies in the 12 months prior to the current study. COMPARISON: CT abdomen pelvis wo con [id number] 06/04/2022 10:10 PM RADIATION DOSE METRICS: Total DLP (mGy-cm): 859.5 FINDINGS: Liver: Inhomogenous cirrhotic liver. Hepatic cysts, Hounsfield units less than 20. No suspicious nodule. TIPS stent in place. Gallbladder and bile ducts: Multiple tiny calcified stones in the dependent gallbladder. No wall thickening. The bile ducts are normal. Pancreas: Normal. No ductal dilation. Spleen: Splenomegaly. Adrenal glands: Normal. No mass. Kidneys and ureters: Normal. No hydronephrosis. Stomach and bowel: Unremarkable. No obstruction. No mucosal thickening. Appendix: The appendix is visualized and is normal. Intraperitoneal space: Mild ascites. Vasculature: Portal venous hypertension with splenic hilar varices. Lymph nodes: Prominent inguinal and retroperitoneal lymph nodes are most likely reactive. Urinary bladder: Unremarkable as visualized. Reproductive: Unremarkable as visualized. Bones/joints: Degenerative changes of the spine. No acute fracture. Soft tissues: Small fat containing left inguinal hernia. Mild body wall edema. CT/CT chest abdpel w/*[id number] IMPRESSION: 1. Small pleural effusions. IMPRESSION: 1. Liver cirrhosis. 2. Splenomegaly. 3. Splenic hilar varices. 4. TIPS stent. 5. Cholelithiasis. 6. Mild ascites.
--- NOTE | 2023-03-03 18:56 | CTR_ITS ---
PROCEDURE INFORMATION: Exam: CT Right Lower Extremity Without Contrast Exam date and time: 03/03/2023 7:16 PM Age: 57 years old Clinical indication: Pain; Other: Femur to toes; Additional info: Cellulitis TECHNIQUE: Imaging protocol: CT of the right lower extremity without contrast was performed. Radiation optimization: All CT scans at this facility use at least one of these dose optimization techniques: automated exposure control; mA and/or kV adjustment per patient size (includes targeted exams where dose is matched to clinical indication); or iterative reconstruction. REPORTING DATA: Count of CT and Cardiac NM exams in prior 12 months: This patient has received [address] and 0 known cardiac nuclear medicine studies in the 12 months prior to the current study. COMPARISON: NM bone scan whole body* [id number] 03/04/2022 4:07 PM RADIATION DOSE METRICS: Total DLP (mGy-cm): 0.01 FINDINGS: Bones/joints: No acute fracture or dislocation. No irregular osseous erosions. Soft tissues: Subcutaneous edema and skin thickening noted throughout the lower extremity. No subcutaneous emphysema. CT/CT lower leg RT wo con* [id number] IMPRESSION: Subcutaneous edema and skin thickening noted throughout the lower extremity. No evidence of osteomyelitis.
--- NOTE | 2023-03-03 18:56 | CTR_ITS ---
PROCEDURE INFORMATION: Exam: CT Left Lower Extremity Without Contrast Exam date and time: 03/03/2023 7:16 PM Age: 57 years old Clinical indication: Edema; No, it is generalized; Additional info: Cellulitis TECHNIQUE: Imaging protocol: CT of the left lower extremity without contrast was performed. Radiation optimization: All CT scans at this facility use at least one of these dose optimization techniques: automated exposure control; mA and/or kV adjustment per patient size (includes targeted exams where dose is matched to clinical indication); or iterative reconstruction. REPORTING DATA: Count of CT and Cardiac NM exams in prior 12 months: This patient has received [address] and 0 known cardiac nuclear medicine studies in the 12 months prior to the current study. COMPARISON: NM bone scan whole body* [id number] 03/04/2022 4:07 PM RADIATION DOSE METRICS: Total DLP (mGy-cm): 1185.76 FINDINGS: Bones/joints: No acute fracture or dislocation. No irregular osseous erosions. Soft tissues: Subcutaneous edema and skin thickening noted throughout the lower extremity. No subcutaneous emphysema. CT/CT lower leg LT wo con* [id number] IMPRESSION: Subcutaneous edema and skin thickening throughout the lower extremity. No evidence of osteomyelitis.
[2023-03-03 19:04] LABS: Erythrocyte Sedimentation Rate 12 mm/hr (0-10)
[2023-03-03 20:35] LABS: Thyroid Stimulating Hormone 1.32 uIU/mL (0.27-4.20)
[2023-03-03 20:40] LABS: Vitamin B12 > 2000 pg/mL (232-1245)
--- NOTE | 2023-03-03 20:42 | PC.PHAR ---
Pharmacokinetic dosing service Date: 03/03/23 Time: 2044 Objective: Patient: Kyle Conde Floor: 254[address]1 Age: 57 yo Serum creatinine: 0.8 mg/dL Height: 75.0 Inches Weight (kg): 106.594 Diagnosis: Relevant medical/social history: Cultures and sensitivities: Other labs: Assessment: IBW (kg): 84.50 Dosing wt(kg): 106.594 Estimated Creatinine clearance (ml/min): 120.3 CRCL method: Cockcroft and Gault using ibw(default). Drug selected: Vancomycin Loading dose (mg): 0 Vd (liters): 95.9 (factor used: 0.9 L/kg) Sean (hr-1): 0.104 Half life (hrs): 6.66 Recommended dose: 1500 mg Interval: 8 hrs Infusion time (hrs): 1.5 Predicted peak (mcg/mL): 25.6 Predicted trough (mcg/mL): 13.02 Total body weight is being used for vancomycin dosing. Renal function is stable [ ] /unstable [ ] Recommendations: Give Vancomycin 1500 mg q 8 hrs with an expected Cpeak of 25.6 mcg/ml and an expected Ctrough of 13.02 mcg/ml Renal dosing of other antibiotics (review renal dosing of other medications and list guidelines here): Thank you for the consult, will continue to follow. Signature: Mraly Rosario [facility]
[2023-03-03] MEDS: heparin 5,000 unit/mL INJ 1 mL 5000 UNIT SUBCUT (20:50)
[2023-03-03] MEDS: pantoprazole 40 mg SDV IVP (20:50)
[2023-03-03 21:30] LABS: C Reactive Protein 14.8 mg/L (0.0-4.9)
[2023-03-03 22:10] LABS: Vitamin B12 > 2000 pg/mL (232-1245)
[2023-03-03 22:58] LABS: Blood Urine Neg (Negative); Glucose Urine UA Norm (Normal); Ketones Urine 1+ (Negative); Protein Urine Trace (Negative); Urine Appearance Hazy (CLEAR); Urine Color Yellow (Yellow); pH Urine 5 (5-7)
[2023-03-03 22:59] LABS: Add Urine Microscopic? YES; Bilirubin Urine 1+ (Negative); Mucus Urine 1+ /hpf; Nitrate Urine Negative (Negative); RBC Urine 0-4 /hpf (0-2); Squamous Epithelial Cell Urine 0-4 /hpf (0-5); Urobilinogen Urine Norm (Negative); WBC Urine 0-4 /hpf (0-5)
[2023-03-03 23:00] LABS: Add Urine Culture? No; Amorphous Sediment Urine 1+ /hpf
[2023-03-03 23:01] LABS: Leukocyte Esterase Urine Trace (Negative)
[2023-03-04] VITALS (11 sets, daily range): BP systolic 90–112; BP diastolic 42–66; PULSE 69–88; RESP 17–21; TEMP 36.5–37.2; O2SAT 93–98
[2023-03-04] MEDS: vancomycin 1,500 MG/300 ML PIGGYBACK 200 MG IV ×3 (00:55→15:38)
[2023-03-04] MEDS: piperacillin-tazobactam 3.375 GM in sodium chloride 0.9% (plus) 50 ML IV ×3 (02:45→17:55)
[2023-03-04] MEDS: heparin 5,000 unit/mL INJ 1 mL 5000 UNIT SUBCUT ×3 (02:46→19:58)
[2023-03-04 05:18] LABS: Basophils % 0.2 %; Hematocrit 38.1 % (42.0-52.0); Hemoglobin 11.8 g/dL (11.7-16.6); Lymphocytes # 0.2 10^3/uL (0.8-4.8); Lymphocytes % 1.1 %; Mean Corpuscular Hemoglobin 25.9 pg (28.0-34.0); Mean Corpuscular Volume 83.6 fl (80-94); Mean Platelet Volume 10.7 fL (7.4-10.4); Monocytes # 0.3 10^3/uL (0.2-0.9); Neutrophils # 14.77 10^3/uL (1.8-7.7); Neutrophils % 93.2 %; Nucleated Red Blood Cells % 0 %; Platelet Count 72 10^3/cmm (130-400); Red Blood Count 4.56 10^6/uL (4.1-5.3); Red Cell Distribution Width 19.2 % (12.1-15.1); White Blood Count 15.8 10^3/uL (4.0-10.0)
[2023-03-04 05:29] LABS: Alanine Aminotransferase 13 U/L (0-41); Albumin Level 2.5 g/dL (3.5-5.2); Alkaline Phosphatase 51 U/L (40-130); Aspartate Amino Transferase 29 U/L (0-40); Blood Urea Nitrogen 19 mg/dL (6-20); Calcium 7.9 mg/dL (8.5-10.5); Carbon Dioxide 17 mmol/L (22-29); Chloride 103 mmol/L (98-107); Globulin 3.1 g/dL (1.3-4.6); Glomerular Filtration Rate 62.2 mL/min (90-130); Glucose 92 mg/dL (65-115); Magnesium 1.5 mg/dL (1.7-2.3); Osmolality Calculated 284 mOsm/kg (285-295); Sodium 136 mmol/L (136-145); Total Bilirubin 4.1 mg/dL (0.15-1.2); Total Protein 5.6 g/dL (6.6-8.7)
[2023-03-04 05:43] LABS: Estmated Average Glucose 123; Hemoglobin A1C 5.9 % (4.0-6.0)
[2023-03-04 05:44] LABS: Chol HDL Ratio 1.48 mg/dL (1.0-5.00); Cholesterol 74 mg/dL (0-200); HDL Cholesterol 50 mg/dL (60-100); LDL Cholesterol Calculated 15 mg/dL (50-129); Triglycerides 47 mg/dL (0-150)
[2023-03-04 05:51] LABS: Procalcitonin 28.07 ng/mL (0-0.5)
[2023-03-04 05:57] LABS: Folate Level 13.8 ng/mL (4.5-32.2)
[2023-03-04] MEDS: pantoprazole 40 mg SDV IVP ×2 (08:30→19:58)
--- NOTE | 2023-03-04 13:54 | PM.PN ---
Subjective Subjective: No acute events overnight. Denies any nausea, vomiting, headache. Today morning seen with patient's friend at bedside. States he is feeling a lot better. Has remained afebrile and hemodynamically stable. Blood work appreciated for elevated white count 16, stable hemoglobin, stable CMP. Vitals/I&O/Wt Last Vital Signs Temp 98.2 F 03/04/23 11:41 Pulse 79 03/04/23 11:41 Resp 18 03/04/23 11:41 BP 112/48 03/04/23 11:41 Pulse Ox 98 03/04/23 11:41 O2 Del Method Room Air 03/04/23 11:41 03/03/23 03/04/23 03/04/23 22:59 06:59 14:59 Intake Total 1450 / 1450 590 / 2040 660 / 660 Output Total 500 / 500 400 / 400 Balance 950 / 950 590 / 1540 260 / 260 Weight last 48 hrs Weight 106.594 kg Physical Exam Narrative: General: No acute distress, AO x3 HEENT: PERRLA, pupils bilaterally equal and reactive Chest: Normal vesicular breath sounds, no added sounds, equal good air entry bilaterally CVS: S1-S2 regular, no murmurs, no tachycardia, no gallops, no rubs Abdomen: Soft, nontender, no organomegaly, bowel sounds present Neuro: No focal deficits, no facial deformity, AO x3, power 5/5 in all limbs Extremity: Bilateral chronic venous stasis dermatitis changes in bilateral legs up to the knees, no open wounds appreciated Data 03/04/23 04:50 03/04/23 04:50 Micro: Microbiology 03/03/23 15:26 Blood Culture - Preliminary Blood SPECIMEN COLLECTED 03/03/23 15:34 Blood Culture - Preliminary Blood SPECIMEN COLLECTED A&P Assessment and plan (1) Fever: (2) SIRS (systemic inflammatory response syndrome): (3) Cirrhosis: (4) Cellulitis: (5) Elevated lactic acid level: Plan 57-year-old with past medical history of liver cirrhosis s/p TIPS presented with generalized malaise found to have high-grade fever with concerns for cellulitis. Fever/SIRS: No signs of sepsis now. Patient does have high-grade fever but does not have leukocytosis, tachycardia or endorgan damage. Elevated lactate. Respiratory viral panel negative. Procal mildly elevated. Follow-up blood culture, urinalysis negative for signs of UTI. Sputum culture, MRSA swab pending. CT chest abdomen pelvis showing no active signs of infection. Does have mild ascites. On examination patient does not seem to have SBP. Appreciate ESR, CRP and CT bilateral legs. No deep abscess or osteomyelitis. Most likely in setting of cellulitis. Continue vancomycin and Zosyn. No open wounds. PT evaluation for lymphedema wraps. Follow-up cultures. If remains negative next 48 hours can discharge home on oral antibiotics if patient remains hemodynamically stable and afebrile. Bilateral lower limb venous stasis dermatitis: We will consult physical therapy for lymphedema wraps. Wound care. Full code. Cardiac diet. Heparin for DVT prophylaxis Protonix for PUD prophylaxis. Attestations Medical Necessity Statement*: Requires further hospitalization for management of cellulitis in setting of venous stasis dermatitis in a patient with baseline liver cirrhosis post TIPS Diagnoses Fever R50.9 SIRS (systemic inflammatory response syndrome) R65.10 Cirrhosis K74.60 Cellulitis L03.90 Elevated lactic acid level R79.89
[2023-03-05] VITALS (8 sets, daily range): BP systolic 99–125; BP diastolic 50–72; PULSE 75–100; RESP 16–20; TEMP 36.4–37.3; O2SAT 93–97
[2023-03-05 00:52] LABS: Vancomycin Trough 36.5 ug/mL (10-15)
[2023-03-05] MEDS: piperacillin-tazobactam 3.375 GM in sodium chloride 0.9% (plus) 50 ML IV ×3 (01:13→17:24)
[2023-03-05] MEDS: heparin 5,000 unit/mL INJ 1 mL 5000 UNIT SUBCUT ×3 (03:44→19:52)
--- NOTE | 2023-03-05 04:26 | PC.PHAR ---
Pharmacokinetic dosing service Date: 03/05/23 Time: 426 Patient: Kyle Conde Floor: 254-1 Weight: 117.93 Kilograms Vancomycin single level analysis: Current dose being given: 1500 mg Current dosing interval: 8 hrs Current infusion time (hrs): 1.5 Single level Trough Data: Trough level obtained: 36.5 mcg/ml Timing of trough - # of hrs before next dose: 0.5 Hrs Desired peak: 40 mcg/ml Desired trough: 15 mcg/ml Diagnosis: Relevant medical/social history: Cultures and sensitivities: Other labs: Estimated PK Parameters: New rate constant (arnel): 0.044 hr-1 Half-life: 15.75 Hours Vd from levels: 106.14 Liters (0.7 L/kg) CLvanco=?? 4.670 L/hr Estimated New Dose and Interval Recommended dose: 2847.7 mg Recommended interval: 23.8 Hrs Patient response: Patient is responding to treatment [yes/no] wbc decreasing, S/SX reduced [yes/no] Renal function is stable/unstable Recommendations: Give Vancomycin 1500 mg q 18 hrs. Infuse over 1.5 hrs Expected Cpeak: 25.0 mcg/mL Expected Ctrough: 12.1 mcg/mL AUC 0-24 /CHRISSY Data: CHRISSY 0.5 mcg/mL:?? AUC/CHRISSY:? 856.5 CHRISSY 1.0 mcg/mL:?? AUC/CHRISSY:? 428.3 Recommended labs and intervals: Measure Bun and Scr 3 times/week. Renal dosing of other antibiotics (review renal dosing of other medications and list guidelines here): Thank you for the consult, will continue to follow. Signature:Marly Rosario [facility]
[2023-03-05] MEDS: pantoprazole 40 mg SDV IVP ×2 (08:41→19:43)
[2023-03-05] MEDS: vancomycin 1,500 MG/300 ML PIGGYBACK 200 MG IV (09:54)
[2023-03-05 11:29] LABS: Basophils # 0.1 10^3/uL (0.0-0.1); Basophils % 0.5 %; Eosinophils # 0.1 10^3/uL (0.0-0.8); Eosinophils % 0.9 %; Hematocrit 37.6 % (42.0-52.0); Hemoglobin 10.9 g/dL (11.7-16.6); Lymphocytes # 0.5 10^3/uL (0.8-4.8); Lymphocytes % 4.6 %; Mean Corpuscular Hemoglobin 25.5 pg (28.0-34.0); Mean Corpuscular Volume 87.9 fl (80-94); Monocytes # 0.6 10^3/uL (0.2-0.9); Monocytes % 5.6 %; Neutrophils # 8.99 10^3/uL (1.8-7.7); Neutrophils % 84.7 %; Nucleated Red Blood Cells % 0 %; Platelet Count 65 10^3/cmm (130-400); Red Blood Count 4.28 10^6/uL (4.1-5.3); White Blood Count 10.6 10^3/uL (4.0-10.0)
[2023-03-05 11:51] LABS: Alanine Aminotransferase 19 U/L (0-41); Albumin Level 2.6 g/dL (3.5-5.2); Alkaline Phosphatase 50 U/L (40-130); Anion Gap 16.6 (5-19); Aspartate Amino Transferase 36 U/L (0-40); Blood Urea Nitrogen 34 mg/dL (6-20); Calcium 7.5 mg/dL (8.5-10.5); Carbon Dioxide 20 mmol/L (22-29); Chloride 101 mmol/L (98-107); Globulin 3.2 g/dL (1.3-4.6); Glomerular Filtration Rate 52.1 mL/min (90-130); Glucose 129 mg/dL (65-115); Osmolality Calculated 287 mOsm/kg (285-295); Potassium 3.6 mmol/L (3.5-5.1); Sodium 134 mmol/L (136-145); Total Bilirubin 2.8 mg/dL (0.15-1.2); Total Protein 5.8 g/dL (6.6-8.7)
--- NOTE | 2023-03-05 15:08 | PM.PN ---
Subjective Subjective: No acute events overnight. Patient has remained hemodynamically stable and afebrile. Continues to remain on room air. States feeling a lot better. Denies any nausea, vomiting, headache. Blood work appreciated for an improving leukocytosis down to 10.6, stable hemoglobin, sodium down to 134 from 137 on admission, creatinine of 1.4 rising from 0.8 on admission. Documented urine output of around 1450 cc last 24 hours. Vitals/I&O/Wt Last Vital Signs Temp 98.1 F 03/05/23 11:59 Pulse 78 03/05/23 11:59 Resp 16 03/05/23 11:59 BP 125/70 03/05/23 11:59 Pulse Ox 97 03/05/23 11:59 O2 Del Method Room Air 03/05/23 11:59 03/05/23 03/05/23 03/05/23 06:59 14:59 22:59 Intake Total 550 / 1970 660 / 660 Output Total 300 / 1450 820 / 820 Balance 250 / 520 -160 / -160 Weight last 48 hrs Weight 117.48 kg Weight 117.934 kg Physical Exam Narrative: General: No acute distress, AO x3 HEENT: PERRLA, pupils bilaterally equal and reactive Chest: Normal vesicular breath sounds, no added sounds, equal good air entry bilaterally CVS: S1-S2 regular, no murmurs, no tachycardia, no gallops, no rubs Abdomen: Soft, nontender, no organomegaly, bowel sounds present Neuro: No focal deficits, no facial deformity, AO x3, power 5/5 in all limbs Extremity: Bilateral chronic venous stasis dermatitis changes in bilateral legs up to the knees, no open wounds appreciated Data 03/05/23 11:20 03/05/23 11:20 Micro: Microbiology 03/04/23 15:43 MRSA Culture - Final Nose 03/03/23 15:26 Blood Culture - Preliminary Blood NEGATIVE TO DATE 03/03/23 15:34 Blood Culture - Preliminary Blood NEGATIVE TO DATE A&P Assessment and plan (1) Fever: (2) SIRS (systemic inflammatory response syndrome): (3) Cirrhosis: (4) Cellulitis: (5) Elevated lactic acid level: Plan 57-year-old with past medical history of liver cirrhosis s/p TIPS presented with generalized malaise found to have high-grade fever with concerns for cellulitis. Fever/SIRS: No signs of sepsis now. Patient does have high-grade fever but does not have leukocytosis, tachycardia or endorgan damage. Elevated lactate. Respiratory viral panel negative. Procal mildly elevated. Follow-up blood culture, urinalysis negative for signs of UTI. MRSA negative. CT chest abdomen pelvis showing no active signs of infection. Does have mild ascites. On examination patient does not seem to have SBP. Appreciate ESR, CRP and CT bilateral legs. No deep abscess or osteomyelitis. Most likely in setting of cellulitis. Continue Zosyn. Discontinue vancomycin as MRSA negative no open wounds. PT evaluation for lymphedema wraps. Follow-up cultures. If remains negative next 24 hours can discharge home on oral antibiotics if patient remains hemodynamically stable and afebrile. ARMEN: Creatinine mildly elevated today. Most likely secondary to poor oral intake. Gentle IV hydration with normal saline at 75 cc/h for 1 bag. Repeat BMP in evening. Hyponatremia: Fluid as above. Bilateral lower limb venous stasis dermatitis: We will consult physical therapy for lymphedema wraps. Wound care. Full code. Cardiac diet. Heparin for DVT prophylaxis Protonix for PUD prophylaxis. Attestations Medical Necessity Statement*: Requires further hospitalization for management of cellulitis in a patient with baseline liver cirrhosis post TIPS, bilateral venous stasis dermatitis, mild ARMEN Diagnoses Fever R50.9 SIRS (systemic inflammatory response syndrome) R65.10 Cirrhosis K74.60 Cellulitis L03.90 Elevated lactic acid level R79.89
[2023-03-05] MEDS: sodium chloride 0.9% 1,000 ML 75 ML IV (17:23)
[2023-03-06] MEDS: piperacillin-tazobactam 3.375 GM in sodium chloride 0.9% (plus) 50 ML IV (01:06)
[2023-03-06 04:03] LABS: Basophils # 0.1 10^3/uL (0.0-0.1); Basophils % 0.9 %; Eosinophils # 0.2 10^3/uL (0.0-0.8); Eosinophils % 2.2 %; Hematocrit 33.8 % (42.0-52.0); Hemoglobin 10.3 g/dL (11.7-16.6); Lymphocytes # 0.6 10^3/uL (0.8-4.8); Lymphocytes % 7.6 %; Mean Corpuscular HGB Conc 30.5 g/dL (30.0-36.0); Mean Corpuscular Hemoglobin 25.2 pg (28.0-34.0); Mean Corpuscular Volume 82.8 fl (80-94); Mean Platelet Volume 10.7 fL (7.4-10.4); Monocytes # 0.6 10^3/uL (0.2-0.9); Monocytes % 7.7 %; Neutrophils # 6.14 10^3/uL (1.8-7.7); Neutrophils % 79.9 %; Nucleated Red Blood Cells % 0 %; Platelet Count 64 10^3/cmm (130-400); Red Blood Count 4.08 10^6/uL (4.1-5.3); Red Cell Distribution Width 19.1 % (12.1-15.1); White Blood Count 7.7 10^3/uL (4.0-10.0)
[2023-03-06 04:22] VITALS: BP 115/67; PULSE 72; RESP 19; TEMP 36.7; O2SAT 94
[2023-03-06 04:44] LABS: Alanine Aminotransferase 16 U/L (0-41); Albumin Level 2.4 g/dL (3.5-5.2); Alkaline Phosphatase 148 U/L (40-130); Anion Gap 14.5 (5-19); Aspartate Amino Transferase 29 U/L (0-40); Blood Urea Nitrogen 28 mg/dL (6-20); Calcium 7.3 mg/dL (8.5-10.5); Carbon Dioxide 19 mmol/L (22-29); Chloride 106 mmol/L (98-107); Globulin 3.2 g/dL (1.3-4.6); Glomerular Filtration Rate 62.2 mL/min (90-130); Glucose 102 mg/dL (65-115); Osmolality Calculated 288 mOsm/kg (285-295); Potassium 3.5 mmol/L (3.5-5.1); Sodium 136 mmol/L (136-145); Total Bilirubin 2.4 mg/dL (0.15-1.2); Total Protein 5.6 g/dL (6.6-8.7)
[2023-03-06] MEDS: vancomycin 1,500 MG/300 ML PIGGYBACK 200 MG IV (05:02)
[2023-03-06] MEDS: heparin 5,000 unit/mL INJ 1 mL 5000 UNIT SUBCUT (05:02)
[2023-03-06 06:00] VITALS: PULSE 67
[2023-03-06 07:43] VITALS: BP 125/68; PULSE 66; RESP 16; TEMP 36.6; O2SAT 96
[2023-03-06] MEDS: pantoprazole 40 mg SDV IVP (10:31)
--- NOTE | 2023-03-06 11:03 | PC.SOCIAL ---
IMM Update pg 2 of IMM updated and reviewed w/ patient. Copy provided and Copy dated, initialed and placed in chart.
[2023-03-06 12:00] VITALS: BP 110/52; PULSE 70; RESP 16; TEMP 36.8; O2SAT 96
--- NOTE | 2023-03-06 12:04 | PM.DCS ---
Discharge Providers Date of Admission: 03/03/23 17:49 Date of Discharge: March 06, 2023 Attending Provider at Admission: Polo Starks MD Attending Provider at Discharge: Vikram Moy Primary Care Provider: Manny Guzman DO Diagnoses at Discharge Discharge Diagnosis (1) Fever: Status: Acute (2) SIRS (systemic inflammatory response syndrome): Status: Acute (3) Cirrhosis: Details from hospital stay: He states is not having any distention of his abdomen. TIPS has been quite life-changing procedure for him. Has not required further paracentesis. States he takes his lactulose regularly to prevent hepatic encephalopathy. Status: Acute (4) Cellulitis: Status: Acute (5) Elevated lactic acid level: Status: Acute Reason for Visit Reason for Visit: ams/ sepsis Hospital Course Hospital Course 57-year-old gentleman with liver cirrhosis status post TIPS, remote history of Pseudomonas and staphylococcal bacteremia, bilateral venous stasis dermatitis was admitted for assessment and management after high-grade fever, malaise. This was thought most likely secondary to cellulitis which has been improving Was treated with Zosyn and vancomycin. Vancomycin later discontinued with MRSA PCR negative for carriage. . Received IV hydration with improvement in ARMEN. Plan was to discharge home with completion of oral antibiotic course for cellulitis if remaining afebrile and cultures remaining negative which is the case today, leukocytosis also noted resolved from 15.8 down to 7.7. Blood cultures so far negative, final results pending. He is feeling well and is also eager to return home. Continues with compression wraps on bilateral lower extremities and is referred for further follow-up with wound care. Please follow-up regarding sinusitis he states has been having as well with postnasal drainage which is clearing up now with antibiotics. Additionally follow-up regarding cirrhosis, incidentally noted splenic hilar varices, refer for endoscopic evaluation Case never had an EGD to assess for gastric varices. Continue chronic follow-up. Physical Exam Const: COMMON NORMALS: patient oriented x3 and alert GENERAL APPEARANCE: cooperative ORIENTATION/CONSCIOUSNESS: Yes awake HENMT: COMMON NORMALS: oropharynx normal Neck/C-Spine: COMMON NORMALS: no JVD Resp: COMMON NORMALS: normal respiratory effort and clear to auscultation bilaterally AUSCULTATION: clear to auscultation bilaterally Cardio: COMMON NORMALS: no JVD, regular rhythm, S1 normal heart sound present, S2 normal heart sound present and No murmurs present (Cardio) RHYTHM: regular rhythm HEART SOUNDS: S1 normal heart sound present and S2 normal heart sound present GI: COMMON NORMALS: Normal to inspection, nondistended, normoactive bowel sounds present, Soft to palpation and non-tender PALPATION: Yes Soft to palpation Extremity: COMMON NORMALS: no joint enlargement OTHER: Lymphedema, lymphedema wraps in place. No surrounding erythema, no strikethrough. Neuro: COMMON NORMALS: patient oriented x3 and moves all extremities SENSORIUM/ORIENTATION: Yes alert Skin: COMMON NORMALS: no rashes or lesions noted GENERAL SKIN EXAM: no rashes or lesions noted Discharge Data Studies Completed and Pending Completed Studies During Hospitalization Category Date Time Status CT chest abdpel w/*[id number] Routine Cat Scan 03/03/23 18:[address] lower leg LT wo con* [id number] Routine Cat Scan 03/03/23 18:[address] lower leg RT wo con* [id number] Routine Cat Scan 03/03/23 18:56 Completed XR chest 1V portable [id number] Stat Exams 03/03/23 15:10 Completed Pending at discharge Category Date Time Status Blood Culture Stat Lab 03/03/23 15:26 Results Sputum Culture and Gram Stain Stat Lab 03/03/23 18:44 Uncollected Vancomycin Trough Timed Lab 03/06/23 21:00 Ordered Radiology Impressions Chest X-Ray 03/03/23 15:10 IMPRESSION: Stable abnormal chest with cardiomegaly and pulmonary venous hypertension. Chest/Abdomen/Pelvis CT 03/03/23 18:41 IMPRESSION: 1. Small pleural effusions. IMPRESSION: 1. Liver cirrhosis. 2. Splenomegaly. 3. Splenic hilar varices. 4. TIPS stent. 5. Cholelithiasis. 6. Mild ascites. Lower Extremity CT 03/03/23 18:56 IMPRESSION: Subcutaneous edema and skin thickening noted throughout the lower extremity. No evidence of osteomyelitis. Laboratory Results WBC 7.7 10^3/uL (4.0-10.0) 03/06/23 03:32 RBC 4.08 10^6/uL (4.1-5.3) L 03/06/23 03:32 Hgb 10.3 g/dL (11.7-16.6) L 03/06/23 03:32 Hct 33.8 % (42.0-52.0) L 03/06/23 03:32 MCV 82.8 fl (80-94) D 03/06/23 03:32 MCH 25.2 pg (28.0-34.0) L 03/06/23 03:32 MCHC 30.5 g/dL (30.0-36.0) D 03/06/23 03:32 RDW 19.1 % (12.1-15.1) H 03/06/23 03:32 Plt Count 64 10^3/cmm (130-400) L 03/06/23 03:32 MPV 10.7 fL (7.4-10.4) H 03/06/23 03:32 Neut % (Auto) 79.9 % 03/06/23 03:32 Lymph % (Auto) 7.6 % 03/06/23 03:32 [place] % (Auto) 7.7 % 03/06/23 03:32 Eos % (Auto) 2.2 % 03/06/23 03:32 Baso % (Auto) 0.9 % 03/06/23 03:32 Neut # (Auto) 6.14 10^3/uL (1.8-7.7) 03/06/23 03:32 Lymph # (Auto) 0.6 10^3/uL (0.8-4.8) L 03/06/23 03:32 [place] # (Auto) 0.6 10^3/uL (0.2-0.9) 03/06/23 03:32 Eos # (Auto) 0.2 10^3/uL (0.0-0.8) 03/06/23 03:32 Baso # (Auto) 0.1 10^3/uL (0.0-0.1) 03/06/23 03:32 Nucleated RBC % (auto) 0 % 03/06/23 03:32 Nucleated RBCs # 0.0 /100WBC 03/06/23 03:32 ESR 12 mm/hr (0-10) H 03/03/23 15:00 PT 18.00 SECONDS (12.1-14.9) H 03/03/23 15:00 INR 1.43 (0.8-1.2) H 03/03/23 15:00 Sodium 136 mmol/L (136-145) 03/06/23 03:32 Potassium 3.5 mmol/L (3.5-5.1) 03/06/23 03:32 Chloride 106 mmol/L (98-107) 03/06/23 03:32 Carbon Dioxide 19 mmol/L (22-29) L 03/06/23 03:32 Anion Gap 14.5 (5-19) 03/06/23 03:32 BUN 28 mg/dL (6-20) H 03/06/23 03:32 Creatinine 1.2 mg/dL (0.7-1.2) 03/06/23 03:32 GFR Calculation 62.2 mL/min (90-130) L 03/06/23 03:32 Glucose 102 mg/dL (65-115) 03/06/23 03:32 Estimat Average Glucose 123 03/04/23 04:50 Hemoglobin A1c 5.9 % (4.0-6.0) 03/04/23 04:50 Calculated Osmolality 288 mOsm/kg (285-295) 03/06/23 03:32 Lactic Acid 2.8 mmol/L (0.5-2.2) H 03/03/23 15:34 Lactic Acid (Sepsis) 2.9 mmol/L (0.5-2.2) H 03/03/23 17:46 Calcium 7.3 mg/dL (8.5-10.5) L 03/06/23 03:32 Phosphorus 5.0 mg/dL (2.5-4.5) H 03/04/23 04:50 Magnesium 1.5 mg/dL (1.7-2.3) L 03/04/23 04:50 Total Bilirubin 2.4 mg/dL (0.15-1.2) H 03/06/23 03:32 AST 29 U/L (0-40) 03/06/23 03:32 ALT 16 U/L (0-41) 03/06/23 03:32 Alkaline Phosphatase 148 U/L (40-130) H 03/06/23 03:32 Ammonia 47 umol/L (16-60) 03/03/23 15:52 C-Reactive Protein 14.8 mg/L (0.0-4.9) H 03/03/23 19:43 NT-Pro-B Natriuret Pep 457 pg/mL (0-125) H 03/03/23 15:00 Total Protein 5.6 g/dL (6.6-8.7) L 03/06/23 03:32 Albumin 2.4 g/dL (3.5-5.2) L 03/06/23 03:32 Globulin 3.2 g/dL (1.3-4.6) 03/06/23 03:32 Triglycerides 47 mg/dL (0-150) 03/04/23 04:50 Cholesterol 74 mg/dL (0-200) 03/04/23 04:50 LDL Cholesterol, Calc 15 mg/dL (50-129) L 03/04/23 04:50 HDL Cholesterol 50 mg/dL (60-100) L 03/04/23 04:50 LDL/HDL Ratio 0.30 RATIO (0.00-3.22) 03/04/23 04:50 Cholesterol/HDL Ratio 1.48 mg/dL (1.0-5.00) 03/04/23 04:50 Vitamin B12 > 2000 pg/mL (232-1245) H 03/03/23 19:43 Folate 13.8 ng/mL (4.5-32.2) 03/04/23 04:50 Procalcitonin 28.07 ng/mL (0-0.5) H 03/04/23 04:50 TSH 1.32 uIU/mL (0.27-4.20) 03/03/23 15:00 Urine Color Yellow (Yellow) 03/03/23 22:41 Urine Appearance Hazy (CLEAR) A 03/03/23 22:41 Urine pH 5 (5-7) 03/03/23 22:41 Ur Specific [place] 1.010 (1.005-1.030) 03/03/23 22:41 Urine Protein Trace (Negative) 03/03/23 22:41 Urine Glucose (UA) Norm (Normal) 03/03/23 22:41 Urine Ketones 1+ (Negative) H 03/03/23 22:41 Urine Blood Neg (Negative) 03/03/23 22:41 Urine Nitrate Negative (Negative) 03/03/23 22:41 Urine Bilirubin 1+ (Negative) H 03/03/23 22:41 Urine Urobilinogen Norm mg/dL (Negative) 03/03/23 22:41 Ur Leukocyte Esterase Trace (Negative) H 03/03/23 22:41 Urine RBC 0-4 /hpf (0-2) H 03/03/23 22:41 Urine WBC 0-4 /hpf (0-5) H 03/03/23 22:41 Ur Squamous Epith Cells 0-4 /hpf (0-5) H 03/03/23 22:41 Amorphous Sediment 1+ /hpf 03/03/23 22:41 Urine Bacteria Not Reportable 03/03/23 22:41 Urine Mucus 1+ /hpf 03/03/23 22:41 Nasal Influ A H1 2009 PCR Not detected (NOT DETECT) 03/03/23 15:17 Vancomycin Trough 36.5 ug/mL (10-15) H* 03/04/23 23:23 Adenovirus (PCR) Not detected (NOT DETECT) 03/03/23 15:17 C. pneumoniae DNA (PCR) Not detected (NOT DETECT) 03/03/23 15:17 Coronavirus 229E (PCR) Not detected (NOT DETECT) 03/03/23 15:17 Human Metapneumovir PCR Not detected (NOT DETECT) 03/03/23 15:17 Influenza A (H1) PCR Not detected (NOT DETECT) 03/03/23 15:17 Influenza A (H3) PCR Not detected (NOT DETECT) 03/03/23 15:17 Influenza Type A (PCR) Not detected (NOT DETECT) 03/03/23 15:17 Influenza Type B (PCR) Not detected (NOT DETECT) 03/03/23 15:17 M. pneumoniae (PCR) Not detected (NOT DETECT) 03/03/23 15:17 Parainfluenza 1 (PCR) Not detected (NOT DETECT) 03/03/23 15:17 Parainfluenza 2 (PCR) Not detected (NOT DETECT) 03/03/23 15:17 Parainfluenza 3 (PCR) Not detected (NOT DETECT) 03/03/23 15:17 Parainfluenza 4 (PCR) Not detected (NOT DETECT) 03/03/23 15:17 RSV Type A (PCR) Not detected (NOT DETECT) 03/03/23 15:17 RSV Type B (PCR) Not detected (NOT DETECT) 03/03/23 15:17 Entero/Rhino (PCR) Not detected (NOT DETECT) 03/03/23 15:17 SARS-CoV-2 (PCR) Not detected (NOT DETECT) 03/03/23 15:17 Vitals Last Vital Signs Temp 97.8 F 03/06/23 07:43 Pulse 66 03/06/23 07:43 Resp 16 03/06/23 07:43 BP 125/68 03/06/23 07:43 Pulse Ox 96 03/06/23 07:43 O2 Del Method Room Air 03/06/23 07:43 Discharge Plan Discharge Patient Disposition: Home Condition: Stable Prescriptions: New cephalexin 500 mg capsule 500 mg PO Q6H 4 Days Qty: 16 0RF Continued lactulose [Constulose] 10 gram/15 mL Solution 30 ml PO .ONCE TO TWICE DAILY PRN (Reason: Constipation) multivitamin [Multiple Vitamins] Tablet 1 tab PO DAILY thiamine HCl (vitamin B1) [Vitamin B-1] 100 mg Tablet 100 mg PO DAILY (DME) compression socks, x-large Misc See Rx Instructions .Route Qty: 2 4RF Rx Instructions: As directed bumetanide 1 mg tablet 0.5 mg PO DAILY tadalafil 10 mg Tablet 10 mg PO DAILY PRN (Reason: Sexual Activity) Rx Instructions: administer approximately 30min before sexual activity; do not use more than 1 dose per 24hrs Discharge Orders: Discharge Order (Routine); Ordered 03/06/23 Ordered By: Vikram Moy Referrals: Wound Care [Provider Group] - 4-7 days (Compression wraps BLLE) Manny Guzman DO [Primary Care Provider] - 03/08/23 9:20 am Patient Instructions: Opioid Safety, Lymphedema (GEN), Cellulitis (GEN), Cephalexin (By mouth) Activity Restrictions/Additional Instructions: Return to the hospital in case of any return of fevers, feeling worse, or any concerning symptoms. Discharge Attestations Time Spent in Discharge Care*: greater than 30 min Quality Metrics Clinical Quality Measures [ No reported AMI, CVA or VTE this stay] Coding Level of Care Code 08234 Total time (in minutes) for Discharge: 40 Diagnoses Fever R50.9 SIRS (systemic inflammatory response syndrome) R65.10 Cirrhosis K74.60 Cellulitis L03.90 Elevated lactic acid level R79.89
--- NOTE | 2023-03-06 13:37 | PC.NURSE ---
patient verbalized understanding of discharge instructions home medications, and follow up appointments. pts IV removed - tolerated well. patient stated that he is calling his ride that is slightly out of town.
[2023-03-06 14:59] VITALS: BP 110/52; PULSE 70; RESP 16; TEMP 36.8; O2SAT 96
== END 2023-03-06 14:40 | disposition home or self-care (01) | DRG 603 ==
LOC: ER 18:33 → MEDSURG 18:54
PROVIDERS: Admitting Provider Student in an Organized Health Care Education/Training Program; Emergency Provider Emergency Medicine; PCP Internal Medicine; Visit Provider Internal Medicine
DX: L03.116 Cellulitis of left lower limb (principal); E87.1 Hypo-osmolality and hyponatremia; N17.9 Acute kidney failure, unspecified; L03.115 Cellulitis of right lower limb; K70.30 Alcoholic cirrhosis of liver without ascites; F10.21 Alcohol dependence, in remission; I87.8 Other specified disorders of veins; D50.0 Iron deficiency anemia secondary to blood loss (chronic); M48.062 Spinal stenosis, lumbar region with neurogenic claudication; Z96.89 Presence of other specified functional implants; J32.9 Chronic sinusitis, unspecified; I86.8 Varicose veins of other specified sites; R65.10 Systemic inflammatory response syndrome (SIRS) of non-infectious origin without acute organ dysfunction; I83.12 Varicose veins of left lower extremity with inflammation; I83.11 Varicose veins of right lower extremity with inflammation
CPT/HCPCS: 36415; 71045; 71260; 73700; 74177; 80053; 80061; 80202; 81001; 82140; 82607; 82746; 83036; 83605; 83735; 83880; 84100; 84145; 84443; 85025; 85610; 85651; 86140; 87040; 87486; 87581; 87633; 87641; 93005; 94664; 96365; 96367; 96372; 96375; 97167; 99291; C9113; G0378; J1644; J1885; J2543; J3370; J3372; J7030; Q9967

== ENCOUNTER → 2023-03-08 08:06 | Outpatient (BNVA) | payer MEDICARE, MEDICAID, SELFPAY | PROVIDERS: PCP Internal Medicine; Visit Provider Thoracic Surgery (Cardiothoracic Vascular Surgery) | DX: E11.52 Type 2 diabetes mellitus with diabetic peripheral angiopathy with gangrene (principal); L97.412 Non-pressure chronic ulcer of right heel and midfoot with fat layer exposed; L97.422 Non-pressure chronic ulcer of left heel and midfoot with fat layer exposed | CPT/HCPCS: 97597; 97598; 99213 ==

== ENCOUNTER → 2023-03-15 08:50 | Outpatient (BNVA) | payer MEDICARE, MEDICAID, SELFPAY | PROVIDERS: PCP Internal Medicine; Visit Provider Thoracic Surgery (Cardiothoracic Vascular Surgery) | DX: E11.52 Type 2 diabetes mellitus with diabetic peripheral angiopathy with gangrene (principal); L97.412 Non-pressure chronic ulcer of right heel and midfoot with fat layer exposed; L97.422 Non-pressure chronic ulcer of left heel and midfoot with fat layer exposed | CPT/HCPCS: 11042; 97597; 97598; A6252 ==

== ENCOUNTER → 2023-03-17 14:12 | Outpatient (BNVA) | payer MEDICARE, MEDICAID, SELFPAY | PROVIDERS: PCP Internal Medicine; Visit Provider Thoracic Surgery (Cardiothoracic Vascular Surgery) | DX: E11.52 Type 2 diabetes mellitus with diabetic peripheral angiopathy with gangrene (principal); L97.412 Non-pressure chronic ulcer of right heel and midfoot with fat layer exposed; L97.422 Non-pressure chronic ulcer of left heel and midfoot with fat layer exposed | CPT/HCPCS: 29581; A6252 ==

== ENCOUNTER → 2023-03-20 09:29 | Outpatient (BNVA) | payer MEDICARE, MEDICAID, SELFPAY | PROVIDERS: PCP Internal Medicine; Visit Provider Thoracic Surgery (Cardiothoracic Vascular Surgery) | DX: E11.52 Type 2 diabetes mellitus with diabetic peripheral angiopathy with gangrene (principal); L97.412 Non-pressure chronic ulcer of right heel and midfoot with fat layer exposed; L97.422 Non-pressure chronic ulcer of left heel and midfoot with fat layer exposed | CPT/HCPCS: 29581; 97597; 97598; A6252 ==

== ENCOUNTER → 2023-03-22 09:02 | Outpatient (BNVA) | payer MEDICARE, MEDICAID, SELFPAY | PROVIDERS: PCP Internal Medicine; Visit Provider Thoracic Surgery (Cardiothoracic Vascular Surgery) | DX: E11.52 Type 2 diabetes mellitus with diabetic peripheral angiopathy with gangrene (principal); L97.412 Non-pressure chronic ulcer of right heel and midfoot with fat layer exposed; L97.422 Non-pressure chronic ulcer of left heel and midfoot with fat layer exposed | CPT/HCPCS: A6252 ==

== ENCOUNTER 2023-03-25 09:50 | Inpatient (IN) | payer MEDICARE, MEDICAID, SELFPAY ==
[2023-03-25] VITALS (71 sets, daily range): BP systolic 83–135; BP diastolic 40–79; PULSE 80–117; RESP 14–47; TEMP 38.4–38.7; O2SAT 93–100; BMI 28.7
--- NOTE | 2023-03-25 09:57 | XRR_ITS ---
PROCEDURE INFORMATION: Exam: XR Chest Exam date and time: 03/25/2023 10:05 AM Age: 57 years old Clinical indication: Cough and dyspnea; Additional info: Dyspnea/cough TECHNIQUE: Imaging protocol: Radiologic exam of the chest. Views: 1 view. COMPARISON: CT chest abdpel w/*[id number] 03/03/2023 7:11 PM FINDINGS: Lungs: There is no consolidation. Pleural spaces: The left lateral costophrenic sulcus is blunted. No pneumothorax. Heart/Mediastinum: The cardiac silhouette is within normal limits of size given AP technique. Bones/joints: Bones are unremarkable. XR/XR chest 1V portable [id number] IMPRESSION: Blunted left lateral costophrenic sulcus. Probable small pleural effusion.
--- NOTE | 2023-03-25 09:57 | ECG_ITS ---
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 Measurements Intervals Umpire Rate: 119 P: 50 MO: 93 QRS: -9 QRSD: 89 T: 77 QT: 360 QTc: 508 Interpretive Statements SINUS TACHYCARDIA WITH SHORT MO INTERVAL WITH OCCASIONAL SUPRAVENTRICULAR PREMATURE COMPLEXES ST DEPRESSION, CONSIDER SUBENDOCARDIAL INJURY [0.1+ mV ST DEPRESSION] Compared to ECG 03/03/2023 15:38:38 Short MO interval now present ST (T wave) deviation now present Sinus rhythm no longer present Electronically Signed On 03-25-2023 11:14:56 CDT by Derik Connolly M.D. [id number]
--- NOTE | 2023-03-25 10:11 | USR_ITS ---
PROCEDURE INFORMATION: Exam: US Duplex Lower Extremity Veins, Bilateral Exam date and time: 03/25/2023 11:16 AM Age: 57 years old Clinical indication: Swelling (edema) of limb; Lower extremity, bilateral; Additional info: Leg swelling TECHNIQUE: Imaging protocol: Real-time duplex ultrasound of the bilateral extremities with 2-D mack scale, color Doppler flow and spectral waveform analysis including responses to compression and other maneuvers (when performed) with image documentation. Complete exam focused on the lower extremity veins. COMPARISON: CT lower leg RT wo con* [id number] 03/03/2023 7:16 PM FINDINGS: Right deep veins: Unremarkable. The common femoral, femoral, proximal profunda femoral and popliteal veins are patent without thrombus. Normal Doppler waveforms. Normal compressibility and/or augmentation response. Posterior tibial and peroneal veins are patent. Right superficial veins: Saphenofemoral junction is patent without thrombus. Left deep veins: Unremarkable. The common femoral, femoral, proximal profunda femoral and popliteal veins are patent without thrombus. Normal Doppler waveforms. Normal compressibility and/or augmentation response. Posterior tibial and peroneal veins are not imaged. Left superficial veins: Saphenofemoral junction is patent without thrombus. Soft tissues: Subcutaneous edema in the lower legs. US/[place] [id number] IMPRESSION: No evidence of deep vein thrombosis.
--- NOTE | 2023-03-25 10:21 | ED_ITS ---
HPI - Altered Mental Status General: Chief Complaint: Altered Mental Status Stated Complaint: AMS Time Seen by Provider: 03/25/23 09:56 Source: patient Mode of arrival: EMS History of Present Illness: 57-year-old male presents emergency room with altered mental status has a known history of cirrhosis of the liver he did undergo a TIPS procedure which has been very helpful patient has not needed paracentesis since then. He has been tachycardic and noted to have an elevated fever at the retirement. Last month he was hospitalized with cellulitis he still has bilateral lower extremity edema with compression wraps on the legs. He states he has been urinating a lot and very thirsty he denies any history of diabetes. PFSH ED PFSH: Medical History Acute on chronic anemia Acute on chronic blood loss anemia ARMEN (acute kidney injury) Alcoholic cirrhosis of liver Callus of foot Cholelithiasis Not thought to be because of Pseudomonas bacteremia. HIDA scan normal. Surgery consultation was obtained. Cirrhosis Declining functional status Generalized weakness Leukocytosis Low back pain radiating to right lower extremity Lumbar stenosis with neurogenic claudication Lytic bone lesions on xray Pressure injury of both feet, unstageable Splenomegaly Stage I pressure ulcer of heel Swelling of lower extremity Venous stasis dermatitis Surgical History S/P TIPS (transjugular intrahepatic portosystemic shunt) Family History Other Healthy adult Social History Smoking and tobacco status: never smoked Alcohol intake: former Year of sobriety/quit date alcohol: 3 ya Substance/Drug Use: former Lives independently: No Household members: spouse Marital status: Current occupational status: unemployed Course Vital Signs: Vital signs: Vital Signs Temperature 101.6 F H 03/25/23 09:52 Pulse Rate 116 H 03/25/23 09:52 Respiratory Rate 20 H 03/25/23 09:52 Blood Pressure 87/43 03/25/23 09:52 Pulse Oximetry 95 03/25/23 09:52 Oxygen Delivery Me thod Room Air 03/25/23 09:52 MDM - Altered Mental Status Lab Data 03/25/23 09:36 03/25/23 09:36 Discharge Plan Discharge Condition: Stable Prescriptions: No Action lactulose [Constulose] 10 gram/15 mL Solution 30 ml PO .ONCE TO TWICE DAILY PRN (Reason: Constipation) multivitamin [Multiple Vitamins] Tablet 1 tab PO DAILY thiamine HCl (vitamin B1) [Vitamin B-1] 100 mg Tablet 100 mg PO DAILY (DME) compression socks, x-large Misc See Rx Instructions .Route Qty: 2 4RF Rx Instructions: As directed bumetanide 1 mg tablet 0.5 mg PO DAILY tadalafil 10 mg Tablet 10 mg PO DAILY PRN (Reason: Sexual Activity) Rx Instructions: administer approximately 30min before sexual activity; do not use more than 1 dose per 24hrs Referrals: Manny Guzman DO [Primary Care Provider] - Patient Instructions: Altered Mental Status (ED), Alcohol Intoxication (ED), Benzodiazepine Use Disorder (ED), Concussion (ED), Dementia (ED), Subarachnoid Hemorrhage (GEN), Hyponatremia (ED), Non-diabetic Hypoglycemia (ED), Hypoglycemia in a Person with Diabetes (ED) Coding Level of Care Code ED Actuarial Technician for Audrey Goel
[2023-03-25 10:23] LABS: Eosinophils % 0.5 %; Hematocrit 45.6 % (42.0-52.0); Hemoglobin 14.3 g/dL (11.7-16.6); Lymphocytes # 0.2 10^3/uL (0.8-4.8); Lymphocytes % 8.3 %; Mean Corpuscular HGB Conc 31.4 g/dL (30.0-36.0); Mean Corpuscular Hemoglobin 26.2 pg (28.0-34.0); Mean Corpuscular Volume 83.7 fl (80-94); Monocytes % 0.5 %; Neutrophils # 1.83 10^3/uL (1.8-7.7); Neutrophils % 89.2 %; Nucleated Red Blood Cells % 0 %; Platelet Count 186 10^3/cmm (130-400); Red Blood Count 5.45 10^6/uL (4.1-5.3); Red Cell Distribution Width 19.9 % (12.1-15.1); White Blood Count 2.1 10^3/uL (4.0-10.0)
--- NOTE | 2023-03-25 10:23 | W.ED.GENADLT ---
HPI - General Adult General: Chief complaint: Altered Mental Status Stated complaint: AMS Time Seen by Provider: 03/25/23 09:56 Source: patient History of Present Illness: 57-year-old male presents emergency room with altered mental status has a known history of cirrhosis of the liver he did undergo a TIPS procedure which has been very helpful patient has not needed paracentesis since then. He has been tachycardic and noted to have an elevated fever at the [facility]. Last month he was hospitalized with cellulitis he still has bilateral lower extremity edema with compression wraps on the legs. He states he has been urinating a lot and very thirsty he denies any history of diabetes. Associated symptoms: Reports confusion, cough, decreased appetite, dyspnea, fevers/chills, malaise, nausea and weakness; Deny chest pain, diaphoresis, headache(s), rash, palpitations, seizures, short of breath, syncope or vomiting Treatments prior to arrival: none Review of Systems Const: Reports: fever(s), chills and malaise; Denies: diaphoresis Card: Denies: chest pain, palpitations or syncope Resp: Reports: dyspnea; Denies: productive cough GI: Reports: abdominal pain and nausea; Denies: vomiting : Denies: flank pain, dysuria, urinary frequency or urinary urgency Musc: Denies: neck pain or back pain Skin/Breast: Denies: rash Neuro: Reports: confusion; Denies: headache(s) PFS ED PFSH: Medical History Acute on chronic anemia Acute on chronic blood loss anemia ARMEN (acute kidney injury) Alcoholic cirrhosis of liver Callus of foot Cholelithiasis Not thought to be because of Pseudomonas bacteremia. HIDA scan normal. Surgery consultation was obtained. Cirrhosis Declining functional status Generalized weakness Leukocytosis Low back pain radiating to right lower extremity Lumbar stenosis with neurogenic claudication Lytic bone lesions on xray Pressure injury of both feet, unstageable Splenomegaly Stage I pressure ulcer of heel Swelling of lower extremity Venous stasis dermatitis Surgical History S/P TIPS (transjugular intrahepatic portosystemic shunt) Family History Other Healthy adult Social History Smoking and tobacco status: never smoked Alcohol intake: former Year of sobriety/quit date alcohol: 3 ya Substance/Drug Use: former Lives independently: No Household members: spouse Marital status: Current occupational status: unemployed Physical Exam Const: GENERAL APPEARANCE: cooperative and comfortable ORIENTATION/CONSCIOUSNESS: Yes awake and Yes oriented to time HENMT: COMMON NORMALS: normocephalic, atraumatic and hearing grossly normal bilaterally HEAD & SCALP: normocephalic and atraumatic Resp: COMMON NORMALS: normal respiratory effort, No retractions, No use of accessory muscles and clear to auscultation bilaterally AUSCULTATION: clear to auscultation bilaterally Cardio: COMMON NORMALS: regular rhythm and No murmurs present (Cardio) RATE: tachycardic RHYTHM: regular rhythm GI: COMMON NORMALS: Soft to palpation AUSCULTATION: Yes normoactive bowel sounds PALPATION: Yes Soft to palpation, No Tenderness to palpation present (GI), No Guarding due to palpation present (GI) and Yes Hepatomegaly present Extremity: OTHER: Pitting and3+ edema lower extremities to the level of the thigh, with pitting edema redness and inflammation Neuro: SENSORIUM/ORIENTATION: Yes oriented to time Skin: COMMON NORMALS: no rashes or lesions noted GENERAL SKIN EXAM: no rashes or lesions noted Course Vital Signs: Vital signs: Vital Signs Temperature 101.6 F H 03/25/23 09:52 Pulse Rate 117 H 03/25/23 11:06 Respiratory Rate 14 03/25/23 11:06 Blood Pressure 135/79 03/25/23 11:06 Pulse Oximetry 98 03/25/23 11:06 Oxygen Delivery Me thod Room Air 03/25/23 11:06 [facility] - General Adult Medical Decision Making Patient septic with an elevated lactic acid. Blood pressure has been stable most recent 135/79 is given fluid bolus cultures and antibiotics started. Discussed with Dr. Norris his lactate is elevated his ammonia level is elevated as well which may contribute to his confusion. We will admit to the ICU continued IV antibiotics. Medical Records I reviewed the patient's medical records. Lab Data I reviewed the patient's lab results. 03/25/23 09:36 03/25/23 09:36 Radiology Impressions Chest X-Ray 03/25/23 09:57 IMPRESSION: Blunted left lateral costophrenic sulcus. Probable small pleural effusion. Venous Duplex 03/25/23 10:11 IMPRESSION: No evidence of deep vein thrombosis. Laboratory Results WBC 2.1 10^3/uL (4.0-10.0) L 03/25/23 09:36 RBC 5.45 10^6/uL (4.1-5.3) H 03/25/23 09:36 Hgb 14.3 g/dL (11.7-16.6) 03/25/23 09:36 Hct 45.6 % (42.0-52.0) 03/25/23 09:36 MCV 83.7 fl (80-94) 03/25/23 09:36 MCH 26.2 pg (28.0-34.0) L 03/25/23 09:36 MCHC 31.4 g/dL (30.0-36.0) 03/25/23 09:36 RDW 19.9 % (12.1-15.1) H 03/25/23 09:36 Plt Count 186 10^3/cmm (130-400) 03/25/23 09:36 MPV 9.0 fL (7.4-10.4) 03/25/23 09:36 Neut % (Auto) 89.2 % 03/25/23 09:36 Lymph % (Auto) 8.3 % 03/25/23 09:36 [place] % (Auto) 0.5 % 03/25/23 09:36 Eos % (Auto) 0.5 % 03/25/23 09:36 Baso % (Auto) 1.0 % 03/25/23 09:36 Neut # (Auto) 1.83 10^3/uL (1.8-7.7) 03/25/23 09:36 Lymph # (Auto) 0.2 10^3/uL (0.8-4.8) L 03/25/23 09:36 [place] # (Auto) 0.0 10^3/uL (0.2-0.9) L 03/25/23 09:36 Eos # (Auto) 0.0 10^3/uL (0.0-0.8) 03/25/23 09:36 Baso # (Auto) 0.0 10^3/uL (0.0-0.1) 03/25/23 09:36 Nucleated RBC % (auto) 0 % 03/25/23 09:36 Nucleated RBCs # 0.0 /100WBC 03/25/23 09:36 PT 17.90 SECONDS (12.1-14.9) H 03/25/23 09:36 INR 1.42 (0.8-1.2) H 03/25/23 09:36 APTT 32.1 SECONDS (23.9-36.7) 03/25/23 09:36 Sodium 142 mmol/L (136-145) 03/25/23 09:36 Potassium 3.5 mmol/L (3.5-5.1) 03/25/23 09:36 Chloride 104 mmol/L (98-107) 03/25/23 09:36 Carbon Dioxide 18 mmol/L (22-29) L 03/25/23 09:36 Anion Gap 23.5 (5-19) H 03/25/23 09:36 BUN 8 mg/dL (6-20) 03/25/23 09:36 Creatinine 1.0 mg/dL (0.7-1.2) 03/25/23 09:36 GFR Calculation 76.7 mL/min (90-130) L 03/25/23 09:36 Glucose 120 mg/dL (65-115) H 03/25/23 09:36 Calculated Osmolality 294 mOsm/kg (285-295) 03/25/23 09:36 Lactic Acid 6.2 mmol/L (0.5-2.2) H* 03/25/23 11:14 Calcium 8.8 mg/dL (8.5-10.5) 03/25/23 09:36 Total Bilirubin 3.8 mg/dL (0.15-1.2) H 03/25/23 09:36 AST 28 U/L (0-40) 03/25/23 09:36 ALT 12 U/L (0-41) 03/25/23 09:36 Alkaline Phosphatase 121 U/L (40-130) 03/25/23 09:36 Ammonia 93 umol/L (16-60) H 03/25/23 11:14 Total Protein 7.3 g/dL (6.6-8.7) 03/25/23 09:36 Albumin 3.1 g/dL (3.5-5.2) L 03/25/23 09:36 Globulin 4.2 g/dL (1.3-4.6) 03/25/23 09:36 Lipase 69 U/L (13-60) H 03/25/23 09:36 Serum Ketones Negative (Negative) 03/25/23 09:36 Discharge Plan Discharge Condition: Stable Prescriptions: No Action lactulose [Constulose] 10 gram/15 mL Solution 30 ml PO .ONCE TO TWICE DAILY PRN (Reason: Constipation) multivitamin [Multiple Vitamins] Tablet 1 tab PO DAILY thiamine HCl (vitamin B1) [Vitamin B-1] 100 mg Tablet 100 mg PO DAILY (DME) compression socks, x-large Misc See Rx Instructions .Route Qty: 2 4RF Rx Instructions: As directed bumetanide 1 mg tablet 0.5 mg PO DAILY tadalafil 10 mg Tablet 10 mg PO DAILY PRN (Reason: Sexual Activity) Rx Instructions: administer approximately 30min before sexual activity; do not use more than 1 dose per 24hrs Referrals: Manny Guzman DO [Primary Care Provider] - Patient Instructions: Hyponatremia (ED), Benzodiazepine Use Disorder (ED), Dementia (ED), Non-diabetic Hypoglycemia (ED), Hypoglycemia in a Person with Diabetes (ED), Concussion (ED), Alcohol Intoxication (ED), Subarachnoid Hemorrhage (GEN), Altered Mental Status (ED) Coding Level of Care Code ED Ems Manager for Audrey Goel
[2023-03-25 10:48] LABS: Alanine Aminotransferase 12 U/L (0-41); Albumin Level 3.1 g/dL (3.5-5.2); Alkaline Phosphatase 121 U/L (40-130); Anion Gap 23.5 (5-19); Aspartate Amino Transferase 28 U/L (0-40); Blood Urea Nitrogen 8 mg/dL (6-20); Calcium 8.8 mg/dL (8.5-10.5); Carbon Dioxide 18 mmol/L (22-29); Chloride 104 mmol/L (98-107); Globulin 4.2 g/dL (1.3-4.6); Glomerular Filtration Rate 76.7 mL/min (90-130); Glucose 120 mg/dL (65-115); Lipase 69 U/L (13-60); Osmolality Calculated 294 mOsm/kg (285-295); Potassium 3.5 mmol/L (3.5-5.1); Sodium 142 mmol/L (136-145); Total Bilirubin 3.8 mg/dL (0.15-1.2); Total Protein 7.3 g/dL (6.6-8.7)
[2023-03-25 10:59] LABS: INR 1.42 (0.8-1.2)
[2023-03-25 11:00] LABS: Partial Thromboplastin Time 32.1 SECONDS (23.9-36.7)
[2023-03-25 11:13] LABS: Ketone (Acetest) Serum Negative (Negative)
[2023-03-25 11:37] LABS: Ammonia 93 umol/L (16-60)
[2023-03-25 12:07] LABS: Lactic Sepsis W/Reflex 6.2 mmol/L (0.5-2.2)
--- NOTE | 2023-03-25 12:31 | PM.HP ---
Providers/Chief Complaint Primary Care Provider: Manny Guzman DO Chief Complaint: AMS History of Present Illness Kyle Conde is a 57 year old male with a past medical of alcohol related liver cirrhosis status post TIPS, no current alcoholism, history of bilateral venous stasis dermatitis, history of chronic ulcers bilateral lower extremities managed with wound care, history of chronic anemia, ARMEN, history of cholelithiasis, history of pressure ulcers bilateral heels, who presents to [facility] due to plaints of fevers, chills, rigors fatigue, malaise, diffuse aches and pains, altered mental status. Currently patient is alert to person, to place, not to time, he does follow commands, currently he is receiving a venous ultrasound, complaining of extreme intolerance to cold, complaining of severe chills and rigors, diffuse aches and pains. He denies any cough, no shortness of breath. No headache, blurry vision. No neck pain notes neck stiffness. No abdominal pain no abdominal distention. No diarrhea. No sick contacts, recent travel. Denies any significant hospitalizations in the last few weeks or significant illness. He tells me that he sees wound care for his bilateral lower extremity venous stasis dermatitis, and his heel ulcers which are managed through wound care. No recent falls, recent injuries, no smoking. No alcoholism. He denies any dysuria, no hematuria. In the emergency room, he was found to be hypotensive, tachycardic, febrile, lactic acid 6.2. In septic shock, given fluid bolus, most recent blood pressure 130/70, currently febrile, having intermittent episodes of confusion, severe pain chills and rigors. Review of Systems Const: Reports: fever(s), chills, body aches, fatigue and malaise Eyes: Denies: change in vision ENMT: Denies: throat pain Card: Denies: chest pain, palpitations, lightheadedness or syncope Resp: Denies: dyspnea, productive cough or non-productive cough GI: Denies: abdominal pain, nausea, vomiting, hematemesis, coffee ground emesis or constipation : Denies: flank pain, difficulty urinating, dysuria, urinary frequency or urinary urgency Musc: Denies: neck pain, back pain or joint pain Skin/Breast: Reports: rash; Denies: pruritus Neuro: Reports: weakness in extremities and confusion; Denies: headache(s), numbness in extremities, frequent falls, dizziness or Slurred speech present Endo: Denies: polyuria or polydipsia Patel/Lymph: Denies: easy bruising Medications/Allergies Home Medications Medication Instructions Recorded Confirmed Last Taken Type lactulose 10 gram/15 mL oral 30 ml PO .ONCE TO TWICE DAILY PRN 02/21/20 03/25/23 02/22/21 History solution (Constulose) Constipation multivitamin (Multiple Vitamins 1 tab PO DAILY 06/18/20 03/25/23 03/03/23 History tablet) thiamine HCl (vitamin B1) 100 mg 100 mg PO DAILY 06/18/20 03/25/23 03/03/23 History tablet (Vitamin B-1) compression socks, x-large #2 ea 03/12/22 03/25/23 Unknown Rx bumetanide 1 mg tablet 0.5 mg PO DAILY 03/03/23 03/25/23 03/03/23 History tadalafil 10 mg tablet 10 mg PO DAILY PRN Sexual Activity 03/03/23 03/25/23 Unknown History Allergies Allergy/AdvReac Type Severity Reaction Status Date / Time hydrocodone Allergy ADR-Nausea Verified 03/25/23 10:27 morphine Allergy ADR-Drowsy Verified 03/25/23 10:27 oxycodone [From OxyContin] Allergy ADR-Nausea Verified 03/25/23 10:27 PFSH Acute PFSH: Medical History Acute on chronic anemia Acute on chronic blood loss anemia ARMEN (acute kidney injury) Alcoholic cirrhosis of liver Callus of foot Cholelithiasis Not thought to be because of Pseudomonas bacteremia. HIDA scan normal. Surgery consultation was obtained. Cirrhosis Declining functional status Generalized weakness Leukocytosis Low back pain radiating to right lower extremity Lumbar stenosis with neurogenic claudication Lytic bone lesions on xray Pressure injury of both feet, unstageable Splenomegaly Stage I pressure ulcer of heel Swelling of lower extremity Venous stasis dermatitis Surgical History S/P TIPS (transjugular intrahepatic portosystemic shunt) Family History Other Healthy adult Social History Smoking and tobacco status: never smoked Alcohol intake: former Year of sobriety/quit date alcohol: 3 ya Substance/Drug Use: former Lives independently: No Household members: spouse Marital status: Current occupational status: unemployed Vitals/I&O/Wt Last Vital Signs Temp 101.6 F H 03/25/23 09:52 Pulse 117 H 03/25/23 11:06 Resp 14 03/25/23 11:06 BP 135/79 03/25/23 11:06 Pulse Ox 98 03/25/23 11:06 O2 Del Method Room Air 03/25/23 11:06 Weight last 48 hrs Weight 104.326 kg Physical Exam Const: COMMON NORMALS: no acute distress GENERAL APPEARANCE: cooperative ORIENTATION/CONSCIOUSNESS: Yes awake, Yes oriented to person, Yes oriented to place and Yes confused; not oriented to time HENMT: COMMON NORMALS: normocephalic and Normal external nose present HEAD & SCALP: normocephalic FACE & SINUS: normal facial exam Eye: COMMON NORMALS: Equal, round and reactive pupils present, EOMs intact bilaterally, conjunctivae normal and no scleral icterus CONJUNCTIVA: Yes conjunctivae normal PUPIL: Yes Equal, round and reactive pupils present Neck/C-Spine: COMMON NORMALS: full ROM, no lymphadenopathy, no meningeal signs, no JVD, Thyroid normal and No carotid bruits THYROID: Thyroid normal Lymph: LYMPHATIC: no lymphadenopathy noted Chest: COMMONS NORMALS: normal inspection of the chest Resp: COMMON NORMALS: normal respiratory effort, No retractions, No use of accessory muscles and clear to auscultation bilaterally AUSCULTATION: clear to auscultation bilaterally Cardio: COMMON NORMALS: no JVD, regular rate, regular rhythm, S1 normal heart sound present, S2 normal heart sound present, No murmurs present (Cardio) and Peripheral pulses 2+ throughout RATE: regular rate RHYTHM: regular rhythm HEART SOUNDS: S1 normal heart sound present and S2 normal heart sound present PERIPHERAL PULSES: Peripheral pulses 2+ throughout GI: COMMON NORMALS: Normal to inspection, nondistended, normoactive bowel sounds present, Soft to palpation and non-tender PALPATION: Yes Soft to palpation : COMMON NORMALS: Yes no CVA tenderness BLADDER/KIDNEY EXAM: Yes no CVA tenderness Back/Pelvis: COMMON NORMALS: no CVA tenderness Extremity: COMMON NORMALS: no calf tenderness NARRATIVE EXTREMITY EXAM: Bilateral extremity, chronic venous stasis dermatitis Bilateral extremity erythema, swelling, diffuse tenderness at the level of bilateral knees Bilateral heels, bilateral heel ulcers, superficial Neuro: COMMON NORMALS: CN's II-XII intact bilaterally, moves all extremities, no focal motor deficits and no sensory deficits noted MENINGEAL SIGNS: Yes no meningeal signs Psych: COMMON NORMALS: cooperative and speech normal SPEECH: Yes normal speech THOUGHT PROCESS: Normal thought process present Skin: COMMON NORMALS: turgor normal GENERAL SKIN EXAM: turgor normal Data 03/25/23 09:36 03/25/23 09:36 Micro: Microbiology 03/25/23 11:14 Blood Culture - Preliminary Blood SPECIMEN COLLECTED 03/25/23 10:07 Blood Culture - Preliminary Blood SPECIMEN COLLECTED A&P Assessment and plan (1) Elevated lactic acid level: (2) Cirrhosis: (3) Septic shock: (4) Sepsis: (5) Cellulitis: (6) Leukopenia: (7) Metabolic acidosis: (8) Hyperammonemia: (9) Hypoalbuminemia: Plan Sepsis secondary to cellulitis -Sepsis criteria met due to shock, hypotension, responsive to fluid, tachycardic, fevers, altered mental status, lactic acid of 6.2, INR 1.42, leukopenia 2.1 Plan -Admit to ICU -Monitor hemodynamics closely -Receiving sepsis bolus -Maintain MAP greater than 65 -Broad-spectrum antibody therapy vancomycin, Zosyn -Follow blood cultures, MRSA nares PCR -We will consider further imaging based on clinical progress -Urinalysis -Full code -Lovenox for DVT prophylaxis Leukopenia, likely secondary to sepsis, cellulitis Elevated INR, likely secondary to sepsis, cellulitis, liver failure Lactic acidosis, secondary to sepsis, cellulitis as above -Repeat lactic acid Metabolic acidosis due to sepsis as above Hyperammonemia secondary to liver failure, continue lactulose Hypoalbuminemia, likely secondary to liver cirrhosis, 1 dose albumin Altered mental status, likely secondary to sepsis, cellulitis, monitor Attestations Medical Necessity Statement*: Patient requires hospitalization for sepsis secondary to cellulitis, altered mental status, metabolic acidosis, lactic acidosis, elevated INR, inpatient, greater than 2 midnights Diagnoses Elevated lactic acid level R79.89 Cirrhosis K74.60 Septic shock A41.9; R65.21 Sepsis A41.9 Cellulitis L03.90 Leukopenia D72.819 Metabolic acidosis E87.20 Hyperammonemia E72.20 Hypoalbuminemia E88.09
[2023-03-25 12:56] LABS: Reflex Lactate Order REFLEX LACTIC ORDERD
[2023-03-25 12:59] LABS: Erythrocyte Sedimentation Rate 33 mm/hr (0-10)
[2023-03-25 13:00] LABS: Thyroid Stimulating Hormone 2.87 uIU/mL (0.27-4.20)
[2023-03-25 13:04] LABS: Gamma Glutamyl Transferase 69 U/L (8-61); NT Pro B Type Natriuretic Pept 548 pg/mL (0-125); Procalcitonin 1.97 ng/mL (0-0.5)
[2023-03-25 13:05] LABS: HIV 1 & 2 Antibody Non-Reactive (Non-Reactiv); HIV 1 & 2 Antigen Non-Reactive (Non-Reactiv)
[2023-03-25 13:08] LABS: Hepatitis A Antibody IgM Non-Reactive (Nonreactive); Hepatitis B Core IgM Non-Reactive (Nonreactive); Hepatitis B Surface Antigen Non-Reactive (Nonreactive); Hepatitis C Virus Antibody Non-Reactive (Nonreactive)
[2023-03-25 13:15] LABS: C Reactive Protein 16.3 mg/L (0.0-4.9)
[2023-03-25] MEDS: vancomycin 1,500 MG/300 ML PIGGYBACK 200 MG IV (13:23)
--- NOTE | 2023-03-25 13:24 | ECG_ITS ---
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 Measurements Intervals [place] Rate: 96 P: -54 DE: 67 QRS: 10 QRSD: 83 T: 54 QT: 367 QTc: 465 Interpretive Statements SINUS RHYTHM WITH SHORT DE INTERVAL POSSIBLE ANTERIOR MYOCARDIAL INFARCTION , PROBABLY OLD [30 ms Q WAVE IN V3/V4, OR R < 0.2 mV IN V4] Possible INFERIOR MYOCARDIAL INFARCTION probably old Compared to ECG 03/25/2023 10:05:36 Myocardial infarct finding now present Sinus tachycardia no longer present ST (T wave) deviation no longer present Electronically Signed On 03-26-2023 9:42:14 CDT by Derik Connolly M.D. [email or web address]
[2023-03-25] MEDS: sodium chloride 0.9% 1,000 ML 75 ML IV (13:43)
[2023-03-25] MEDS: pantoprazole 40 mg SDV IVP (13:48)
[2023-03-25] MEDS: enoxaparin 40 mg/0.4 mL Syringe SUBCUT (13:53)
[2023-03-25] MEDS: albumin 25 G/100 ML BAG 60 G IV (13:54)
[2023-03-25] MEDS: lactulose oral liq 20 gm/30 mL UDC PO (13:57)
--- NOTE | 2023-03-25 14:19 | ECG_ITS ---
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 Measurements Intervals [place] Rate: 92 P: 0 TX: 0 QRS: 12 QRSD: 101 T: 60 QT: 383 QTc: 475 Interpretive Statements Sinus rhythm with frequent PACs, possible brief bursts of atrial fibrillation Occasional PVCs ABNORMAL RHYTHM ECG Compared to ECG 03/25/2023 13:24:38 Ventricular premature complex(es) now present Aberrant conduction of supraventricular beat(s) now present Short TX interval no longer present Myocardial infarct finding no longer present Electronically Signed On 03-26-2023 9:46:31 CDT by Derik Connolly M.D. [id number]
[2023-03-25 14:46] LABS: Lactic Acid level (Lactate) 9.3 mmol/L (0.5-2.2)
[2023-03-25 14:55] LABS: Troponin(5th) Baseline 33 ng/L (0-15)
--- NOTE | 2023-03-25 15:04 | PC.NURSE ---
Nurse received patient from ER staff at 1345. BP 107/49, HR: 90, SPO2: 98% on room air, temp: 100.3. Patient can answer all orientation questions, but is lethargic. NUrse oriented patient to the room, explained plan of care including antibiotics and blood pressure support.
--- NOTE | 2023-03-25 15:05 | CTR_ITS ---
PROCEDURE INFORMATION: Exam: CT Chest With Contrast; Diagnostic Exam date and time: 03/25/2023 3:33 PM Age: 57 years old Clinical indication: Abdominal pain; Other: Sepsis, lactic acidosis TECHNIQUE: Imaging protocol: Diagnostic computed tomography of the chest with contrast. Radiation optimization: All CT scans at this facility use at least one of these dose optimization techniques: automated exposure control; mA and/or kV adjustment per patient size (includes targeted exams where dose is matched to clinical indication); or iterative reconstruction. Contrast material: OMNI 350; Contrast volume: 100 ml; Contrast route: INTRAVENOUS (IV); REPORTING DATA: Count of CT and Cardiac NM exams in prior 12 months: This patient has received 4 known CTs and 0 known cardiac nuclear medicine studies in the 12 months prior to the current study. COMPARISON: CT chest abdpel w/*[id number] 03/03/2023 7:11 PM RADIATION DOSE METRICS: Total DLP (mGy-cm): 1595.79 FINDINGS: Lungs: There are pulmonary parenchymal calcifications consistent with remote granulomatous organism exposure. Pleural spaces: Bilateral pleural effusions with adjacent compressive atelectasis. Heart: Mild cardiomegaly. Coronary arteries: Multivessel atherosclerotic disease which involves the coronary arteries. Lymph nodes: There are calcified mediastinal and perihilar lymph nodes consistent with prior granulomatous exposure. Vasculature: No central filling defects within the main pulmonary arteries through the first order segmental branches to suggest pulmonary embolism. Distal to this, the examination is inconclusive secondary to inadequate opacification of the distal pulmonary arteries. Bones/joints: Unremarkable. No acute fracture. Soft tissues: Unremarkable. PROCEDURE INFORMATION: Exam: CT Abdomen And Pelvis With Contrast Exam date and time: 03/25/2023 3:33 PM Age: 57 years old Clinical indication: Abdominal pain; Other: Sepsis, lactic acidosis TECHNIQUE: Imaging protocol: Computed tomography of the abdomen and pelvis with contrast. Radiation optimization: All CT scans at this facility use at least one of these dose optimization techniques: automated exposure control; mA and/or kV adjustment per patient size (includes targeted exams where dose is matched to clinical indication); or iterative reconstruction. Contrast material: OMNI 350; Contrast volume: 100 ml; Contrast route: INTRAVENOUS (IV); REPORTING DATA: Count of CT and Cardiac NM exams in prior 12 months: This patient has received 4 known CTs and 0 known cardiac nuclear medicine studies in the 12 months prior to the current study. COMPARISON: CT chest abdpel w/*[id number] 03/03/2023 7:11 PM RADIATION DOSE METRICS: Total DLP (mGy-cm): 1595.79 FINDINGS: Liver: Cirrhotic liver with associated splenomegaly and intrahepatic portosystemic shunt. The lumen of the shunt is not well seen. Gallbladder and bile ducts: Cholelithiasis. Pancreas: Normal. No ductal dilation. Spleen: There are varicosities at the splenic hilum. Adrenal glands: Normal. No mass. Kidneys and ureters: There is a 3.5 cm cyst with benign features in the right kidney. Stomach and bowel: There is fluid in multiple small bowel loops some of which are dilated. There is air and stool scattered throughout the colon and a moderate to large amount of air and stool in the rectal vault. Appendix: No evidence of appendicitis. Intraperitoneal space: There is a moderate amount of free intraperitoneal fluid/ascites in the abdomen/pelvis. Vasculature: See Liver finding. Lymph nodes: Multiple subcentimeter mesenteric and retroperitoneal lymph nodes. Urinary bladder: Bladder wall is thickened. Reproductive: Unremarkable as visualized. Bones/joints: There are degenerative changes in the visualized spine. Degenerative changes extend across the hip joints. Soft tissues: Unremarkable. CT/CT chest abdpel w/*[id number] IMPRESSION: 1. Mild cardiomegaly with bilateral pleural effusions raising concern for congestive heart failure. Please correlate clinically. 2. Multivessel atherosclerotic disease which involves the coronary arteries. IMPRESSION: 1. Cirrhotic liver with associated splenomegaly and varicosities at the splenic hilum consistent with portal venous hypertension. Lumen of the intrahepatic portosystemic shunt is not well seen. 2. There is fluid in multiple small bowel loops some of which are dilated raising concern for early or partial small bowel obstruction. 3. Moderate amount of ascites. 4. The bladder wall is thickened. This is nonspecific and may represent bladder outlet obstruction, inflammation or infection. Neoplastic process is included in the differential. COMMENTS: Consistent with the [employer]'s Incidental Findings Committee white paper (J Am Camron Radiol 2018): Any incidental renal lesion less than 1 cm or classified as too small to characterize, or any incidental cystic renal lesion characterized as simple-appearing, is likely benign. No follow-up imaging is recommended for these lesions per consensus recommendations based on imaging criteria.
[2023-03-25] MEDS: iohexol 350 mg/mL 500 mL Btl (per mL) IV (15:43)
[2023-03-25] MEDS: sodium chloride 0.9% 500 ML 999 ML IV (15:49)
[2023-03-25 16:05] LABS: ABG PH Result 7.41 (7.35-7.45); Arterial Blood Gas Hematocrit 35.6 % (42-52); Base Excess ABG -8.5 mmol/L (-2.0-2.0); Blood Gas Allen Test Pos; Blood Gas Operator Identificat GD; Blood Gas Sample Site Radial, left; Blood Gas Sample Type Arterial; HCO3 ABG 14.4 mmol/L (22-26); Oxygen Device ROOM AIR
[2023-03-25 16:18] LABS: Anion Gap 22.6 (5-19); Blood Urea Nitrogen 11 mg/dL (6-20); Calcium 7.6 mg/dL (8.5-10.5); Carbon Dioxide 16 mmol/L (22-29); Chloride 103 mmol/L (98-107); Glomerular Filtration Rate 44.6 mL/min (90-130); Glucose 122 mg/dL (65-115); Osmolality Calculated 287 mOsm/kg (285-295); Potassium 3.6 mmol/L (3.5-5.1); Sodium 138 mmol/L (136-145)
[2023-03-25 16:19] LABS: Troponin 5 2HR 31.14 ng/L (0-15)
[2023-03-25 16:40] LABS: Troponin 5 2HR Delta -1.86 ABS# (0-10)
[2023-03-25] MEDS: acetaminophen 325 mg Tablet 650 MG PO (18:08)
--- NOTE | 2023-03-25 18:20 | ECG_ITS ---
[facility] Test Date: 2023-03-25 Pat Name: Kyle Conde Department: Room: ICU08 Gender: Male Rehabilitation Clerk: : 1965 Requested By: Vlad Dash Order Number: [id number] Bridger MD: Derik Connolly M.D. Measurements Intervals [place] Rate: 96 P: 39 UT: 206 QRS: -1 QRSD: 97 T: 63 QT: 347 QTc: 441 Interpretive Statements SINUS RHYTHM POSSIBLE LEFT ATRIAL ENLARGEMENT [-0.1mV P-WAVE IN V1/V2] POSSIBLE ANTERIOR MYOCARDIAL INFARCTION , PROBABLY OLD [30 ms Q WAVE IN V3/V4, OR R < 0.2 mV IN V4] Compared to ECG 03/25/2023 14:42:37 Myocardial infarct finding now present Ventricular premature complex(es) no longer present Aberrant conduction of supraventricular beat(s) no longer present Electronically Signed On 03-26-2023 9:47:34 CDT by Derik Connolly M.D. [id number]
[2023-03-25] MEDS: LORazepam 2 mg/mL INJ 1 mL IVP (18:21)
[2023-03-25 19:06] LABS: Blood Urine 2+ (Negative); Glucose Urine UA Norm (Normal); Ketones Urine Negative (Negative); Protein Urine 2+ (Negative); Specific Gravity, Urine 1.005 (1.005-1.030); Urine Appearance Hazy (CLEAR); Urine Color Yellow (Yellow); pH Urine 7 (5-7)
[2023-03-25 19:07] LABS: Add Urine Microscopic? YES; Bilirubin Urine Neg (Negative); Leukocyte Esterase Urine Trace (Negative); Nitrate Urine Negative (Negative); Urobilinogen Urine Norm (Negative)
[2023-03-25 19:11] LABS: Bacteria Urine 2+ /hpf; Hyaline Casts Urine 0-4 /lpf; Mucus Urine 1+ /hpf; Squamous Epithelial Cell Urine 0-4 /hpf (0-5)
[2023-03-25 19:12] LABS: Add Urine Culture? Yes
--- NOTE | 2023-03-25 19:21 | PC.NURSE ---
Patient has an altered mental status, he can answer all orientation questions, but conversaton with him reveals he is confused. Patient has been very restless, occaisonally sweating, and confused. Behaviors gave the nurse the impression that he may be suffering withdrawal, but patient also is septic and has high ammonia levels which could alter behavior. Nurse alerted Dr lance and received orders for CIWA protocol.
--- NOTE | 2023-03-25 19:29 | PC.NURSE ---
SHIft summary: patient has been restless in bed throughout the day. INitially hesistant to agree to a hernandez, but after increasing discomfort patient finally agreed. Hernandez placemnt and voiding did help restlessness some, but it continued, patient was started on CIWA protocol. Patient complains of difficulty haivng a bowel movement. Stomach is firmer than it was during admission, lactulose did not help, changed to NPO status and lactulose put on hold.
--- NOTE | 2023-03-25 19:40 | XRR_ITS ---
PROCEDURE INFORMATION: Exam: XR Chest Exam date and time: 03/25/2023 7:46 PM Age: 57 years old Clinical indication: Tachypnea TECHNIQUE: Imaging protocol: Radiologic exam of the chest. Views: 1 view. COMPARISON: CT chest abdpel w/*[id number] 03/25/2023 3:33 PM FINDINGS: Lungs: There are hazy opacities overlying the left lung base. Pleural spaces: Blunting of the costophrenic angles is suggestive of small pleural effusions. Heart/Mediastinum: Cardiomegaly. Bones/joints: Unremarkable. XR/XR chest 1V portable [id number] IMPRESSION: 1. Cardiomegaly. 2. Blunting of the costophrenic angles is suggestive of small pleural effusions. 3. Hazy opacities overlying the left lung base are nonspecific and may represent atelectasis and or pneumonia.
[2023-03-25 19:52] LABS: Troponin 5 6HR 29.31 ng/L (0-15)
[2023-03-25 19:55] LABS: Troponin 5 6HR Delta -3.69 ng/L (0-12)
[2023-03-25 19:56] LABS: Lactic Sepsis W/Reflex 9.8 mmol/L (0.5-2.2)
[2023-03-25 20:05] LABS: ABG PCO2 22.1 mmHg (35-45); ABG PH Result 7.38 (7.35-7.45); Alveolar-Arterial Oxygen Gradi 6.3 mmHg (5-10); Arterial Blood Gas Hematocrit 36.2 % (42-52); Base Excess ABG -10.1 mmol/L (-2.0-2.0); Blood Gas Sample Site Brachial, right; Blood Gas Sample Type Arterial; Carboxyhemoglobin 2.1 %THgb (0.4-20.1); HCO3 ABG 13.1 mmol/L (22-26); HGB O2 Sat 92.4 % (95-100); Methemoglobin 0.4 % (0.4-1.5); Oxygen Saturation ABG 94.9; PO2 ABG 71.6 mmHg (80.0-100.0); Potassium Level - ABG 3.2 mmol/L (3.5-5.0); Total Hemoglobin 11.8 g/dL (14-18)
[2023-03-25 20:06] LABS: Anion Gap 25.3 (5-19); Blood Urea Nitrogen 13 mg/dL (6-20); Calcium 7.3 mg/dL (8.5-10.5); Carbon Dioxide 11 mmol/L (22-29); Chloride 103 mmol/L (98-107); Glomerular Filtration Rate 44.6 mL/min (90-130); Glucose 96 mg/dL (65-115); Osmolality Calculated 282 mOsm/kg (285-295); Potassium 3.3 mmol/L (3.5-5.1); Sodium 136 mmol/L (136-145)
[2023-03-25] MEDS: sodium bicarbonate 150 MEQ in dextrose 5% 1,000 ML 100 MEQ IV (20:56)
[2023-03-25] MEDS: sodium bicarbonate 1 mEq/mL SDV 50mL 50 MEQ IVP (20:56)
[2023-03-25] MEDS: albumin 12.5 GM/50 ML VIAL IV (21:01)
[2023-03-25 21:19] LABS: Reflex Lactate Order REFLEX LACTIC ORDERD
[2023-03-25 21:50] LABS: Lactic Acid level (Lactate) 10.5 mmol/L (0.5-2.2)
[2023-03-25] MEDS: piperacillin-tazobactam 3.375 GM in sodium chloride 0.9% (plus) 50 ML IV (22:18)
[2023-03-26] VITALS (97 sets, daily range): BP systolic 83–128; BP diastolic 39–67; PULSE 65–126; RESP 15–53; TEMP 36.4–37.4; O2SAT 90–100
--- NOTE | 2023-03-26 00:12 | XRR_ITS ---
PROCEDURE INFORMATION: Exam: XR Chest Exam date and time: 03/26/2023 12:14 AM Age: 57 years old Clinical indication: Other vascular access device placement or adjustment; Central line, tunnelled; Prior surgery; Surgery date: 6+ months; Surgery type: Tips; Patient HX: Check S/P central line placement TECHNIQUE: Imaging protocol: Radiologic exam of the chest. Views: 1 view. COMPARISON: CR (CHEST, ) 03/25/2023 7:46 PM FINDINGS: Tubes, catheters and devices: Right internal jugular central venous catheter has been inserted with the tip projecting over the cavoatrial junction. Lungs: Increasing retrocardiac opacity may reflect atelectasis or developing pneumonia. Pleural spaces: No pneumothorax on either side. Heart/Mediastinum: Moderate cardiomegaly. Bones/joints: Age appropriate. XR/XR chest 1V portable [id number] IMPRESSION: Right internal jugular central venous catheter has been inserted in satisfactory position. No evidence of pneumothorax.
[2023-03-26] MEDS: sodium chloride 0.9% 1,000 ML 50 ML IV ×2 (01:11→07:39)
[2023-03-26] MEDS: vancomycin 1,500 MG/300 ML PIGGYBACK 200 MG IV ×2 (01:16→13:35)
[2023-03-26 02:18] LABS: Anion Gap 25.3 (5-19); Blood Urea Nitrogen 17 mg/dL (6-20); Calcium 7.4 mg/dL (8.5-10.5); Carbon Dioxide 13 mmol/L (22-29); Chloride 101 mmol/L (98-107); Glomerular Filtration Rate 41.6 mL/min (90-130); Glucose 110 mg/dL (65-115); Osmolality Calculated 284 mOsm/kg (285-295); Potassium 3.3 mmol/L (3.5-5.1); Sodium 136 mmol/L (136-145)
[2023-03-26 02:42] LABS: ABG PCO2 23.6 mmHg (35-45); ABG PH Result 7.37 (7.35-7.45); Alveolar-Arterial Oxygen Gradi 5.6 mmHg (5-10); Arterial Blood Gas Hematocrit 37.9 % (42-52); Base Excess ABG -9.8 mmol/L (-2.0-2.0); Blood Gas Allen Test Pos; Blood Gas Sample Site Radial, left; Blood Gas Sample Type Arterial; Carboxyhemoglobin 2.2 %THgb (0.4-20.1); HCO3 ABG 13.6 mmol/L (22-26); Methemoglobin 0.7 % (0.4-1.5); Oxygen Saturation ABG 95.7; PO2 ABG 75.6 mmHg (80.0-100.0); Potassium Level - ABG 3.3 mmol/L (3.5-5.0); Total Hemoglobin 12.4 g/dL (14-18)
[2023-03-26 04:57] LABS: Basophils % 0.5 %; Eosinophils % 11.6 %; Hemoglobin 11.8 g/dL (11.7-16.6); Lymphocytes # 0.3 10^3/uL (0.8-4.8); Lymphocytes % 2.9 %; Mean Corpuscular HGB Conc 29.5 g/dL (30.0-36.0); Mean Corpuscular Hemoglobin 25.5 pg (28.0-34.0); Mean Corpuscular Volume 86.4 fl (80-94); Mean Platelet Volume 10.1 fL (7.4-10.4); Monocytes # 0.3 10^3/uL (0.2-0.9); Neutrophils # 6.95 10^3/uL (1.8-7.7); Neutrophils % 81.2 %; Nucleated Red Blood Cells % 0 %; Platelet Count 120 10^3/cmm (130-400); Red Blood Count 4.63 10^6/uL (4.1-5.3); Red Cell Distribution Width 20.4 % (12.1-15.1); White Blood Count 8.6 10^3/uL (4.0-10.0)
[2023-03-26 05:05] LABS: Ammonia 102 umol/L (16-60)
[2023-03-26 05:12] LABS: NT Pro B Type Natriuretic Pept 2824 pg/mL (0-125)
[2023-03-26 05:15] LABS: Alanine Aminotransferase 21 U/L (0-41); Albumin Level 2.4 g/dL (3.5-5.2); Alkaline Phosphatase 59 U/L (40-130); Anion Gap 25.4 (5-19); Aspartate Amino Transferase 66 U/L (0-40); Blood Urea Nitrogen 19 mg/dL (6-20); Calcium 7.4 mg/dL (8.5-10.5); Carbon Dioxide 14 mmol/L (22-29); Chloride 102 mmol/L (98-107); Glomerular Filtration Rate 44.6 mL/min (90-130); Glucose 111 mg/dL (65-115); Magnesium 1.6 mg/dL (1.7-2.3); Osmolality Calculated 289 mOsm/kg (285-295); Phosphorus 5.1 mg/dL (2.5-4.5); Potassium 3.4 mmol/L (3.5-5.1); Sodium 138 mmol/L (136-145); Total Bilirubin 4.3 mg/dL (0.15-1.2); Total Protein 5.4 g/dL (6.6-8.7)
[2023-03-26 05:19] LABS: Estmated Average Glucose 117; Hemoglobin A1C 5.7 % (4.0-6.0)
[2023-03-26 05:24] LABS: Lactate (Lactic Acid level) 10.4 mmol/L (0.5-2.2)
[2023-03-26 05:26] LABS: Cholesterol 43 mg/dL (0-200); Creatine Phosphokinase 100 U/L (39-308); HDL Cholesterol 33 mg/dL (60-100); LDL Cholesterol Calculated 1 mg/dL (50-129); LDL HDL Ratio 0.03 RATIO (0.00-3.22); Triglycerides 47 mg/dL (0-150)
[2023-03-26 05:28] LABS: C Reactive Protein 59.2 mg/L (0.0-4.9)
[2023-03-26] MEDS: piperacillin-tazobactam 3.375 GM in sodium chloride 0.9% (plus) 50 ML IV (06:15)
--- NOTE | 2023-03-26 07:00 | XRR_ITS ---
PROCEDURE INFORMATION: Exam: XR Chest Exam date and time: 03/26/2023 6:05 AM Age: 57 years old Clinical indication: Fever and shortness of breath; Patient HX: F/u for SOB and fever. RT central line in place. TECHNIQUE: Imaging protocol: Radiologic exam of the chest. Views: 1 view. COMPARISON: CR (CHEST, ) 03/26/2023 12:14 AM FINDINGS: Tubes, catheters and devices: Stable position of right central venous catheter. Lungs: Suspect mild pulmonary vascular congestion. Continued moderate left lower lung opacities, similar to the prior exam. Mild perihilar opacities bilaterally, slightly increased in interval. The overall appearance could be secondary to pneumonia and/or asymmetric pulmonary edema. Please correlate clinically. Pleural spaces: No visible pneumothorax. No definite pleural fluid. Heart/Mediastinum: Moderate cardiomegaly. Bones/joints: No significant acute finding. XR/XR chest 1V portable [id number] IMPRESSION: 1. Bilateral lung opacities, with slight worsening in the interval. See above discussion. 2. Other findings discussed above.
[2023-03-26] MEDS: sodium bicarbonate 150 MEQ in dextrose 5% 1,000 ML 100 MEQ IV (07:37)
[2023-03-26] MEDS: multivitamin therapeutic Tablet 1 TAB PO (08:08)
[2023-03-26] MEDS: folic acid 1 mg Tablet PO (08:08)
[2023-03-26] MEDS: thiamine 100 mg Tablet PO (08:09)
[2023-03-26 08:36] LABS: Amphetamines Screen Urine Negative (Negative); Barbiturates Screen Urine Negative (Negative); Benzodiazepines Screen Urine Negative (Negative); Cocaine Screen Urine Negative (Negative); Opiate Screen Urine Negative (Negative); PCP Screen Urine Negative (Negative); THC Screen Urine Negative (Negative)
[2023-03-26 08:43] LABS: Alcohol Level < 10 mg/dL (0-10)
[2023-03-26] MEDS: albumin 25 G/100 ML BAG 60 G IV ×3 (09:25→21:21)
[2023-03-26] MEDS: meropenem 1,000 MG in sodium chloride 0.9% (plus) 50 ML 100 MG IV ×3 (09:26→23:16)
[2023-03-26 09:29] LABS: Procalcitonin > 100.00 ng/mL (0-0.5)
[2023-03-26] MEDS: LORazepam 2 mg/mL INJ 1 mL IVP ×3 (09:50→21:13)
--- NOTE | 2023-03-26 11:05 | XRR_ITS ---
PROCEDURE INFORMATION: Exam: XR Abdomen Exam date and time: 03/26/2023 11:27 AM Age: 57 years old Clinical indication: Abdominal pain; Generalized; Additional info: Sbp, bowel obstruction? TECHNIQUE: Imaging protocol: Radiologic exam of the abdomen. Views: Frontal supine view of the abdomen. 1 View. COMPARISON: CT chest abdpel w/*[id number] 03/25/2023 3:33 PM FINDINGS: Gastrointestinal tract: No significantly distended air-filled small bowel loops identified. Air noted within the stomach and colon. Bones/joints: Unremarkable. XR/XR KUB portable [id number] IMPRESSION: No significantly distended air-filled small bowel loops identified.
[2023-03-26] MEDS: lactated ringers 500 ML 999 ML IV (11:14)
[2023-03-26 11:41] LABS: Cortisol Random 57.83 ug/dL (2.47-19.5)
--- NOTE | 2023-03-26 13:02 | P.CONIM_ITS ---
Providers/Reason For Consult Consulting Physician/Specialty*: kommana/nephrology Reason for Consult*: ARMEN Attending Physician: Vlad Dash MD Primary Care Provider: Manny Guzman DO History of Present Illness History of Present Illness Patient is a 57-year-old male with past medical history of alcoholic liver cirrhosis status post TIPS, history of esophageal varices and ascites, history of bilateral venous stasis dermatitis with ulcerations on bilateral lower extremities he is followed by wound care, presented to the emergency department complaining of fevers chills malaise. Currently patient is sleeping and difficult to arouse. Unable to provide much history. In the ED patient was febrile with a temperature of 101, hypotensive tachycardic and has elevated l actic acid level of 6.2. Patient received IV fluids in the ER. Lab data on presentation significant for leukopenia with a white count of 2.1 creatinine was 1.0 serum bicarb was 18. Patient received IV Contrast with CT scan with contrast. Renal function has gotten worse to 1.6 currently. Review of Systems Narrative: Unable to obtain full review of system assessment Medications/Allergies Home Medications Medication Instructions Recorded Confirmed Last Taken Type lactulose 10 gram/15 mL oral 30 ml PO .ONCE TO TWICE DAILY PRN 02/21/20 03/25/23 02/22/21 History solution (Constulose) Constipation multivitamin (Multiple Vitamins 1 tab PO DAILY 06/18/20 03/25/23 03/03/23 History tablet) thiamine HCl (vitamin B1) 100 mg 100 mg PO DAILY 06/18/20 03/25/23 03/03/23 History tablet (Vitamin B-1) compression socks, x-large #2 ea 03/12/22 03/25/23 Unknown Rx bumetanide 1 mg tablet 0.5 mg PO DAILY 03/03/23 03/25/23 03/03/23 History tadalafil 10 mg tablet 10 mg PO DAILY PRN Sexual Activity 03/03/23 03/25/23 Unknown History Allergies Allergy/AdvReac Type Severity Reaction Status Date / Time hydrocodone Allergy ADR-Nausea Verified 03/25/23 10:27 morphine Allergy ADR-Drowsy Verified 03/25/23 10:27 oxycodone [From OxyContin] Allergy ADR-Nausea Verified 03/25/23 10:27 Current Medications Generic Name Dose Route Start Last Admin Trade Name Freq PRN Reason Stop Dose Admin Acetaminophen 650 mg 03/25/23 12:01 03/25/23 18:08 Acetaminophen 325 Mg Tablet PO 650 mg Q6H PRN Administration Mild/Mod Pain Or Temp >/= 101 Enoxaparin Sodium 40 mg 03/25/23 12:30 03/25/23 13:53 Enoxaparin 40 Mg/0.4 Ml Syringe SUBCUT 40 mg Q24H GRACE Administration Folic Acid 1 mg 03/26/23 09:00 03/26/23 08:08 Folic Acid 1 Mg Tablet PO 1 mg DAILY GRACE Administration Vancomycin/PEG/NADA/Lysine/Water 1,500 mg in 300 mls @ 200 mls/hr 03/25/23 13:00 03/26/23 03:49 Vancocin IV Infused Q12H GRACE Infusion Sodium Bicarbonate 150 meq/ 1,150 mls @ 50 mls/hr 03/25/23 20:15 03/26/23 1 0:47 Dextrose IV 50 mls/hr .Q23H GRACE Infusion Norepinephrine Bitartrate 4 mg 254 mls @ 0 mls/hr 03/25/23 20:15 03/26/23 11:13 / Dextrose IV 10 mcg/min .Q0M GRACE 38.1 mls/hr Administration Protocol Per Protocol Sodium Chloride 1,000 mls @ 50 mls/hr 03/26/23 01:05 03/26/23 07:39 Sodium Chloride 0.9% IV 50 mls/hr .Q20H GRACE Administration Albumin Human 25 g in 100 mls @ 60 mls/hr 03/26/23 08:00 03/26/23 09:25 Albumin IV 60 mls/hr Q8H GRACE Administration Meropenem 1,000 mg/ Sodium 50 mls @ 100 mls/hr 03/26/23 08:00 03/26/23 10:47 Chloride IV Infused Q8H GRACE Infusion Protocol Lactulose 20 gm 03/25/23 12:30 03/25/23 13:57 Lactulose Oral Liq 20 Gm/30 Ml Udc PO 20 gm Q12H GRACE Administration Lorazepam 2 mg 03/25/23 16:24 03/26/23 09:50 Lorazepam 2 Mg/Ml Inj 1 Ml IVP 2 mg PRN PRN Administration WITHDRAWAL Protocol Multivitamins Therapeutic 1 tab 03/26/23 09:00 03/26/23 08:08 Multivitamin Therapeutic Tablet PO 1 tab DAILY GRACE Administration Multivitamins Therapeutic 1 tab 03/26/23 09:00 03/26/23 08:19 Multivitamin Therapeutic Tablet PO Not Given DAILY GRACE Pantoprazole Sodium 40 mg 03/25/23 12:30 03/25/23 13:48 Pantoprazole 40 Mg Sdv IVP 40 mg Q24H GRACE Administration Rifaximin 550 mg 03/26/23 09:00 03/26/23 10:29 Rifaximin 550 Mg Tablet PO 550 mg BID GRACE Administration Protocol Thiamine Mononitrate 100 mg 03/26/23 09:00 03/26/23 08:09 Thiamine 100 Mg Tablet PO 100 mg DAILY GRACE Administration Thiamine Mononitrate 100 mg 03/26/23 09:00 03/26/23 08:19 Thiamine 100 Mg Tablet PO Not Given DAILY GRACE PFSH Acute PFSH: Medical History (Updated 03/26/23 @ 13:04 by Yoana Fairchild MD) Acute on chronic anemia Acute on chronic blood loss anemia ARMEN (acute kidney injury) Alcoholic cirrhosis of liver Callus of foot Cholelithiasis Not thought to be because of Pseudomonas bacteremia. HIDA scan normal. Surgery consultation was obtained. Cirrhosis Declining functional status Generalized weakness Leukocytosis Low back pain radiating to right lower extremity Lumbar stenosis with neurogenic claudication Lytic bone lesions on xray Pressure injury of both feet, unstageable Splenomegaly Stage I pressure ulcer of heel Swelling of lower extremity Venous stasis dermatitis Surgical History S/P TIPS (transjugular intrahepatic portosystemic shunt) Family History Other Healthy adult Social History Smoking and tobacco status: never smoked Alcohol intake: former Year of sobriety/quit date alcohol: 3 ya Substance/Drug Use: former Lives independently: No Household members: spouse Marital status: Current occupational status: unemployed Vitals/I&O/Wt Last Vital Signs Temp 98.6 F 03/26/23 08:15 Pulse 88 03/26/23 11:12 Resp 27 H 03/26/23 10:00 BP 99/59 03/26/23 10:00 Pulse Ox 93 03/26/23 11:12 O2 Del Method Room Air 03/26/23 08:15 03/25/23 03/26/23 03/26/23 22:59 06:59 14:59 Intake Total 4638.409 / 4638.409 1498.371 / 6136.780 1956.905 / 1956.905 Output Total 100 / 100 325 / 425 175 / 175 Balance 4538.409 / 4538.409 1173.371 / 5711.780 1781.905 / 1781.905 Weight last 48 hrs Weight 104.326 kg Physical Exam Narrative: Patient is lethargic, difficult to arouse, S1-S2 regular rate and rhythm per report Lungs clear to auscultation per report Abdominal ascites Bilateral lower extremity venous disease with erythema and superficial ulcers Urinary Catheter Management: Birch: Cath Placed During This Visit: yes Reason for Continuing Indwelling Catheter: Accurate Measurement of Urinary Output in Critically Ill Patients Urinary Catheter Date of Insertion: 03/25/23 Urinary Catheter Time of Insertion: 18:20 Data 03/26/23 03:54 03/26/23 03:54 Micro: Microbiology 03/25/23 10:07 Blood Culture - Preliminary Blood NEGATIVE TO DATE 03/25/23 11:14 Blood Culture - Preliminary Blood A&P Assessment and plan (1) ARMEN (acute kidney injury): Plan 1. Acute kidney injury: Baseline creatinine was normal now has ARMEN with a creatinine of 1.6. ARMEN most likely multifactorial with ATN from sepsis and question hepatorenal syndrome. Also patient received IV contrast yesterday with CT scan and I anticipate renal function likely get further worse. He is oliguric. Electrolytes stable. -We will give IV albumin 25 g every 8 hours, hold diuretics for now. -Check urine electrolytes -May also benefit from paracentesis -We will check renal ultrasound, question bladder outlet obstruction on CT scan, will ask for bladder scan and straight cath if needed -No indication for dialysis today but patient is not a good candidate for dialysis due to advanced liver cirrhosis 2. Sepsis secondary to lower extremity cellulitis 3. Metabolic acidosis: Worsening, from lactic acidosis, will give Bicitra, if no improvement may have to do bicarbonate drip 4. Alcoholic liver cirrhosis with ascites 5 hypokalemia: Mild potassium repleted. Patient evaluated using audiovisual cart. Time spent 40 minutes Consult Attestations Medical Necessity Statement: per medicine Coding Level of Care Code Acute Code for Chg Fwd Diagnoses ARMEN (acute kidney injury) N17.9
--- NOTE | 2023-03-26 13:10 | USR_ITS ---
PROCEDURE INFORMATION: Exam: US Retroperitoneal; Complete; Kidneys and Bladder Exam date and time: 03/26/2023 2:01 PM Age: 57 years old Clinical indication: Abnormal findings; Abnormal lab test; Abnormal kidney function lab tests; Additional info: Bryan TECHNIQUE: Imaging protocol: Real-time ultrasound of the retroperitoneum with image documentation. Complete exam focused on the kidneys and bladder. COMPARISON: US abdomen complete* [id number] 03/01/2022 10:14 AM FINDINGS: Right kidney: There is a 3.5 x 3.1 by 3.1 cm benign cyst in the right kidney. No evidence for hydronephrosis, calculi, or solid mass. Left kidney: Left kidney is unremarkable. No evidence for hydronephrosis, calculi, or solid mass. Urinary bladder: There is a Birch catheter in the bladder. The bladder is decompressed. US/US renal BI* [id number] IMPRESSION: There is a 3.5 cm benign cyst in the right kidney. Otherwise unremarkable retroperitoneal ultrasound.
[2023-03-26] MEDS: enoxaparin 40 mg/0.4 mL Syringe SUBCUT (13:33)
[2023-03-26] MEDS: pantoprazole 40 mg SDV IVP (13:33)
--- NOTE | 2023-03-26 14:47 | P.PN_ITS ---
Subjective Subjective: - Overnight patient developed worsening septic shock, metabolic acidosis requiring bicarb drip, Levophed, vasopressin -Patient was examined this morning is alert to person, to place, not to time, he complains of diffuse pain, he can follow some commands, such as squeezing my fingers, but is moaning in pain, does complain of abdominal pain, does complain of diffuse joint pain, back pain -Febrile throughout the night -Patient was examined multiple times throughout the afternoon -Remains on 10 of Levophed, vasopressin has been weaned off -Bicarb has been decreased to 50 cc, fluid has been decreased to 50 cc -Urine output is improving to some degree and worried about hepatorenal syndrome, spoke to nephrology, nephrology consulted -I had a discussion with patient's family at bedside, patient's mom and dad, -Advised that currently patient is in septic shock, metabolic acidosis, from a spontaneous bacterial peritonitis, given his liver cirrhosis this finding ascites his altered mental status is gram-negative blood cultures -I also think he has a component of cellulitis -I am also worried that he might have a component of hepatorenal syndrome given his decreased urine output, his ARMEN on CKD -All of this might be also secondary to sepsis, septic shock -We will continue antibiotic treatments, consult nephrology IV fluids, bicarb, hopefully wean off pressor therapy keep him n.p.o., monitor him -He had a reported a bowel movement when examined on the emergency room, CAT scan was read as a bowel obstruction KUB does not show any significant obstructive bowel gas pattern, as he has had no nausea vomiting, I will place him on lactulose for his hyperammonemia -He does have seen hyperammonemia, will have to try to get the ammonia levels down if there is any persistent hyperammonemia, will have to consider dialysis -I had a discussion in detail with patient's family as above, they voiced understanding, all questions are, agreed to proceed Vitals/I&O/Wt Last Vital Signs Temp 99.2 F 03/26/23 13:15 Pulse 102 H 03/26/23 14:15 Resp 27 H 03/26/23 14:15 BP 110/52 03/26/23 14:15 Pulse Ox 93 03/26/23 14:15 O2 Del Method Room Air 03/26/23 13:15 03/25/23 03/26/23 03/26/23 22:59 06:59 14:59 Intake Total 4638.409 / 4638.409 1498.371 / 6136.780 2708.505 / 2708.505 Output Total 100 / 100 325 / 425 300 / 300 Balance 4538.409 / 4538.409 1173.371 / 5711.780 2408.505 / 2408.505 Weight last 48 hrs Weight 104.326 kg Physical Exam Const: COMMON NORMALS: no acute distress ORIENTATION/CONSCIOUSNESS: Yes awake, Yes oriented to person, Yes oriented to place and Yes confused; not oriented to time Eye: COMMON NORMALS: Equal, round and reactive pupils present PUPIL: Yes Equal, round and reactive pupils present Resp: COMMON NORMALS: normal respiratory effort, No retractions, No use of accessory muscles and clear to auscultation bilaterally AUSCULTATION: clear to auscultation bilaterally Cardio: COMMON NORMALS: regular rate, regular rhythm, S1 normal heart sound present and S2 normal heart sound present RATE: regular rate RHYTHM: regular rhythm HEART SOUNDS: S1 normal heart sound present and S2 normal heart sound present GI: OTHER: Abdomen soft, distended, fluid wave present, good bowel sounds in all 4 quadrants, no guarding, no rebound, no rigidity, does have diffuse tenderness, Extremity: COMMON NORMALS: no pedal edema Neuro: SENSORIUM/ORIENTATION: Yes oriented to person, Yes oriented to place and No oriented to time Urinary Catheter Management: Birch: Cath Placed During This Visit: yes Reason for Continuing Indwelling Catheter: Accurate Measurement of Urinary Output in Critically Ill Patients Urinary Catheter Date of Insertion: 03/25/23 Urinary Catheter Time of Insertion: 18:20 Sepsis: Is patient septic: Yes Focused sepsis exam performed: Yes Focused sepsis exam: DP PT pulses diminished bilaterally Has pallor by lower extremities Capillary refill greater than 3 seconds No significant mottling Tachycardic Data 03/26/23 03:54 03/26/23 03:54 Micro: Microbiology 03/25/23 10:07 Blood Culture - Preliminary Blood NEGATIVE TO DATE 03/25/23 11:14 Blood Culture - Preliminary Blood A&P Assessment and plan (1) Elevated lactic acid level: (2) Cirrhosis: (3) Septic shock: (4) Sepsis: (5) Cellulitis: (6) Leukopenia: (7) Metabolic acidosis: (8) Hyperammonemia: (9) Hypoalbuminemia: (10) Hepatorenal syndrome: (11) Spontaneous bacterial peritonitis: (12) Altered mental status: (13) Septic encephalopathy: (14) Sepsis: Qualifiers: Acute renal failure type: unspecified Sepsis acute organ dysfunction status: with acute organ dysfunction Sepsis type: sepsis due to unspecified organism Severe sepsis acute organ dysfunction type: acute renal failure Severe sepsis shock status: with septic shock Qualified Code(s): A41.9 - Sepsis, unspecified organism; R65.21 - Severe sepsis with septic shock; N17.9 - Acute kidney failure, unspecified (15) Bowel obstruction: (16) Gram-negative bacteremia: Plan Septic shock -Secondary to spontaneous bacterial peritonitis, cellulitis -Initial plan on 2 pressors, on bicarb drip, now down to Levophed at 10, bicarb at 50 Plan -Admit to ICU -Monitor hemodynamics closely -Continue IV fluids, bicarb drip -Continue Levophed, wean as tolerated maintain MAP greater than 65 -Broad-spectrum antibody therapy vancomycin, stop Zosyn broadened to carbapenem -Follow blood cultures, MRSA nares PCR -Ultrasound paracentesis tomorrow -Continue albumin therapy -Full code -Lovenox for DVT prophylaxis Spontaneous bacterial peritonitis -We will do ultrasound paracentesis tomorrow -Received albumin -Currently on carbapenem -We will give albumin on day 3 -Follow blood culture Gram-negative bacteremia -2/4 blood cultures positive gram-negative rods -On carbapenem -Presumed source is cellulitis, spontaneous bacterial peritonitis Cellulitis bilateral lower extremity -On vancomycin, carbapenem ARMEN on CKD -Likely second to sepsis -However concerns for hepatorenal syndrome given SBP Leukopenia, likely secondary to sepsis, cellulitis Elevated INR, likely secondary to sepsis, cellulitis, liver failure Lactic acidosis, secondary to sepsis, cellulitis, spontaneous bacterial peritonitis, septic shock as above -Repeat lactic acid Metabolic acidosis due to sepsis as above Hyperammonemia secondary to liver failure, continue lactulose, rifaximin, mon itor mentation closely Hypoalbuminemia, likely secondary to liver cirrhosis, albumin Altered mental status, likely secondary to sepsis, cellulitis, spontaneous bacterial peritonitis Bowel obstruction -Seen on CAT scan -Had reported bowel movement on admission, no nausea, no vomiting, -Repeat KUB shows nonobstructive bowel gas pattern -We will monitor Hypomagnesemia Hypokalemia Attestations Medical Necessity Statement*: Patient requires hospitalization, for septic shock secondary to spontaneous kash terial peritonitis, UTI, lactic acidosis, metabolic acidosis, hyperammonemia, hypoalbuminemia, septic encephalopathy, cellulitis, gram-negative bacteremia, Coding Level of Care Code Critical Care >/= 30 minutes Critical care time (in minutes): 80 The high probability of a clinically significant, sudden or life threatening deterioration, as referenced in this documentation, required my full and direct attention, intervention and personal management. The critical care time shown is in addition to time spent performing any reported separately billable procedures and includes the following: [x] Data and vital sign review and interpretation [x ] Patient assessment, examination and intervention [x] Medication orders and management [x] Patient/Family updates as able [x] Care Coordination and Documentation. Diagnoses Elevated lactic acid level R79.89 Cirrhosis K74.60 Septic shock A41.9; R65.21 Sepsis A41.9 Cellulitis L03.90 Leukopenia D72.819 Metabolic acidosis E87.20 Hyperammonemia E72.20 Hypoalbuminemia E88.09 Hepatorenal syndrome K76.7 Spontaneous bacterial peritonitis K65.2 Altered mental status R41.82 Septic encephalopathy G93.41 Bowel obstruction K56.609 Gram-negative bacteremia R78.81
[2023-03-26 15:52] LABS: Adenovirus Not Detected (NOT DETECT); Chlamydia Pneumoniae Not Detected (NOT DETECT); Coronavirus 229E,HKU1,NL63,OC4 Not Detected (NOT DETECT); Human Metapneumovirus Not Detected (NOT DETECT); Human Rhinovirus/Enterovirus Not Detected (NOT DETECT); Influenza A Not Detected (NOT DETECT); Influenza A H1 Not Detected (NOT DETECT); Influenza A H1-2009 Not Detected (NOT DETECT); Influenza A H3 Not Detected (NOT DETECT); Influenza B Not Detected (NOT DETECT); Mycoplasma Pneumoniae Not Detected (NOT DETECT); Parainfluenza Virus Type 1 Not Detected (NOT DETECT); Parainfluenza Virus Type 2 Not Detected (NOT DETECT); Parainfluenza Virus Type 3 Not Detected (NOT DETECT); Parainfluenza Virus Type 4 Not Detected (NOT DETECT); Respiratory Syncytial Virus A Not Detected (NOT DETECT); Respiratory Syncytial Virus B Not Detected (NOT DETECT); SARS-COV-2 Not Detected (NOT DETECT)
[2023-03-26] MEDS: citric acid-sodium citrate 30 mL UDC PO (16:01)
[2023-03-26 16:41] LABS: ABG PCO2 26.6 mmHg (35-45); ABG PH Result 7.47 (7.35-7.45); Alveolar-Arterial Oxygen Gradi 6.9 mmHg (5-10); Arterial Blood Gas Hematocrit 36.5 % (42-52); Base Excess ABG -3.4 mmol/L (-2.0-2.0); Blood Gas Operator Identificat GD; Blood Gas Sample Site Brachial, left; Blood Gas Sample Type Arterial; Carboxyhemoglobin 2.4 %THgb (0.4-20.1); HCO3 ABG 19.2 mmol/L (22-26); HGB O2 Sat 90.7 % (95-100); Methemoglobin 0.4 % (0.4-1.5); Oxygen Device ROOM AIR; Oxygen Saturation ABG 93.3; PO2 ABG 61.8 mmHg (80.0-100.0); Total Hemoglobin 11.9 g/dL (14-18)
--- NOTE | 2023-03-26 16:51 | PC.NURSE ---
NUrse alerted physician to gradual changes throughout shift. Patient is now on 12 mcg of levophed. Mental status has declined further and nurse no longer feels it is safe to give anything by mouth, heart rate has become tachy (100-115), respiratory rate has been elevated, and work of breathing has increased. Dr lance advised to hold PO meds, give 250ml NS bolus, and ordered abg. Dr lance came to bedside to assess patient.
[2023-03-26] MEDS: sodium chloride 0.9% 250 ML IV (16:57)
--- NOTE | 2023-03-26 18:30 | PC.NURSE ---
Shift Summary: Patient's mental status has declined throughout the day, has become more lethargic, increased difficulty following commands, frequently mumbles incoherently. Patient can no longer safely swallow, PO meds were placed on hold, strict NPO. Levophed requirements have increased form 10 to 14, however the vasopressin has been discontinued. Patient has received LR and saline boluses today. Patient has become more tachypnic today with an increased work of breathing and restless. Ativan given occasionally for agitation. Heart rate has been a low sinus tach. Swelling to lower extremities has worsened and is present all the way up to the hips. Physician aware of status changes. TOtal urineoutput has been 525ML. Plan is to get a sample of fluid surrounding liver tomorrow for culture.
--- NOTE | 2023-03-26 20:48 | CTR_ITS ---
PROCEDURE INFORMATION: Exam: CT Head Without Contrast Exam date and time: 03/26/2023 10:44 PM Age: 57 years old Clinical indication: Altered mental status/memory loss; Confusion or disorientation; Patient HX: Worsening confusion; Additional info: Mentation TECHNIQUE: Imaging protocol: Computed tomography of the head without contrast. Radiation optimization: All CT scans at this facility use at least one of these dose optimization techniques: automated exposure control; mA and/or kV adjustment per patient size (includes targeted exams where dose is matched to clinical indication); or iterative reconstruction. REPORTING DATA: Count of CT and Cardiac NM exams in prior 12 months: This patient has received 5 known CTs and 0 known cardiac nuclear medicine studies in the 12 months prior to the current study. COMPARISON: CT head wo con* [id number] 04/05/2020 1:44 AM RADIATION DOSE METRICS: Total DLP (mGy-cm): 1074.54 FINDINGS: Brain: No acute intracranial hemorrhage, abnormal extra-axial fluid collection, mass effect, or midline shift. Cerebral ventricles: The ventricular system is within normal limits of variation for the patient's age. Paranasal sinuses: Visualized paranasal sinuses are grossly unremarkable. No fluid levels. Mastoid air cells: Visualized mastoid air cells are well aerated. Bones/joints: No acute fracture. Soft tissues: Grossly unremarkable. Vasculature: Atheromatous changes are seen within the bilateral carotid siphons. CT/CT head wo con* [id number] IMPRESSION: 1. No acute intracranial findings. 2. Other chronic/incidental findings as described above.
[2023-03-26 21:10] LABS: ABG PCO2 29.8 mmHg (35-45); ABG PH Result 7.47 (7.35-7.45); Alveolar-Arterial Oxygen Gradi 2.7 mmHg (5-10); Arterial Blood Gas Hematocrit 36.6 % (42-52); Base Excess ABG -1.3 mmol/L (-2.0-2.0); Blood Gas Allen Test Pos; Blood Gas Sample Site Radial, right; Blood Gas Sample Type Arterial; Carboxyhemoglobin 2.3 %THgb (0.4-20.1); HCO3 ABG 21.5 mmol/L (22-26); HGB O2 Sat 95.7 % (95-100); Methemoglobin 0.3 % (0.4-1.5); Oxygen Device NC; Oxygen Saturation ABG 98.3; PO2 ABG 89.9 mmHg (80.0-100.0); Potassium Level - ABG 3.8 mmol/L (3.5-5.0); Total Hemoglobin 11.9 g/dL (14-18)
[2023-03-26] MEDS: morphine 4 mg/mL SDV 1 mL 2 MG IVP (23:15)
--- NOTE | 2023-03-26 23:27 | PC.NURSE ---
Addendum entered by Juany Johnson RN 03/26/23 23:35: Time of contact with Dr. Rodriguez 2044. Original Note: Physician Communication Patient arousable only to voice and able to mumble name and birthday unclearly. Other words and sounds incomprehensible. Patient's HR maintaining in the 110-120s with a RR in the mid 30s. Dr. Rodriguez contacted; order received for an ABG and head CT without contrast.
[2023-03-27] VITALS (91 sets, daily range): BP systolic 80–129; BP diastolic 41–79; PULSE 85–124; RESP 17–39; TEMP 36.8–37.3; O2SAT 90–100
--- NOTE | 2023-03-27 00:04 | ECG_ITS ---
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 Measurements Intervals Bruno Rate: 98 P: 0 NC: 0 QRS: -16 QRSD: 105 T: 62 QT: 365 QTc: 468 Interpretive Statements ATRIAL FIBRILLATION WITH ABERRANT CONDUCTION OR VENTRICULAR PREMATURE COMPLEXES POSSIBLE ANTERIOR MYOCARDIAL INFARCTION , PROBABLY OLD [30 ms Q WAVE IN V3/V4, OR R < 0.2 mV IN V4] ABNORMAL RHYTHM ECG Compared to ECG 03/25/2023 18:20:04 Ventricular premature complex(es) now present Aberrant conduction of supraventricular beat(s) now present Sinus rhythm no longer present Myocardial infarct finding still present Electronically Signed On 03-27-2023 8:16:46 CDT by Derik Connolly M.D. [id number]
[2023-03-27] MEDS: morphine 4 mg/mL SDV 1 mL 2 MG IVP ×3 (03:00→23:44)
[2023-03-27] MEDS: sodium chloride 0.9% 1,000 ML 50 ML IV (03:54)
[2023-03-27] MEDS: sodium bicarbonate 150 MEQ in dextrose 5% 1,000 ML 50 MEQ IV (03:54)
[2023-03-27 04:13] LABS: Basophils # 0.1 10^3/uL (0.0-0.1); Basophils % 0.7 %; Eosinophils # 0.1 10^3/uL (0.0-0.8); Eosinophils % 0.6 %; Hematocrit 35.5 % (42.0-52.0); Hemoglobin 10.7 g/dL (11.7-16.6); Lymphocytes # 0.4 10^3/uL (0.8-4.8); Lymphocytes % 2.4 %; Mean Corpuscular HGB Conc 30.1 g/dL (30.0-36.0); Mean Corpuscular Hemoglobin 25.3 pg (28.0-34.0); Mean Corpuscular Volume 83.9 fl (80-94); Mean Platelet Volume 11.2 fL (7.4-10.4); Monocytes # 0.3 10^3/uL (0.2-0.9); Neutrophils # 15.21 10^3/uL (1.8-7.7); Neutrophils % 93.6 %; Nucleated Red Blood Cells % 0 %; Platelet Count 81 10^3/cmm (130-400); Red Blood Count 4.23 10^6/uL (4.1-5.3); Red Cell Distribution Width 20.2 % (12.1-15.1); White Blood Count 16.2 10^3/uL (4.0-10.0)
[2023-03-27 04:19] LABS: Alanine Aminotransferase 19 U/L (0-41); Albumin Level 2.8 g/dL (3.5-5.2); Alkaline Phosphatase 59 U/L (40-130); Anion Gap 19.7 (5-19); Aspartate Amino Transferase 41 U/L (0-40); Blood Urea Nitrogen 31 mg/dL (6-20); Calcium 7.2 mg/dL (8.5-10.5); Carbon Dioxide 23 mmol/L (22-29); Chloride 102 mmol/L (98-107); Globulin 2.5 g/dL (1.3-4.6); Glomerular Filtration Rate 56.7 mL/min (90-130); Glucose 81 mg/dL (65-115); Magnesium 1.6 mg/dL (1.7-2.3); Osmolality Calculated 298 mOsm/kg (285-295); Phosphorus 3.4 mg/dL (2.5-4.5); Potassium 3.7 mmol/L (3.5-5.1); Sodium 141 mmol/L (136-145); Total Bilirubin 6.7 mg/dL (0.15-1.2); Total Protein 5.3 g/dL (6.6-8.7)
[2023-03-27 04:24] LABS: C Reactive Protein 125.3 mg/L (0.0-4.9); NT Pro B Type Natriuretic Pept 5494 pg/mL (0-125); Procalcitonin 63.28 ng/mL (0-0.5)
[2023-03-27 04:26] LABS: Ammonia 89 umol/L (16-60)
[2023-03-27 04:36] LABS: Creatine Phosphokinase 52 U/L (39-308)
[2023-03-27 04:43] LABS: Lactate (Lactic Acid level) 5.8 mmol/L (0.5-2.2)
[2023-03-27] MEDS: albumin 25 G/100 ML BAG 60 G IV ×3 (04:58→21:39)
[2023-03-27] MEDS: vancomycin 1,500 MG/300 ML PIGGYBACK 200 MG IV (07:17)
[2023-03-27] MEDS: meropenem 1,000 MG in sodium chloride 0.9% (plus) 50 ML 100 MG IV ×3 (07:17→23:58)
--- NOTE | 2023-03-27 07:53 | US_ITS ---
WS: [id number] INDICATION: Paracentesis TECHNIQUE: Ultrasound abdomen limited FINDINGS: Ultrasound abdomen 4 quadrant. Minimal ascites. Insufficient fluid for paracentesis. US/US abdomen lmt fluid [id number] IMPRESSION: Minimal ascites. Insufficient fluid for paracentesis.
--- NOTE | 2023-03-27 10:00 | P.PN_ITS ---
Subjective Subjective: no acute events on levophed Medications: Reviewed: Yes Vitals/I&O/Wt Last Vital Signs Temp 98.2 F 03/27/23 05:00 Pulse 104 H 03/27/23 08:15 Resp 21 H 03/27/23 08:15 BP 102/60 03/27/23 08:15 Pulse Ox 99 03/27/23 08:15 O2 Del Method Nasal Cannula 03/27/23 05:00 O2 Flow Rate 3 03/27/23 05:00 03/26/23 03/27/23 03/27/23 22:59 06:59 14:59 Intake Total 981.305 / 3689.810 2324.928 / 6014.738 Output Total 226 / 526 900 / 1426 Balance 755.305 / 3163.810 1424.928 / 4588.738 Physical Exam Narrative: Patient is lethargic, difficult to arouse, S1-S2 regular rate and rhythm per report Lungs clear to auscultation per report Abdominal ascites Bilateral lower extremity venous stasis with erythema and superficial ulcers Urinary Catheter Management: Birch: Cath Placed During This Visit: yes Reason for Continuing Indwelling Catheter: Accurate Measurement of Urinary Output in Critically Ill Patients Urinary Catheter Date of Insertion: 03/25/23 Urinary Catheter Time of Insertion: 18:20 Data 03/27/23 03:44 03/27/23 03:44 Micro: Microbiology 03/25/23 18:30 Urine Culture - Final Urine,Clean Catch 03/25/23 14:50 MRSA Culture - Final Nose 03/25/23 10:07 Blood Culture - Preliminary Blood NEGATIVE TO DATE 03/25/23 11:14 Blood Culture - Preliminary Blood A&P Assessment and plan (1) ARMEN (acute kidney injury): Plan 1. Acute kidney injury: Baseline creatinine was normal now has ARMEN with a creatinine of 1.6. ARMEN most likely multifactorial with ATN from sepsis and question hepatorenal syndrome. Also patient received IV contrast yesterday with CT scan and I anticipate renal function likely get further worse. He is oliguric. Electrolytes stable.Cr improved to 1.3 today , on low dose levophed -continue IV albumin 25 g every 8 hours, hold diuretics for now. -Check urine electrolytes -May also benefit from paracentesis -renal US results noted -will start diuretics once off levophed and BP stable 2. Sepsis secondary to lower extremity cellulitis 3. Metabolic acidosis: Worsening, from lactic acidosis, will give Bicitra, if no improvement may have to do bicarbonate drip 4. Alcoholic liver cirrhosis with ascites 5 hypokalemia: Mild potassium repleted. Patient evaluated using audiovisual cart. Time spent 40 minutes Attestations Medical Necessity Statement*: per medicine Coding Level of Care Code Acute Code for [facility] Fwd Diagnoses ARMEN (acute kidney injury) N17.9
[2023-03-27] MEDS: albumin 50 G/200 ML BAG 60 G IV ×2 (11:21)
[2023-03-27] MEDS: pantoprazole 40 mg SDV IVP (12:16)
[2023-03-27] MEDS: enoxaparin 40 mg/0.4 mL Syringe SUBCUT (12:16)
--- NOTE | 2023-03-27 16:28 | PM.PN ---
Subjective Subjective: - Patient was seen this morning, multiple times -He still on 6 of Levophed -Maps about 65 -His mentation has improved, he tells me that he is thirsty, he does follow commands, but is quite drowsy -No facial droop, no slurring of his words, no headache, -Patient's blood cultures are positive for [facility] he does have cellulitis lower extremities, he does have dogs and cats at home, but denies any dog or cat bite -At a meeting with patient's family, mom and dad, and girlfriend -Family wants us to consider transferring him to [facility] where patient's GI doctor is -However as he remains on Levophed they want us to hold off for the next 24 hours -I spoke to [facility], patient was placed on the waiting list, currently did not have a bed -I did discuss patient's bacteremia, patient's SBP, cellulitis, overall his clinical condition is proved, his kidney function, he did have some edema we will give him Lasix, we did a ultrasound paracentesis there is no significant amount of fluid to tap, I am thinking likely as he received albumin, the fluid we distributed into the intravascular space -We will continue to monitor here as inpatient he is placed on waiting list at [facility], family is agreeable -They are also going to look at possibly other hospitals, but they said that they want to look into this on their own Vitals/I&O/Wt Last Vital Signs Temp 98.2 F 03/27/23 05:00 Pulse 124 H 03/27/23 13:15 Resp 20 H 03/27/23 16:20 BP 104/60 03/27/23 13:15 Pulse Ox 97 03/27/23 16:20 O2 Del Method Room Air 03/27/23 10:33 O2 Flow Rate 3 03/27/23 05:00 03/27/23 03/27/23 03/27/23 06:59 14:59 22:59 Intake Total 2424.928 / 6114.738 50 / 50 Output Total 900 / 1426 650 / 650 Balance 1524.928 / 4688.738 -600 / -600 Physical Exam Const: COMMON NORMALS: no acute distress EXAM LIMITATIONS: altered mental status ORIENTATION/CONSCIOUSNESS: Yes awake, Yes oriented to person and Yes oriented to place; not oriented to time and not confused Resp: COMMON NORMALS: normal respiratory effort, No retractions, No use of accessory muscles and clear to auscultation bilaterally AUSCULTATION: clear to auscultation bilaterally Cardio: COMMON NORMALS: regular rate, regular rhythm, S1 normal heart sound present and S2 normal heart sound present RATE: regular rate RHYTHM: regular rhythm HEART SOUNDS: S1 normal heart sound present and S2 normal heart sound present GI: COMMON NORMALS: Normal to inspection, nondistended, normoactive bowel sounds present and non-tender Neuro: SENSORIUM/ORIENTATION: Yes oriented to person, Yes oriented to place and No oriented to time Psych: COMMON NORMALS: mental status grossly normal Skin: NARRATIVE SKIN EXAM: Bilateral extremity cellulitis, with brawny induration of the skin, up to the level of shins Has diffuse anasarca, lower extremity 1+ pitting edema Urinary Catheter Management: Birch: Cath Placed During This Visit: yes Reason for Continuing Indwelling Catheter: Accurate Measurement of Urinary Output in Critically Ill Patients Urinary Catheter Date of Insertion: 03/25/23 Urinary Catheter Time of Insertion: 18:20 Sepsis: Is patient septic: Yes Focused sepsis exam performed: Yes Focused sepsis exam: - DP PT pulses, palpable -Capillary refill greater than 3 seconds -No significant mottling Date exam was performed: 03/27/23 Time exam was performed: 08:00 Data 03/27/23 03:44 03/27/23 03:44 Micro: Microbiology 03/25/23 11:14 Blood Culture - Preliminary Blood Pasteurella multocida 03/27/23 11:14 Blood Culture - Preliminary Blood SPECIMEN COLLECTED 03/25/23 18:30 Urine Culture - Final Urine,Clean Catch 03/25/23 14:50 MRSA Culture - Final Nose A&P Assessment and plan (1) Elevated lactic acid level: (2) Cirrhosis: (3) Septic shock: (4) Sepsis: (5) Cellulitis: (6) Leukopenia: (7) Metabolic acidosis: (8) Hyperammonemia: (9) Hypoalbuminemia: (10) Hepatorenal syndrome: (11) Spontaneous bacterial peritonitis: (12) Altered mental status: (13) Septic encephalopathy: (14) Sepsis: Qualifiers: Acute renal failure type: unspecified Sepsis acute organ dysfunction status: with acute organ dysfunction Sepsis type: sepsis due to unspecified organism Severe sepsis acute organ dysfunction type: acute renal failure Severe sepsis shock status: with septic shock Qualified Code(s): A41.9 - Sepsis, unspecified organism; R65.21 - Severe sepsis with septic shock; N17.9 - Acute kidney failure, unspecified (15) Bowel obstruction: (16) Gram-negative bacteremia: (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: (18) Anasarca: Plan Pasteurella multocida bacteremia -Source could be SBP, and or cellulitis -Does report cats and dogs at home, denies any animal bites Septic shock -Secondary to spontaneous bacterial peritonitis, cellulitis -Blood cultures are Pasteurella multocida -Initial plan on 2 pressors, on bicarb drip, Levophed at 6, bicarbonate 50 Plan -Admit to ICU -Monitor hemodynamics closely -Wean IV fluids, wean off bicarb -Continue Levophed, wean as tolerated maintain MAP greater than 65 -Broad-spectrum antibody therapy vancomycin, carbapenem -Follow blood cultures, MRSA nares PCR -Ultrasound paracentesis, not significant amount of fluid to tap -Continue albumin therapy, will have day 3 albumin therapy -Full code -Lovenox for DVT prophylaxis -Placed on wait list at [facility] Spontaneous bacterial peritonitis -Blood cultures positive for Pasteurella multocida -No significant amount of fluid to perform a paracentesis -Received albumin -Currently on carbapenem -Give albumin day 3 -Follow follow repeat blood cultures Cellulitis bilateral lower extremity -On vancomycin, carbapenem ARMEN on CKD -Likely second to sepsis -However concerns for hepatorenal syndrome given SBP -Urine output has improved, creatinine proved 1.3 Leukopenia, likely secondary to sepsis, cellulitis Elevated INR, likely secondary to sepsis, cellulitis, liver failure Lactic acidosis, secondary to sepsis, cellulitis, spontaneous bacterial peritonitis, septic shock as above -Repeat lactic acid Metabolic acidosis due to sepsis as above Hyperammonemia secondary to liver failure, continue lactulose, rifaximin, monitor mentation closely Hypoalbuminemia, likely secondary to liver cirrhosis, albumin Altered mental status, likely secondary to sepsis, cellulitis, spontaneous bacterial peritonitis Anasarca, will give 1 dose of Lasix today Bowel obstruction -Seen on CAT scan -Had reported bowel movement on admission, no nausea, no vomiting, -Repeat KUB shows nonobstructive bowel gas pattern -We will monitor Hypomagnesemia, replace Hypokalemia, resolved Plan for today, continue antibiotics, wean Levophed, wean bicarb, wean fluids, speech therapy eval, monitor mentation, monitor urine output Lasix, possibly up out of bed, will speak to infectious disease, spoke to patient, spoke to patient's family, spoke to radiology Attestations Medical Necessity Statement*: Patient requires hospitalization for spontaneous bacterial peritonitis, cellulitis, Pasteurella multocida bacteremia, sepsis with septic shock, lactic acidosis Coding Level of Care Code Critical Care >/= 30 minutes Critical care time (in minutes): 60 The high probability of a clinically significant, sudden or life threatening deterioration, as referenced in this documentation, required my full and direct attention, intervention and personal management. The critical care time shown is in addition to time spent performing any reported separately billable procedures and includes the following: [x] Data and vital sign review and interpretation [x] Patient assessment, examination and intervention [x] Medication orders and management [x] Patient/Family updates as able [x] Care Coordination and Documentation. 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
[2023-03-27] MEDS: FUROsemide 10 mg/mL SDV 4mL 40 MG IVP (17:17)
[2023-03-28] VITALS (57 sets, daily range): BP systolic 95–143; BP diastolic 45–77; PULSE 74–131; RESP 14–44; TEMP 36.4–37.3; O2SAT 88–98
[2023-03-28] MEDS: sodium chloride 0.9% 1,000 ML 50 ML IV (00:40)
[2023-03-28] MEDS: vancomycin 1,500 MG/300 ML PIGGYBACK 200 MG IV ×2 (01:23→20:30)
[2023-03-28 05:01] LABS: Ammonia 61 umol/L (16-60); Lactate (Lactic Acid level) 3.5 mmol/L (0.5-2.2)
[2023-03-28] MEDS: morphine 4 mg/mL SDV 1 mL 2 MG IVP ×2 (05:09→13:18)
[2023-03-28] MEDS: albumin 25 G/100 ML BAG 60 G IV ×3 (05:09→20:30)
[2023-03-28 05:10] LABS: C Reactive Protein 184.8 mg/L (0.0-4.9)
[2023-03-28 05:14] LABS: Alanine Aminotransferase 13 U/L (0-41); Albumin Level 3.5 g/dL (3.5-5.2); Alkaline Phosphatase 96 U/L (40-130); Anion Gap 19.5 (5-19); Aspartate Amino Transferase 27 U/L (0-40); Blood Urea Nitrogen 37 mg/dL (6-20); Calcium 7.7 mg/dL (8.5-10.5); Carbon Dioxide 23 mmol/L (22-29); Chloride 105 mmol/L (98-107); Globulin 2.2 g/dL (1.3-4.6); Glomerular Filtration Rate 56.7 mL/min (90-130); Glucose 58 mg/dL (65-115); Osmolality Calculated 304 mOsm/kg (285-295); Phosphorus 2.4 mg/dL (2.5-4.5); Potassium 3.5 mmol/L (3.5-5.1); Sodium 144 mmol/L (136-145); Total Protein 5.7 g/dL (6.6-8.7)
[2023-03-28 05:20] LABS: NT Pro B Type Natriuretic Pept 3688 pg/mL (0-125); Procalcitonin 30.16 ng/mL (0-0.5)
[2023-03-28 05:26] LABS: Basophils # 0.1 10^3/uL (0.0-0.1); Basophils % 0.8 %; Eosinophils # 0.1 10^3/uL (0.0-0.8); Eosinophils % 1.1 %; Hematocrit 31.7 % (42.0-52.0); Hemoglobin 9.8 g/dL (11.7-16.6); Lymphocytes # 0.5 10^3/uL (0.8-4.8); Lymphocytes % 3.9 %; Mean Corpuscular HGB Conc 30.9 g/dL (30.0-36.0); Mean Corpuscular Hemoglobin 26.6 pg (28.0-34.0); Mean Corpuscular Volume 86.1 fl (80-94); Monocytes # 0.3 10^3/uL (0.2-0.9); Monocytes % 2.7 %; Neutrophils # 10.68 10^3/uL (1.8-7.7); Neutrophils % 90.3 %; Nucleated Red Blood Cells % 0 %; Platelet Count 50 10^3/cmm (130-400); Red Blood Count 3.68 10^6/uL (4.1-5.3); Red Cell Distribution Width 20.4 % (12.1-15.1); Slide Review Slide Review Perform; White Blood Count 11.8 10^3/uL (4.0-10.0)
[2023-03-28 05:42] LABS: Creatine Phosphokinase 31 U/L (39-308)
[2023-03-28 05:45] LABS: Total Bilirubin 8.1 mg/dL (0.15-1.2)
[2023-03-28 06:20] LABS: Glucose Point of Care 63 mg/dL (70-110)
--- NOTE | 2023-03-28 06:24 | PC.NURSE ---
Blood Sugar Patient's blood sugar 58 on his labwork, fingerstick completed with a result of 63. Dr. Ma notified; orders received to administer 1 amp of D50, start D5NS at 50 ml/hr, stop maintenance fluid NS, and initiate hypoglycemia protocol. See MAR for details.
[2023-03-28] MEDS: dextrose 5%-sod chloride 0.9% 1,000 ML 50 ML IV (06:27)
[2023-03-28 06:51] LABS: Glucose Point of Care 123 mg/dL (70-110)
[2023-03-28] MEDS: meropenem 1,000 MG in sodium chloride 0.9% (plus) 50 ML 100 MG IV ×3 (08:33→23:59)
--- NOTE | 2023-03-28 08:51 | XRR_ITS ---
PROCEDURE INFORMATION: Exam: XR Abdomen Exam date and time: 03/28/2023 9:01 AM Age: 57 years old Clinical indication: Other: Abdominal distention TECHNIQUE: Imaging protocol: Radiologic exam of the abdomen. Views: Frontal supine view of the abdomen. 1 View. COMPARISON: CR (ABDOMEN, ) 03/26/2023 11:27 AM FINDINGS: Gastrointestinal tract: Air is present in multiple nondilated loops of small bowel and there is also some air in the colon and rectum. There is no evidence of obstruction. Bones/joints: Unremarkable. XR/XR KUB portable [id number] IMPRESSION: No significant bowel dilatation.
--- NOTE | 2023-03-28 09:28 | PM.PN ---
Subjective Subjective: No new complaints Medications: Reviewed: Yes Vitals/I&O/Wt Last Vital Signs Temp 97.6 F 03/28/23 07:33 Pulse 83 03/28/23 06:00 Resp 24 H 03/28/23 06:00 BP 129/62 03/28/23 06:00 Pulse Ox 97 03/28/23 06:00 O2 Del Method Room Air 03/28/23 04:00 O2 Flow Rate 3 03/28/23 02:00 FiO2 45 03/28/23 02:00 03/27/23 03/28/23 03/28/23 22:59 06:59 14:59 Intake Total 404 / 754 1649.975 / 2403.975 Output Total 200 / 850 1200 / 2050 Balance 204 / -96 449.975 / 353.975 Physical Exam Narrative: Patient is lethargic, difficult to arouse, S1-S2 regular rate and rhythm per report Lungs clear to auscultation per report Abdominal ascites Bilateral lower extremity venous stasis with erythema and superficial ulcers Urinary Catheter Management: Birch: Cath Placed During This Visit: yes Reason for Continuing Indwelling Catheter: Accurate Measurement of Urinary Output in Critically Ill Patients Urinary Catheter Date of Insertion: 03/25/23 Urinary Catheter Time of Insertion: 18:20 Data 03/28/23 04:08 03/28/23 04:08 Micro: Microbiology 03/27/23 22:22 C.difficile Toxin B Gene (PCR) - Final Stool Routine Collection 03/27/23 21:00 Blood Culture - Preliminary Blood SPECIMEN COLLECTED 03/25/23 11:14 Blood Culture - Preliminary Blood Pasteurella multocida 03/27/23 11:14 Blood Culture - Preliminary Blood SPECIMEN COLLECTED 03/25/23 18:30 Urine Culture - Final Urine,Clean Catch A&P Assessment and plan (1) ARMEN (acute kidney injury): Plan 1. Acute kidney injury: Baseline creatinine was normal now has ARMEN with a creatinine of 1.6. ARMEN most likely multifactorial with ATN from sepsis and question hepatorenal syndrome. Also patient received IV contrast yesterday with CT scan and I anticipate renal function likely get further worse. He is oliguric. Electrolytes stable.Cr improved to 1.3 today ,off levophed since this AM -continue IV albumin 25 g every 8 hours, hold diuretics for now. -Check urine electrolytes -May also benefit from paracentesis -renal US results noted -will start diuretics once off levophed and BP stable 2. Sepsis secondary to lower extremity cellulitis 3. Metabolic acidosis: Worsening, from lactic acidosis, will give Bicitra, if no improvement may have to do bicarbonate drip 4. Alcoholic liver cirrhosis with ascites 5 hypokalemia: Mild potassium repleted. Patient evaluated using audiovisual cart. Time spent 40 minutes Attestations Medical Necessity Statement*: per medicine Coding Level of Care Code Acute Code for g Fwd Diagnoses ARMEN (acute kidney injury) N17.9
[2023-03-28] MEDS: FUROsemide 10 mg/mL SDV 10mL 60 MG IVP (10:02)
--- NOTE | 2023-03-28 10:59 | PC.SOCIAL ---
IMM update IMM updated with patient. Verbalized and understanding. Copy Pg 2 provided. Initialled, dated, timed, and placed in chart.
[2023-03-28 12:12] LABS: LAB Peripheral Smear Sent for Review
[2023-03-28] MEDS: enoxaparin 40 mg/0.4 mL Syringe SUBCUT (12:53)
[2023-03-28] MEDS: pantoprazole 40 mg SDV IVP (12:53)
[2023-03-28 13:54] LABS: INR 1.74 (0.8-1.2)
[2023-03-28 13:55] LABS: Fibrinogen 338 mg/dL (174-498); Partial Thromboplastin Time 41.2 SECONDS (23.9-36.7)
[2023-03-28 14:02] LABS: Lactate Dehydrogenase 255 U/L (135-225)
[2023-03-28 14:03] LABS: Total Bilirubin 8.8 mg/dL (0.15-1.2)
[2023-03-28 14:05] LABS: D Dimer 7.79 ug/mIFEU (0-0.59)
[2023-03-28] MEDS: LORazepam 2 mg/mL INJ 1 mL IVP ×2 (14:16→20:37)
--- NOTE | 2023-03-28 16:02 | PM.PN ---
Subjective Subjective: Patient was seen this more than, he is alert to person, to place, not to time, he does drift in and out, a bit delirious this morning, he tells me that he is thirsty, but speech therapy work with him yesterday felt he was a high aspiration risk, denies fevers, no chills, no nausea, no vomiting, does report abdominal pain -Spoke to family members at bedside in the afternoon, patient's family wants him to be transferred to [place], yesterday he had a bed at [place], but he was still on Levophed, unstable for transfer, -Currently he is off Levophed, he has been afebrile, he is off bicarb so he stable for transfer he has been put back on the transfer list, -I spoke to [place], patient has been accepted, is potentially waiting a [facility] bed -I did discuss with family that his bilirubin is up to 8, more likely secondary to worsening liver failure, and his SBP, I have ordered hemolytic labs, depending on his bilirubin trend we will consider further imaging, but his AST, ALT are within normal limits alk phos was within normal limits -I spoke to family members about the Pasteurella multocida positive blood cultures, family is unaware of any cat bites or dog bites Vitals/I&O/Wt Last Vital Signs Temp 97.6 F 03/28/23 07:33 Pulse 101 H 03/28/23 14:30 Resp 22 H 03/28/23 13:18 BP 104/73 03/28/23 14:30 Pulse Ox 93 03/28/23 14:30 O2 Del Method Nasal Cannula 03/28/23 14:22 O2 Flow Rate 2 03/28/23 14:22 FiO2 45 03/28/23 02:00 03/28/23 03/28/23 03/28/23 06:59 14:59 22:59 Intake Total 1649.975 / 2403.975 Output Total 1200 / 0 Balance 449.975 / 353.975 Physical Exam Const: COMMON NORMALS: no acute distress OTHER: Jaundiced appearing, scleral icterus Resp: COMMON NORMALS: normal respiratory effort, No retractions, No use of accessory muscles and clear to auscultation bilaterally AUSCULTATION: clear to auscultation bilaterally Cardio: COMMON NORMALS: regular rate, regular rhythm, S1 normal heart sound present and S2 normal heart sound present RATE: regular rate RHYTHM: regular rhythm HEART SOUNDS: S1 normal heart sound present and S2 normal heart sound present Extremity: NARRATIVE EXTREMITY EXAM: 1+ pitting edema Anasarca Neuro: OTHER: Able to follow neurologic testing such as smiling for me, squeezing my fingers, but is delirious at times, Urinary Catheter Management: Birch: Cath Placed During This Visit: yes Reason for Continuing Indwelling Catheter: Accurate Measurement of Urinary Output in Critically Ill Patients Urinary Catheter Date of Insertion: 03/25/23 Urinary Catheter Time of Insertion: 18:20 Data 03/28/23 04:08 03/28/23 04:08 Micro: Microbiology 03/27/23 11:14 Blood Culture - Preliminary Blood NEGATIVE TO DATE 03/27/23 22:22 C.difficile Toxin B Gene (PCR) - Final Stool Routine Collection 03/27/23 21:00 Blood Culture - Preliminary Blood SPECIMEN COLLECTED 03/25/23 11:14 Blood Culture - Preliminary Blood Pasteurella multocida A&P Assessment and plan (1) Elevated lactic acid level: (2) Cirrhosis: (3) Septic shock: (4) Sepsis: (5) Cellulitis: (6) Leukopenia: (7) Metabolic acidosis: (8) Hyperammonemia: (9) Hypoalbuminemia: (10) Hepatorenal syndrome: (11) Spontaneous bacterial peritonitis: (12) Altered mental status: (13) Septic encephalopathy: (14) Sepsis: Qualifiers: Acute renal failure type: unspecified Sepsis acute organ dysfunction status: with acute organ dysfunction Sepsis type: sepsis due to unspecified organism Severe sepsis acute organ dysfunction type: acute renal failure Severe sepsis shock status: with septic shock Qualified Code(s): A41.9 - Sepsis, unspecified organism; R65.21 - Severe sepsis with septic shock; N17.9 - Acute kidney failure, unspecified (15) Bowel obstruction: (16) Gram-negative bacteremia: (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: (18) Anasarca: Plan Pasteurella multocida bacteremia -Source could be SBP, and or cellulitis -Does report dogs at home, but denies any animal bites/[place] Septic shock, resolving -Secondary to spontaneous bacterial peritonitis, cellulitis -Blood cultures are Pasteurella multocida -Off pressors, Plan -Admit to ICU -Monitor hemodynamics closely -maintain MAP greater than 65 -Broad-spectrum antibody therapy vancomycin, carbapenem -Follow blood cultures, MRSA nares PCR -Ultrasound paracentesis, not significant amount of fluid to tap -Received albumin therapy as per SBP protocol, receiving albumin every 8 hours -Full code -Lovenox for DVT prophylaxis -Placed on wait list at [facility] Spontaneous bacterial peritonitis -Blood cultures positive for Pasteurella multocida -No significant amount of fluid to perform a paracentesis -Received albumin therapy -Currently on carbapenem -Follow follow repeat blood cultures Cellulitis bilateral lower extremity -On vancomycin, carbapenem ARMEN on CKD -Likely second to sepsis -However concerns for hepatorenal syndrome given SBP -Urine output has improved, creatinine proved 1.3 Leukopenia, resolving, likely secondary to sepsis, cellulitis Elevated INR, likely secondary to sepsis, cellulitis, liver failure Lactic acidosis, secondary to sepsis, cellulitis, spontaneous bacterial peritonitis, septic shock as above -Repeat lactic acid improving Metabolic acidosis due to sepsis as above Hyperammonemia secondary to liver failure, continue lactulose, rifaximin, monitor mentation closely Hypoalbuminemia, likely secondary to liver cirrhosis, albumin Altered mental status, likely secondary to sepsis, cellulitis, spontaneous bacterial peritonitis, hyperbilirubinemia Anasarca, hold off on Lasix today Bowel obstruction -Seen on CAT scan -Had reported bowel movement on admission, no nausea, no vomiting, -Repeat KUB shows nonobstructive bowel gas pattern -We will monitor Hypomagnesemia, replace Hypokalemia, resolved Hyperbilirubinemia -We will do liver function studies, fractionated bilirubin, haptoglobin, LDH, peripheral smear, will consider MRCP based on clinical progress Plan for today, continue antibiotics, monitor blood pressures, speech therapy, hemolytic labs, potentially up out of bed, PT evaluation, spoke to [facility] currently on transfer list Attestations Medical Necessity Statement*: Patient requires hospitalization due to Pasteurella multocida bacteremia, SBP, cellulitis, ARMEN, leukopenia, elevated INR, lactic acidosis, metabolic acidosis, hyperammonemia, hyperammonemia, altered mental status Diagnoses Elevated lactic acid level R79.89 Cirrhosis K74.60 Septic shock A41.9; R65.21 Sepsis A41.9 Cellulitis L03.90 Leukopenia D72.819 Metabolic acidosis E87.20 Hyperammonemia E72.20 Hypoalbuminemia E88.09 Hepatorenal syndrome K76.7 Spontaneous bacterial peritonitis K65.2 Altered mental status R41.82 Septic encephalopathy G93.41 Bowel obstruction K56.609 Gram-negative bacteremia R78.81 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
[2023-03-28 18:51] LABS: Vancomycin Trough 18.8 ug/mL (10-15)
[2023-03-28 20:26] LABS: Glucose Point of Care 120 mg/dL (70-110)
[2023-03-29] VITALS (35 sets, daily range): BP systolic 106–170; BP diastolic 54–93; PULSE 71–123; RESP 12–38; TEMP 36.6–37.6; O2SAT 85–94
[2023-03-29] MEDS: dextrose 5%-sod chloride 0.9% 1,000 ML 50 ML IV
[2023-03-29] MEDS: morphine 4 mg/mL SDV 1 mL 2 MG IVP
[2023-03-29 04:35] LABS: Basophils # 0.1 10^3/uL (0.0-0.1); Basophils % 0.6 %; Eosinophils # 0.3 10^3/uL (0.0-0.8); Eosinophils % 2.7 %; Hematocrit 35.3 % (42.0-52.0); Hemoglobin 9.9 g/dL (11.7-16.6); Lymphocytes # 0.5 10^3/uL (0.8-4.8); Lymphocytes % 5.2 %; Mean Corpuscular Hemoglobin 25.4 pg (28.0-34.0); Mean Corpuscular Volume 90.5 fl (80-94); Mean Platelet Volume 11.4 fL (7.4-10.4); Monocytes # 0.5 10^3/uL (0.2-0.9); Monocytes % 5.2 %; Neutrophils % 82.6 %; Nucleated Red Blood Cells % 0.2 %; Platelet Count 54 10^3/cmm (130-400); Red Cell Distribution Width 20.4 % (12.1-15.1); White Blood Count 10.3 10^3/uL (4.0-10.0)
[2023-03-29 04:44] LABS: Lactate (Lactic Acid level) 2.5 mmol/L (0.5-2.2)
[2023-03-29 04:45] LABS: Ammonia 34 umol/L (16-60)
[2023-03-29 04:57] LABS: Fibrinogen 318 mg/dL (174-498); INR 1.75 (0.8-1.2); Partial Thromboplastin Time 38.4 SECONDS (23.9-36.7)
[2023-03-29 05:02] LABS: Creatine Phosphokinase 18 U/L (39-308)
[2023-03-29 05:05] LABS: Procalcitonin 12.86 ng/mL (0-0.5)
[2023-03-29 05:07] LABS: Alanine Aminotransferase 12 U/L (0-41); Albumin Level 3.3 g/dL (3.5-5.2); Alkaline Phosphatase 92 U/L (40-130); Aspartate Amino Transferase 27 U/L (0-40); Blood Urea Nitrogen 36 mg/dL (6-20); C Reactive Protein 140.9 mg/L (0.0-4.9); Calcium 7.9 mg/dL (8.5-10.5); Carbon Dioxide 26 mmol/L (22-29); Chloride 112 mmol/L (98-107); D Dimer 7.66 ug/mIFEU (0-0.59); Globulin 1.9 g/dL (1.3-4.6); Glomerular Filtration Rate 76.7 mL/min (90-130); Glucose 123 mg/dL (65-115); Magnesium 2.1 mg/dL (1.7-2.3); Osmolality Calculated 324 mOsm/kg (285-295); Phosphorus 1.9 mg/dL (2.5-4.5); Sodium 152 mmol/L (136-145); Total Protein 5.2 g/dL (6.6-8.7)
[2023-03-29] MEDS: albumin 25 G/100 ML BAG 60 G IV ×3 (05:08→22:01)
[2023-03-29 05:16] LABS: Total Bilirubin 8.6 mg/dL (0.15-1.2)
[2023-03-29 07:31] LABS: Glucose Point of Care 134 mg/dL (70-110)
--- NOTE | 2023-03-29 07:38 | XR_ITS ---
WS: [id number] XR KUB portable [id number] REASON FOR EXAM: distention FINDINGS: Splenomegaly. Cholelithiasis. The focal: Dilatation in the left upper abdomen seen 03/28/2023 is somewhat decompressed. Compared to the previous examination there is now gas identifiable in the left colon and rectum. No definite smal l bowel distention. No free air or retroperitoneal air. XR/XR KUB portable [id number] IMPRESSION: Improving bowel gas pattern as above.
--- NOTE | 2023-03-29 07:38 | XR_ITS ---
WS: [id number] XR chest 1V portable [id number] REASON FOR EXAM: sob FINDINGS: Chest is unchanged compared to 03/26/2023. Right internal jugular central venous line remains in position. Cardiomegaly. Central pulmonary venous engorgement. Probable small right pleural effusion. Opacification of the lower left with obscuration of the left hemidiaphragm. Combination of lung conso lidation and pleural effusion. XR/XR chest 1V portable [id number] IMPRESSION: Stable abnormal chest as above.
[2023-03-29] MEDS: meropenem 1,000 MG in sodium chloride 0.9% (plus) 50 ML 100 MG IV (07:41)
[2023-03-29] MEDS: potassium phosphate (mEq K) 40 MEQ in sodium chloride 0.9% (100 ml) 100 ML 27.25 MEQ IV (08:31)
--- NOTE | 2023-03-29 08:43 | US_ITS ---
WS: [id number] INDICATION: Evaluate abdominal ascites TECHNIQUE: Four-quadrant abdominal ultrasound. FINDINGS: Four-quadrant abdominal ultrasound. Only very minimal visualized ascites. Inadequate fluid for paracentesis. US/US abdomen lmt fluid [id number] IMPRESSION: Only very minimal visualized ascites. Inadequate fluid for paracent esis.
--- NOTE | 2023-03-29 10:23 | PM.PN ---
Subjective Subjective: Poor PO intake Medications: Reviewed: Yes Vitals/I&O/Wt Last Vital Signs Temp 99.1 F 03/28/23 19:00 Pulse 106 H 03/29/23 08:43 Resp 12 03/29/23 08:30 BP 124/78 03/29/23 08:30 Pulse Ox 92 03/29/23 08:43 O2 Del Method Nasal Cannula 03/29/23 08:43 O2 Flow Rate 3 03/29/23 08:43 FiO2 45 03/28/23 02:00 03/28/23 03/29/23 03/29/23 22:59 06:59 14:59 Intake Total 450 / 600 927.5 / 1527.5 Output Total 3000 / 3000 1350 / 4350 Balance -2550 / -2400 -422.5 / -2822.5 Physical Exam Narrative: , S1-S2 regular rate and rhythm per report Lungs clear to auscultation per report Abdominal ascites Bilateral lower extremity venous stasis with erythema and superficial ulcers Urinary Catheter Management: Birch: Cath Placed During This Visit: yes Reason for Continuing Indwelling Catheter: Accurate Measurement of Urinary Output in Critically Ill Patients Urinary Catheter Date of Insertion: 03/25/23 Urinary Catheter Time of Insertion: 18:20 Data 03/29/23 03:37 03/29/23 03:37 Micro: Microbiology 03/27/23 21:00 Blood Culture - Preliminary Blood NEGATIVE TO DATE 03/27/23 11:14 Blood Culture - Preliminary Blood NEGATIVE TO DATE A&P Assessment and plan (1) ARMEN (acute kidney injury): Plan 1. Acute kidney injury: Baseline creatinine was normal now has ARMEN with a creatinine of 1.6. ARMEN most likely multifactorial with ATN from sepsis and question hepatorenal syndrome. Also patient received IV contrast yesterday with CT scan and I anticipate renal function likely get further worse. He is oliguric. Electrolytes stable.Cr improved to 1.0 today ,off pressors -continue IV albumin 25 g every 8 hours, hold diuretics for now. -May also benefit from paracentesis -renal US results noted -started lasix 20 mg po bid 2. Sepsis secondary to lower extremity cellulitis 3. Metabolic acidosis: Worsening, from lactic acidosis, will give Bicitra, if no improvement may have to do bicarbonate drip 4. Alcoholic liver cirrhosis with ascites 5 hypokalemia: Mild potassium repleted. Patient evaluated using audiovisual cart. Time spent 40 minutes Attestations Medical Necessity Statement*: per medicine Coding Level of Care Code Acute Code for Chg Fwd Diagnoses ARMEN (acute kidney injury) N17.9
--- NOTE | 2023-03-29 10:42 | CT_ITS ---
WS: [id number] CT HEAD TECHNIQUE: Noncontrast CT of the head obtained from the skullbase to the vertex. CLINICAL INFORMATION: ams COMPARISON: CT head March 26, 2023 DLP: 1226.[address] scans at [facility] use at least one of these dose optimization techniques: automated e xposure control; mA and/or kV adjustment per patient size (includes targeted exams where dose is matc hed to clinical indication); or iterative reconstruction. FINDINGS: No evidence of intracranial hemorrhage or mass effect. Ventricular system and basal cisterns are paredes nt. Mild small vessel changes with moderate parenchymal volume loss. No extra-axial fluid collections . No evidence of mass or mass effect. Paranasal sinuses and mastoid air cells are well aerated. .Normal visualized soft tissues. CT/CT head wo con* [id number] IMPRESSION: 1. No evidence of intracranial hemorrhage or mass effect. 2. Mild small vessel changes. Moderate parenchymal volume loss. 3. Mild intracranial vascular calcification. 4. No acute intracranial findings.
[2023-03-29] MEDS: enoxaparin 40 mg/0.4 mL Syringe SUBCUT (12:35)
[2023-03-29] MEDS: pantoprazole 40 mg SDV IVP (12:35)
--- NOTE | 2023-03-29 13:16 | PC.NURSE ---
Pt repeatedly takes off O2, sats 83 on RA, atempts to pull at central line, unable to reorient, Dr. Dash approved Medical restraints
[2023-03-29] MEDS: dexmedetomidine 400 MCG in sodium chloride 0.9% (100 ml) 100 ML IV (14:07)
[2023-03-29] MEDS: vancomycin 1,500 MG/300 ML PIGGYBACK 200 MG IV (14:08)
[2023-03-29 14:42] LABS: ABG PCO2 35.4 mmHg (35-45); ABG PH Result 7.48 (7.35-7.45); Alveolar-Arterial Oxygen Gradi 5.4 mmHg (5-10); Base Excess ABG 2.8 mmol/L (-2.0-2.0); Blood Gas Allen Test Pos; Blood Gas Operator Identificat CAK; Blood Gas Sample Site Radial, left; Blood Gas Sample Type Arterial; Carboxyhemoglobin 2.3 %THgb (0.4-20.1); HCO3 ABG 26.3 mmol/L (22-26); HGB O2 Sat 90.5 % (95-100); Ionized Calcium Level - ABG 1.1 mmol/L (1.1-1.4); Methemoglobin 0.6 % (0.4-1.5); Oxygen Device NC; Oxygen Saturation ABG 93.2; Potassium Level - ABG 3.1 mmol/L (3.5-5.0); Total Hemoglobin 10.8 g/dL (14-18)
--- NOTE | 2023-03-29 16:10 | P.PN_ITS ---
Subjective Subjective: - Patient was examined at times throughout the day -He had episodes of hypoglycemia during the night -Early in the morning he was examined he is alert to person, not to place, not to time he is quite drowsy, he is able to follow some commands such as squeezing my fingers, but is quite delirious -Afebrile overnight normotensive off Levophed, off bicarb, -He is ammonia levels have improved, sepsis has improved, lactic acid 2.5 however mentation, continues to be delirious -I met with family at bedside, discussed patient's clinical progress, they are concerned as his mentation continues to wax and wane, they are still adamant about him being transferred to [place] as that was where his liver doctor is -Reexamined in the afternoon, continues to have episodes of agitation, placed on Precedex -He had episodes of shortness of breath throughout the afternoon, tachypnea, ABG ordered -Reexamined, his tachypnea has improved, has improved with a Precedex Vitals/I&O/Wt Last Vital Signs Temp 99.1 F 03/28/23 19:00 Pulse 103 H 03/29/23 15:30 Resp 28 H 03/29/23 15:30 BP 134/90 03/29/23 15:30 Pulse Ox 91 03/29/23 15:30 O2 Del Method Nasal Cannula 03/29/23 08:43 O2 Flow Rate 3 03/29/23 08:43 FiO2 45 03/28/23 02:00 03/29/23 03/29/23 03/29/23 06:59 14:59 22:59 Intake Total 1027.5 / 1627.5 546.667 / 546.667 Output Total 1350 / 4350 Balance -322.5 / -2722.5 546.667 / 546.667 Physical Exam Const: COMMON NORMALS: no acute distress Neck/C-Spine: COMMON NORMALS: no JVD Resp: COMMON NORMALS: normal respiratory effort, No retractions, No use of accessory muscles and clear to auscultation bilaterally AUSCULTATION: clear to auscultation bilaterally Cardio: COMMON NORMALS: no JVD, regular rate, regular rhythm, S1 normal heart sound present and S2 normal heart sound present RATE: regular rate RHYTHM: regular rhythm HEART SOUNDS: S1 normal heart sound present and S2 normal heart sound present GI: COMMON NORMALS: Normal to inspection, nondistended, normoactive bowel sounds present and non-tender Extremity: COMMON NORMALS: no pedal edema Psych: COMMON NORMALS: mental status grossly normal Urinary Catheter Management: Birch: Cath Placed During This Visit: yes Reason for Continuing Indwelling Catheter: Accurate Measurement of Urinary Output in Critically Ill Patients Urinary Catheter Date of Insertion: 03/25/23 Urinary Catheter Time of Insertion: 18:20 Data 03/29/23 03:37 03/29/23 03:37 Micro: Microbiology 03/25/23 11:14 Blood Culture - Final Blood Pasteurella multocida 03/27/23 21:00 Blood Culture - Preliminary Blood NEGATIVE TO DATE 03/27/23 11:14 Blood Culture - Preliminary Blood NEGATIVE TO DATE A&P Assessment and plan (1) Elevated lactic acid level: (2) Cirrhosis: (3) Septic shock: (4) Sepsis: (5) Cellulitis: (6) Leukopenia: (7) Metabolic acidosis: (8) Hyperammonemia: (9) Hypoalbuminemia: (10) Hepatorenal syndrome: (11) Spontaneous bacterial peritonitis: (12) Altered mental status: (13) Septic encephalopathy: (14) Sepsis: Qualifiers: Acute renal failure type: unspecified Sepsis acute organ dysfunction status: with acute organ dysfunction Sepsis type: sepsis due to unspecified organism Severe sepsis acute organ dysfunction type: acute renal failure Severe sepsis shock status: with septic shock Qualified Code(s): A41.9 - Sepsis, unspecified organism; R65.21 - Severe sepsis with septic shock; N17.9 - Acute kidney failure, unspecified (15) Bowel obstruction: (16) Gram-negative bacteremia: (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: (18) Anasarca: Plan Pasteurella multocida bacteremia -Source could be SBP, and or cellulitis -Does report dogs at home, but denies any animal bites/[place] Septic shock, resolved -Secondary to spontaneous bacterial peritonitis, cellulitis -Blood cultures are Pasteurella multocida -Off pressors, Plan -Admit to ICU -Monitor hemodynamics closely -maintain MAP greater than 65 -Broad-spectrum antibody therapy vancomycin, carbapenem -Follow blood cultures, MRSA nares PCR -Ultrasound paracentesis, not significant amount of fluid to tap -Repeat abdominal ultrasound, no significant fluid to tap -Received albumin therapy as per SBP protocol, receiving albumin every 8 hours -Full code -Lovenox for DVT prophylaxis -Placed on wait list at [facility] Spontaneous bacterial peritonitis -Blood cultures positive for Pasteurella multocida -No significant amount of fluid to perform a paracentesis -Received albumin therapy -Currently on carbapenem, will de-escalate antibiotic therapy to zosyn -Follow follow repeat blood cultures Cellulitis bilateral lower extremity -On vancomycin, zosyn ARMEN on CKD -Likely second to sepsis -However concerns for hepatorenal syndrome given SBP -Urine output has improved, creatinine proved 1.3 Leukopenia, resolving, likely secondary to sepsis, cellulitis Elevated INR, likely secondary to sepsis, cellulitis, liver failure Lactic acidosis, secondary to sepsis, cellulitis, spontaneous bacterial peritonitis, septic shock as above -Repeat lactic acid improving Metabolic acidosis due to sepsis as above Hyperammonemia secondary to liver failure, continue lactulose, rifaximin, monitor mentation closely Hypoalbuminemia, likely secondary to liver cirrhosis, albumin Acute encephalopathy -Hyperammonemia has resolved -Continues to have hyperbilirubinemia -Serum sodium 152 -Blood cultures, repeat blood cultures are negative -Sepsis has improved -Repeat head CT Anasarca, hold off on Lasix today Bowel obstruction -Seen on CAT scan -Had reported bowel movement on admission, no nausea, no vomiting, -Repeat KUB shows nonobstructive bowel gas pattern -We will monitor Hypomagnesemia, replace Hypokalemia, replace Hyponatremia, serum sodium 152, monitor Hyperbilirubinemia -We will do liver function studies, fractionated bilirubin, haptoglobin, LDH, peripheral smear, will consider MRCP based on clinical progress Plan for today, de-escalate antibiotic therapy, repeat CT of the head, start Precedex drip, follow mentation, speech therapy eval, ABG, monitor respiratory status Attestations Medical Necessity Statement*: Patient requires hospitalization for Pasteurella multocida, bacteremia, SBP, cellulitis, acute encephalopathy Coding Level of Care Code Critical Care >/= 30 minutes Critical care time (in minutes): 40 The high probability of a clinically significant, sudden or life threatening deterioration, as referenced in this documentation, required my full and direct attention, intervention and personal management. The critical care time shown is in addition to time spent performing any reported separately billable procedures and includes the following: [x] Data and vital sign review and interpretation [x ] Patient assessment, examination and intervention [x] Medication orders and management [x] Patient/Family updates as able [x] Care Coordination and Documentation. 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
[2023-03-29] MEDS: cefTRIAXone 1,000 MG in sodium chloride 0.9% (plus) 50 ML 100 MG IV (16:51)
[2023-03-29] MEDS: FUROsemide 10 mg/mL SDV 2mL 20 MG IVP (16:52)
[2023-03-30] VITALS (48 sets, daily range): BP systolic 95–132; BP diastolic 54–76; PULSE 56–75; RESP 15–30; TEMP 36.1–39.1; O2SAT 88–97
[2023-03-30] MEDS: dexmedetomidine 400 MCG in sodium chloride 0.9% (100 ml) 100 ML 8.14 MCG IV (01:43)
[2023-03-30] MEDS: albumin 25 G/100 ML BAG 60 G IV ×3 (04:36→22:57)
--- NOTE | 2023-03-30 05:13 | PC.NURSE ---
Reported elevated temp to Dr. Ma.
[2023-03-30 05:31] LABS: Basophils # 0.1 10^3/uL (0.0-0.1); Basophils % 0.8 %; Eosinophils # 0.1 10^3/uL (0.0-0.8); Eosinophils % 1.7 %; Hematocrit 35.8 % (42.0-52.0); Hemoglobin 10.7 g/dL (11.7-16.6); Lymphocytes # 0.6 10^3/uL (0.8-4.8); Lymphocytes % 9.4 %; Mean Corpuscular HGB Conc 29.9 g/dL (30.0-36.0); Mean Corpuscular Hemoglobin 25.9 pg (28.0-34.0); Mean Corpuscular Volume 86.7 fl (80-94); Mean Platelet Volume 10.4 fL (7.4-10.4); Monocytes # 0.6 10^3/uL (0.2-0.9); Monocytes % 9.8 %; Neutrophils # 4.71 10^3/uL (1.8-7.7); Neutrophils % 74.7 %; Nucleated Red Blood Cells # 0.1 /100WBC; Nucleated Red Blood Cells % 0.8 %; Platelet Count 53 10^3/cmm (130-400); Red Blood Count 4.13 10^6/uL (4.1-5.3); Red Cell Distribution Width 20.5 % (12.1-15.1); White Blood Count 6.3 10^3/uL (4.0-10.0)
[2023-03-30 05:36] LABS: Ammonia 42 umol/L (16-60)
[2023-03-30 05:39] LABS: Alanine Aminotransferase 14 U/L (0-41); Albumin Level 3.3 g/dL (3.5-5.2); Alkaline Phosphatase 77 U/L (40-130); Anion Gap 15.4 (5-19); Aspartate Amino Transferase 40 U/L (0-40); Blood Urea Nitrogen 36 mg/dL (6-20); C Reactive Protein 117.9 mg/L (0.0-4.9); Calcium 7.8 mg/dL (8.5-10.5); Carbon Dioxide 26 mmol/L (22-29); Chloride 122 mmol/L (98-107); Globulin 2.1 g/dL (1.3-4.6); Glomerular Filtration Rate 68.8 mL/min (90-130); Glucose 132 mg/dL (65-115); Magnesium 2.3 mg/dL (1.7-2.3); Osmolality Calculated 340 mOsm/kg (285-295); Phosphorus 3.4 mg/dL (2.5-4.5); Potassium 3.4 mmol/L (3.5-5.1); Sodium 160 mmol/L (136-145); Total Protein 5.4 g/dL (6.6-8.7)
[2023-03-30 05:46] LABS: Lactate (Lactic Acid level) 2.7 mmol/L (0.5-2.2)
[2023-03-30 05:47] LABS: INR 1.84 (0.8-1.2)
[2023-03-30 05:48] LABS: Fibrinogen 335 mg/dL (174-498)
[2023-03-30 05:51] LABS: Procalcitonin 6.84 ng/mL (0-0.5)
[2023-03-30 05:54] LABS: Total Bilirubin 7.7 mg/dL (0.15-1.2)
[2023-03-30 05:57] LABS: D Dimer 7.25 ug/mIFEU (0-0.59)
[2023-03-30 06:03] LABS: Creatine Phosphokinase 14 U/L (39-308)
[2023-03-30 06:05] LABS: Slide Review Slide Review Perform
--- NOTE | 2023-03-30 06:27 | PC.NURSE ---
0420 Pt with elevated temp. Blankets removed. 0550 Temp rechecked, still high, ice packs applied to patient's axilla and groin for 20 minutes. Still awaiting response from Dr. Ma.
--- NOTE | 2023-03-30 08:01 | XRR_ITS ---
PROCEDURE INFORMATION: Exam: XR Chest Exam date and time: 03/30/2023 8:09 AM Age: 57 years old Clinical indication: Fever TECHNIQUE: Imaging protocol: Radiologic exam of the chest. Views: 1 view. COMPARISON: CR XR chest 1V portable [id number] 03/29/2023 7:46 AM FINDINGS: Tubes, catheters and devices: There is a central line placed via right jugular approach terminating in the right atrium unchanged. Lungs: Lung bases are significantly decreased, unchanged. Scattered airspace disease mid-lower lung zones more pronounced on the left that may be due to combination of pulmonary edema and pneumonia. There is more dense confluent consolidation left lower lobe silhouetting of the left hemidiaphragm and obscured by the cardiac silhouette that is unchanged likely in part secondary to atelectasis. Pleural spaces: Superimposed small basilar effusion on the left cannot be ruled out. Right pleural surface is unremarkable. Heart/Mediastinum: Heart is mildly enlarged, unchanged. Bones/joints: Unremarkable for age. XR/XR chest 1V portable [id number] IMPRESSION: 1. Cardiomegaly with scattered heterogeneous opacities both lungs that may be due to combination of multifocal pneumonia and pulmonary edema, unchanged. 2. Left lower lobe consolidation likely secondary to atelectasis, stable.
[2023-03-30] MEDS: vancomycin 1,500 MG/300 ML PIGGYBACK 200 MG IV (09:00)
[2023-03-30] MEDS: FUROsemide 10 mg/mL SDV 2mL 20 MG IVP (09:00)
[2023-03-30] MEDS: sodium chloride 0.9% 1,000 ML 100 ML IV (09:01)
--- NOTE | 2023-03-30 09:53 | CTR_ITS ---
PROCEDURE INFORMATION: Exam: CT Right Lower Extremity Without Contrast; Lower Leg Exam date and time: 03/30/2023 11:09 AM Age: 57 years old Clinical indication: Pain; Lower leg; Bilateral; Patient HX: Septic, cirrhosis, R/O osteomyelitis; Additional info: Evaluate for osteo TECHNIQUE: Imaging protocol: CT of the right lower extremity without contrast was performed. Exam focused on the lower leg. Radiation optimization: All CT scans at this facility use at least one of these dose optimization techniques: automated exposure control; mA and/or kV adjustment per patient size (includes targeted exams where dose is matched to clinical indication); or iterative reconstruction. REPORTING DATA: Count of CT and Cardiac NM exams in prior 12 months: This patient has received 7 known CTs and 0 known cardiac nuclear medicine studies in the 12 months prior to the current study. COMPARISON: CT lower leg RT wo con* [id number] 03/03/2023 7:16 PM RADIATION DOSE METRICS: Total DLP (mGy-cm): 673.58 FINDINGS: Bones/joints: There are scattered small cystic radiolucencies throughout the right knee similar to the left knee likely secondary to disuse osteoporosis. 1.5 cm circumscribed bone cyst along the medial cortex of the femoral metaphysis likely longstanding, benign. No other osteolytic or destructive bone changes detected. Soft tissues: Diffuse superficial soft tissue edema throughout the subcutaneous fat planes extending from the knee into the foot similar in appearance to the left leg that may also be secondary to diffuse cellulitis or systemic factors such as venous stasis, lymphedema, hypoproteinemia or volume overload. There are innumerable cysts superficial punctate calcifications present within the subcutaneous fat planes along the medial posterior aspect of the right lower leg that may also be secondary to chronic venous insufficiency. There is no abscess collection. Deep fascial planes are preserved. There is generalized fatty atrophy involving the musculature of the right lower leg. CT/CT lower leg RT wo con* [id number] IMPRESSION: 1. Disuse osteoporosis right knee. No compelling evidence of osteomyelitis. 2. Diffuse soft tissue swelling right lower leg with superimposed soft tissue calcifications that may be secondary to chronic venous insufficiency. Please see above for differential diagnosis.
--- NOTE | 2023-03-30 09:53 | CTR_ITS ---
PROCEDURE INFORMATION: Exam: CT Left Lower Extremity Without Contrast; Lower Leg Exam date and time: 03/30/2023 11:09 AM Age: 57 years old Clinical indication: Swelling, leg or foot; Patient HX: Septic, cirrhosis, R/O osteomyelitis; Additional info: Evaluate for osteo TECHNIQUE: Imaging protocol: CT of the left lower extremity without contrast was performed. Exam focused on the lower leg. Radiation optimization: All CT scans at this facility use at least one of these dose optimization techniques: automated exposure control; mA and/or kV adjustment per patient size (includes targeted exams where dose is matched to clinical indication); or iterative reconstruction. REPORTING DATA: Count of CT and Cardiac NM exams in prior 12 months: This patient has received 7 known CTs and 0 known cardiac nuclear medicine studies in the 12 months prior to the current study. COMPARISON: CT lower leg LT wo con* [id number] 03/03/2023 7:16 PM RADIATION DOSE METRICS: Total DLP (mGy-cm): 673.58 FINDINGS: Bones/joints: There are multiple small cyst-like radiolucencies involving the left knee likely secondary to disuse osteoporosis.. Remaining osseous structures are intact. There are mild degenerative changes of the knee joint. No compelling evidence of osteomyelitis. Soft tissues: There is diffuse superficial soft tissue edema throughout the subcutaneous fat planes of the left lower leg with some adjacent skin thickening that may be secondary to diffuse cellulitis while systemic factors including venous stasis, lymphedema, hypoproteinemia or volume overload are also considerations. Deep fascial planes are fairly well preserved. There is diffuse fatty atrophy of the musculature of the left lower leg also noted. CT/CT lower leg LT wo con* [id number] IMPRESSION: 1. Presumed disuse osteoporosis left knee. No compelling evidence of osteomyelitis. 2. Diffuse soft tissue swelling primarily involving the superficial, subcutaneous fat planes that may be secondary to diffuse cellulitis. Please see above for differential diagnosis.
--- NOTE | 2023-03-30 09:56 | XR_ITS ---
WS: [id number] XR KUB portable [id number] REASON FOR EXAM: abdominal distention FINDINGS: Decreased distention of the focally dilated bowel loop in the left upper abdomen, most likely the hep atic flexure, compared to the examination of 12. Small amounts of gas seen in the transverse colon. T here is an air-fluid level in the rectum. There is a diffuse hazy density of the abdomen which may be due to fluid-filled distended bowel loops or ascites.The patient was shown to have both on the CT of the abdomen 03/25/2023. No new findings or other interval change. XR/XR KUB portable [id number] IMPRESSION: Decreased distention of the hepatic flexure. Hazy density of the abdomen as above.
[2023-03-30 10:10] LABS: Erythrocyte Sedimentation Rate 9 mm/hr (0-10)
--- NOTE | 2023-03-30 10:47 | PC.SLP ---
Patient not seen due to alertness level.
--- NOTE | 2023-03-30 11:01 | PM.PN ---
Subjective Subjective: pt lethargic , was on Precedex last night BP stable, Medications: Reviewed: Yes Vitals/I&O/Wt Last Vital Signs Temp 101.1 F H 03/30/23 06:27 Pulse 59 L 03/30/23 10:00 Resp 21 H 03/30/23 10:00 BP 110/58 03/30/23 10:00 Pulse Ox 93 03/30/23 09:30 O2 Del Method Nasal Cannula 03/30/23 08:49 O2 Flow Rate 3 03/30/23 08:49 FiO2 45 03/28/23 02:00 03/29/23 03/30/23 03/30/23 22:59 06:59 14:59 Intake Total 313.189 / 959.856 154.809 / 1114.665 Output Total 1300 / 1300 1500 / 2800 Balance -986.811 / -340.144 -1345.191 / -1685.335 Physical Exam Urinary Catheter Management: Birch: Cath Placed During This Visit: yes Reason for Continuing Indwelling Catheter: Accurate Measurement of Urinary Output in Critically Ill Patients Urinary Catheter Date of Insertion: 03/25/23 Urinary Catheter Time of Insertion: 18:20 Data 03/30/23 04:47 03/30/23 04:47 Micro: Microbiology 03/25/23 10:07 Blood Culture - Final Blood NO GROWTH AFTER 5 DAYS 03/30/23 09:02 Blood Culture - Preliminary Blood SPECIMEN COLLECTED 03/30/23 09:12 Blood Culture - Preliminary Blood SPECIMEN COLLECTED 03/25/23 11:14 Blood Culture - Final Blood Pasteurella multocida A&P Assessment and plan (1) ARMEN (acute kidney injury): Plan 1. Acute kidney injury: Baseline creatinine was normal now has ARMEN with a creatinine of 1.6. ARMEN most likely multifactorial with ATN from sepsis and question hepatorenal syndrome. Also patient received IV contrast yesterday with CT scan and I anticipate renal function likely get further worse. He is oliguric. Electrolytes stable.Cr improved to 1.1 today ,off pressors -continue IV albumin 25 g every 8 hours, hold diuretics for now. -May also benefit from paracentesis -renal US results noted -started lasix 20 mg po bid 2. Sepsis secondary to lower extremity cellulitis 3. Metabolic acidosis: Worsening, from lactic acidosis, will give Bicitra, if no improvement may have to do bicarbonate drip 4. Alcoholic liver cirrhosis with ascites 5 hypokalemia: Mild potassium repleted. 5. Hypernatremia : with Hyperchloremia , likely iatrogenic - switch IVFs to D5W @ 100 cc/hr , repeat BMP this afternoon oNCE tf started , add free water 300 ml Q 6 hours Patient evaluated using audiovisual cart. Time spent 40 minutes Attestations Medical Necessity Statement*: per medicine Coding Level of Care Code Acute Code for Chg Fwd Diagnoses ARMEN (acute kidney injury) N17.9
--- NOTE | 2023-03-30 11:35 | PC.OT ---
OT TREATMENT ATTEMPTED. PATIENT SLEEPING SOUNDLY AND REPORTED TEMPERATURE PER CHART. WILL CHECK ON PATIENT IN P.M.
[2023-03-30] MEDS: dextrose 5% 1,000 ML 100 ML IV (11:46)
[2023-03-30] MEDS: pantoprazole 40 mg SDV IVP (11:49)
[2023-03-30] MEDS: enoxaparin 40 mg/0.4 mL Syringe SUBCUT (11:49)
--- NOTE | 2023-03-30 12:31 | CTR_ITS ---
PROCEDURE INFORMATION: Exam: CTA Chest With Contrast Exam date and time: 03/30/2023 2:26 PM Age: 57 years old Clinical indication: Shortness of breath; Additional info: SOB TECHNIQUE: Imaging protocol: Computed tomographic angiography of the chest with contrast. Exam focused on the arteries. 3D rendering (Not supervised by radiologist): MIP and/or 3D reconstructed images were created by the technologist. Radiation optimization: All CT scans at this facility use at least one of these dose optimization techniques: automated exposure control; mA and/or kV adjustment per patient size (includes targeted exams where dose is matched to clinical indication); or iterative reconstruction. Contrast material: OMNI 350; Contrast volume: 100 ml; Contrast route: INTRAVENOUS (IV); REPORTING DATA: Count of CT and Cardiac NM exams in prior 12 months: This patient has received 7 known CTs and 0 known cardiac nuclear medicine studies in the 12 months prior to the current study. COMPARISON: CT angio chest PE protcl [id number] 03/01/2022 2:38 PM RADIATION DOSE METRICS: Total DLP (mGy-cm): 530.04 FINDINGS: Pulmonary arteries: Pulmonary vasculature is adequately opacified without filling defects or other evidence of acute pulmonary embolism. Aorta: Thoracic aorta is unremarkable. No aortic aneurysm or evidence of aortic dissection. Lungs: See Pleural spaces finding. Pleural spaces: Interval development of moderate-sized bilateral pleural effusions with adjacent bilateral lower lobe consolidation likely secondary to passive atelectasis. Heart: Heart is mildly enlarged, unchanged. Mild calcification of coronary arteries. No significant pericardial effusion. Lymph nodes: Multiple small mediastinal lymph nodes, stable favoring benign etiology. No significant hilar or axillary lymphadenopathy. Liver: Liver has a cirrhotic contour. Intrahepatic portosystemic shunt again demonstrated. The 3 cm rim calcified liver cyst along the liver dome, stable in size. Gallbladder and bile ducts: Gallbladder partially seen with multiple gallstones difficult to further evaluate. Spleen: Spleen partially visualized, significantly enlarged but appears stable. Intraperitoneal space: Mild amount of ascites within the upper abdomen slightly increased from previous exam. Bones/joints: Multilevel smooth bridging endplate osteophytes across the thoracic spine that may be due to combination of degenerative disc disease and DISH. No acute bony abnormalities. Soft tissues: Unremarkable. CT/CT angio chest PE protcl [id number] IMPRESSION: 1. Negative CT angiogram of the chest. No evidence of acute pulmonary embolism. 2. Interval development of moderate-sized bilateral pleural effusions and adjacent atelectasis lower lobes. 3. Cardiomegaly unchanged. 4. Cirrhosis, splenomegaly, mild ascites. 5. Additional chronic findings as above.
[2023-03-30 13:54] LABS: Adenovirus Not Detected (NOT DETECT); Chlamydia Pneumoniae Not Detected (NOT DETECT); Coronavirus 229E,HKU1,NL63,OC4 Not Detected (NOT DETECT); Human Metapneumovirus Not Detected (NOT DETECT); Human Rhinovirus/Enterovirus Not Detected (NOT DETECT); Influenza A Not Detected (NOT DETECT); Influenza A H1 Not Detected (NOT DETECT); Influenza A H1-2009 Not Detected (NOT DETECT); Influenza A H3 Not Detected (NOT DETECT); Influenza B Not Detected (NOT DETECT); Mycoplasma Pneumoniae Not Detected (NOT DETECT); Parainfluenza Virus Type 1 Not Detected (NOT DETECT); Parainfluenza Virus Type 2 Not Detected (NOT DETECT); Parainfluenza Virus Type 3 Not Detected (NOT DETECT); Parainfluenza Virus Type 4 Not Detected (NOT DETECT); Respiratory Syncytial Virus A Not Detected (NOT DETECT); Respiratory Syncytial Virus B Not Detected (NOT DETECT); SARS-COV-2 Not Detected (NOT DETECT)
[2023-03-30] MEDS: iohexol 350 mg/mL 500 mL Btl (per mL) IV (14:32)
[2023-03-30] MEDS: morphine 4 mg/mL SDV 1 mL 2 MG IVP ×2 (14:42→22:10)
[2023-03-30 14:47] LABS: Sodium 163 mmol/L (136-145)
[2023-03-30] MEDS: LORazepam 2 mg/mL INJ 1 mL 0.5 MG IVP (15:51)
[2023-03-30 16:19] LABS: Add Urine Microscopic? YES; Bilirubin Urine Neg (Negative); Blood Urine 3+ (Negative); Glucose Urine UA Norm (Normal); Ketones Urine Negative (Negative); Leukocyte Esterase Urine Negative (Negative); Nitrate Urine Negative (Negative); Protein Urine Trace (Negative); Urine Appearance Hazy (CLEAR); Urine Color Yellow (Yellow); Urobilinogen Urine Norm (Negative); pH Urine 5 (5-7)
[2023-03-30 16:20] LABS: Add Urine Culture? Yes; Bacteria Urine TRACE /hpf; Hyaline Casts Urine RARE /lpf; Mucus Urine TRACE /hpf; RBC Urine 50-80 /hpf (0-2); Squamous Epithelial Cell Urine 0-4 /hpf (0-5); WBC Urine 0-4 /hpf (0-5)
--- NOTE | 2023-03-30 16:26 | PC.SOCIAL ---
IMM IMM not updated as patient isn't expected to dc in the next 24/48 hours.
--- NOTE | 2023-03-30 17:49 | P.PN_ITS ---
Subjective Subjective: - Patient was examined multiple times throughout the morning, in the afternoon, with multiple family meetings -Currently he is on Precedex, had episodes of agitation early in the morning -He was febrile throughout the night -Continues to be delirious this morning is alert to person, not to place, not to time he can follow commands such as squeezing my fingers, pupils equal round reactive to light -Continues to be febrile -His right central line was removed, culture tip -Repeat respiratory viral panel which was negative -UA was unremarkable -Repeated blood cultures -Ammonia levels are within normal limits -Stool studies so far have been negative -His white count is improving his Pro-Don and CRP are also improving? -I have repeated a KUB, no significant evidence of obstruction -Repeated a chest x-ray which showed scattered heterogeneous opacities throughout both lungs, left lower lobe consolidation -CT angiogram was ordered to evaluate for possible pulm embolism and pneumonia -CT angiogram was negative for pulm embolism, he does have moderate bilateral pleural effusions, does have adjacent atelectasis, -It is possible he could be aspirating, or he has an atypical respiratory infec tion so I have placed him on azithromycin -On examination his area of cellulitis, is about the same compared to yesterday, areas are marked, he has an advanced -He does have DTI's on his back, but no significant tunneling -I also performs CTs of his bilateral lower extremities, as he has Pasteurella, concern is that this is from an animal source, CT had no significant radio graphic evidence of osteomyelitis -I had a discussion with patient's family that he is fevers could be drug- induced, he is on vancomycin he is on Rocephin and added azithromycin -He was on carbapenem yesterday which I stopped -We will watch his blood cultures his repeat blood cultures and his catheter tip cultures -We will consider a lumbar puncture based upon his clinical progress I cannot perform it now given his INR 1.7 but we will see what his INR is tomorrow did spoke to Dr. Pace, is more comfortable informing him when the INR is roughly 1.5 as there is a risk of spinal hematoma and bleeding -I also discussed with family members about his mentation continues to fluctuate he was reexamined in the evening and his mentation has improved considerably he is alert talking to family members but still delirious at times skilled drowsy -A significant prone it could be his hypernatremia, watching serum sodium levels his fluid rate has increased, I am also placing an NG tube although he nods his head to provide some free water and some nutrition, as he has not had a nutrition for the last 5 days -Is had TTE yesterday had no acute findings -The other thought is we could certainly do an MRI -Some of his mentation could be ICU syndrome could be still metabolic, or sepsis associated -I had an extensive discussion with patient's family, including patient's girlfriend, mom and dad -They all voiced understanding, all questions answered -For now they want us to continue medical interventions, he is still on a wait list at [facility], I called in the morning, he is still on the wait list they are still agreeable for him to be transferred -I discussed that currently his status is stable, his inflammatory markers is getting better but my concern again is his mentation and his a fever state -I will consider CT of the abdomen based on clinical progress, currently abdomen soft, nontender, distended, good bowel sounds, he has had a bowel movement, liquid bowel movements -The only thing that is remaining is a lumbar puncture, and testing for other viral infections such as encephalitis or even fungal infections -We will speak to infectious disease for consultation -Examined in the evening, does have some abdominal distention, complaints of abdominal pain, has mild diffuse tenderness we will order CT scan abdomen pelvis -His bilirubin has increased to 7.1, but it is improving, the other thought is that could he have a biliary obstruction, I would order CT scan abdomen pelvis based on those findings we can consider an MRCP but his alk phos is within normal limits, LFTs are within normal limits Vitals/I&O/Wt Last Vital Signs Temp 101.1 F H 03/30/23 06:27 Pulse 64 03/30/23 15:56 Resp 16 03/30/23 15:56 BP 125/64 03/30/23 14:00 Pulse Ox 95 03/30/23 15:56 O2 Del Method Nasal Cannula 03/30/23 15:56 O2 Flow Rate 2 03/30/23 15:56 FiO2 45 03/28/23 02:00 03/30/23 03/30/23 03/30/23 06:59 14:59 22:59 Intake Total 254.809 / 1214.665 343.006 / 343.006 986.667 / 1329.673 Output Total 1500 / 2800 Balance -1245.191 / -1585.335 343.006 / 343.006 986.667 / 1329.673 Physical Exam Const: COMMON NORMALS: no acute distress ORIENTATION/CONSCIOUSNESS: Yes awake, Yes oriented to person and Yes oriented to place; not oriented to time Neck/C-Spine: COMMON NORMALS: no JVD Resp: COMMON NORMALS: normal respiratory effort, No retractions, No use of accessory muscles and clear to auscultation bilaterally AUSCULTATION: clear to auscultation bilaterally Cardio: COMMON NORMALS: no JVD, regular rate, regular rhythm, S1 normal heart sound present and S2 normal heart sound present RATE: regular rate RHYTHM: regular rhythm HEART SOUNDS: S1 normal heart sound present and S2 normal heart sound present GI: COMMON NORMALS: Normal to inspection, nondistended, normoactive bowel sounds present and non-tender Extremity: COMMON NORMALS: no pedal edema Neuro: SENSORIUM/ORIENTATION: Yes oriented to person, Yes oriented to place and No oriented to time Urinary Catheter Management: Birch: Cath Placed During This Visit: yes Reason for Continuing Indwelling Catheter: Accurate Measurement of Urinary Output in Critically Ill Patients Urinary Catheter Date of Insertion: 03/25/23 Urinary Catheter Time of Insertion: 18:20 Data 03/30/23 04:47 03/30/23 13:56 Micro: Microbiology 03/25/23 10:07 Blood Culture - Final Blood NO GROWTH AFTER 5 DAYS 03/30/23 09:02 Blood Culture - Preliminary Blood SPECIMEN COLLECTED 03/30/23 09:12 Blood Culture - Preliminary Blood SPECIMEN COLLECTED 03/25/23 11:14 Blood Culture - Final Blood Pasteurella multocida A&P Assessment and plan (1) Elevated lactic acid level: (2) Cirrhosis: (3) Septic shock: (4) Sepsis: (5) Cellulitis: (6) Leukopenia: (7) Metabolic acidosis: (8) Hyperammonemia: (9) Hypoalbuminemia: (10) Hepatorenal syndrome: (11) Spontaneous bacterial peritonitis: (12) Altered mental status: (13) Septic encephalopathy: (14) Sepsis: Qualifiers: Acute renal failure type: unspecified Sepsis acute organ dysfunction status: with acute organ dysfunction Sepsis type: sepsis due to unspecified organism Severe sepsis acute organ dysfunction type: acute renal failure Severe sepsis shock status: with septic shock Qualified Code(s): A41.9 - Sepsis, unspecified organism; R65.21 - Severe sepsis with septic shock; N17.9 - Acute kidney failure, unspecified (15) Bowel obstruction: (16) Gram-negative bacteremia: (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: (18) Anasarca: (19) Fever: (20) Hypernatremia: Plan Continues to be febrile -Repeat blood cultures -Catheter tip culture -Azithromycin added for consideration of atypical respiratory tract infection -Certainly aspiration could be a possibility -CT bilateral lower extremities, no convincing radiographic evidence of osteomyelitis -CT angiogram negative for pulmonary embolism -Was examined this -We will consider lumbar puncture Pasteurella multocida bacteremia -Source could be SBP, and or cellulitis -Does report dogs at home, but denies any animal bites/[place] Septic shock, resolved -Secondary to spontaneous bacterial peritonitis, cellulitis -Blood cultures are Pasteurella multocida, repeat blood cultures negative -Off pressors, Plan -Admit to ICU -Monitor hemodynamics closely -maintain MAP greater than 65 -Broad-spectrum antibody therapy vancomycin, Rocephin -Follow blood cultures, MRSA nares PCR -Ultrasound paracentesis, not significant amount of fluid to tap -Repeat abdominal ultrasound, no significant fluid to tap -Received albumin therapy as per SBP protocol, receiving albumin every 8 hours -Full code -Lovenox for DVT prophylaxis -Placed on wait list at [facility] Spontaneous bacterial peritonitis -Blood cultures positive for Pasteurella multocida -No significant amount of fluid to perform a paracentesis -Received albumin therapy -Currently on Rocephin, -Follow follow repeat blood cultures Cellulitis bilateral lower extremity -On vancomycin, Rocephin ARMEN on CKD, resolved -Likely second to sepsis -However concerns for hepatorenal syndrome given SBP -Urine output has improved, creatinine proved 1.3 Leukopenia, resolving, likely secondary to sepsis, cellulitis Elevated INR, likely secondary to sepsis, cellulitis, liver failure Lactic acidosis, secondary to sepsis, cellulitis, spontaneous bacterial peritonitis, septic shock as above -Repeat lactic acid improving Metabolic acidosis due to sepsis as above Hyperammonemia secondary to liver failure, continue lactulose, rifaximin, monitor mentation closely Hypoalbuminemia, likely secondary to liver cirrhosis, albumin Acute encephalopathy, likely combination of ICU syndrome, hypernatremia, febrile state -Hyperammonemia has resolved -Continues to have hyperbilirubinemia -Serum sodium was 63, on normal saline, NG tube will be placed, for free water flushes, feeding -Blood cultures, repeat blood cultures are negative -Sepsis has improved -Neurochecks, aspiration precautions Anasarca, hold off on Lasix today Bowel obstruction -Seen on CAT scan -Had reported bowel movement on admission, no nausea, no vomiting, -Has had -We will monitor Hypomagnesemia, replace Hypokalemia, replace Hypernatremia -Serum sodium 163 -On IV fluids -Serum sodiums every 4 hours -Once NG tube can be placed we will start free water flushes -Monitor mentation closely -Nephrology on consult Hyperbilirubinemia -Likely from liver failure -Repeat CT scan abdomen pelvis -We will consider MRCP Plan for today, -His right central line was removed, culture tip -Repeat respiratory viral panel which was negative -UA was unremarkable -Repeated blood cultures -Ammonia levels are within normal limits -Stool studies so far have been negative -His white count is improving his Pro-Don and CRP are also improving? -I have repeated a KUB, no significant evidence of obstruction -Repeated a chest x-ray which showed scattered heterogeneous opacities throughout both lungs, left lower lobe consolidation -CT angiogram was ordered to evaluate for possible pulm embolism and pneumonia -CT angiogram was negative for pulm embolism, he does have moderate bilateral pleural effusions, does have adjacent atelectasis, -It is possible he could be aspirating, or he has an atypical respiratory infect ion so I have placed him on azithromycin -On examination his area of cellulitis, is about the same compared to yesterday, areas are marked, he has an advanced -He does have DTI's on his back, but no significant tunneling -I also performs CTs of his bilateral lower extremities, as he has Pasteurella, concern is that this is from an animal source, CT had no significant radio graphic evidence of osteomyelitis -I had a discussion with patient's family that he is fevers could be drug- induced, he is on vancomycin he is on Rocephin and added azithromycin -He was on carbapenem yesterday which I stopped -We will watch his blood cultures his repeat blood cultures and his catheter tip cultures -We will consider a lumbar puncture based upon his clinical progress I cannot perform it now given his INR 1.7 but we will see what his INR is tomorrow did spoke to Dr. Pace, is more comfortable informing him when the INR is roughly 1.5 as there is a risk of spinal hematoma and bleeding -I also discussed with family members about his mentation continues to fluctuate he was reexamined in the evening and his mentation has improved considerably he is alert talking to family members but still delirious at times skilled drowsy -A significant prone it could be his hypernatremia, watching serum sodium levels his fluid rate has increased, I am also placing an NG tube although he nods his head to provide some free water and some nutrition, as he has not had a nutrition for the last 5 days -Is had TTE yesterday had no acute findings -The other thought is we could certainly do an MRI -Some of his mentation could be ICU syndrome could be still metabolic, or sepsis associated -I had an extensive discussion with patient's family, including patient's girlfriend, mom and dad -They all voiced understanding, all questions answered -For now they want us to continue medical interventions, he is still on a wait list at [facility], I called in the morning, he is still on the wait list they are still agreeable for him to be transferred -I discussed that currently his status is stable, his inflammatory markers is getting better but my concern again is his mentation and his a fever state -I will consider CT of the abdomen based on clinical progress, currently abdomen soft, nontender, distended, good bowel sounds, he has had a bowel movement, liquid bowel movements -The only thing that is remaining is a lumbar puncture, and testing for other viral infections such as encephalitis or even fungal infections -We will speak to infectious disease for consultation -Examined in the evening, does have some abdominal distention, complaints of abdominal pain, has mild diffuse tenderness we will order CT scan abdomen pelvis -His bilirubin has increased to 7.1, but it is improving, the other thought is that could he have a biliary obstruction, I would order CT scan abdomen pelvis based on those findings we can consider an MRCP but his alk phos is within normal limits, LFTs are within normal limits Attestations Medical Necessity Statement*: Patient requires hospitalization due to persistent febrile state, hypernatremia, 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 The critical care time shown is in addition to time spent performing any reported separately billable procedures and includes the following: [x] Data and vital sign review and interpretation [x ] Patient assessment, examination and intervention [x] Medication orders and management [x] Patient/Family updates as able [x] Care Coordination and Documentation. 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
--- NOTE | 2023-03-30 18:02 | CTR_ITS ---
PROCEDURE INFORMATION: Exam: CT Abdomen And Pelvis Without Contrast Exam date and time: 03/30/2023 6:51 PM Age: 57 years old Clinical indication: Abdominal pain; Generalized; Additional info: Sbo? TECHNIQUE: Imaging protocol: Computed tomography of the abdomen and pelvis without contrast. Radiation optimization: All CT scans at this facility use at least one of these dose optimization techniques: automated exposure control; mA and/or kV adjustment per patient size (includes targeted exams where dose is matched to clinical indication); or iterative reconstruction. REPORTING DATA: Count of CT and Cardiac NM exams in prior 12 months: This patient has received 7 known CTs and 0 known cardiac nuclear medicine studies in the 12 months prior to the current study. COMPARISON: 1. CT chest abdpel w/*[id number] 03/25/2023 3:[address] chest abdpel w/*[id number] 03/03/2023 7:[address] abdomen pelvis wo con [id number] 06/04/2022 10:10 PM RADIATION DOSE METRICS: Total DLP (mGy-cm): 1169.23 FINDINGS: Lungs: Bibasilar atelectasis with multiple tiny calcified granulomata. Pleural spaces: Partially visualized moderate kfpo-ggmjoay-pfyo-right pleural effusions. Heart: Cardiomegaly. Coronary arteries: Coronary artery calcification. Liver: Cirrhotic liver morphology with TIPS in place and couple hepatic cysts redemonstrated. Gallbladder and bile ducts: Multiple gallstones. No biliary ductal dilatation. Pancreas: Normal. No ductal dilation. Spleen: Enlarged, measuring 19.2 cm in greatest dimension. Adrenal glands: Normal. No mass. Kidneys and ureters: Excreted contrast material in the renal collecting systems and ureters. Simple right renal cyst. Mild symmetric perirenal fat stranding. Stomach and bowel: Unremarkable. No obstruction. No mucosal thickening. Appendix: Appendix not discretely visualized. Intraperitoneal space: Moderate ascites. No free air. Vasculature: Mild systemic atherosclerotic calcification without aneurysmal dilatation. Lymph nodes: Calcified mediastinal and hilar lymph nodes in keeping with sequela of old granulomatous disease. Urinary bladder: Birch catheter in the underdistended urinary bladder, which also contains small amount of contrast material and nondependent air, and shows diffuse mild smooth wall thickening. Reproductive: Unremarkable as visualized. Bones/joints: No acute fracture. Degenerative changes along the spine greatest at L5-S1. Soft tissues: Bilateral gynecomastia. Small focus of air within the subcutaneous right anterolateral abdominopelvic wall likely on the basis of recent injection. Small fat containing lucn-rhxqcsu-jfxs-right inguinal hernias. Body wall edema. CT/CT abdomen pelvis wo con [id number] IMPRESSION: 1. No small bowel obstruction. 2. Air within the urinary bladder may be on the basis of recent Birch catheter placement. Correlate for evidence of cystitis. 3. Cirrhotic liver morphology with TIPS, splenomegaly, and moderate ascites. 4. Moderate artj-zoxcxoz-rnwj-right pleural effusions with associated atelectasis. 5. Additional chronic and incidental findings as above. COMMENTS: Consistent with the [employer]'s Incidental Findings Committee white paper (J Am Camron Radiol 2018): Any incidental renal lesion less than 1 cm or classified as too small to characterize, or any incidental cystic renal lesion characterized as simple-appearing, is likely benign. No follow-up imaging is recommended for these lesions per consensus recommendations based on imaging criteria.
[2023-03-30] MEDS: azithromycin 500 MG in sodium chloride 0.9% 250 ML 250 MG IV (18:20)
[2023-03-30] MEDS: cefTRIAXone 1,000 MG in sodium chloride 0.9% (plus) 50 ML 100 MG IV (18:21)
[2023-03-30 18:40] LABS: Anion Gap 16.3 (5-19); Blood Urea Nitrogen 43 mg/dL (6-20); Calcium 7.9 mg/dL (8.5-10.5); Carbon Dioxide 26 mmol/L (22-29); Chloride 123 mmol/L (98-107); Glomerular Filtration Rate 86.7 mL/min (90-130); Glucose 193 mg/dL (65-115); Osmolality Calculated 350 mOsm/kg (285-295); Potassium 3.3 mmol/L (3.5-5.1)
[2023-03-30 19:25] LABS: Sodium 162 mmol/L (136-145)
--- NOTE | 2023-03-30 21:03 | PC.NUTR ---
TF consult received. Recommend Jevity 1.2 beginning @ 15 mls/hr, increasing 10 mls/hr Q8H as tolerated, until goal rate of 55 mls/hr is reached, with 120 mls Q4H or per MD discretion. Details in RD assessment.
[2023-03-30 22:33] LABS: Sodium 162 mmol/L (136-145)
--- NOTE | 2023-03-30 22:52 | XRR_ITS ---
PROCEDURE INFORMATION: Exam: XR Chest Exam date and time: 03/30/2023 10:59 PM Age: 57 years old Clinical indication: Device placement; Ng tube; Additional info: Ngt placement attempt TECHNIQUE: Imaging protocol: Radiologic exam of the chest. Views: 1 view. Other technique: The patient is rotated to the right. COMPARISON: CR XR chest 1V portable [id number] 03/30/2023 8:09 AM FINDINGS: Tubes, catheters and devices: Interval placement of an enteric tube, the tube is coiled in the cervical esophagus. The right internal jugular central line has been removed. Lungs: Moderate to severe interstitial pulmonary edema with superimposed atelectasis versus pneumonia in the right middle lobe, left lingula and right and left lower lobes. Findings have increased compared with the chest radiograph done earlier on 03/30/2023. Pleural spaces: Stable moderate left pleural effusion. No pneumothorax. Heart/Mediastinum: Stable moderate enlargement of the cardiac silhouette. Mediastinal contours are unremarkable. Bones/joints: Degenerative changes in the spine and shoulders. Bones are diffusely osteopenic. XR/XR chest 1V portable [id number] IMPRESSION: 1. Interval placement of an enteric tube, the tube is coiled in the cervical esophagus. 2. Moderate to severe interstitial pulmonary edema with superimposed atelectasis versus pneumonia in the right middle lobe, left lingula and right and left lower lobes. Findings have increased compared with the chest radiograph done earlier on 03/30/2023. Recommend followup chest imaging to insure resolution of these findings. 3. Stable moderate left pleural effusion. 4. The right internal jugular central line has been removed. 5. Incidental/nonacute findings are listed in the report.
[2023-03-30] MEDS: dextrose 5% 1,000 ML 125 ML IV (22:56)
--- NOTE | 2023-03-30 23:10 | PC.NURSE ---
An attempt was made to insert an NG tube. The patient was on a Precedex drip and was given morphine, however, he was still extremely agitated and in obvious distress over the NG tube placement. Vitals remained stable throughout the procedure. X ray showed tube coiled in the patient's throat. NGT was removed, there was a small amount of blood that was cleaned from the patient's nose. Dr. Ma was notified. Awaiting further instructions.
[2023-03-31] VITALS (51 sets, daily range): BP systolic 93–152; BP diastolic 52–95; PULSE 53–76; RESP 11–36; TEMP 36.3–36.9; O2SAT 87–100
--- NOTE | 2023-03-31 00:40 | PC.NURSE ---
Orders from Dr. Ma to continue IVF and do not make any further attempts at this time to place NG tube.
--- NOTE | 2023-03-31 01:37 | PC.NURSE ---
Reported frequent PVCs to Dr. Ma.
[2023-03-31 01:49] LABS: Vancomycin Trough 12.2 ug/mL (10-15)
[2023-03-31 01:53] LABS: Sodium 163 mmol/L (136-145)
--- NOTE | 2023-03-31 02:40 | PC.NURSE ---
Dr. Ma at bedside. Reviewed patients labs, medications, vital signs, and heart rhythm. Orders for BMP now, ok to use blood in lab. Plan for gastric tube placement per surgery today.
[2023-03-31] MEDS: vancomycin 1,500 MG/300 ML PIGGYBACK 200 MG IV (02:43)
[2023-03-31 02:59] LABS: Anion Gap 16.4 (5-19); Blood Urea Nitrogen 37 mg/dL (6-20); Calcium 7.9 mg/dL (8.5-10.5); Carbon Dioxide 26 mmol/L (22-29); Chloride 124 mmol/L (98-107); Creatine Phosphokinase 24 U/L (39-308); Glomerular Filtration Rate 99.3 mL/min (90-130); Glucose 146 mg/dL (65-115); Osmolality Calculated 347 mOsm/kg (285-295); Potassium 3.4 mmol/L (3.5-5.1)
[2023-03-31 03:05] LABS: Procalcitonin 4.64 ng/mL (0-0.5)
[2023-03-31 03:09] LABS: Sodium 163 mmol/L (136-145)
[2023-03-31 03:46] LABS: Basophils # 0.1 10^3/uL (0.0-0.1); Basophils % 1.1 %; Eosinophils # 0.4 10^3/uL (0.0-0.8); Eosinophils % 5.1 %; Hematocrit 36.5 % (42.0-52.0); Hemoglobin 10.7 g/dL (11.7-16.6); Lymphocytes # 0.8 10^3/uL (0.8-4.8); Lymphocytes % 11.5 %; Mean Corpuscular HGB Conc 29.3 g/dL (30.0-36.0); Mean Corpuscular Hemoglobin 25.7 pg (28.0-34.0); Mean Corpuscular Volume 87.7 fl (80-94); Mean Platelet Volume 11.9 fL (7.4-10.4); Monocytes # 0.5 10^3/uL (0.2-0.9); Monocytes % 6.7 %; Neutrophils # 4.89 10^3/uL (1.8-7.7); Neutrophils % 69.6 %; Nucleated Red Blood Cells % 0.6 %; Platelet Count 52 10^3/cmm (130-400); Red Blood Count 4.16 10^6/uL (4.1-5.3); Red Cell Distribution Width 20.9 % (12.1-15.1)
[2023-03-31 04:02] LABS: INR 2.02 (0.8-1.2)
[2023-03-31 04:03] LABS: Fibrinogen 304 mg/dL (174-498); Partial Thromboplastin Time 41.6 SECONDS (23.9-36.7)
[2023-03-31 04:08] LABS: Alanine Aminotransferase 17 U/L (0-41); Albumin Level 3.2 g/dL (3.5-5.2); Alkaline Phosphatase 67 U/L (40-130); Anion Gap 13.3 (5-19); Aspartate Amino Transferase 53 U/L (0-40); Blood Urea Nitrogen 37 mg/dL (6-20); C Reactive Protein 94.4 mg/L (0.0-4.9); Calcium 7.7 mg/dL (8.5-10.5); Carbon Dioxide 27 mmol/L (22-29); Chloride 125 mmol/L (98-107); Globulin 2.3 g/dL (1.3-4.6); Glomerular Filtration Rate 99.3 mL/min (90-130); Glucose 157 mg/dL (65-115); Magnesium 2.4 mg/dL (1.7-2.3); Osmolality Calculated 346 mOsm/kg (285-295); Phosphorus 3.8 mg/dL (2.5-4.5); Potassium 3.3 mmol/L (3.5-5.1); Total Protein 5.5 g/dL (6.6-8.7)
[2023-03-31 04:09] LABS: Ammonia 39 umol/L (16-60)
[2023-03-31 04:13] LABS: D Dimer 7.89 ug/mIFEU (0-0.59)
[2023-03-31 04:15] LABS: Sodium 162 mmol/L (136-145); Total Bilirubin 7.4 mg/dL (0.15-1.2)
[2023-03-31 04:25] LABS: Slide Review Slide Review Perform
[2023-03-31] MEDS: albumin 25 G/100 ML BAG 60 G IV ×2 (05:02→12:53)
[2023-03-31] MEDS: dextrose 5% 1,000 ML 125 ML IV ×3 (05:02→20:46)
--- NOTE | 2023-03-31 08:26 | XR_ITS ---
WS: [id number] Portable AP upright chest, 03/31/2023 Clinical Data: ng tube Comparison: Portable chest, 03/30/2023 Findings: The enteric tube appears to end within the fundus of the stomach. The pulmonary vascular co ngestion has diminished slightly compared to yesterday's x-ray. The heart remains enlarged. There is a left and possibly right pleural effusion No pneumothorax is seen. Monitor leads are on the chest wa ll. XR/XR chest 1V portable [id number] Impression: 1. Decrease in pulmonary edema. 2. Satisfactory placement of enteric tube ending in the stomach. 3. No change in cardiomegaly and bilateral pleural effusions
--- NOTE | 2023-03-31 09:21 | PC.NURSE ---
michelle inserted right nares cxr obtain and verified via another nurse
--- NOTE | 2023-03-31 09:43 | PC.NURSE ---
fluid bolus started at this time per orders
--- NOTE | 2023-03-31 09:50 | PC.NURSE ---
update given to [facility] transfer center .
[2023-03-31] MEDS: morphine 4 mg/mL SDV 1 mL 2 MG IVP ×2 (10:13→20:10)
[2023-03-31 10:41] LABS: Sodium 157 mmol/L (136-145)
[2023-03-31] MEDS: pantoprazole 40 mg SDV IVP (12:53)
--- NOTE | 2023-03-31 12:57 | PM.PN ---
Subjective Subjective: BP borderline low More awake today Medications: Reviewed: Yes Vitals/I&O/Wt Last Vital Signs Temp 97.4 F L 03/31/23 08:30 Pulse 76 03/31/23 12:00 Resp 21 H 03/31/23 12:00 BP 93/66 03/31/23 12:00 Pulse Ox 97 03/31/23 12:00 O2 Del Method Nasal Cannula 03/31/23 08:00 O2 Flow Rate 2 03/31/23 08:00 FiO2 45 03/28/23 02:00 03/30/23 03/31/23 03/31/23 22:59 06:59 14:59 Intake Total 2332.098 / 2675.104 1278.063 / 3953.167 400 / 400 Output Total 1600 / 1600 850 / 2450 Balance 732.098 / 1075.104 428.063 / 1503.167 400 / 400 Physical Exam Narrative: no distress + Ascites + Anasarca Urinary Catheter Management: Birch: Cath Placed During This Visit: yes Reason for Continuing Indwelling Catheter: Accurate Measurement of Urinary Output in Critically Ill Patients Urinary Catheter Date of Insertion: 03/25/23 Urinary Catheter Time of Insertion: 18:20 Data 03/31/23 03:35 03/31/23 18:00 Micro: Microbiology 03/30/23 10:17 Urine Culture - Preliminary Urine Catheterized 03/30/23 09:12 Blood Culture - Preliminary Blood NEGATIVE TO DATE 03/30/23 09:02 Blood Culture - Preliminary Blood NEGATIVE TO DATE 03/25/23 10:07 Blood Culture - Final Blood NO GROWTH AFTER 5 DAYS A&P Assessment and plan (1) ARMEN (acute kidney injury): Plan 1. Acute kidney injury: Baseline creatinine was normal now has ARMEN with a creatinine of 1.6. ARMEN most likely multifactorial with ATN from sepsis and question hepatorenal syndrome. Also patient received IV contrast with CT scan Cr improved to 0.8 today ,off pressors -continue IV albumin 25 g every 8 hours, -May also benefit from paracentesis -renal US results noted -started lasix 20 mg po bid - 2. Sepsis secondary to lower extremity cellulitis 3. Metabolic acidosis: Worsening, from lactic acidosis, will give Bicitra, if no improvement may have to do bicarbonate drip 4. Alcoholic liver cirrhosis with ascites 5 hypokalemia: Mild, potassium repleted. 5. Hypernatremia : with Hyperchloremia , likely iatrogenic - switched IVFs to D5W @ 100 cc/hr , and Free water via NGT - Na improved to 157 Patient evaluated using audiovisual cart. Time spent 40 minutes Attestations Medical Necessity Statement*: per medicine Coding Level of Care Code Acute Code for Chg Fwd Diagnoses ARMEN (acute kidney injury) N17.9
[2023-03-31 14:34] LABS: Sodium 159 mmol/L (136-145)
--- NOTE | 2023-03-31 15:23 | PC.NURSE ---
up at bedside with staff and physical therapy took 4 steps with walker and linen change done po intake slowly
--- NOTE | 2023-03-31 16:25 | PM.PN ---
Subjective Subjective: - Patient was examined multiple times throughout the morning and then into the afternoon with 2 family meetings -Early in the morning he was examined he is a bit more alert, awake afebrile for the last 24 hours he does follow commands alert to person, to place, not to time, he did open his his eyes -Serum sodiums remain in the 159, I discussed with him the importance of NG tube placement for free water flushes and for feeding he is agreeable -Dobbhoff tube was placed in the stomach, started on free water flushes, -Roughly 4 hours after he removed the Dobbhoff tube -Examined again he is alert awake he is passed bedside swallow eval I have placed him on strict aspiration precautions, feeding with liquids only when nursing staff are present he is agreeable, more alert awake, following commands, sitting up in bed -Nursing staff was able to actually get him up out of bed he took a few steps -He remains off pressors -Remains off Precedex -Currently on D5 water -Denies any headache, blurry vision, nausea, vomiting -Patient was examined with patient's sister at bedside, who is an RN, went over patient's hospitalization for Pasteurella multocida bacteremia likely secondary to cellulitis but SBP is also significant source, with his sepsis and septicemia, acute renal failure, hepatorenal syndrome, respiratory failure due to fevers and altered mental status for the last 24 hours he required further work-up, but overall his mentation has improved remains afebrile, cultures so far negative, spoke to infectious disease, will continue management for now vancomycin has been stopped currently on Rocephin, continue azithromycin -Patient was reexamined in the afternoon, patient's parents are at bedside,, still agreeable to transfer to [place] once bed is available, but they tell me that if he continues to get better, they want to hold off but for now they are agreeable for transfer, they are happy in terms of his mentation which is significantly improved he is actually drinking fluids with the help of nursing staff and worried about the risk of aspiration, but as his mentation is proved and this is the third time now he is removed nasogastric tube, this is only viable option spent about 5 days since he is eating or drinking anything and he has not gotten up out of bed so we will have to watch him very closely, aspiration precautions we do run the risk of aspiration aspiration pneumonia, aspiration pneumonitis, however at this point placing another NG tube seems fruitless as he is removed the last 3, -Overall his mentation is proved he is afebrile, we will continue to monitor cultures -Patient's family is agreeable, understandable, patient's sister is understandable, agreeable we will continue to monitor Vitals/I&O/Wt Last Vital Signs Temp 97.4 F L 03/31/23 08:30 Pulse 68 03/31/23 16:00 Resp 24 H 03/31/23 16:00 BP 137/52 03/31/23 16:00 Pulse Ox 87 L 03/31/23 16:00 O2 Del Method Nasal Cannula 03/31/23 08:00 O2 Flow Rate 2 03/31/23 08:00 FiO2 45 03/28/23 02:00 03/31/23 03/31/23 03/31/23 06:59 14:59 22:59 Intake Total 1278.063 / 3953.167 1400 / 1400 350 / 1750 Output Total 850 / 2450 1600 / 1600 Balance 428.063 / 2789.463 7271 / 1400 -1250 / 150 Physical Exam Const: COMMON NORMALS: no acute distress OTHER: Alert to person, to place, not to time, can follow commands, jaundice and appearing, drowsy, no facial droop, no slurring of his words, equal strength bilaterally, Resp: COMMON NORMALS: normal respiratory effort, No retractions, No use of accessory muscles and clear to auscultation bilaterally AUSCULTATION: clear to auscultation bilaterally Cardio: COMMON NORMALS: regular rate, regular rhythm, S1 normal heart sound present and S2 normal heart sound present RATE: regular rate RHYTHM: regular rhythm HEART SOUNDS: S1 normal heart sound present and S2 normal heart sound present GI: COMMON NORMALS: Normal to inspection, nondistended, normoactive bowel sounds present and non-tender OTHER: Abdomen is distended Extremity: COMMON NORMALS: no pedal edema NARRATIVE EXTREMITY EXAM: Bilateral cellulitis significantly improved, erythema regressing beyond marked borders Urinary Catheter Management: Birch: Cath Placed During This Visit: yes Reason for Continuing Indwelling Catheter: Accurate Measurement of Urinary Output in Critically Ill Patients Urinary Catheter Date of Insertion: 03/25/23 Urinary Catheter Time of Insertion: 18:20 Data 03/31/23 03:35 03/31/23 13:43 Micro: Microbiology 03/30/23 10:17 Urine Culture - Preliminary Urine Catheterized 03/30/23 09:12 Blood Culture - Preliminary Blood NEGATIVE TO DATE 03/30/23 09:02 Blood Culture - Preliminary Blood NEGATIVE TO DATE A&P Assessment and plan (1) Elevated lactic acid level: (2) Cirrhosis: (3) Septic shock: (4) Sepsis: (5) Cellulitis: (6) Leukopenia: (7) Metabolic acidosis: (8) Hyperammonemia: (9) Hypoalbuminemia: (10) Hepatorenal syndrome: (11) Spontaneous bacterial peritonitis: (12) Altered mental status: (13) Septic encephalopathy: (14) Sepsis: Qualifiers: Acute renal failure type: unspecified Sepsis acute organ dysfunction status: with acute organ dysfunction Sepsis type: sepsis due to unspecified organism Severe sepsis acute organ dysfunction type: acute renal failure Severe sepsis shock status: with septic shock Qualified Code(s): A41.9 - Sepsis, unspecified organism; R65.21 - Severe sepsis with septic shock; N17.9 - Acute kidney failure, unspecified (15) Bowel obstruction: (16) Gram-negative bacteremia: (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: (18) Anasarca: (19) Fever: (20) Hypernatremia: Plan Currently afebrile -Repeat blood cultures, so far negative -Catheter tip culture, so negative -Azithromycin added for consideration of atypical respiratory tract infection -Certainly aspiration could be a possibility, will have to monitor very closely as currently is on clears -CT bilateral lower extremities, no convincing radiographic evidence of osteomyelitis -CT angiogram negative for pulmonary embolism -CT scan abdomen pelvis, no obstruction, no signs of acute infection -UA negative for UTI -Currently on Rocephin for Pasteurella multocida bacteremia, cellulitis, SBP -Currently on azithromycin for respiratory tract infection, atypical coverage Pasteurella multocida bacteremia -Source could be SBP, and or cellulitis -Does report dogs at home, but denies any animal bites/[place] Septic shock, resolved -Secondary to spontaneous bacterial peritonitis, cellulitis -Blood cultures are Pasteurella multocida, repeat blood cultures negative -Off pressors, Plan -Admit to ICU -Monitor hemodynamics closely -maintain MAP greater than 65 -Broad-spectrum antibody therapy, vancomycin stopped, currently on Rocephin -Follow blood cultures, MRSA nares PCR -Ultrasound paracentesis, not significant amount of fluid to tap -Repeat abdominal ultrasound, no significant fluid to tap -Received albumin therapy as per SBP protocol, receiving albumin every 8 hours -Full code -Lovenox for DVT prophylaxis -Placed on wait list at [facility] Spontaneous bacterial peritonitis -Blood cultures positive for Pasteurella multocida -No significant amount of fluid to perform a paracentesis -Received albumin therapy -Currently on Rocephin, -Follow follow repeat blood cultures Cellulitis bilateral lower extremity -On Rocephin ARMEN on CKD, resolved -Likely second to sepsis -However concerns for hepatorenal syndrome given SBP -Urine output has improved, creatinine proved 1.3 Leukopenia, resolving, likely secondary to sepsis, cellulitis Elevated INR, likely secondary to sepsis, cellulitis, liver failure Lactic acidosis, secondary to sepsis, cellulitis, spontaneous bacterial peritonitis, septic shock as above -Repeat lactic acid improving Metabolic acidosis due to sepsis as above Hyperammonemia secondary to liver failure, continue lactulose, rifaximin, monitor mentation closely Hypoalbuminemia, likely secondary to liver cirrhosis, albumin Acute encephalopathy, likely combination of ICU syndrome, hypernatremia, febrile state -Hyperammonemia has resolved -Continues to have hyperbilirubinemia -Serum sodium was 63, on normal saline, NG tube will be placed, for free water flushes, feeding -Blood cultures, repeat blood cultures are negative -Sepsis has improved -Neurochecks, aspiration precautions Anasarca, hold off on Lasix today Bowel obstruction -Seen on CAT scan -Had reported bowel movement on admission, no nausea, no vomiting, -Has had -We will monitor Hypomagnesemia, replace Hypokalemia, replace Hypernatremia -Serum sodium 157 -On D5 water -Serum sodiums every 4 hours -Has removed 3 NG tube, will not let us put in a fourth, currently on clear liquids alert and awake, following commands, placed on aspiration precautions, clear liquid diet, nurse monitored feeds -Advised patient and family he is at high risk of aspiration left to monitor very closely -Monitor mentation closely -Nephrology on consult Hyperbilirubinemia -Likely from liver failure -Repeat CT scan abdomen pelvis 1. ? No small bowel obstruction. 2. ? Air within the urinary bladder may be on the basis of recent Birch catheter placement. Correlate for evidence of cystitis. 3. ? Cirrhotic liver morphology with TIPS, splenomegaly, and moderate ascites. 4. ? Moderate [id number]-right pleural effusions with associated atelectasis. 5. ? Additional chronic and incidental findings as above. Plan for today, -meetings -Early in the morning he was examined he is a bit more alert, awake afebrile for the last 24 hours he does follow commands alert to person, to place, not to time, he did open his his eyes -Serum sodiums remain in the 159, I discussed with him the importance of NG tube placement for free water flushes and for feeding he is agreeable -Dobbhoff tube was placed in the stomach, started on free water flushes, -Roughly 4 hours after he removed the Dobbhoff tube -Examined again he is alert awake he is passed bedside swallow eval I have placed him on strict aspiration precautions, feeding with liquids only when nursing staff are present he is agreeable, more alert awake, following commands, sitting up in bed -Nursing staff was able to actually get him up out of bed he took a few steps -He remains off pressors -Remains off Precedex -Currently on D5 water -Denies any headache, blurry vision, nausea, vomiting -Patient was examined with patient's sister at bedside, who is an RN, went over patient's hospitalization for Pasteurella multocida bacteremia likely secondary to cellulitis but SBP is also significant source, with his sepsis and septicemia, acute renal failure, hepatorenal syndrome, respiratory failure due to fevers and altered mental status for the last 24 hours he required further work-up, but overall his mentation has improved remains afebrile, cultures so far negative, spoke to infectious disease, will continue management for now vancomycin has been stopped currently on Rocephin, continue azithromycin -Patient was reexamined in the afternoon, patient's parents are at bedside,, still agreeable to transfer to [place] once bed is available, but they tell me that if he continues to get better, they want to hold off but for now they are agreeable for transfer, they are happy in terms of his mentation which is significantly improved he is actually drinking fluids with the help of nursing staff and worried about the risk of aspiration, but as his mentation is proved and this is the third time now he is removed nasogastric tube, this is only viable option spent about 5 days since he is eating or drinking anything and he has not gotten up out of bed so we will have to watch him very closely, aspiration precautions we do run the risk of aspiration aspiration pneumonia, aspiration pneumonitis, however at this point placing another NG tube seems fruitless as he is removed the last 3, -Overall his mentation is proved he is afebrile, we will continue to monitor cultures -Patient's family is agreeable, understandable, patient's sister is understandable, agreeable we will continue to monitor, continue D5 water, monitored oral feeds Continue Rocephin, spoke to infectious disease spoke to nursing staff spoke to patient's family- Attestations Medical Necessity Statement*: Patient requires hospitalization for hyponatremia, febrile status, SBP, cellulitis, altered mental status, generalized weakness, deconditioning Coding Level of Care Code Critical Care >/= 30 minutes Critical care time (in minutes): 45 The high probability of a clinically significant, sudden or life threatening deterioration, as referenced in this documentation, required my full and direct attention, intervention and personal management. The critical care time shown is in addition to time spent performing any reported separately billable procedures and includes the following: [x] Data and vital sign review and interpretation [x] Patient assessment, examination and intervention [x] Medication orders and management [x] Patient/Family updates as able [x] Care Coordination and Documentation. 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
[2023-03-31] MEDS: cefTRIAXone 1,000 MG in sodium chloride 0.9% (plus) 50 ML 100 MG IV (16:34)
[2023-03-31] MEDS: azithromycin 500 MG in sodium chloride 0.9% 250 ML 250 MG IV (17:29)
[2023-03-31 18:27] LABS: Sodium 155 mmol/L (136-145)
[2023-03-31] MEDS: albumin 25 G/100 ML BAG 50 G IV (20:47)
[2023-03-31] MEDS: dexmedetomidine 400 MCG in sodium chloride 0.9% (100 ml) 100 ML IV (21:30)
[2023-03-31 22:40] LABS: Sodium 153 mmol/L (136-145)
--- NOTE | 2023-04-01 00:17 | PC.NURSE ---
2245: Shreya Cook from [facility] notified [facility] ICU of bed available to patient. 2250: Bed assignment accepted. [facility], MICU, #[id number]. 2300: Report called to Harman Owusu RN. The MICU receiving nurse. 2305: Ian Fritz notified of ground transportation request. 2310: Patient's daughter, Elgin Owusu, notified of Bed assignment, and transfer. 2340: Bedside report completed with with Ian Fritz Technical Support Technician, Nathanael Ortega. 2345: Patient transferred to ambulance stretcher, all monitoring transferred to claim representative equipment. 2350: Patient discharged from [facility] ICU.
--- NOTE | 2023-04-01 08:05 | PM.TDS ---
Transfer Summary Providers Date of Admission: 03/25/23 12:18 Date of Discharge/Transfer: 04/05/23 Attending Provider at Admission: Vlad Dash MD Attending Provider at Transfer: Vlad Dash MD Primary Care Provider: Manny Guzman DO Transfer Plans: Anticipated date of transfer: 04/01/23. 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 Currently patient is alert to person, to place, not to time, he does follow commands, currently he is receiving a venous ultrasound, complaining of extreme intolerance to cold, complaining of severe chills and rigors, diffuse aches and pains.? He denies any cough, no shortness of breath.? No headache, blurry vision.? No neck pain notes neck stiffness.? No abdominal pain no abdominal distention.? No diarrhea.? No sick contacts, recent travel.? Denies any significant hospitalizations in the last few weeks or significant illness.? He tells me that he sees wound care for his bilateral lower extremity venous stasis dermatitis, and his heel ulcers which are managed through wound care.? No recent falls, recent injuries, no smoking.? No alcoholism.? He denies any dysuria, no hematuria.? In the emergency room, he was found to be hypotensive, tachycardic, febrile, lactic acid 6.2.? In septic shock, given fluid bolus, most recent blood pressure 130/70, currently febrile, having intermittent episodes of confusion, severe pain chills and rigors. Patient was admitted to [facility] for Pasteurella multiside of bacteremia secondary to cellulitis, potentially a component of spontaneous bacterial peritonitis, septic shock, ARMEN, with lactic acidosis, metabolic acidosis, acute encephalopathy, elevated INR, hyperammonemia hyperammonemia hyperbilirubinemiaWith underlying liver failure. Patient was admitted to the intensive care unit, received pressors, broad-spectrum antibiotic therapy, due to concerns for ARMEN and hepatorenal syndrome nephrology was consulted, overall patient's septic shock resolved, bacteremia had cleared, antibiotic therapy tailored down to Rocephin. However due to persistent encephalopathy and fevers he required further, infectious disease consultation, and work-up which Potentially showed respiratory tract infection as a source, azithromycin was added. His fever trend resolved, mentation improved, able to work with physical therapy, able to tolerate a clear liquid diet. After discussing transfer to [place], he was on the transfer list since 03/25/2023, patient and family were still adamant about transfer to tertiary level center. Patient was transferred to [place] on 04/01/2023 Pasteurella multocida bacteremia -Source could be SBP, and or cellulitis -Does report dogs at home, but denies any animal bites/[place] Septic shock, resolving -Secondary to spontaneous bacterial peritonitis, cellulitis -Blood cultures are Pasteurella multocida -Off pressors, Plan -Admit to ICU -Monitor hemodynamics closely -maintain MAP greater than 65 -Broad-spectrum antibody therapy vancomycin, carbapenem -Follow blood cultures, MRSA nares PCR -Ultrasound paracentesis, not significant amount of fluid to tap -Received albumin therapy as per SBP protocol, receiving albumin every 8 hours -Full code -Lovenox for DVT prophylaxis -Placed on wait list at [facility] Spontaneous bacterial peritonitis -Blood cultures positive for Pasteurella multocida -No significant amount of fluid to perform a paracentesis -Received albumin therapy -Currently on carbapenem -Follow follow repeat blood cultures Cellulitis bilateral lower extremity -On vancomycin, carbapenem ARMEN on CKD -Likely second to sepsis -However concerns for hepatorenal syndrome given SBP -Urine output has improved, creatinine proved 1.3 Leukopenia, resolving, likely secondary to sepsis, cellulitis Elevated INR, likely secondary to sepsis, cellulitis, liver failure Lactic acidosis, secondary to sepsis, cellulitis, spontaneous bacterial peritonitis, septic shock as above -Repeat lactic acid improving Metabolic acidosis due to sepsis as above Hyperammonemia secondary to liver failure, continue lactulose, rifaximin, monitor mentation closely Hypoalbuminemia, likely secondary to liver cirrhosis, albumin Altered mental status, likely secondary to sepsis, cellulitis, spontaneous bacterial peritonitis, hyperbilirubinemia Anasarca, hold off on Lasix today Bowel obstruction -Seen on CAT scan -Had reported bowel movement on admission, no nausea, no vomiting, -Repeat KUB shows nonobstructive bowel gas pattern -We will monitor Hypomagnesemia, replace Hypokalemia, resolved Hyperbilirubinemia -We will do liver function studies, fractionated bilirubin, haptoglobin, LDH, peripheral smear, will consider MRCP based on clinical progress Plan for today, continue antibiotics, monitor blood pressures, speech therapy, hemolytic labs, potentially up out of bed, PT evaluation, spoke to [facility] currently on transfer list Physical Exam Const: COMMON NORMALS: no acute distress and patient oriented x3 Resp: COMMON NORMALS: normal respiratory effort, No retractions, No use of accessory muscles and clear to auscultation bilaterally AUSCULTATION: clear to auscultation bilaterally Cardio: COMMON NORMALS: regular rate, regular rhythm, S1 normal heart sound present and S2 normal heart sound present RATE: regular rate RHYTHM: regular rhythm HEART SOUNDS: S1 normal heart sound present and S2 normal heart sound present GI: COMMON NORMALS: Normal to inspection, nondistended, normoactive bowel sounds present and non-tender Extremity: COMMON NORMALS: no pedal edema Neuro: COMMON NORMALS: patient oriented x3 Urinary Catheter Management: Birch: Cath Placed During This Visit: yes Reason for Continuing Indwelling Catheter: Accurate Measurement of Urinary Output in Critically Ill Patients Urinary Catheter Date of Insertion: 03/25/23 Urinary Catheter Time of Insertion: 18:20 TS Data Studies Completed and Pending Pending at discharge Category Date Time Status Blood Culture Stat Lab 03/27/23 21:00 Results Blood Culture Stat Lab 03/30/23 09:02 Results Catheter Tip Culture Stat Lab 03/30/23 10:00 Results Urine Culture Stat Lab 03/30/23 10:17 Results Labs from last 24 hours 03/31/23 03/31/23 03/31/23 22:15 18:00 13:43 Sodium 153 H 155 H 159 H 03/31/23 10:08 Sodium 157 H Completed Studies During Hospitalization Category Date Time Status CT abdomen pelvis wo con [id number] Stat Cat Scan 03/30/23 18:[address] angio chest PE protcl [id number] Routine Cat Scan 03/30/23 12:[address] chest abdomen pelvis [CT chest abdpel w/*[id number] Cat Scan 03/25/23 15:05 Completed ] Stat CT head wo con* [id number] Routine Cat Scan 03/26/23 20:[address] head wo con* [id number] Routine Cat Scan 03/29/23 10:[address] lower leg LT wo con* [id number] Routine Cat Scan 03/30/23 09:[address] lower leg RT wo con* [id number] Routine Cat Scan 03/30/23 09:53 Completed CXRP [XR chest 1V portable [id number]] Stat Exams 03/31/23 08:26 Completed XR KUB portable [id number] Routine Exams 03/28/23 08:51 Completed XR KUB portable [id number] Routine Exams 03/29/23 07:38 Completed XR KUB portable [id number] Routine Exams 03/30/23 09:56 Completed XR KUB portable [id number] Stat Exams 03/26/23 11:05 Completed XR chest 1V portable [id number] NOW Exams 03/30/23 22:52 Completed XR chest 1V portable [id number] Routine Exams 03/26/23 07:00 Completed XR chest 1V portable [id number] Routine Exams 03/29/23 07:38 Completed XR chest 1V portable [id number] Routine Exams 03/30/23 08:01 Completed XR chest 1V portable [id number] Stat Exams 03/25/23 09:57 Completed XR chest 1V portable [id number] Stat Exams 03/25/23 19:40 Completed XR chest 1V portable 30615 Stat Exams 03/26/23 00:12 Completed US abdomen lmt fluid 60507 Routine Ultrasound 03/27/23 07:53 Completed US abdomen lmt fluid 14257 Routine Ultrasound 03/29/23 08:43 Completed US renal BI* [id number] Routine Ultrasound 03/26/23 13:10 Completed US venous duplex lower extremity bilat [CV venous Ultrasound 03/25/23 10:11 [place] [id number]] Stat Laboratory Last Values WBC 7.0 10^3/uL (4.0-10.0) 03/31/23 03:35 RBC 4.16 10^6/uL (4.1-5.3) 03/31/23 03:35 Hgb 10.7 g/dL (11.7-16.6) L 03/31/23 03:35 Hct 36.5 % (42.0-52.0) L 03/31/23 03:35 MCV 87.7 fl (80-94) 03/31/23 03:35 MCH 25.7 pg (28.0-34.0) L 03/31/23 03:35 MCHC 29.3 g/dL (30.0-36.0) L 03/31/23 03:35 RDW 20.9 % (12.1-15.1) H 03/31/23 03:35 Plt Count 52 10^3/cmm (130-400) L 03/31/23 03:35 MPV 11.9 fL (7.4-10.4) H 03/31/23 03:35 Neut % (Auto) 69.6 % 03/31/23 03:35 Lymph % (Auto) 11.5 % 03/31/23 03:35 [place] % (Auto) 6.7 % 03/31/23 03:35 Eos % (Auto) 5.1 % 03/31/23 03:35 Baso % (Auto) 1.1 % 03/31/23 03:35 Neut # (Auto) 4.89 10^3/uL (1.8-7.7) 03/31/23 03:35 Lymph # (Auto) 0.8 10^3/uL (0.8-4.8) 03/31/23 03:35 [place] # (Auto) 0.5 10^3/uL (0.2-0.9) 03/31/23 03:35 Eos # (Auto) 0.4 10^3/uL (0.0-0.8) 03/31/23 03:35 Baso # (Auto) 0.1 10^3/uL (0.0-0.1) 03/31/23 03:35 Nucleated RBC % (auto) 0.6 % 03/31/23 03:35 Nucleated RBCs # 0.0 /100WBC 03/31/23 03:35 Peripher Smr Path Cons Sent for review 03/28/23 04:08 ESR 9 mm/hr (0-10) 03/30/23 04:47 Haptoglobin 56.0 mg/L (30-200) 03/28/23 12:35 PT 23.60 SECONDS (12.1-14.9) H 03/31/23 03:35 INR 2.02 (0.8-1.2) H 03/31/23 03:35 APTT 41.6 SECONDS (23.9-36.7) H 03/31/23 03:35 Fibrinogen 304 mg/dL (174-498) 03/31/23 03:35 Fibrin Degrad Products Pos, >=40 ug/mL (NEG) H 03/31/23 03:35 D-Dimer 7.89 ug/mIFEU (0-0.59) H 03/31/23 03:35 Specimen Type Arterial 03/29/23 14:31 Sample Site Radial, left 03/29/23 14:31 ABG pH 7.48 (7.35-7.45) H 03/29/23 14:31 ABG pCO2 35.4 mmHg (35-45) 03/29/23 14:31 ABG pO2 63.0 mmHg (80.0-100.0) L 03/29/23 14:31 ABG HCO3 26.3 mmol/L (22-26) H 03/29/23 14:31 ABG O2 Saturation 93.2 03/29/23 14:31 ABG Base Excess 2.8 mmol/L (-2.0-2.0) H 03/29/23 14:31 Joe Test Pos 03/29/23 14:31 A-a O2 Gradient 5.4 mmHg (5-10) 03/29/23 14:31 Hematocrit 33.0 % (42-52) L 03/29/23 14:31 Hgb O2 Saturation 90.5 % (95-100) L 03/29/23 14:31 Carboxyhemoglobin 2.3 %THgb (0.4-20.1) 03/29/23 14:31 Methemoglobin 0.6 % (0.4-1.5) 03/29/23 14:31 Total Hemoglobin 10.8 g/dL (14-18) L 03/29/23 14:31 Sodium 158.0 mmol/L (131-143) H 03/29/23 14:31 Potassium 3.1 mmol/L (3.5-5.0) L 03/29/23 14:31 Glucose 121.0 mg/dL (70-115) H 03/29/23 14:31 Ionized Calcium 1.1 mmol/L (1.1-1.4) 03/29/23 14:31 O2 Delivery Device Nc 03/29/23 14:31 O2 Liters/Min 2.0 % 03/29/23 14:31 FiO2 21.0 % 03/26/23 02:30 Assistant Gm Of Content & Delivery ID Cak 03/29/23 14:31 Sodium 153 mmol/L (136-145) H 03/31/23 22:15 Potassium 3.3 mmol/L (3.5-5.1) L 03/31/23 03:35 Chloride 125 mmol/L (98-107) H 03/31/23 03:35 Carbon Dioxide 27 mmol/L (22-29) 03/31/23 03:35 Anion Gap 13.3 (5-19) 03/31/23 03:35 BUN 37 mg/dL (6-20) H 03/31/23 03:35 Creatinine 0.8 mg/dL (0.7-1.2) 03/31/23 03:35 GFR Calculation 99.3 mL/min (90-130) 03/31/23 03:35 Glucose 157 mg/dL (65-115) H 03/31/23 03:35 POC Glucose 134 mg/dL (70-110) H 03/29/23 07:23 Estimat Average Glucose 117 03/26/23 03:54 Hemoglobin A1c 5.7 % (4.0-6.0) 03/26/23 03:54 Calculated Osmolality 346 mOsm/kg (285-295) H 03/31/23 03:35 Lactic Acid 9.8 mmol/L (0.5-2.2) H* 03/25/23 19:27 Lactic Acid (Sepsis) 10.5 mmol/L (0.5-2.2) H* 03/25/23 21:26 Lactate 2.0 mmol/L (0.5-2.2) 03/31/23 03:35 Calcium 7.7 mg/dL (8.5-10.5) L 03/31/23 03:35 Phosphorus 3.8 mg/dL (2.5-4.5) 03/31/23 03:35 Magnesium 2.4 mg/dL (1.7-2.3) H 03/31/23 03:35 Total Bilirubin 7.4 mg/dL (0.15-1.2) H* 03/31/23 03:35 Direct Bilirubin 4.40 mg/dL (0.00-0.30) H 03/28/23 12:35 Indirect Bilirubin 4.40 03/28/23 12:35 GGT 69 U/L (8-61) H 03/25/23 09:36 AST 53 U/L (0-40) H 03/31/23 03:35 ALT 17 U/L (0-41) 03/31/23 03:35 Alkaline Phosphatase 67 U/L (40-130) 03/31/23 03:35 Ammonia 39 umol/L (16-60) 03/31/23 03:35 Lactate Dehydrogenase 255 U/L (135-225) H 03/28/23 12:35 Creatine Kinase 24 U/L (39-308) L 03/31/23 01:18 Troponin T Baseline 33 ng/L (0-15) H 03/25/23 13:38 Troponin T 120 Minute 31.14 ng/L (0-15) H 03/25/23 15:26 Delta Troponin T -1.86 ABS# (0-10) L 03/25/23 15:26 Troponin T Hi Sens 6Hr 29.31 ng/L (0-15) H 03/25/23 19:27 Troponin T Hi Sens 6Hr Delta -3.69 ng/L (0-12) L 03/25/23 19:27 C-Reactive Protein 94.4 mg/L (0.0-4.9) H 03/31/23 03:35 NT-Pro-B Natriuret Pep 3688 pg/mL (0-125) H 03/28/23 04:08 Total Protein 5.5 g/dL (6.6-8.7) L 03/31/23 03:35 Albumin 3.2 g/dL (3.5-5.2) L 03/31/23 03:35 Globulin 2.3 g/dL (1.3-4.6) 03/31/23 03:35 Triglycerides 47 mg/dL (0-150) 03/26/23 03:54 Cholesterol 43 mg/dL (0-200) 03/26/23 03:54 LDL Cholesterol, Calc 1 mg/dL (50-129) L 03/26/23 03:54 HDL Cholesterol 33 mg/dL (60-100) L 03/26/23 03:54 LDL/HDL Ratio 0.03 RATIO (0.00-3.22) 03/26/23 03:54 Cholesterol/HDL Ratio 1.30 mg/dL (1.0-5.00) 03/26/23 03:54 Lipase 69 U/L (13-60) H 03/25/23 09:36 Procalcitonin 4.64 ng/mL (0-0.5) H 03/31/23 01:18 TSH 2.87 uIU/mL (0.27-4.20) 03/25/23 09:36 Random Cortisol 57.83 ug/dL (2.47-19.5) H 03/26/23 01:54 Urine Color Yellow (Yellow) 03/30/23 10:17 Urine Appearance Hazy (CLEAR) A 03/30/23 10:17 Urine pH 5 (5-7) 03/30/23 10:17 Ur Specific Iron 1.010 (1.005-1.030) 03/30/23 10:17 Urine Protein Trace (Negative) 03/30/23 10:17 Urine Glucose (UA) Norm (Normal) 03/30/23 10:17 Urine Ketones Negative (Negative) 03/30/23 10:17 Urine Blood 3+ (Negative) H 03/30/23 10:17 Urine Nitrate Negative (Negative) 03/30/23 10:17 Urine Bilirubin Neg (Negative) 03/30/23 10:17 Urine Urobilinogen Norm mg/dL (Negative) 03/30/23 10:17 Ur Leukocyte Esterase Negative (Negative) 03/30/23 10:17 Urine RBC 50-80 /hpf (0-2) H 03/30/23 10:17 Urine WBC 0-4 /hpf (0-5) H 03/30/23 10:17 Ur Squamous Epith Cells 0-4 /hpf (0-5) H 03/30/23 10:17 Amorphous Sediment Not Reportable 03/30/23 10:17 Urine Bacteria Trace /hpf (NONE) 03/30/23 10:17 Hyaline Casts Rare /lpf 03/30/23 10:17 Urine Mucus Trace /hpf 03/30/23 10:17 Nasal Influ A H1 2008 PCR Not detected (NOT DETECT) 03/30/23 10:17 Vancomycin Trough 12.2 ug/mL (10-15) 03/31/23 01:18 Urine Opiates Screen Negative ng/mL (Negative) 03/25/23 18:30 Ur Barbiturates Screen Negative ng/mL (Negative) 03/25/23 18:30 Ur Phencyclidine Scrn Negative ng/mL (Negative) 03/25/23 18:30 Ur Amphetamines Screen Negative ng/mL (Negative) 03/25/23 18:30 U Benzodiazepines Scrn Negative ng/mL (Negative) 03/25/23 18:30 Urine Cocaine Screen Negative ng/mL (Negative) 03/25/23 18:30 U Marijuana (THC) Screen Negative ng/mL (Negative) 03/25/23 18:30 Ethyl Alcohol < 10 mg/dL (0-10) 03/25/23 09:36 Serum Ketones Negative (Negative) 03/25/23 09:36 Adenovirus (PCR) Not detected (NOT DETECT) 03/30/23 10:17 C. pneumoniae DNA (PCR) Not detected (NOT DETECT) 03/30/23 10:17 Coronavirus 229E (PCR) Not detected (NOT DETECT) 03/30/23 10:17 Hepatitis A IgM Ab Non-reactive (Nonreactive) 03/25/23 09:36 Hep Bs Antigen Non-reactive (Nonreactive) 03/25/23 09:36 Hep B Core IgM Ab Non-reactive (Nonreactive) 03/25/23 09:36 Hepatitis C Antibody Non-reactive (Nonreactive) 03/25/23 09:36 HIV 1&2 Ab & HIV 1 Ag Non-reactive (Non-Reactiv) 03/25/23 11:14 HIV 1&2 Antibody Non-reactive (Non-Reactiv) 03/25/23 11:14 Human Metapneumovir PCR Not detected (NOT DETECT) 03/30/23 10:17 Influenza A (H1) PCR Not detected (NOT DETECT) 03/30/23 10:17 Influenza A (H3) PCR Not detected (NOT DETECT) 03/30/23 10:17 Influenza Type A (PCR) Not detected (NOT DETECT) 03/30/23 10:17 Influenza Type B (PCR) Not detected (NOT DETECT) 03/30/23 10:17 M. pneumoniae (PCR) Not detected (NOT DETECT) 03/30/23 10:17 Parainfluenza 1 (PCR) Not detected (NOT DETECT) 03/30/23 10:17 Parainfluenza 2 (PCR) Not detected (NOT DETECT) 03/30/23 10:17 Parainfluenza 3 (PCR) Not detected (NOT DETECT) 03/30/23 10:17 Parainfluenza 4 (PCR) Not detected (NOT DETECT) 03/30/23 10:17 RSV Type A (PCR) Not detected (NOT DETECT) 03/30/23 10:17 RSV Type B (PCR) Not detected (NOT DETECT) 03/30/23 10:17 Entero/Rhino (PCR) Not detected (NOT DETECT) 03/30/23 10:17 SARS-CoV-2 (PCR) Not detected (NOT DETECT) 03/30/23 10:17 Radiology Impressions Venous Duplex 03/25/23 10:11 IMPRESSION: No evidence of deep vein thrombosis. Chest/Abdomen/Pelvis CT 03/25/23 15:05 IMPRESSION: 1. Mild cardiomegaly with bilateral pleural effusions raising concern for congestive heart failure. Please correlate clinically. 2. Multivessel atherosclerotic disease which involves the coronary arteries. IMPRESSION: 1. Cirrhotic liver with associated splenomegaly and varicosities at the splenic hilum consistent with portal venous hypertension. Lumen of the intrahepatic portosystemic shunt is not well seen. 2. There is fluid in multiple small bowel loops some of which are dilated raising concern for early or partial small bowel obstruction. 3. Moderate amount of ascites. 4. The bladder wall is thickened. This is nonspecific and may represent bladder outlet obstruction, inflammation or infection. Neoplastic process is included in the differential. COMMENTS: Consistent with the [employer]'s Incidental Findings Committee white paper (J Am Camron Radiol 2018): Any incidental renal lesion less than 1 cm or classified as too small to characterize, or any incidental cystic renal lesion characterized as simple-appearing, is likely benign. No follow-up imaging is recommended for these lesions per consensus recommendations based on imaging criteria. Renal Ultrasound 03/26/23 13:10 IMPRESSION: There is a 3.5 cm benign cyst in the right kidney. Otherwise unremarkable retroperitoneal ultrasound. Abdomen Ultrasound 03/29/23 08:43 IMPRESSION: Only very minimal visualized ascites. Inadequate fluid for paracentesis. Head CT 03/29/23 10:42 IMPRESSION: 1. No evidence of intracranial hemorrhage or mass effect. 2. Mild small vessel changes. Moderate parenchymal volume loss. 3. Mild intracranial vascular calcification. 4. No acute intracranial findings. Lower Extremity CT 03/30/23 09:53 IMPRESSION: 1. Disuse osteoporosis right knee. No compelling evidence of osteomyelitis. 2. Diffuse soft tissue swelling right lower leg with superimposed soft tissue calcifications that may be secondary to chronic venous insufficiency. Please see above for differential diagnosis. KUB X-Ray 03/30/23 09:56 IMPRESSION: Decreased distention of the hepatic flexure. Hazy density of the abdomen as above. Chest CTA 03/30/23 12:31 IMPRESSION: 1. Negative CT angiogram of the chest. No evidence of acute pulmonary embolism. 2. Interval development of moderate-sized bilateral pleural effusions and adjacent atelectasis lower lobes. 3. Cardiomegaly unchanged. 4. Cirrhosis, splenomegaly, mild ascites. 5. Additional chronic findings as above. Abdomen/Pelvis CT 03/30/23 18:02 IMPRESSION: 1. No small bowel obstruction. 2. Air within the urinary bladder may be on the basis of recent Birch catheter placement. Correlate for evidence of cystitis. 3. Cirrhotic liver morphology with TIPS, splenomegaly, and moderate ascites. 4. Moderate lfjv-aixolve-pjri-right pleural effusions with associated atelectasis. 5. Additional chronic and incidental findings as above. COMMENTS: Consistent with the [employer] [place]'s Incidental Findings Committee white paper (J Am Camron Radiol 2018): Any incidental renal lesion less than 1 cm or classified as too small to characterize, or any incidental cystic renal lesion characterized as simple-appearing, is likely benign. No follow-up imaging is recommended for these lesions per consensus recommendations based on imaging criteria. Chest X-Ray 03/31/23 08:26 Impression: 1. Decrease in pulmonary edema. 2. Satisfactory placement of enteric tube ending in the stomach. 3. No change in cardiomegaly and bilateral pleural effusions Recent Clincial Data Last Vital Signs Temp 98.5 F 03/31/23 23:00 Pulse 69 03/31/23 23:30 Resp 21 H 03/31/23 23:30 BP 127/67 03/31/23 23:30 Pulse Ox 96 03/31/23 23:30 O2 Del Method Nasal Cannula 03/31/23 21:16 O2 Flow Rate 2 03/31/23 21:16 FiO2 45 03/28/23 02:00 Vital Signs Temp Pulse Resp BP Pulse Ox O2 Del Method O2 Flow Rate 03/31/23 23:30 69 21 H 127/67 96 03/31/23 23:00 98.5 F 70 28 H 138/79 97 03/31/23 22:30 67 16 138/79 96 03/31/23 22:00 71 30 H 126/73 94 03/31/23 21:30 69 18 126/73 95 03/31/23 21:00 69 36 H 134/81 93 03/31/23 20:30 76 25 H 134/81 95 03/31/23 22:00 70 03/31/23 21:16 73 16 98 Nasal Cannula 2 03/31/23 20:10 23 H 90 Intake & Output/Weight 03/30/23 03/31/23 04/01/23 04/02/23 06:59 06:59 06:59 06:59 Intake Total 1214.665 / 5046.447 0595.167 / 3953.167 3412.5 / 3412.5 Output Total 2800 / 2800 2450 / 2450 2300 / 2300 Balance -1585.335 / -4796.289 6653.167 / 8376.575 0315.5 / 1112.5 Vitals Last Vital Signs Temp 98.5 F 03/31/23 23:00 Pulse 69 03/31/23 23:30 Resp 21 H 03/31/23 23:30 BP 127/67 03/31/23 23:30 Pulse Ox 96 03/31/23 23:30 O2 Del Method Nasal Cannula 03/31/23 21:16 O2 Flow Rate 2 03/31/23 21:16 FiO2 45 03/28/23 02:00 TS Medications Medications Discontinued Medications Acetaminophen (Acetaminophen 325 Mg Tablet) 650 mg PO Q6H PRN PRN Reason: Mild/Mod Pain Or Temp >/= 101 Last Admin: 03/25/23 18:08 Dose: 650 mg Albuterol/Ipratropium (Ipratropium-Albuterol 3 Ml Neb) 3 ml INHALATION Q6H PRN PRN Reason: SHORTNESS OF BREATH Citric Acid/Sodium Citrate (Citric Acid-Sodium Citrate 30 Ml Udc) 30 ml PO TID ONE Stop: 03/26/23 13:31 Last Admin: 03/26/23 16:01 Dose: 30 ml Enoxaparin Sodium (Enoxaparin 40 Mg/0.4 Ml Syringe) 40 mg SUBCUT Q24H [facility] Last Admin: 03/30/23 11:49 Dose: 40 mg Folic Acid (Folic Acid 1 Mg Tablet) 1 mg PO DAILY [facility] Last Admin: 03/26/23 08:08 Dose: 1 mg Furosemide (Furosemide 10 Mg/Ml Sdv 4ml) 40 mg IVP ONCE ONE Stop: 03/27/23 16:32 Last Admin: 03/27/23 17:17 Dose: 40 mg Furosemide (Furosemide 10 Mg/Ml Sdv 10ml) 60 mg IVP ONCE ONE Stop: 03/28/23 10:01 Last Admin: 03/28/23 10:02 Dose: 60 mg Furosemide (Furosemide 20 Mg Tablet) 20 mg PO BID@08,16 [facility] Furosemide (Furosemide 10 Mg/Ml Sdv 2ml) 20 mg IVP BID [facility] Last Admin: 03/30/23 09:00 Dose: 20 mg Sodium Chloride (Sodium Chloride 0.9%) 3,129.78 mls @ 3,129.78 mls/hr 30 ml/kg infuse over 1 hr (3129.78 ml) IV .Q1H ONE Stop: 03/25/23 10:55 Last Infusion: 03/25/23 15:01 Dose: Infused Piperacillin Sod/Tazobactam (Sod 3.375 gm/ Sodium Chloride) 50 mls @ 12.5 mls/hr IV Q8H [facility]; Protocol Last Infusion: 03/26/23 14:06 Dose: Infused Sodium Chloride (Sodium Chloride 0.45%) 1,000 mls @ 75 mls/hr IV .[id number] GRACE Sodium Chloride (Sodium Chloride 0.9%) 1,000 mls @ 75 mls/hr IV .[id number] [facility] Last Infusion: 03/26/23 01:10 Dose: Infused Albumin Human (Albumin) 25 g in 100 mls @ 60 mls/hr IV ONCE ONE Stop: 03/25/23 14:09 Last Infusion: 03/25/23 22:10 Dose: Infused Vancomycin/PEG/NADA/Lysine/Water (Vancocin) 1,500 mg in 300 mls @ 200 mls/hr IV Q12H [facility] Last Admin: 03/27/23 01:44 Dose: Not Given Sodium Chloride (Sodium Chloride 0.9%) 500 mls @ 999 mls/hr IV .Q31M GRACE Stop: 03/25/23 15:45 Last Infusion: 03/25/23 18:28 Dose: Infused Sodium Bicarbonate 150 meq/ (Dextrose) 1,150 mls @ 50 mls/hr IV .Q23H GRACE Last Admin: 03/27/23 03:54 Dose: 50 mls/hr Norepinephrine Bitartrate 4 mg (/ Dextrose) 254 mls @ 0 mls/hr IV .Q0M GRACE; Protocol Last Titration: 03/28/23 05:45 Dose: 0 mcg/min, 0 mls/hr Albumin Human (Albumin) 12.5 gm in 50 mls @ 60 mls/hr IV ONCE ONE Stop: 03/25/23 21:01 Last Infusion: 03/25/23 21:51 Dose: Infused Vasopressin 40 unit/ Sodium (Chloride) 40 mls @ 0.03 mls/min IV CONT [facility] Last Infusion: 03/26/23 22:33 Dose: Infused Sodium Chloride (Sodium Chloride 0.9%) 1,000 mls @ 50 mls/hr IV .Q20H [facility] [facility] Last Admin: 03/28/23 00:40 Dose: 50 mls/hr Albumin Human (Albumin) 25 g in 100 mls @ 60 mls/hr IV Q8H [facility] Last Infusion: 03/26/23 13:05 Dose: Infused Meropenem 1,000 mg/ Sodium (Chloride) 50 mls @ 100 mls/hr IV Q8H [facility]; Protocol Last Admin: 03/29/23 07:41 Dose: 100 mls/hr Lactated Ringer's (Lactated Ringers) 500 mls @ 999 mls/hr IV .Q31M ONE Stop: 03/26/23 11:16 Last Infusion: 03/26/23 14:06 Dose: Infused Albumin Human (Albumin) 25 g in 100 mls @ 60 mls/hr IV Q8H [facility] Last Infusion: 04/01/23 00:32 Dose: Infused Sodium Chloride (Sodium Chloride 0.9%) 250 mls @ 999 mls/hr IV .Q16M [facility] Last Admin: 03/26/23 23:43 Dose: Not Given Sodium Chloride (Sodium Chloride 0.9%) 250 mls @ 250 mls/hr IV ONCE ONE Stop: 03/26/23 17:37 Last Infusion: 03/26/23 22:33 Dose: Infused Vancomycin/PEG/NADA/Lysine/Water (Vancocin) 1,500 mg in 300 mls @ 200 mls/hr IV Q18H [facility] Last Infusion: 03/28/23 22:00 Dose: Infused Magnesium Sulfate 1 gm/ Sodium (Chloride) 52 mls @ 104 mls/hr IV ONCE ONE Stop: 03/27/23 08:59 Last Admin: 03/27/23 08:37 Dose: 104 mls/hr Albumin Human (Albumin) 50 g in 200 mls @ 60 mls/hr IV ONCE ONE Stop: 03/27/23 14:11 Last Admin: 03/27/23 11:21 Dose: 60 mls/hr Albumin Human (Albumin) 50 g in 200 mls @ 60 mls/hr IV ONCE ONE Stop: 03/27/23 14:12 Last Admin: 03/27/23 11:21 Dose: 60 mls/hr Dextrose/Sodium Chloride (Dextrose 5%-Sod Chloride 0.9%) 1,000 mls @ 50 mls/hr IV .Q20H [facility] Last Infusion: 03/30/23 17:23 Dose: Infused Dextrose 35.5 ml/ Sterile (Water 14.5 ml/ N/A) 50 mls @ 600 mls/hr IVP ONCE ONE Stop: 03/28/23 06:34 Last Infusion: 03/28/23 06:54 Dose: Infused Potassium Phosphate 40 meq/ (Sodium Chloride) 109.0909 mls @ 27.25 mls/hr IV ONCE ONE Stop: 03/29/23 11:36 Last Admin: 03/29/23 08:31 Dose: 27.25 mls/hr Vancomycin/PEG/NADA/Lysine/Water (Vancocin) 1,500 mg in 300 mls @ 200 mls/hr IV Q18H [facility] Last Infusion: 03/31/23 04:15 Dose: Infused Dexmedetomidine HCl 400 mcg/ (Sodium Chloride) 104 mls @ 0 mls/hr IV .Q0M [facility]; Protocol Last Admin: 03/31/23 21:30 Dose: 0.1 mcg/kg/hr, 2.71 mls/hr Ceftriaxone Sodium 1,000 mg/ (Sodium Chloride) 50 mls @ 100 mls/hr IV Q24H [facility]; Protocol Last Infusion: 03/31/23 17:29 Dose: Infused Sodium Chloride (Sodium Chloride 0.9%) 1,000 mls @ 100 mls/hr IV .Q10H [facility] Last Infusion: 03/30/23 17:23 Dose: Infused Dextrose (D5w) 1,000 mls @ 125 mls/hr IV .Q8H [facility] Last Admin: 03/31/23 20:46 Dose: 125 mls/hr Azithromycin 500 mg/ Sodium (Chloride) 250 mls @ 250 mls/hr IV Q24H [facility]; Protocol Last Infusion: 03/31/23 21:54 Dose: Infused Iohexol (Iohexol 350 Mg/Ml 500 Ml Btl (Per Ml)) 0 ml IV ONCE ONE Stop: 03/25/23 15:43 Last Admin: 03/25/23 15:43 Dose: 100 ml Iohexol (Iohexol 350 Mg/Ml 500 Ml Btl (Per Ml)) 0 ml IV ONCE ONE Stop: 03/30/23 14:29 Last Admin: 03/30/23 14:32 Dose: 100 ml Lactulose (Lactulose Oral Liq 20 Gm/30 Ml Udc) 20 gm PO Q12H [facility] Last Admin: 03/25/23 13:57 Dose: 20 gm Lorazepam (Lorazepam 2 Mg Tablet) 2 mg PO Q4H PRN; Protocol PRN Reason: WITHDRAWAL Lorazepam (Lorazepam 2 Mg/Ml Inj 1 Ml) 2 mg IVP PRN PRN; Protocol PRN Reason: WITHDRAWAL Last Admin: 03/28/23 20:37 Dose: 2 mg Lorazepam (Lorazepam 2 Mg/Ml Inj 1 Ml) 2 mg IM Q4H PRN; Protocol PRN Reason: ALCOWD Lorazepam (Lorazepam 2 Mg/Ml Inj 1 Ml) 0.5 mg IVP NOW ONE Stop: 03/30/23 16:01 Last Admin: 03/30/23 15:51 Dose: 0.5 mg Morphine Sulfate (Morphine 4 Mg/Ml Sdv 1 Ml) 2 mg IVP Q4H PRN PRN Reason: SEVERE PAIN Last Admin: 03/29/23 00:00 Dose: 2 mg Morphine Sulfate (Morphine 4 Mg/Ml Sdv 1 Ml) 2 mg IVP Q4H PRN PRN Reason: SEVERE PAIN Last Admin: 03/31/23 20:10 Dose: 2 mg Multivitamins Therapeutic (Multivitamin Therapeutic Tablet) 1 tab PO DAILY [facility] Last Admin: 03/26/23 08:08 Dose: 1 tab Multivitamins Therapeutic (Multivitamin Therapeutic Tablet) 1 tab PO DAILY [facility] Last Admin: 03/26/23 08:19 Dose: Not Given Naloxone HCl (Naloxone 0.4 Mg/Ml Sdv) 0.1 mg IVP Q2M PRN PRN Reason: OPIATERV Ondansetron HCl (Ondansetron 2 Mg/Ml Sdv 2 Ml) 4 mg IVP Q8H PRN PRN Reason: vomiting, or N/V if npo Pantoprazole Sodium (Pantoprazole 40 Mg Sdv) 40 mg IVP Q24H [facility] Last Admin: 03/31/23 12:53 Dose: 40 mg Rifaximin (Rifaximin 550 Mg Tablet) 550 mg PO BID [facility]; Protocol Last Admin: 03/26/23 17:48 Dose: Not Given Sodium Bicarbonate (Sodium Bicarbonate 1 Meq/Ml Sdv 50ml) 50 meq IVP ONCE ONE Stop: 03/25/23 20:16 Last Admin: 03/25/23 20:56 Dose: 50 meq Thiamine HCl (Thiamine 100 Mg/Ml Sdv) 100 mg IM ONCE ONE Stop: 03/25/23 16:25 Last Admin: 03/25/23 18:10 Dose: 100 mg Thiamine Mononitrate (Thiamine 100 Mg Tablet) 100 mg PO DAILY [facility] Last Admin: 03/26/23 08:09 Dose: 100 mg Thiamine Mononitrate (Thiamine 100 Mg Tablet) 100 mg PO DAILY [facility] Last Admin: 03/26/23 08:19 Dose: Not Given Allergies hydrocodone Allergy (Verified 03/25/23 10:27) ADR-Nausea morphine Allergy (Verified 03/25/23 10:27) ADR-Drowsy oxycodone [From OxyContin] Allergy (Verified 03/25/23 10:27) ADR-Nausea Home Medications lactulose 10 gram/15 mL oral solution (Constulose) 30 ml PO .ONCE TO TWICE DAILY PRN Constipation 02/21/20 [History Confirmed 03/25/23] multivitamin (Multiple Vitamins tablet) 1 tab PO DAILY 06/18/20 [History Confirmed 03/25/23] thiamine HCl (vitamin B1) 100 mg tablet (Vitamin B-1) 100 mg PO DAILY 06/18/20 [History Confirmed 03/25/23] compression socks, x-large #2 ea 03/12/22 [Rx Confirmed 03/25/23] bumetanide 1 mg tablet 0.5 mg PO DAILY 03/03/23 [History Confirmed 03/25/23] tadalafil 10 mg tablet 10 mg PO DAILY PRN Sexual Activity 03/03/23 [History Confirmed 03/25/23] Discharge Plan Discharge Patient Disposition: Xfer Other Condition: Stable Prescriptions: No Action lactulose [Constulose] 10 gram/15 mL Solution 30 ml PO .ONCE TO TWICE DAILY PRN (Reason: Constipation) multivitamin [Multiple Vitamins] Tablet 1 tab PO DAILY thiamine HCl (vitamin B1) [Vitamin B-1] 100 mg Tablet 100 mg PO DAILY (DME) compression socks, x-large Misc See Rx Instructions .Route Qty: 2 4RF Rx Instructions: As directed bumetanide 1 mg tablet 0.5 mg PO DAILY tadalafil 10 mg Tablet 10 mg PO DAILY PRN (Reason: Sexual Activity) Rx Instructions: administer approximately 30min before sexual activity; do not use more than 1 dose per 24hrs Discharge Orders: Transfer Out of Facility (Order); Ordered 04/01/23 Ordered By: Vandana Ma Referrals: Manny Guzman DO [Primary Care Provider] - Patient Instructions: Hyponatremia (ED), Benzodiazepine Use Disorder (ED), Dementia (ED), Non-diabetic Hypoglycemia (ED), Hypoglycemia in a Person with Diabetes (ED), Concussion (ED), Alcohol Intoxication (ED), Subarachnoid Hemorrhage (GEN), Altered Mental Status (ED) Transfer Attestations Time Spent in Transfer Care: greater than 30 min Quality Metrics Clinical Quality Measures [ No reported AMI, CVA or VTE this stay] Coding Level of Care Code Acute Code for g Fwd Diagnoses ARMEN (acute kidney injury) N17.9
== END 2023-04-01 00:39 | disposition short-term general hospital (02) | DRG 871 ==
LOC: ER 12:34 → ICU 12:43
PROVIDERS: Hospitalist; Internal Medicine; Admitting Provider Family Medicine; Emergency Provider Family Medicine; PCP Internal Medicine; Visit Provider Family Medicine
DX: A41.9 Sepsis, unspecified organism (principal); G93.41 Metabolic encephalopathy; K65.2 Spontaneous bacterial peritonitis; R65.21 Severe sepsis with septic shock; N17.0 Acute kidney failure with tubular necrosis; L03.116 Cellulitis of left lower limb; L03.115 Cellulitis of right lower limb; E87.20 Acidosis, unspecified; K56.609 Unspecified intestinal obstruction, unspecified as to partial versus complete obstruction; B96.89 Other specified bacterial agents as the cause of diseases classified elsewhere; K70.31 Alcoholic cirrhosis of liver with ascites; F10.11 Alcohol abuse, in remission; D63.1 Anemia in chronic kidney disease; N18.9 Chronic kidney disease, unspecified; E83.42 Hypomagnesemia; E87.6 Hypokalemia; I95.9 Hypotension, unspecified; E16.2 Hypoglycemia, unspecified
CPT/HCPCS: 36415; 36416; 36592; 36600; 51702; 51798; 70450; 71045; 71260; 71275; 73700; 74018; 74176; 74177; 76705; 76770; 80048; 80051; 80053; 80061; 80074; 80202; 80305; 80306; 80307; 80503; 81001; 82009; 82140; 82247; 82248; 82330; 82533; 82550; 82803; 82805; 82962; 82977; 83010; 83036; 83605; 83615; 83690; 83735; 83880; 84100; 84145; 84295; 84443; 84484; 85025; 85362; 85378; 85384; 85610; 85651; 85730; 86140; 87040; 87070; 87075; 87077; 87086; 87205; 87486; 87493; 87581; 87633; 87641; 87806; 92507; 92523; 92526; 92610; 93005; 93970; 94664; 96372; 96376; 97161; 97167; 97530; 99285; A6252; C9113; J0456; J0696; J1650; J1940; J2060; J2185; J2270; J2543; J3370; J3411; J3475; J3490; J7030; J7040; J7042; J7050; J7060; J7070; J7120; P9046; P9047; Q3014; Q9967

== ENCOUNTER → 2023-04-24 08:27 | Outpatient (BNVA) | payer MEDICARE, MEDICAID, SELFPAY | PROVIDERS: PCP Internal Medicine; Visit Provider Thoracic Surgery (Cardiothoracic Vascular Surgery) | DX: E11.52 Type 2 diabetes mellitus with diabetic peripheral angiopathy with gangrene (principal); L97.412 Non-pressure chronic ulcer of right heel and midfoot with fat layer exposed; L97.422 Non-pressure chronic ulcer of left heel and midfoot with fat layer exposed | CPT/HCPCS: 11042; 97597; 97598; 99213 ==

== ENCOUNTER → 2023-05-01 08:57 | Outpatient (BNVA) | payer MEDICARE, MEDICAID, SELFPAY | PROVIDERS: PCP Internal Medicine; Visit Provider Thoracic Surgery (Cardiothoracic Vascular Surgery) | DX: E11.52 Type 2 diabetes mellitus with diabetic peripheral angiopathy with gangrene (principal); L97.412 Non-pressure chronic ulcer of right heel and midfoot with fat layer exposed; L97.422 Non-pressure chronic ulcer of left heel and midfoot with fat layer exposed | CPT/HCPCS: 11042; 97597 ==

== ENCOUNTER → 2023-05-08 07:54 | Outpatient (BNVA) | payer MEDICARE, MEDICAID, SELFPAY | PROVIDERS: PCP Internal Medicine; Visit Provider Thoracic Surgery (Cardiothoracic Vascular Surgery) | DX: E11.52 Type 2 diabetes mellitus with diabetic peripheral angiopathy with gangrene (principal); L97.412 Non-pressure chronic ulcer of right heel and midfoot with fat layer exposed; L97.422 Non-pressure chronic ulcer of left heel and midfoot with fat layer exposed | CPT/HCPCS: 11042; 97597; A6210; A6219 ==

== ENCOUNTER → 2023-05-15 07:57 | Outpatient (BNVA) | payer MEDICARE, MEDICAID, SELFPAY | PROVIDERS: PCP Internal Medicine; Visit Provider Thoracic Surgery (Cardiothoracic Vascular Surgery) | DX: E11.52 Type 2 diabetes mellitus with diabetic peripheral angiopathy with gangrene (principal); L97.422 Non-pressure chronic ulcer of left heel and midfoot with fat layer exposed; L97.412 Non-pressure chronic ulcer of right heel and midfoot with fat layer exposed | CPT/HCPCS: 11042; 97597; A6212 ==

== ENCOUNTER → 2023-05-29 07:52 | Outpatient (BNVA) | payer MEDICARE, MEDICAID, SELFPAY | PROVIDERS: PCP Internal Medicine; Visit Provider Thoracic Surgery (Cardiothoracic Vascular Surgery) | DX: E11.52 Type 2 diabetes mellitus with diabetic peripheral angiopathy with gangrene (principal); L97.422 Non-pressure chronic ulcer of left heel and midfoot with fat layer exposed; L97.412 Non-pressure chronic ulcer of right heel and midfoot with fat layer exposed | CPT/HCPCS: 11042; 97597 ==

== ENCOUNTER → 2023-05-30 15:18 | Outpatient (BNVA) | payer MEDICARE, MEDICAID, SELFPAY | PROVIDERS: PCP Internal Medicine; Visit Provider Internal Medicine Cardiovascular Disease | DX: R07.9 Chest pain, unspecified (principal); I44.0 Atrioventricular block, first degree; I50.9 Heart failure, unspecified; K74.60 Unspecified cirrhosis of liver; E11.22 Type 2 diabetes mellitus with diabetic chronic kidney disease; N18.9 Chronic kidney disease, unspecified; E11.51 Type 2 diabetes mellitus with diabetic peripheral angiopathy without gangrene; D63.1 Anemia in chronic kidney disease | CPT/HCPCS: 93005; 93246; 99204 ==

== ENCOUNTER → 2023-06-05 07:55 | Outpatient (BNVA) | payer MEDICARE, MEDICAID, SELFPAY | PROVIDERS: PCP Internal Medicine; Visit Provider Nurse Practitioner Family | DX: E11.52 Type 2 diabetes mellitus with diabetic peripheral angiopathy with gangrene (principal); L89.622 Pressure ulcer of left heel, stage 2 | CPT/HCPCS: 97597 ==

== ENCOUNTER 2023-06-12 09:01 | Outpatient (CLI) | payer MEDICARE, MEDICAID, SELFPAY ==
--- NOTE | 2023-06-12 08:45 | USCV_ITS ---
Kyle Conde Age: 57 Gender: M : 1965 Exam Date: 06/12/2023 09:14 Ordering Phys: Gopi Farr MD ([email or web address]) Technologist: Izabel Vergara Exam Location: [facility] [place] Indication: SHER BP: 118 / 62 HR: 72 Rhythm: Sinus Technical Quality: Good MEASUREMENTS (Male / Female) Normal Values 2D ECHO LV Diastolic Diameter PLAX 4.6 cm 4.2 - 5.9 / 3.9 - 5.3 cm LV Systolic Diameter PLAX 3.0 cm IVS Diastolic Thickness 1.1 cm 0.6 - 1.0 / 0.6 - 0.9 cm IVS Systolic Thickness 1.8 cm LVPW Diastolic Thickness 0.8 cm 0.6 - 1.0 / 0.6 - 0.9 cm LVPW Systolic Thickness 1.7 cm LVOT Diameter 2.1 cm LV Ejection Fraction 2D Teich 63.8 % LV Ejection Fraction MOD 2C 47.3 % LV Ejection Fraction 2C AL 45.5 % LA Diameter 4.1 cm LA Width 2.7 cm LA Height 5.1 cm RA Width 3.8 cm RA Height 5.7 cm Aorta at Sinotubular Diameter 3.8 cm IVC Diameter 1.3 cm M-MODE Aortic Annulus Diameter 2.9 cm LA Ao Ratio MM 1.4 MV E Point Septal Separation 0.6 cm DOPPLER AV Peak Velocity 115.0 cm/s LVOT Peak Velocity 109.0 cm/s AV Area Cont Eq vti 3.4 cm squared AV Area Cont Eq pk 3.3 cm squared MV Peak Velocity 95.0 cm/s MV Area PHT 4.5 cm squared Mitral E to A Ratio 1.0 MV E' Velocity 41.0 cm/s Mitral E to MV E' Ratio 6.7 Mitral E to LV E' Lateral Ratio 5.2 Mitral E to LV E' Septal Ratio 9.6 TR Peak Velocity 77.0 cm/s TR Peak Gradient 2.4 mmHg Right Atrial Pressure 5.0 mmHg Pulmonary Artery Systolic Pressu 7.4 mmHg PV Peak Velocity 94.0 cm/s RV Acceleration Time 0.1 s RV Ejection Time 0.3 s RV AcT/ET 0.5 FINDINGS Left Ventricle Normal left ventricular size and systolic function, EF 56 %. No regional wall motion abnormalities. Right Ventricle The right ventricle is normal in size and function. Right Atrium The right atrium is normal in size. Left Atrium The left atrium is normal in size. Mitral Valve No gross abnormalities noted Aortic Valve Minimally thickened aortic valve Tricuspid Valve Trace tricuspid valve regurgitation. Pulmonic Valve No gross abnormalities noted Pericardium Appears to have moderate left-sided pleural effusion Aorta Normal aortic annulus size. IVC Normal inferior vena cava. CONCLUSIONS Normal left ventricular size and systolic function, EF 56 %. No regional wall motion abnormalities. Normal cardiac chamber sizes. Minimally thickened aortic valve. Trace tricuspid valve regurgitation. Estimated pulmonary artery peak systolic pressure possibly within normal limits. There is no pericardial effusion. There are no intracardiac masses. Appears to have moderate left-sided pleural effusion No similar previous studies are available for comparison Dr Gopi Farr MD FACC (Electronically Signed) Final Date: 15 June 2023 08:40 S
== END 2023-06-12 09:02 | disposition home or self-care (01) ==
LOC: RAD 09:02
PROVIDERS: PCP Internal Medicine; Visit Provider Internal Medicine Cardiovascular Disease
DX: R06.09 Other forms of dyspnea (principal); E11.52 Type 2 diabetes mellitus with diabetic peripheral angiopathy with gangrene; L97.411 Non-pressure chronic ulcer of right heel and midfoot limited to breakdown of skin; L97.421 Non-pressure chronic ulcer of left heel and midfoot limited to breakdown of skin
CPT/HCPCS: 11042; 93306; 97597

== ENCOUNTER 2023-06-16 10:49 | Outpatient (CLI) | payer MEDICARE, MEDICAID, SELFPAY ==
--- NOTE | 2023-06-16 11:10 | US_ITS ---
WS: [id number] RIGHT UPPER QUADRANT ULTRASOUND HISTORY: ALCOHOLIC CIRRHOSIS W/ASCITES COMPARISON: 10/21/2022 Liver: 12.6 cm in length. Small liver. Progression of the heterogeneous appearance of the entire live r since the prior study. Nodular surface of the liver. No mass is identified. No bile duct dilatation . Portal Vein: Small caliber portal vein. There is still normal directional flow. There may be cavernou s transformation. Gallbladder: Normally distended gallbladder. Numerous stones are filling the gallbladder lumen. No pe richolecystic fluid. CBD: 0.5 cm, patient does have a common bile duct stent but this is poorly visualized. Pancreas: Normal size and echogenicity. Right kidney: 12.0 cm in length. Normal size kidney. There is a cortical cyst in the lower pole measu ring 3.3 x 2.9 x 2.7 cm. Aorta and IVC: Unremarkable abdominal aorta and IVC. No ascites. IMPRESSION: 1. Cirrhotic liver. There is no bile duct dilatation. No mass identified. 2. Common bile duct stent is noted. No common bile duct dilatation. 3. No ascites. 4. RIGHT renal cyst.
== END 2023-06-16 10:50 | disposition home or self-care (01) ==
PROVIDERS: PCP Internal Medicine; Visit Provider Internal Medicine Gastroenterology
DX: K70.31 Alcoholic cirrhosis of liver with ascites (principal); K76.82 Hepatic encephalopathy; N28.1 Cyst of kidney, acquired
CPT/HCPCS: 76705

== ENCOUNTER → 2023-06-19 07:52 | Outpatient (BNVA) | payer MEDICARE, MEDICAID, SELFPAY | PROVIDERS: PCP Internal Medicine; Visit Provider Thoracic Surgery (Cardiothoracic Vascular Surgery) | DX: E11.52 Type 2 diabetes mellitus with diabetic peripheral angiopathy with gangrene (principal); L97.422 Non-pressure chronic ulcer of left heel and midfoot with fat layer exposed; L97.412 Non-pressure chronic ulcer of right heel and midfoot with fat layer exposed | CPT/HCPCS: 11042; 97597 ==

== ENCOUNTER → 2023-06-26 08:11 | Outpatient (BNVA) | payer MEDICARE, MEDICAID, SELFPAY | PROVIDERS: PCP Internal Medicine; Visit Provider Thoracic Surgery (Cardiothoracic Vascular Surgery) | DX: E11.52 Type 2 diabetes mellitus with diabetic peripheral angiopathy with gangrene (principal); L97.422 Non-pressure chronic ulcer of left heel and midfoot with fat layer exposed; L97.412 Non-pressure chronic ulcer of right heel and midfoot with fat layer exposed; S81.812D Laceration without foreign body, left lower leg, subsequent encounter; S81.811D Laceration without foreign body, right lower leg, subsequent encounter; S91.312D Laceration without foreign body, left foot, subsequent encounter; X58.XXXD Exposure to other specified factors, subsequent encounter | CPT/HCPCS: 11042; 11045; 97597; 97598 ==

== ENCOUNTER → 2023-07-03 07:58 | Outpatient (BNVA) | payer MEDICARE, MEDICAID, SELFPAY | PROVIDERS: PCP Internal Medicine; Visit Provider Thoracic Surgery (Cardiothoracic Vascular Surgery) | DX: E11.52 Type 2 diabetes mellitus with diabetic peripheral angiopathy with gangrene (principal); E11.621 Type 2 diabetes mellitus with foot ulcer; L97.412 Non-pressure chronic ulcer of right heel and midfoot with fat layer exposed; L97.421 Non-pressure chronic ulcer of left heel and midfoot limited to breakdown of skin; L97.521 Non-pressure chronic ulcer of other part of left foot limited to breakdown of skin; E11.622 Type 2 diabetes mellitus with other skin ulcer; L97.812 Non-pressure chronic ulcer of other part of right lower leg with fat layer exposed; L97.822 Non-pressure chronic ulcer of other part of left lower leg with fat layer exposed | CPT/HCPCS: 11042; 11045; 97597; 97598 ==

== ENCOUNTER → 2023-07-10 07:56 | Outpatient (BNVA) | payer MEDICARE, MEDICAID, SELFPAY | PROVIDERS: PCP Internal Medicine; Visit Provider Nurse Practitioner Family | DX: E11.52 Type 2 diabetes mellitus with diabetic peripheral angiopathy with gangrene (principal); E11.621 Type 2 diabetes mellitus with foot ulcer; L97.422 Non-pressure chronic ulcer of left heel and midfoot with fat layer exposed; L97.412 Non-pressure chronic ulcer of right heel and midfoot with fat layer exposed; S80.812D Abrasion, left lower leg, subsequent encounter; S80.811D Abrasion, right lower leg, subsequent encounter; S90.812D Abrasion, left foot, subsequent encounter; W01.0XXD Fall on same level from slipping, tripping and stumbling without subsequent striking against object, subsequent encounter | CPT/HCPCS: 11042; 97597; A6212 ==

== ENCOUNTER → 2023-07-17 08:01 | Outpatient (BNVA) | payer MEDICARE, MEDICAID, SELFPAY | PROVIDERS: PCP Internal Medicine; Visit Provider Thoracic Surgery (Cardiothoracic Vascular Surgery) | DX: E11.52 Type 2 diabetes mellitus with diabetic peripheral angiopathy with gangrene (principal); E11.621 Type 2 diabetes mellitus with foot ulcer; L97.421 Non-pressure chronic ulcer of left heel and midfoot limited to breakdown of skin; L97.522 Non-pressure chronic ulcer of other part of left foot with fat layer exposed; E11.622 Type 2 diabetes mellitus with other skin ulcer; L97.812 Non-pressure chronic ulcer of other part of right lower leg with fat layer exposed | CPT/HCPCS: 11042; 97597; A6212 ==

== ENCOUNTER → 2023-07-24 07:47 | Outpatient (BNVA) | payer MEDICARE, MEDICAID, SELFPAY | PROVIDERS: PCP Internal Medicine; Visit Provider Thoracic Surgery (Cardiothoracic Vascular Surgery) | DX: E11.52 Type 2 diabetes mellitus with diabetic peripheral angiopathy with gangrene (principal); E11.621 Type 2 diabetes mellitus with foot ulcer; L97.422 Non-pressure chronic ulcer of left heel and midfoot with fat layer exposed; L97.812 Non-pressure chronic ulcer of other part of right lower leg with fat layer exposed; Z09 Encounter for follow-up examination after completed treatment for conditions other than malignant neoplasm | CPT/HCPCS: 97597; A6212 ==

== ENCOUNTER → 2023-07-31 07:57 | Outpatient (BNVA) | payer MEDICARE, MEDICAID, SELFPAY | PROVIDERS: PCP Internal Medicine; Visit Provider Thoracic Surgery (Cardiothoracic Vascular Surgery) | DX: E11.52 Type 2 diabetes mellitus with diabetic peripheral angiopathy with gangrene (principal); E11.621 Type 2 diabetes mellitus with foot ulcer; L97.421 Non-pressure chronic ulcer of left heel and midfoot limited to breakdown of skin; E11.622 Type 2 diabetes mellitus with other skin ulcer; L97.811 Non-pressure chronic ulcer of other part of right lower leg limited to breakdown of skin | CPT/HCPCS: 97597; A6212 ==

== ENCOUNTER → 2023-08-07 07:54 | Outpatient (BNVA) | payer MEDICARE, MEDICAID, SELFPAY | PROVIDERS: PCP Internal Medicine; Visit Provider Thoracic Surgery (Cardiothoracic Vascular Surgery) | DX: E11.52 Type 2 diabetes mellitus with diabetic peripheral angiopathy with gangrene (principal); E11.621 Type 2 diabetes mellitus with foot ulcer; L97.412 Non-pressure chronic ulcer of right heel and midfoot with fat layer exposed; L97.421 Non-pressure chronic ulcer of left heel and midfoot limited to breakdown of skin; E11.622 Type 2 diabetes mellitus with other skin ulcer; L97.811 Non-pressure chronic ulcer of other part of right lower leg limited to breakdown of skin | CPT/HCPCS: 11042; 97597; A6212 ×2 ==

== ENCOUNTER → 2023-08-14 08:46 | Outpatient (BNVA) | payer MEDICARE, MEDICAID, SELFPAY | PROVIDERS: PCP Internal Medicine; Visit Provider Nurse Practitioner Family | DX: E11.52 Type 2 diabetes mellitus with diabetic peripheral angiopathy with gangrene (principal); E11.621 Type 2 diabetes mellitus with foot ulcer; L97.411 Non-pressure chronic ulcer of right heel and midfoot limited to breakdown of skin; E11.622 Type 2 diabetes mellitus with other skin ulcer; L97.811 Non-pressure chronic ulcer of other part of right lower leg limited to breakdown of skin; Z09 Encounter for follow-up examination after completed treatment for conditions other than malignant neoplasm | CPT/HCPCS: 97597; A6212 ==

== ENCOUNTER → 2023-08-21 07:56 | Outpatient (BNVA) | payer MEDICARE, MEDICAID, SELFPAY | PROVIDERS: PCP Internal Medicine; Visit Provider Thoracic Surgery (Cardiothoracic Vascular Surgery) | DX: E11.52 Type 2 diabetes mellitus with diabetic peripheral angiopathy with gangrene (principal); E11.621 Type 2 diabetes mellitus with foot ulcer; L97.411 Non-pressure chronic ulcer of right heel and midfoot limited to breakdown of skin; E11.622 Type 2 diabetes mellitus with other skin ulcer; L97.811 Non-pressure chronic ulcer of other part of right lower leg limited to breakdown of skin | CPT/HCPCS: 97597 ==

== ENCOUNTER → 2023-08-28 07:55 | Outpatient (BNVA) | payer MEDICARE, MEDICAID, SELFPAY | PROVIDERS: PCP Internal Medicine; Visit Provider Thoracic Surgery (Cardiothoracic Vascular Surgery) | DX: Z09 Encounter for follow-up examination after completed treatment for conditions other than malignant neoplasm (principal); Z87.2 Personal history of diseases of the skin and subcutaneous tissue | CPT/HCPCS: 99212 ==

== ENCOUNTER 2024-07-25 09:04 | Outpatient (CLI) | payer MEDICARE, SELFPAY ==
--- NOTE | 2024-07-25 09:09 | US_ITS ---
WS: [id number] ULTRASOUND ABDOMEN LIMITED CLINICAL INFORMATION: LIVER CANCER SCREENING COMPARISON: None. FINDINGS: Liver Size: Cirrhotic. Craniocaudal length: 14.8 cm. Echogenicity: Coarse Surface nodularity: Cirrhotic Mass (size and location): None. Bile ducts Intrahepatic ducts: Normal. Common bile duct diameter: 0.4 cm. Gallbladder Cholelithiasis Gallstones: Present Gallbladder sludge: None. Gallbladder wall thickening: None. Pericholecystic fluid: None. Sonographic Howard sign: Absent. Pancreas not well visualized Right kidney: Simple cyst superior pole described below Hydronephrosis: None. Size: 11.1 cm x 5.5 cm x 5.2 cm. Abdominal aorta and IVC Visualized portions are otherwise normal. US/US liver [id number] IMPRESSION: 1. Cirrhotic liver. No focal liver lesions. 2. Dense shadowing cholelithiasis. No gallbladder wall thickening or perichole cystic fluid. 3. TIPS visualized. Portal venous and hepatic venous flow is noted proximal an d distal to the stent. 4. No hydronephrosis in the RIGHT kidney. 5. Simple cyst superior pole RIGHT kidney measuring 4.6 x 4.3 cm 6. Normal common bile duct
== END 2024-07-25 09:05 | disposition home or self-care (01) ==
LOC: RAD 09:06
PROVIDERS: PCP Internal Medicine; Visit Provider Internal Medicine Gastroenterology
DX: K70.31 Alcoholic cirrhosis of liver with ascites (principal); K72.90 Hepatic failure, unspecified without coma; K80.20 Calculus of gallbladder without cholecystitis without obstruction; N28.1 Cyst of kidney, acquired
CPT/HCPCS: 76705